=== PATIENT | female | born 1975 | race Caucasian/White ===

== ENCOUNTER 2016-08-30 15:21 | Emergency (ER) | payer OTHER ==
[2016-08-30] MEDS ORDERED: SODIUM CHLORIDE 0.9% 1,000 ML IV STA (16:37)
[2016-08-30 16:57] VITALS: RESP 14
[2016-08-30 17:04] LABS: Basophils % (A) 0 %; CH 26.5; CHCM 32.5; Eosinophils # (A) 0.1 k/uL (0-0.7); Eosinophils % (A) 1 %; HCT 30.1 % (34.0-46.0); HDW 3.22; HGB 9.8 gm/dL (11.4-16.0); Hypochromasia Slight; Luc # (Auto) 0.14; Luc % (Auto) 2; Lymphocytes % (A) 17 %; MCH 26.7 pg (25.0-35.0); MCHC 32.7 g/dL (31.0-37.0); MCV 81.7 fL (80.0-100.0); Mean Platelet Volume 8.8; Monocytes # (A) 0.4 k/uL (0-1.0); Monocytes % (A) 6 %; Neutrophils # (A) 4.3 k/uL (1.3-7.7); Neutrophils % (A) 73 %; RBC 3.68 m/uL (3.80-5.40); RDW 15.8 % (11.5-15.5); WBC 5.9 k/uL (3.8-10.6); WBC (Perox) 5.82
--- NOTE | 2016-08-30 17:13 | ED ---
General Adult HPI - General Chief complaint: Recheck/Abnormal Lab/Rx Stated complaint: Dizzy Time Seen by Provider: 08/30/16 16:36 Source: patient, RN notes reviewed, old records reviewed Mode of arrival: wheelchair Limitations: no limitations - History of Present Illness Initial comments: This is a 41-year-old female the ER for evaluation. Patient reevaluated evaluation of left-sided cramping and weakness. Patient has history of this similar symptoms. Medical history also of all thyroid cancer. Patient states she's had low calcium in the past. Denies appetite been poor at this time. No nausea vomiting diarrhea. No fevers. No new medications. - Related Data Home Medications Medication Instructions Recorded Confirmed Calcitriol 0.25 mcg PO BID 02/17/16 08/30/16 Cholecalciferol (Vitamin D3) 1,000 unit PO DAILY 04/06/16 08/30/16 [Vitamin D] Magnesium Oxide [Magnesium] 500 mg PO HS 04/26/16 08/30/16 LORazepam [Ativan] 1 mg PO Q8H PRN 05/23/16 08/30/16 cloNIDine HCL 0.3 mg PO HS 05/23/16 08/30/16 cloNIDine HCL [Catapres] 0.1 mg PO BID@0800,1200 05/23/16 08/30/16 Cyanocobalamin [Vitamin B-12] 500 mcg PO DAILY 06/05/16 08/30/16 Diphenoxylate HCl/Atropine 1 tab PO Q6H PRN 06/05/16 08/30/16 [Lomotil] Famotidine [Pepcid] 20 mg PO BID 06/05/16 08/30/16 Levothyroxine Sodium [Synthroid] 200 mcg PO DAILY 08/30/16 08/30/16 Previous Rx's Medication Instructions Recorded Hydrocodone/Acetaminophen [[place] 1 each PO Q6HR PRN #15 tab 06/28/16 5-325] Allergies Allergy/AdvReac Type Severity Reaction Status Date / Time methylprednisolone Allergy Rash/Hives Verified 08/30/16 16:43 [From Medrol] ondansetron HCl Allergy Rash/Hives Verified 08/30/16 16:43 [From Zofran (as hydrochloride)] Penicillins Allergy Rash/Hives Verified 08/30/16 16:43 sulfamethoxazole Allergy Rash/Hives Verified 08/30/16 16:43 [From Bactrim] trimethoprim [From Bactrim] Allergy Rash/Hives Verified 08/30/16 16:43 Review of Systems ROS Statement: Those systems with pertinent positive or pertinent negative responses have been documented in the HPI. ROS Other: All systems not noted in ROS Statement are negative. Past Medical History Past Medical History: Cancer, Thyroid Disorder Additional Past Medical History / Comment(s): thyroid CA in the past, low calcium, IBS. Gonorrhea History of Any Multi-Drug Resistant Organisms: None Reported Past Surgical History: Tubal Ligation Additional Past Surgical History / Comment(s): PARA THYROIDECTOMY, THYROIDECTOMY , breast reduction Past Anesthesia/Blood Transfusion Reactions: No Reported Reaction Past Psychological History: Anxiety, Depression, Panic Disorder Smoking Status: Never smoker Past Alcohol Use History: None Reported Additional Past Alcohol Use History / Comment(s): Patient states she is a nonsmoker. She denies any medical marijuana, marijuana, street drug or alcohol use. She is currently from her complaining for divorce. She lives with her 3 children 16, 9 and 4 years of age. Past Drug Use History: None Reported - Past Family History Mother Family Medical History: Myocardial Infarction ([place]) Additional Family Medical History / Comment(s): Mother at age 48 from a myocardial infarction. Father Family Medical History: Myocardial Infarction ([place]) Additional Family Medical History / Comment(s): Father from a myocardial infarction. Brother(s) Additional Family Medical History / Comment(s): Patient has 4 brothers and all have mental health issues with alcoholism and drug addiction. She has 1 brother that at age 38 from a myocardial infarction. Sister(s) Additional Family Medical History / Comment(s): Patient has 6 sisters and one has PFO. Son(s) Additional Family Medical History / Comment(s): Patient has 3 sons. 16-year- old son was born with ureteral duplication, sickle cell trait, bipolar, ADHD. 9 -year-old son has ADHD and sleep disorder. 4-year-old son has no medical problems General Exam Limitations: no limitations General appearance: alert, in no apparent distress Head exam: Present: atraumatic, normocephalic, normal inspection Eye exam: Present: normal appearance, PERRL, EOMI. Absent: scleral icterus, conjunctival injection, periorbital swelling ENT exam: Present: normal exam, mucous membranes moist Neck exam: Present: normal inspection. Absent: tenderness, meningismus, lymphadenopathy Respiratory exam: Present: normal lung sounds bilaterally. Absent: respiratory distress, wheezes, rales, rhonchi, stridor Cardiovascular Exam: Present: regular rate, normal rhythm, normal heart sounds. Absent: systolic murmur, diastolic murmur, rubs, gallop, clicks GI/Abdominal exam: Present: soft, normal bowel sounds. Absent: distended, tenderness, guarding, rebound, rigid Extremities exam: Present: normal inspection, full ROM, normal capillary refill. Absent: tenderness, pedal edema, joint swelling, calf tenderness Back exam: Present: normal inspection Neurological exam: Present: alert, oriented X3, CN II-XII intact Psychiatric exam: Present: normal affect, normal mood Skin exam: Present: warm, dry, intact, normal color. Absent: rash Course Vital Signs 08/30/16 08/30/16 08/30/16 15:26 16:56 17:31 Temperature 97.8 F 97.5 F L Pulse Rate 70 66 58 L Respiratory 20 14 14 Rate Blood Pressure 81/50 83/50 95/53 O2 Sat by Pulse 100 100 98 Oximetry - Reevaluation(s) Reevaluation #1: 08/30/16 17:34 Patient consult regarding follow-up, will increase her calcium intake. EKG Findings - EKG Comments: EKG Findings:: EKG shows normal sinus rhythm at 60, PA 134, QRS 78, QTC 500 Medical Decision Making - Medical Decision Making 41 female ER for evaluation of muscle cramping, patient is having cramping with low calcium, patient can be discharged and increased calcium supplementation - Lab Data Result diagrams: 08/30/16 16:50 08/30/16 16:50 Lab Results 08/30/16 08/30/16 Range/Units 16:50 16:50 WBC 5.9 (3.8-10.6) k/uL RBC 3.68 L (3.80-5.40) m/uL Hgb 9.8 L (11.4-16.0) gm/dL Hct 30.1 L (34.0-46.0) % MCV 81.7 (80.0-100.0) fL MCH 26.7 (25.0-35.0) pg MCHC 32.7 (31.0-37.0) g/dL RDW 15.8 H (11.5-15.5) % Plt Count 281 (150-450) k/uL Neutrophils % 73 % Lymphocytes % 17 % Monocytes % 6 % Eosinophils % 1 % Basophils % 0 % Neutrophils # 4.3 (1.3-7.7) k/uL Lymphocytes # 1.0 (1.0-4.8) k/uL Monocytes # 0.4 (0-1.0) k/uL Eosinophils # 0.1 (0-0.7) k/uL Basophils # 0.0 (0-0.2) k/uL Hypochromasia Slight Sodium 143 (137-145) mmol/L Potassium 4.2 (3.5-5.1) mmol/L Chloride 106 (98-107) mmol/L Carbon Dioxide 28 (22-30) mmol/L Anion Gap 9 mmol/L BUN 19 H (7-17) mg/dL Creatinine 0.90 (0.52-1.04) mg/dL Est GFR (MDRD) Af Amer >60 (>60 ml/min/1.73 sqM) Est GFR (MDRD) Non-Af >60 (>60 ml/min/1.73 sqM) Glucose 104 H (74-99) mg/dL Calcium 8.1 L (8.4-10.2) mg/dL Phosphorus 4.4 (2.5-4.5) mg/dL Magnesium 2.3 (1.6-2.3) mg/dL Total Bilirubin 0.3 (0.2-1.3) mg/dL AST 14 (14-36) U/L ALT 28 (9-52) U/L Alkaline Phosphatase 81 (38-126) U/L Total Protein 6.2 L (6.3-8.2) g/dL Albumin 3.7 (3.5-5.0) g/dL Disposition Clinical Impression: Hypocalcemia Disposition: HOME SELF-CARE Condition: Good Instructions: Hypocalcemia (ED) Referrals: Lisa Wray MD [Primary Care Provider] - 1-2 days
[2016-08-30 17:14] LABS: ALT 28 U/L (9-52); AST 14 U/L (14-36); Alkaline Phosphatase 81 U/L (38-126); Anion Gap 9 mmol/L; Blood Urea Nitrogen 19 mg/dL (7-17); Calcium 8.1 mg/dL (8.4-10.2); Carbon Dioxide 28 mmol/L (22-30); Chloride 106 mmol/L (98-107); Glucose 104 mg/dL (74-99); Magnesium 2.3 mg/dL (1.6-2.3); Non-African American GFR(MDRD) >60 (>60 ml/min/1.73 sqM); Phosphorous 4.4 mg/dL (2.5-4.5); Potassium 4.2 mmol/L (3.5-5.1); Sodium 143 mmol/L (137-145); Total Bilirubin 0.3 mg/dL (0.2-1.3); Total Protein 6.2 g/dL (6.3-8.2)
[2016-08-30] MEDS ORDERED: CALCIUM CHLORIDE 100 MG/ML 10 ML SYRINGE IVP STA (17:31)
[2016-08-30] MEDS ORDERED: KETOROLAC 30 MG/ML 1 ML VIAL IVP STA (17:31)
[2016-08-30] MEDS ORDERED: CALCIUM CARB-VIT D 500MG-200UN 1 EACH TAB PO STA (17:33)
[2016-08-30 17:50] VITALS: BP 106/58; PULSE 60; TEMP 97.4
== END 2016-08-30 18:08 | disposition home or self-care (01) ==
LOC: EC 15:21
DX: E83.51 Hypocalcemia (principal); Z79.899 Other long term (current) drug therapy; E07.9 Disorder of thyroid, unspecified; Z88.0 Allergy status to penicillin; Z88.2 Allergy status to sulfonamides; Z88.8 Allergy status to other drugs, medicaments and biological substances; Z85.850 Personal history of malignant neoplasm of thyroid
CPT/HCPCS: 36415; 80053; 83735; 84100; 85025; 96374; 96375; 96361; 99284; J1885; 93005

== ENCOUNTER 2016-10-17 12:43 | Emergency (ER) | payer OTHER ==
[2016-10-17 13:02] VITALS: BP 149/89; PULSE 86; RESP 18; TEMP 97.5
[2016-10-17 14:42] LABS: Appearance,Urine Cloudy (Clear); Bilirubin,Urine Negative (Negative); Glucose,Urine (UA) Negative (Negative); Ketones,Urine Negative (Negative); Leukocyte Esterase,Urine Small (Negative); Mucus,Urine Rare /hpf; Nitrite,Urine Negative (Negative); Particle Count 3163; Protein,Urine Trace (Negative); RBC,Urine 2 /hpf (0-5); Specific Gravity,Urine 1.025 (1.001-1.035); Squamous Epithelial Cell,Urine 10 /hpf (0-4); UA Billing (MACRO vs. MICRO) MICRO; Urobilinogen,Urine <2.0 mg/dL (<2.0); WBC,Urine 2 /hpf (0-5)
[2016-10-17] MEDS ORDERED: AZITHROMYCIN 500 MG TAB PO STA (14:44)
[2016-10-17] MEDS ORDERED: metroNIDAZOLE 500 MG TAB PO STA (14:45)
[2016-10-17] MEDS ORDERED: cefTRIAXone 250 MG VIAL IM STA (14:46)
--- NOTE | 2016-10-17 14:48 | ED ---
Female Urogenital HPI - General Chief complaint: Urogenital Stated complaint: Female Source: patient, RN notes reviewed, old records reviewed Mode of arrival: ambulatory Limitations: no limitations - History of Present Illness Initial comments: Patient is 41-year-old [employer] chief complaint of vaginal itching and burning sensation for the past 3 days. Patient reports that she is concerned of sexual transmitted infection and trichomonas is that she's had treatment before had similar symptoms. She denies any significant vaginal discharge. She reports she sat some lower pelvic pain denies any specific abdominal pain. Patient denies any fever or chills. She denies any nausea or vomiting. Patient reports that she had a normal Pap smear and was checked by her primary care physician last week and had no symptoms. That she had sexual intercourse and then 3 days later she started to have the symptoms. She also reports that she' s been using a different type of soap which could be causing some irritation as well. Patient denies any other areas of rash or erythema Last Menstrual Period: 09/27/16 - Related Data Home Medications Medication Instructions Recorded Confirmed Calcitriol 0.25 mcg PO BID 02/17/16 10/17/16 Cholecalciferol (Vitamin D3) 1,000 unit PO DAILY 04/06/16 10/17/16 [Vitamin D] Magnesium Oxide [Magnesium] 500 mg PO HS 04/26/16 10/17/16 LORazepam [Ativan] 1 mg PO Q8H PRN 05/23/16 10/17/16 cloNIDine HCL 0.3 mg PO HS 05/23/16 10/17/16 cloNIDine HCL [Catapres] 0.1 mg PO BID@0800,1200 05/23/16 10/17/16 Cyanocobalamin [Vitamin B-12] 500 mcg PO DAILY 06/05/16 10/17/16 Diphenoxylate HCl/Atropine 1 tab PO Q6H PRN 06/05/16 10/17/16 [Lomotil] Famotidine [Pepcid] 20 mg PO BID 06/05/16 10/17/16 Levothyroxine Sodium [Synthroid] 200 mcg PO DAILY 08/30/16 10/17/16 Previous Rx's Medication Instructions Recorded Hydrocodone/Acetaminophen [[place] 1 each PO Q6HR PRN #15 tab 06/28/16 5-325] Allergies Allergy/AdvReac Type Severity Reaction Status Date / Time methylprednisolone Allergy Rash/Hives Verified 10/17/16 13:00 [From Medrol] ondansetron HCl Allergy Rash/Hives Verified 10/17/16 13:00 [From Zofran (as hydrochloride)] Penicillins Allergy Rash/Hives Verified 10/17/16 13:00 sulfamethoxazole Allergy Rash/Hives Verified 10/17/16 13:00 [From Bactrim] trimethoprim [From Bactrim] Allergy Rash/Hives Verified 10/17/16 13:00 Review of Systems ROS Statement: Those systems with pertinent positive or pertinent negative responses have been documented in the HPI. ROS Other: All systems not noted in ROS Statement are negative. Past Medical History Past Medical History: Cancer, Thyroid Disorder Additional Past Medical History / Comment(s): thyroid CA in the past, low calcium, IBS. Gonorrhea History of Any Multi-Drug Resistant Organisms: None Reported Past Surgical History: Tubal Ligation Additional Past Surgical History / Comment(s): PARA THYROIDECTOMY, THYROIDECTOMY , breast reduction Past Anesthesia/Blood Transfusion Reactions: No Reported Reaction Past Psychological History: Anxiety, Depression, Panic Disorder Smoking Status: Never smoker Past Alcohol Use History: None Reported Additional Past Alcohol Use History / Comment(s): Patient states she is a nonsmoker. She denies any medical marijuana, marijuana, street drug or alcohol use. She is currently from her complaining for divorce. She lives with her 3 children 16, 9 and 4 years of age. Past Drug Use History: None Reported - Past Family History Mother Family Medical History: Myocardial Infarction ([place]) Additional Family Medical History / Comment(s): Mother at age 48 from a myocardial infarction. Father Family Medical History: Myocardial Infarction ([place]) Additional Family Medical History / Comment(s): Father from a myocardial infarction. Brother(s) Additional Family Medical History / Comment(s): Patient has 4 brothers and all have mental health issues with alcoholism and drug addiction. She has 1 brother that at age 38 from a myocardial infarction. Sister(s) Additional Family Medical History / Comment(s): Patient has 6 sisters and one has PFO. Son(s) Additional Family Medical History / Comment(s): Patient has 3 sons. 16-year- old son was born with ureteral duplication, sickle cell trait, bipolar, ADHD. 9 -year-old son has ADHD and sleep disorder. 4-year-old son has no medical problems General Exam - General Exam Comments Initial Comments: Pleasant 41-year-old female. No distress. Limitations: no limitations General appearance: alert, in no apparent distress Head exam: Present: atraumatic, normocephalic, normal inspection Eye exam: Present: normal appearance, PERRL, EOMI. Absent: scleral icterus, conjunctival injection, periorbital swelling ENT exam: Present: normal exam, mucous membranes moist Neck exam: Present: normal inspection. Absent: tenderness, meningismus, lymphadenopathy Respiratory exam: Present: normal lung sounds bilaterally. Absent: respiratory distress, wheezes, rales, rhonchi, stridor Cardiovascular Exam: Present: regular rate, normal rhythm, normal heart sounds. Absent: systolic murmur, diastolic murmur, rubs, gallop, clicks GI/Abdominal exam: Present: soft, normal bowel sounds. Absent: distended, tenderness, guarding, rebound, rigid Speculum exam: Present: erythema, cervical discharge. Absent: normal speculum exam Extremities exam: Present: normal inspection, full ROM, normal capillary refill. Absent: tenderness, pedal edema, joint swelling, calf tenderness Back exam: Present: normal inspection Neurological exam: Present: alert, oriented X3, CN II-XII intact Psychiatric exam: Present: normal affect, normal mood Skin exam: Present: warm, dry, intact, normal color. Absent: rash Course Vital Signs 10/17/16 13:00 Temperature 97.5 F L Pulse Rate 86 Respiratory 18 Rate Blood Pressure 149/89 O2 Sat by Pulse 100 Oximetry Medical Decision Making - Medical Decision Making 41-year-old female 3 days of vaginal redness burning and discharge. Patient doesn't have significant discharge at this time there is mild white discharge. Patient is concerned for sexually transmitted infection. She'll be treated with azithromycin, Rocephin and Flagyl. Patient will be discharged at this time instructed to follow-up with her primary care provider. I also discussed discontinuing wearing using the new soap that she could have a contact dermatitis as well. Patient agrees with treatment plan will comply. Return parameters were discussed. - Lab Data Lab Results 10/17/16 10/17/16 10/17/16 Range/Units 14:30 14:30 14:49 Urine Color Yellow Urine Appearance Cloudy H (Clear) Urine pH 6.0 (5.0-8.0) Ur Specific [place] 1.025 (1.001-1.035) Urine Protein Trace H (Negative) Urine Glucose (UA) Negative (Negative) Urine Ketones Negative (Negative) Urine Blood Negative (Negative) Urine Nitrite Negative (Negative) Urine Bilirubin Negative (Negative) Urine Urobilinogen <2.0 (<2.0) mg/dL Ur Leukocyte Esterase Small H (Negative) Urine RBC 2 (0-5) /hpf Urine WBC 2 (0-5) /hpf Ur Squamous Epith Cells 10 H (0-4) /hpf Urine Mucus Rare H (None) /hpf Urine HCG, Qual Not Detected (Not Detectd) Trichomonas Ag (Rapid) Negative (Negative) Disposition Clinical Impression: Risk for sexually transmitted disease, Vaginal irritation Disposition: HOME SELF-CARE Condition: Good Instructions: Sexually Transmitted Diseases (ED) Additional Instructions: Patient advised to avoid using cleansing soap in the area. Follow-up with primary care provider symptoms EC if persists after the next 2 or 3 days. Return to the emergency department if any alarming signs or symptoms occur. Referrals: Lisa Wray MD [Primary Care Provider] - 1-2 days Time of Disposition: 15:22
[2016-10-18 11:30] LABS: Chlamydia/GC Source Vaginal
== END 2016-10-17 15:39 | disposition home or self-care (01) ==
LOC: EC 12:43
DX: N89.8 Other specified noninflammatory disorders of vagina (principal); E07.9 Disorder of thyroid, unspecified; K58.9 Irritable bowel syndrome, unspecified; Z85.850 Personal history of malignant neoplasm of thyroid; F32.9 Major depressive disorder, single episode, unspecified; F41.9 Anxiety disorder, unspecified; F41.0 Panic disorder [episodic paroxysmal anxiety]; Z79.899 Other long term (current) drug therapy; Z88.0 Allergy status to penicillin; Z88.2 Allergy status to sulfonamides; Z88.8 Allergy status to other drugs, medicaments and biological substances
CPT/HCPCS: 87591; 87491; 81001; 81025; 87808; 87070; 99284; 96372; J0696; 87205

== ENCOUNTER 2016-11-01 17:35 | Emergency (ER) | payer OTHER ==
[2016-11-01 17:46] VITALS: BP 127/83; PULSE 83; RESP 16; TEMP 98.1
--- NOTE | 2016-11-01 18:02 | ED ---
ENT HPI - General Chief complaint: Dental/Oral Stated complaint: DENTAL PAIN Time Seen by Provider: 11/01/16 17:53 Source: patient, RN notes reviewed Mode of arrival: ambulatory Limitations: no limitations - History of Present Illness Initial comments: Patient is a 41-year-old female presents to the emergency room for evaluation of dental pain. Patient states that her left bottom wisdom tooth has been growing in. Patient states a piece of tooth is broken off and has been causing her significant amount of pain. Patient states she has not followed up with a dentist yet. Patient states that she is afraid the tooth is getting infected. Patient denies fevers or chills. Patient states she has a headache from the pain. Patient denies any trouble swallowing. Patient denies neck pain. Patient denies any other symptoms or complaints. - Related Data Home Medications Medication Instructions Recorded Confirmed Calcitriol 0.25 mcg PO BID 02/17/16 10/17/16 Cholecalciferol (Vitamin D3) 1,000 unit PO DAILY 04/06/16 10/17/16 [Vitamin D] Magnesium Oxide [Magnesium] 500 mg PO HS 04/26/16 10/17/16 LORazepam [Ativan] 1 mg PO Q8H PRN 05/23/16 10/17/16 cloNIDine HCL 0.3 mg PO HS 05/23/16 10/17/16 cloNIDine HCL [Catapres] 0.1 mg PO BID@0800,1200 05/23/16 10/17/16 Cyanocobalamin [Vitamin B-12] 500 mcg PO DAILY 06/05/16 10/17/16 Diphenoxylate HCl/Atropine 1 tab PO Q6H PRN 06/05/16 10/17/16 [Lomotil] Famotidine [Pepcid] 20 mg PO BID 06/05/16 10/17/16 Levothyroxine Sodium [Synthroid] 200 mcg PO DAILY 08/30/16 10/17/16 Previous Rx's Medication Instructions Recorded Hydrocodone/Acetaminophen [[place] 1 each PO Q6HR PRN #15 tab 06/28/16 5-325] Clindamycin [Cleocin] 300 mg PO Q6H #40 capsule 11/01/16 Allergies Allergy/AdvReac Type Severity Reaction Status Date / Time methylprednisolone Allergy Rash/Hives Verified 11/01/16 17:46 [From Medrol] ondansetron HCl Allergy Rash/Hives Verified 11/01/16 17:46 [From Zofran (as hydrochloride)] Penicillins Allergy Rash/Hives Verified 11/01/16 17:46 sulfamethoxazole Allergy Rash/Hives Verified 11/01/16 17:46 [From Bactrim] trimethoprim [From Bactrim] Allergy Rash/Hives Verified 11/01/16 17:46 Review of Systems ROS Statement: Those systems with pertinent positive or pertinent negative responses have been documented in the HPI. ROS Other: All systems not noted in ROS Statement are negative. Past Medical History Past Medical History: Cancer, Thyroid Disorder Additional Past Medical History / Comment(s): thyroid CA in the past, low calcium, IBS. Gonorrhea History of Any Multi-Drug Resistant Organisms: None Reported Past Surgical History: Tubal Ligation Additional Past Surgical History / Comment(s): PARA THYROIDECTOMY, THYROIDECTOMY , breast reduction Past Anesthesia/Blood Transfusion Reactions: No Reported Reaction Past Psychological History: Anxiety, Depression, Panic Disorder Smoking Status: Never smoker Past Alcohol Use History: None Reported Additional Past Alcohol Use History / Comment(s): Patient states she is a nonsmoker. She denies any medical marijuana, marijuana, street drug or alcohol use. She is currently from her complaining for divorce. She lives with her 3 children 16, 9 and 4 years of age. Past Drug Use History: None Reported - Past Family History Mother Family Medical History: Myocardial Infarction ([place]) Additional Family Medical History / Comment(s): Mother at age 48 from a myocardial infarction. Father Family Medical History: Myocardial Infarction ([place]) Additional Family Medical History / Comment(s): Father from a myocardial infarction. Brother(s) Additional Family Medical History / Comment(s): Patient has 4 brothers and all have mental health issues with alcoholism and drug addiction. She has 1 brother that at age 38 from a myocardial infarction. Sister(s) Additional Family Medical History / Comment(s): Patient has 6 sisters and one has PFO. Son(s) Additional Family Medical History / Comment(s): Patient has 3 sons. 16-year- old son was born with ureteral duplication, sickle cell trait, bipolar, ADHD. 9 -year-old son has ADHD and sleep disorder. 4-year-old son has no medical problems General Exam - General Exam Comments Initial Comments: Sitting in exam room, no acute distress. Limitations: no limitations General appearance: alert, in no apparent distress Head exam: Present: atraumatic, normocephalic, normal inspection Eye exam: Present: normal appearance Expanded Mouth exam: Present: normal external inspection Teeth exam: Present: fractured tooth # (17), dental tenderness # (17) Throat exam: normal inspection Neck exam: Present: normal inspection, full ROM. Absent: tenderness, lymphadenopathy Respiratory exam: Absent: respiratory distress Extremities exam: Present: normal inspection Back exam: Present: normal inspection Neurological exam: Present: alert, oriented X3, CN II-XII intact, normal gait Psychiatric exam: Present: normal affect, normal mood Skin exam: Present: warm, dry, intact, normal color. Absent: rash Course Vital Signs 11/01/16 17:44 Temperature 98.1 F Pulse Rate 83 Respiratory 16 Rate Blood Pressure 127/83 O2 Sat by Pulse 96 Oximetry Medical Decision Making - Medical Decision Making Patient 41-year-old female presents to the emergency room for evaluation of dental pain. Patient has a fractured tooth #17. No drainage or gum swelling noted. Will place patient on antibiotics prophylactically and have her follow- up with a dentist. Patient has tramadol at home for pain. Patient states she understands everything that was discussed with her. Return parameters discussed. Disposition Clinical Impression: Pain, dental Disposition: HOME SELF-CARE Condition: Good Instructions: Toothache (ED) Additional Instructions: Please follow up with a dentist. If you do not have a dentist, you may contact [facility]. Phone number is [phone] for existing clients. For new clients you may call [phone]. Another option is you have is the [employer] [facility]. Phone number is [phone]. Medications as directed. [place] gargles. Cold fluids can sometimes help with pain as well. Return to the Emergency Room for any worsening or changing symptoms. Use cold compresses to the outside of the face. Prescriptions: Clindamycin [Cleocin] 300 mg PO Q6H #40 capsule Referrals: Lisa Wray MD [Primary Care Provider] - 1-2 days Time of Disposition: 18:01
== END 2016-11-01 18:09 | disposition home or self-care (01) ==
LOC: EC 17:35
DX: S02.5XXA Fracture of tooth (traumatic), initial encounter for closed fracture (principal); E89.0 Postprocedural hypothyroidism; Z79.899 Other long term (current) drug therapy; Z88.0 Allergy status to penicillin; Z88.1 Allergy status to other antibiotic agents; Z88.8 Allergy status to other drugs, medicaments and biological substances; Z85.850 Personal history of malignant neoplasm of thyroid; Z87.19 Personal history of other diseases of the digestive system; X58.XXXA Exposure to other specified factors, initial encounter
CPT/HCPCS: 99282

== ENCOUNTER 2016-11-11 13:07 | Emergency (ER) | payer OTHER ==
[2016-11-11] MEDS ORDERED: METOCLOPRAMIDE 5 MG/ML 2 ML VIAL IVP STA (13:11)
[2016-11-11] MEDS ORDERED: diphenhydrAMINE 50 MG/ML 1 ML VIAL IVP STA (13:11)
[2016-11-11 13:13] VITALS: RESP 18
--- NOTE | 2016-11-11 13:27 | ED ---
General Adult HPI - General Chief complaint: Nausea/Vomiting/Diarrhea Stated complaint: NAUSEA Time Seen by Provider: 11/11/16 13:14 Source: patient, EMS, RN notes reviewed, old records reviewed Mode of arrival: EMS - History of Present Illness Initial comments: Chief complaint history of present illness a 41-year-old female currently being treated with Flagyl for Trichomonas. Patient reports for the past 2 days she's had nausea vomiting and diarrhea. Also history of irritable bowel syndrome. Patient denies any fevers. - Related Data Home Medications Medication Instructions Recorded Confirmed Calcitriol 0.25 mcg PO BID 02/17/16 11/11/16 Cholecalciferol (Vitamin D3) 1,000 unit PO DAILY 04/06/16 11/11/16 [Vitamin D] Magnesium Oxide [Magnesium] 500 mg PO HS 04/26/16 11/11/16 LORazepam [Ativan] 1 mg PO Q8H PRN 05/23/16 11/11/16 cloNIDine HCL 0.3 mg PO HS 05/23/16 11/11/16 cloNIDine HCL [Catapres] 0.1 mg PO BID@0800,1200 05/23/16 11/11/16 Cyanocobalamin [Vitamin B-12] 500 mcg PO DAILY 06/05/16 11/11/16 Diphenoxylate HCl/Atropine 1 tab PO Q6H PRN 06/05/16 11/11/16 [Lomotil] Famotidine [Pepcid] 20 mg PO BID 06/05/16 11/11/16 Levothyroxine Sodium [Synthroid] 200 mcg PO DAILY 08/30/16 11/11/16 Previous Rx's Medication Instructions Recorded Clindamycin [Cleocin] 300 mg PO Q6H #40 capsule 11/01/16 Promethazine Suppository 25 mg RECTAL BID #6 supp 11/11/16 [Phenergan] Allergies Allergy/AdvReac Type Severity Reaction Status Date / Time methylprednisolone Allergy Rash/Hives Verified 11/11/16 13:23 [From Medrol] ondansetron HCl Allergy Rash/Hives Verified 11/11/16 13:23 [From Zofran (as hydrochloride)] Penicillins Allergy Rash/Hives Verified 11/11/16 13:23 sulfamethoxazole Allergy Rash/Hives Verified 11/11/16 13:23 [From Bactrim] trimethoprim [From Bactrim] Allergy Rash/Hives Verified 11/11/16 13:23 Review of Systems ROS Statement: Those systems with pertinent positive or pertinent negative responses have been documented in the HPI. Review of systems. No headache or visual acuity changes no sore throat. No chest pain or shortness of breath. She has chronic abdominal discomfort due to her IBS. She vomited 10 times last night and has had multiple diarrheas which is not uncommon. But no neuro deficits. All systems are reviewed. Past medical problems significant for irritable bowel syndrome, thyroid cancer, she also had a history of hypocalcemia because parathyroid glands removed at the same time. Patient denies any other medical problems. Family history patient was adopted she does know that her mother I at age 49 with heart disease. Patient has ALLERGIES to methylprednisolone, Zofran, penicillin and sulfa. Patient denies smoking denies drinking. ROS Other: All systems not noted in ROS Statement are negative. Past Medical History Past Medical History: Cancer, Thyroid Disorder Additional Past Medical History / Comment(s): thyroid CA in the past, low calcium, IBS. Gonorrhea, Trichomoniasis History of Any Multi-Drug Resistant Organisms: None Reported Past Surgical History: Tubal Ligation Additional Past Surgical History / Comment(s): PARA THYROIDECTOMY, THYROIDECTOMY , breast reduction Past Anesthesia/Blood Transfusion Reactions: No Reported Reaction Past Psychological History: Anxiety, Depression, Panic Disorder Smoking Status: Never smoker Past Alcohol Use History: None Reported Additional Past Alcohol Use History / Comment(s): Patient states she is a nonsmoker. She denies any medical marijuana, marijuana, street drug or alcohol use. She is currently from her complaining for divorce. She lives with her 3 children 16, 9 and 4 years of age. Past Drug Use History: None Reported - Past Family History Mother Family Medical History: Myocardial Infarction ([place]) Additional Family Medical History / Comment(s): Mother at age 48 from a myocardial infarction. Father Family Medical History: Myocardial Infarction ([place]) Additional Family Medical History / Comment(s): Father from a myocardial infarction. Brother(s) Additional Family Medical History / Comment(s): Patient has 4 brothers and all have mental health issues with alcoholism and drug addiction. She has 1 brother that at age 38 from a myocardial infarction. Sister(s) Additional Family Medical History / Comment(s): Patient has 6 sisters and one has PFO. Son(s) Additional Family Medical History / Comment(s): Patient has 3 sons. 16-year- old son was born with ureteral duplication, sickle cell trait, bipolar, ADHD. 9 -year-old son has ADHD and sleep disorder. 4-year-old son has no medical problems General Exam - General Exam Comments Initial Comments: General: The patient is awake and alert, complaining of 2 days of nausea vomiting diarrhea. Vital signs show some is 97.1 pulse 86 respiratory rate 18 pulse ox on percent room air blood pressure 139/66 Eye: Pupils are equal, round and reactive to light, extra-ocular movements are intact ; there is normal conjunctiva bilaterally. No signs of icterus. Ears, nose, mouth and throat: There are moist mucous membranes and no oral lesions. Negative Ch[place]ek sign. Neck: The neck is supple, there is no tenderness , no JVD, no anterior cervical lymphadenopathy, well-healed thyroidectomy surgical scar. Cardiovascular: There is a regular rate and rhythm. No murmur, rub or gallop is appreciated. Respiratory: Lungs are clear to auscultation, respirations are non-labored, breath sounds are equal. No wheezes, stridor, rales, or rhonchi. Gastrointestinal: Soft, non-distended, non-tender abdomen without masses or organomegaly noted. There is no rebound or guarding present. No CVA tenderness. Active bowel sounds Back: No back pain. Musculoskeletal: Normal ROM, no tenderness, There is no pedal edema. There is no calf tenderness or swelling. Sensation intact. Neurological: No neuro deficits. Denies any weakness. Skin: Skin is warm and dry and no rashes or lesions are noted. Course Vital Signs 11/11/16 11/11/16 13:08 14:54 Temperature 97.1 F L 98.8 F Pulse Rate 86 73 Respiratory 18 18 Rate Blood Pressure 139/66 116/60 O2 Sat by Pulse 100 100 Oximetry EKG Findings - EKG Comments: EKG Findings:: EKG was done and reviewed at 1326 showing normal sinus with a prolonged QT. Otherwise no acute ST elevation no ectopy or ischemic changes. Rate 76, RI interval was 144 QRS 88 QT [address] Crystal Medical Decision Making - Medical Decision Making Medical decision making patient's white count 5.3 hemoglobin 9.9 hematocrit 31.7, potassium 3.8, BUN 12 creatinine 0.6 GFR greater than 60, glucose 105, calcium low at 8.3 but a normal magnesium 2.0. Lipase 70, and urine clean no signs of infection. Patient was hydrated slept. She received IV calcium gluconate. States she feels much better. I suggested that the patient be admitted for continued hydration with rechecking of the calcium which she declines to do it this time. She reports she often has low calcium. She takes calcium tablets and vitamin D at home. She states that she can swallow the pills she can manage this at home. At this time the patient will be advised to rehydrate herself she 'll be placed on Reglan suppositories advised to follow-up with her family physician return emergency room as needed. - Lab Data Result diagrams: 11/11/16 13:20 11/11/16 13:20 Lab Results 11/11/16 11/11/16 11/11/16 Range/Units 13:20 13:20 13:20 WBC 5.3 (3.8-10.6) k/uL RBC 3.72 L (3.80-5.40) m/uL Hgb 9.9 L (11.4-16.0) gm/dL Hct 31.7 L (34.0-46.0) % MCV 85.1 (80.0-100.0) fL MCH 26.6 (25.0-35.0) pg MCHC 31.3 (31.0-37.0) g/dL RDW 15.5 (11.5-15.5) % Plt Count 263 (150-450) k/uL Neutrophils % 78 % Lymphocytes % 11 % Monocytes % 8 % Eosinophils % 1 % Basophils % 1 % Neutrophils # 4.1 (1.3-7.7) k/uL Lymphocytes # 0.6 L (1.0-4.8) k/uL Monocytes # 0.4 (0-1.0) k/uL Eosinophils # 0.0 (0-0.7) k/uL Basophils # 0.0 (0-0.2) k/uL Hypochromasia Moderate Poikilocytosis Slight Sodium 143 (137-145) mmol/L Potassium 3.8 (3.5-5.1) mmol/L Chloride 109 H (98-107) mmol/L Carbon Dioxide 23 (22-30) mmol/L Anion Gap 11 mmol/L BUN 12 (7-17) mg/dL Creatinine 0.60 (0.52-1.04) mg/dL Est GFR (MDRD) Af Amer >60 (>60 ml/min/1.73 sqM) Est GFR (MDRD) Non-Af >60 (>60 ml/min/1.73 sqM) Glucose 105 H (74-99) mg/dL Calcium 8.3 L (8.4-10.2) mg/dL Magnesium 2.0 (1.6-2.3) mg/dL Total Bilirubin 0.5 (0.2-1.3) mg/dL AST 15 (14-36) U/L ALT 24 (9-52) U/L Alkaline Phosphatase 95 (38-126) U/L Total Protein 6.5 (6.3-8.2) g/dL Albumin 4.0 (3.5-5.0) g/dL Lipase 70 (23-300) U/L Urine Color Urine Appearance (Clear) Urine pH (5.0-8.0) Ur Specific [place] (1.001-1.035) Urine Protein (Negative) Urine Glucose (UA) (Negative) Urine Ketones (Negative) Urine Blood (Negative) Urine Nitrite (Negative) Urine Bilirubin (Negative) Urine Urobilinogen (<2.0) mg/dL Ur Leukocyte Esterase (Negative) Urine WBC (0-5) /hpf Ur Squamous Epith Cells (0-4) /hpf Amorphous Sediment (None) /hpf Urine Bacteria (None) /hpf Urine Mucus (None) /hpf 11/11/16 Range/Units 13:34 WBC (3.8-10.6) k/uL RBC (3.80-5.40) m/uL Hgb (11.4-16.0) gm/dL Hct (34.0-46.0) % MCV (80.0-100.0) fL MCH (25.0-35.0) pg MCHC (31.0-37.0) g/dL RDW (11.5-15.5) % Plt Count (150-450) k/uL Neutrophils % % Lymphocytes % % Monocytes % % Eosinophils % % Basophils % % Neutrophils # (1.3-7.7) k/uL Lymphocytes # (1.0-4.8) k/uL Monocytes # (0-1.0) k/uL Eosinophils # (0-0.7) k/uL Basophils # (0-0.2) k/uL Hypochromasia Poikilocytosis Sodium (137-145) mmol/L Potassium (3.5-5.1) mmol/L Chloride (98-107) mmol/L Carbon Dioxide (22-30) mmol/L Anion Gap mmol/L BUN (7-17) mg/dL Creatinine (0.52-1.04) mg/dL Est GFR (MDRD) Af Amer (>60 ml/min/1.73 sqM) Est GFR (MDRD) Non-Af (>60 ml/min/1.73 sqM) Glucose (74-99) mg/dL Calcium (8.4-10.2) mg/dL Magnesium (1.6-2.3) mg/dL Total Bilirubin (0.2-1.3) mg/dL AST (14-36) U/L ALT (9-52) U/L Alkaline Phosphatase (38-126) U/L Total Protein (6.3-8.2) g/dL Albumin (3.5-5.0) g/dL Lipase (23-300) U/L Urine Color Yellow Urine Appearance Cloudy H (Clear) Urine pH 7.5 (5.0-8.0) Ur Specific [place] 1.016 (1.001-1.035) Urine Protein Trace H (Negative) Urine Glucose (UA) Negative (Negative) Urine Ketones Negative (Negative) Urine Blood Negative (Negative) Urine Nitrite Negative (Negative) Urine Bilirubin Negative (Negative) Urine Urobilinogen <2.0 (<2.0) mg/dL Ur Leukocyte Esterase Moderate H (Negative) Urine WBC 5 (0-5) /hpf Ur Squamous Epith Cells 51 H (0-4) /hpf Amorphous Sediment Occasional H (None) /hpf Urine Bacteria Rare H (None) /hpf Urine Mucus Rare H (None) /hpf Disposition Clinical Impression: Nausea vomiting and diarrhea, Hypocalcemia Disposition: HOME SELF-CARE Condition: Good Instructions: Acute Nausea and Vomiting (ED), Hypocalcemia (ED) Additional Instructions: Increase fluids, use suppository to control nausea vomiting take medications. Return emergency room if he had difficulty certainly follow-up with family physician. Prescriptions: Promethazine Suppository [Phenergan] 25 mg RECTAL BID #6 supp Time of Disposition: 16:36
[2016-11-11 13:43] LABS: ALT 24 U/L (9-52); AST 15 U/L (14-36); Alkaline Phosphatase 95 U/L (38-126); Anion Gap 11 mmol/L; Blood Urea Nitrogen 12 mg/dL (7-17); Calcium 8.3 mg/dL (8.4-10.2); Carbon Dioxide 23 mmol/L (22-30); Chloride 109 mmol/L (98-107); Glucose 105 mg/dL (74-99); Non-African American GFR(MDRD) >60 (>60 ml/min/1.73 sqM); Potassium 3.8 mmol/L (3.5-5.1); Sodium 143 mmol/L (137-145); Total Bilirubin 0.5 mg/dL (0.2-1.3); Total Protein 6.5 g/dL (6.3-8.2)
[2016-11-11 13:57] LABS: Basophils % (A) 1 %; CHCM 31.9; Eosinophils % (A) 1 %; HCT 31.7 % (34.0-46.0); HDW 3.61; HGB 9.9 gm/dL (11.4-16.0); Hypochromasia Moderate; Luc # (Auto) 0.17; Luc % (Auto) 3; Lymphocytes # (A) 0.6 k/uL (1.0-4.8); Lymphocytes % (A) 11 %; MCH 26.6 pg (25.0-35.0); MCHC 31.3 g/dL (31.0-37.0); MCV 85.1 fL (80.0-100.0); Mean Platelet Volume 7.7; Monocytes # (A) 0.4 k/uL (0-1.0); Monocytes % (A) 8 %; Neutrophils # (A) 4.1 k/uL (1.3-7.7); Neutrophils % (A) 78 %; Poikilocytosis Slight; RBC 3.72 m/uL (3.80-5.40); RDW 15.5 % (11.5-15.5); WBC 5.3 k/uL (3.8-10.6); WBC (Perox) 5.68
[2016-11-11 14:24] LABS: Amorphous Sediment,Urine Occasional /hpf; Appearance,Urine Cloudy (Clear); Bacteria,Urine Rare /hpf; Bilirubin,Urine Negative (Negative); Glucose,Urine (UA) Negative (Negative); Ketones,Urine Negative (Negative); Leukocyte Esterase,Urine Moderate (Negative); Mucus,Urine Rare /hpf; Nitrite,Urine Negative (Negative); PH, Urine 7.5 (5.0-8.0); Particle Count 7104; Protein,Urine Trace (Negative); Specific Gravity,Urine 1.016 (1.001-1.035); Squamous Epithelial Cell,Urine 51 /hpf (0-4); UA Billing (MACRO vs. MICRO) MICRO; Urobilinogen,Urine <2.0 mg/dL (<2.0); WBC,Urine 5 /hpf (0-5)
[2016-11-11] MEDS ORDERED: CALCIUM GLUCONATE 1,000 MG in SODIUM CHLORIDE 0.9% 100 ML IVPB ONE (14:30)
[2016-11-11 16:52] VITALS: BP 128/59; PULSE 78; TEMP 98.6
== END 2016-11-11 16:52 | disposition home or self-care (01) ==
LOC: EC 13:07
DX: E83.51 Hypocalcemia (principal); R11.2 Nausea with vomiting, unspecified; R19.7 Diarrhea, unspecified; K58.9 Irritable bowel syndrome, unspecified; F41.0 Panic disorder [episodic paroxysmal anxiety]; F32.9 Major depressive disorder, single episode, unspecified; E07.9 Disorder of thyroid, unspecified; Z79.899 Other long term (current) drug therapy; Z88.0 Allergy status to penicillin; Z88.2 Allergy status to sulfonamides; Z88.8 Allergy status to other drugs, medicaments and biological substances; Z85.850 Personal history of malignant neoplasm of thyroid; E89.2 Postprocedural hypoparathyroidism; E89.0 Postprocedural hypothyroidism
CPT/HCPCS: 36415; 93005; 80053; 83690; 83735; 85025; 81001; 99285; 96365; 96375 ×2; J1200; J2765; J0610

== ENCOUNTER 2017-11-16 13:38 | Emergency (ER) | payer OTHER ==
[2017-11-16 13:49] VITALS: TEMP 98.1
[2017-11-16] MEDS ORDERED: KETOROLAC 30 MG/ML 1 ML VIAL IVP STA (14:08)
[2017-11-16] MEDS ORDERED: SODIUM CHLORIDE 0.9% 1,000 ML IV STA (14:08)
--- NOTE | 2017-11-16 14:13 | ED ---
Abdominal Pain HPI - General Chief Complaint: Abdominal Pain Stated Complaint: Female Time Seen by Provider: 11/16/17 13:59 Source: patient Mode of arrival: ambulatory Limitations: no limitations - History of Present Illness Initial Comments: Patient is a 42-year-old female presenting for vaginal abdominal pain. She states that she had regular periods with her last period occurring 2 weeks ago that she had intercourse 4 days ago and, broke. She is concerned that she is continuing to have vaginal bleeding and some dark red discharge. The abdominal pain is located in the lower abdomen feels crampy as well as itching in the vagina. She is concerned that she may have an STD and also admits to lower back pain and increased urination. She denies any fevers or chills - Related Data Home Medications Medication Instructions Recorded Confirmed Calcitriol 0.25 mcg PO BID 02/17/16 11/11/16 Cholecalciferol (Vitamin D3) 1,000 unit PO DAILY 04/06/16 11/11/16 [Vitamin D] Magnesium Oxide [Magnesium] 500 mg PO HS 04/26/16 11/11/16 LORazepam [Ativan] 1 mg PO Q8H PRN 05/23/16 11/11/16 cloNIDine HCL 0.3 mg PO HS 05/23/16 11/11/16 cloNIDine HCL [Catapres] 0.1 mg PO BID@0800,1200 05/23/16 11/11/16 Cyanocobalamin [Vitamin B-12] 500 mcg PO DAILY 06/05/16 11/11/16 Diphenoxylate HCl/Atropine 1 tab PO Q6H PRN 06/05/16 11/11/16 [Lomotil] Famotidine [Pepcid] 20 mg PO BID 06/05/16 11/11/16 Levothyroxine Sodium [Synthroid] 200 mcg PO DAILY 08/30/16 11/11/16 Previous Rx's Medication Instructions Recorded Clindamycin [Cleocin] 300 mg PO Q6H #40 capsule 11/01/16 Promethazine Suppository 25 mg RECTAL BID #6 supp 11/11/16 [Phenergan] Doxycycline Monohydrate [Monodox] 100 mg PO Q12HR 14 Days #28 cap 11/16/17 Allergies Allergy/AdvReac Type Severity Reaction Status Date / Time methylprednisolone Allergy Rash/Hives Verified 11/16/17 13:48 [From Medrol] ondansetron HCl Allergy Rash/Hives Verified 11/16/17 13:48 [From Zofran (as hydrochloride)] Penicillins Allergy Rash/Hives Verified 11/16/17 13:48 sulfamethoxazole Allergy Rash/Hives Verified 11/16/17 13:48 [From Bactrim] trimethoprim [From Bactrim] Allergy Rash/Hives Verified 11/16/17 13:48 Review of Systems ROS Statement: Those systems with pertinent positive or pertinent negative responses have been documented in the HPI. Constitutional: Negative for chills, fatigue and fever. HENT: Negative for congestion. Respiratory: Negative for chest tightness, shortness of breath and wheezing. Negative for cough Cardiovascular: Negative for chest pain and palpitations. Gastrointestinal: Positive for abdominal pain. Negative for abdominal distention , diarrhea, nausea and vomiting. Genitourinary: Negative for dysuria. Positive for increased urinary frequency Musculoskeletal: Positive for back pain, negative for neck pain and neck stiffness. : Positive for vaginal discharge and abnormal vaginal bleeding Skin: Negative for color change. Neurological: Negative for dizziness, speech difficulty, weakness and light- headedness. Psychiatric/Behavioral: Negative for agitation and confusion. The patient is not nervous/anxious. ROS Other: All systems not noted in ROS Statement are negative. Past Medical History Past Medical History: Cancer, Thyroid Disorder Additional Past Medical History / Comment(s): thyroid CA in the past, low calcium, IBS. Gonorrhea, Trichomoniasis History of Any Multi-Drug Resistant Organisms: None Reported Past Surgical History: Tubal Ligation Additional Past Surgical History / Comment(s): PARA THYROIDECTOMY, THYROIDECTOMY , breast reduction Past Anesthesia/Blood Transfusion Reactions: No Reported Reaction Past Psychological History: Anxiety, Depression, Panic Disorder Smoking Status: Never smoker Past Alcohol Use History: None Reported Past Drug Use History: None Reported - Past Family History Mother Family Medical History: Myocardial Infarction ([place]) Additional Family Medical History / Comment(s): Mother at age 48 from a myocardial infarction. Father Family Medical History: Myocardial Infarction ([place]) Additional Family Medical History / Comment(s): Father from a myocardial infarction. Brother(s) Additional Family Medical History / Comment(s): Patient has 4 brothers and all have mental health issues with alcoholism and drug addiction. She has 1 brother that at age 38 from a myocardial infarction. Sister(s) Additional Family Medical History / Comment(s): Patient has 6 sisters and one has PFO. Son(s) Additional Family Medical History / Comment(s): Patient has 3 sons. 16-year- old son was born with ureteral duplication, sickle cell trait, bipolar, ADHD. 9 -year-old son has ADHD and sleep disorder. 4-year-old son has no medical problems General Exam - General Exam Comments Initial Comments: Constitutional: Pt is oriented to person, place, and time. Pt appears well- developed and well-nourished. No distress. HENT: Head: Normocephalic and atraumatic. Eyes: EOM are normal. Neck: Normal range of motion. Neck supple. Cardiovascular: Tachycardia present, regular rhythm, S1 normal, S2 normal and normal heart sounds. Exam reveals no gallop and no friction rub. No murmur heard. Pulmonary/Chest: Effort normal and breath sounds normal. No tachypnea and no bradypnea. No respiratory distress. No wheezes or rales noted. Abdominal: Soft. Bowel sounds are normal. Pt exhibits no shifting dullness, no distension, no pulsatile liver, no fluid wave, no abdominal bruit and no ascites. There is no tenderness. There is no rigidity, no rebound, no guarding, no tenderness at McBurney's point and negative Sewell's sign. : Dark red blood in the vaginal canal. No evidence of purulent discharge. No adnexal tenderness or foreign bodies noted Musculoskeletal: Normal range of motion. Neurological: Pt is alert and oriented to person, place, and time. No cranial nerve deficit. Skin: Skin is warm and dry. No rash noted. Pt is not diaphoretic. No erythema. No pallor. Psychiatric: Pt has a normal mood and affect. Pt behavior is normal. Thought content normal. Limitations: no limitations Course Vital Signs 11/16/17 13:46 Temperature 98.1 F Pulse Rate 108 H Respiratory 20 Rate Blood Pressure 155/88 O2 Sat by Pulse 98 Oximetry Medical Decision Making - Medical Decision Making Laboratory studies showed that there is no evidence of urinary tract infection and there was anemia but the patient does know about this. Also based on physical exam, there is no evidence of STDs or foreign bodies. There is also no significant tenderness on bimanual exam and therefore it is suspected that this is possibly secondary to dysfunctional uterine bleeding. Nonetheless, the patient was treated empirically for STDs and swabs are obtained. Prior to discharge, the patient was resting in bed comfortably in no acute distress. Explained all labs and diagnostic test results and that we will discharge the patient home and patient is to follow up with PCP in 1-2 days and return to the ED if symptoms worsen. Pt is agreeable to plan. - Lab Data Result diagrams: 11/16/17 14:26 11/16/17 14:26 Lab Results 11/16/17 11/16/17 11/16/17 Range/Units 14:10 14:10 14:26 WBC (3.8-10.6) k/uL RBC (3.80-5.40) m/uL Hgb (11.4-16.0) gm/dL Hct (34.0-46.0) % MCV (80.0-100.0) fL MCH (25.0-35.0) pg MCHC (31.0-37.0) g/dL RDW (11.5-15.5) % Plt Count (150-450) k/uL Neutrophils % % Lymphocytes % % Monocytes % % Eosinophils % % Basophils % % Neutrophils # (1.3-7.7) k/uL Lymphocytes # (1.0-4.8) k/uL Monocytes # (0-1.0) k/uL Eosinophils # (0-0.7) k/uL Basophils # (0-0.2) k/uL Hypochromasia Anisocytosis Microcytosis Sodium 144 (137-145) mmol/L Potassium 4.1 (3.5-5.1) mmol/L Chloride 108 H (98-107) mmol/L Carbon Dioxide 23 (22-30) mmol/L Anion Gap 13 mmol/L BUN 21 H (7-17) mg/dL Creatinine 0.78 (0.52-1.04) mg/dL Est GFR (CKD-EPI)AfAm >90 (>60 ml/min/1.73 sqM) Est GFR (CKD-EPI)NonAf >90 (>60 ml/min/1.73 sqM) Glucose 94 (74-99) mg/dL Calcium 8.5 (8.4-10.2) mg/dL Magnesium 2.1 (1.6-2.3) mg/dL Total Bilirubin 0.2 (0.2-1.3) mg/dL AST 16 (14-36) U/L ALT 22 (9-52) U/L Alkaline Phosphatase 86 (38-126) U/L Total Protein 6.5 (6.3-8.2) g/dL Albumin 4.0 (3.5-5.0) g/dL Amylase 56 (30-110) U/L Urine Color Yellow Urine Appearance Clear (Clear) Urine pH 6.0 (5.0-8.0) Ur Specific [place] 1.021 (1.001-1.035) Urine Protein Trace H (Negative) Urine Glucose (UA) Negative (Negative) Urine Ketones Negative (Negative) Urine Blood Large H (Negative) Urine Nitrite Negative (Negative) Urine Bilirubin Negative (Negative) Urine Urobilinogen <2.0 (<2.0) mg/dL Ur Leukocyte Esterase Negative (Negative) Urine RBC 170 H (0-5) /hpf Ur Squamous Epith Cells 3 (0-4) /hpf Urine Bacteria Rare H (None) /hpf Urine Mucus Rare H (None) /hpf Urine HCG, Qual Not Detected (Not Detectd) Trichomonas Ag (Rapid) (Negative) 11/16/17 11/16/17 Range/Units 14:26 14:45 WBC 6.8 (3.8-10.6) k/uL RBC 3.69 L (3.80-5.40) m/uL Hgb 9.3 L (11.4-16.0) gm/dL Hct 29.8 L (34.0-46.0) % MCV 80.8 (80.0-100.0) fL MCH 25.1 (25.0-35.0) pg MCHC 31.1 (31.0-37.0) g/dL RDW 20.6 H (11.5-15.5) % Plt Count 300 (150-450) k/uL Neutrophils % 76 % Lymphocytes % 16 % Monocytes % 5 % Eosinophils % 1 % Basophils % 0 % Neutrophils # 5.1 (1.3-7.7) k/uL Lymphocytes # 1.1 (1.0-4.8) k/uL Monocytes # 0.4 (0-1.0) k/uL Eosinophils # 0.1 (0-0.7) k/uL Basophils # 0.0 (0-0.2) k/uL Hypochromasia Moderate Anisocytosis Moderate Microcytosis Slight Sodium (137-145) mmol/L Potassium (3.5-5.1) mmol/L Chloride (98-107) mmol/L Carbon Dioxide (22-30) mmol/L Anion Gap mmol/L BUN (7-17) mg/dL Creatinine (0.52-1.04) mg/dL Est GFR (CKD-EPI)AfAm (>60 ml/min/1.73 sqM) Est GFR (CKD-EPI)NonAf (>60 ml/min/1.73 sqM) Glucose (74-99) mg/dL Calcium (8.4-10.2) mg/dL Magnesium (1.6-2.3) mg/dL Total Bilirubin (0.2-1.3) mg/dL AST (14-36) U/L ALT (9-52) U/L Alkaline Phosphatase (38-126) U/L Total Protein (6.3-8.2) g/dL Albumin (3.5-5.0) g/dL Amylase (30-110) U/L Urine Color Urine Appearance (Clear) Urine pH (5.0-8.0) Ur Specific [place] (1.001-1.035) Urine Protein (Negative) Urine Glucose (UA) (Negative) Urine Ketones (Negative) Urine Blood (Negative) Urine Nitrite (Negative) Urine Bilirubin (Negative) Urine Urobilinogen (<2.0) mg/dL Ur Leukocyte Esterase (Negative) Urine RBC (0-5) /hpf Ur Squamous Epith Cells (0-4) /hpf Urine Bacteria (None) /hpf Urine Mucus (None) /hpf Urine HCG, Qual (Not Detectd) Trichomonas Ag (Rapid) Negative (Negative) Disposition Clinical Impression: Abdominal pain, Dysfunctional uterine bleeding Disposition: HOME SELF-CARE Condition: Good Instructions: Dysmenorrhea (ED), Abdominal Pain (ED) Prescriptions: Doxycycline Monohydrate [Monodox] 100 mg PO Q12HR 14 Days #28 cap Is patient prescribed a controlled substance at d/c from ED?: No Referrals: Lisa Wray MD [Primary Care Provider] - 1-2 days Barb Davalos DO [Doctor of Osteopathic Medicine] - 1-2 days Time of Disposition: 16:00
[2017-11-16 14:28] LABS: Appearance,Urine Clear (Clear); Bacteria,Urine Rare /hpf; Bilirubin,Urine Negative (Negative); Blood,Urine Large (Negative); Color,Urine Yellow; Glucose,Urine (UA) Negative (Negative); Ketones,Urine Negative (Negative); Leukocyte Esterase,Urine Negative (Negative); Mucus,Urine Rare /hpf; Nitrite,Urine Negative (Negative); Protein,Urine Trace (Negative); RBC,Urine 170 /hpf (0-5); Specific Gravity,Urine 1.021 (1.001-1.035); Squamous Epithelial Cell,Urine 3 /hpf (0-4); Urobilinogen,Urine <2.0 mg/dL (<2.0)
[2017-11-16 14:51] LABS: Anisocytosis Moderate; Basophils % (A) 0 %; Eosinophils # (A) 0.1 k/uL (0-0.7); Eosinophils % (A) 1 %; HCT 29.8 % (34.0-46.0); HGB 9.3 gm/dL (11.4-16.0); Hypochromasia Moderate; Lymphocytes # (A) 1.1 k/uL (1.0-4.8); Lymphocytes % (A) 16 %; MCH 25.1 pg (25.0-35.0); MCHC 31.1 g/dL (31.0-37.0); MCV 80.8 fL (80.0-100.0); Mean Platelet Volume 7.7; Microcytosis Slight; Monocytes # (A) 0.4 k/uL (0-1.0); Monocytes % (A) 5 %; Neutrophils # (A) 5.1 k/uL (1.3-7.7); Neutrophils % (A) 76 %; Platelet Count 300 k/uL (150-450); RBC 3.69 m/uL (3.80-5.40); RDW 20.6 % (11.5-15.5); WBC 6.8 k/uL (3.8-10.6)
[2017-11-16] MEDS ORDERED: AZITHROMYCIN 500 MG TAB PO STA (15:01)
[2017-11-16 15:07] LABS: ALT 22 U/L (9-52); AST 16 U/L (14-36); Alkaline Phosphatase 86 U/L (38-126); Amylase 56 U/L (30-110); Anion Gap 13 mmol/L; Blood Urea Nitrogen 21 mg/dL (7-17); Calcium 8.5 mg/dL (8.4-10.2); Carbon Dioxide 23 mmol/L (22-30); Chloride 108 mmol/L (98-107); Glucose 94 mg/dL (74-99); Magnesium 2.1 mg/dL (1.6-2.3); Potassium 4.1 mmol/L (3.5-5.1); Sodium 144 mmol/L (137-145); Total Bilirubin 0.2 mg/dL (0.2-1.3); Total Protein 6.5 g/dL (6.3-8.2)
[2017-11-16 16:12] VITALS: BP 143/97; PULSE 89; RESP 18
[2017-11-18 13:46] LABS: N. gonorrhoeae,PCR Negative (Neg,Equiv); Neisseria Source Vagina
[2017-11-18 13:47] LABS: C. trachomatis,PCR Negative (Neg,Equiv); Chlamydia trachomatis Source Vagina
== END 2017-11-16 16:13 | disposition home or self-care (01) ==
LOC: EC 13:38
DX: N93.8 Other specified abnormal uterine and vaginal bleeding (principal); R10.30 Lower abdominal pain, unspecified; M54.5 Low back pain; L29.8 Other pruritus; Z85.850 Personal history of malignant neoplasm of thyroid; Z98.51 Tubal ligation status; Z79.899 Other long term (current) drug therapy; Z88.8 Allergy status to other drugs, medicaments and biological substances; Z88.0 Allergy status to penicillin; Z88.2 Allergy status to sulfonamides
CPT/HCPCS: 36415; 80053; 82150; 83735; 85025; 81001; 81025; 87808; 87491; 87591; 99284; 96374; 96361; J1885

== ENCOUNTER 2018-08-07 09:21 | Emergency (ER) | payer OTHER ==
[2018-08-07 09:31] VITALS: BP 138/94; PULSE 88; RESP 16; TEMP 97.6
--- NOTE | 2018-08-07 09:59 | ED ---
Female Urogenital HPI - General Chief complaint: Urogenital Stated complaint: Female Time Seen by Provider: 08/07/18 09:32 Source: patient, RN notes reviewed, old records reviewed Mode of arrival: ambulatory Limitations: no limitations - History of Present Illness Initial comments: Patient is a 43-year-old female who presents emergency department today with 4 days of vaginal burning and discharge and itching. Patient states that she has has had some dysuria. She reports that her condom broke with recent intercourse. Patient's concern for STDs. Patient states that she has had no fevers or chills. She denies any lower abdominal pain or back pain. Patient reports that she's had a history of genital herpes and PID.Patient denies any recent fever, chills, shortness of breath, chest pain, back pain, abdominal pain , nausea vomiting, numbness or tingling, constipation or diarrhea, headaches or visual changes, or any other current symptoms Last Menstrual Period: 07/19/18 - Related Data Home Medications Medication Instructions Recorded Confirmed Calcitriol 0.25 mcg PO BID 02/17/16 08/07/18 Cyanocobalamin [Vitamin B-12] 500 mcg PO DAILY 06/05/16 08/07/18 Diphenoxylate HCl/Atropine 1 tab PO Q6H PRN 06/05/16 08/07/18 [Lomotil] Famotidine [Pepcid] 20 mg PO BID 06/05/16 08/07/18 Butalb/Acetaminophen/Caffeine 1 - 2 tab PO Q4H PRN 08/07/18 08/07/18 [Fioricet 50-325-40] Ferrous Sulfate [Feosol] 325 mg PO BID 08/07/18 08/07/18 Levothyroxine Sodium [Synthroid] 150 mcg PO DAILY 08/07/18 08/07/18 Meclizine [Antivert] 25 mg PO TID PRN 08/07/18 08/07/18 Methylphenidate HCl [Ritalin] 10 mg PO DAILY 08/07/18 08/07/18 Vitamin E 1,000 unit PO DAILY 08/07/18 08/07/18 guanFACINE HCL [Intuniv] 1 mg PO HS 08/07/18 08/07/18 traMADol HCL [Ultram] 50 mg PO TID PRN 08/07/18 08/07/18 Previous Rx's Medication Instructions Recorded Fluconazole [Diflucan] 150 mg PO ONCE #3 tab 08/07/18 Allergies Allergy/AdvReac Type Severity Reaction Status Date / Time methylprednisolone Allergy Rash/Hives Verified 08/07/18 09:50 [From Medrol] ondansetron HCl Allergy Rash/Hives Verified 08/07/18 09:50 [From Zofran (as hydrochloride)] Penicillins Allergy Rash/Hives Verified 08/07/18 09:50 sulfamethoxazole Allergy Rash/Hives Verified 08/07/18 09:50 [From Bactrim] trimethoprim [From Bactrim] Allergy Rash/Hives Verified 08/07/18 09:50 Review of Systems ROS Statement: Those systems with pertinent positive or pertinent negative responses have been documented in the HPI. ROS Other: All systems not noted in ROS Statement are negative. Past Medical History Past Medical History: Cancer, Thyroid Disorder Additional Past Medical History / Comment(s): thyroid CA in the past, low calcium, IBS. Gonorrhea, Trichomoniasis History of Any Multi-Drug Resistant Organisms: None Reported Past Surgical History: Tubal Ligation Additional Past Surgical History / Comment(s): PARA THYROIDECTOMY, THYROIDECTOMY , breast reduction Past Anesthesia/Blood Transfusion Reactions: No Reported Reaction Past Psychological History: Anxiety, Depression, Panic Disorder Smoking Status: Never smoker Past Alcohol Use History: None Reported Past Drug Use History: None Reported - Past Family History Mother Family Medical History: Myocardial Infarction ([place]) Additional Family Medical History / Comment(s): Mother at age 48 from a myocardial infarction. Father Family Medical History: Myocardial Infarction ([place]) Additional Family Medical History / Comment(s): Father from a myocardial infarction. Brother(s) Additional Family Medical History / Comment(s): Patient has 4 brothers and all have mental health issues with alcoholism and drug addiction. She has 1 brother that at age 38 from a myocardial infarction. Sister(s) Additional Family Medical History / Comment(s): Patient has 6 sisters and one has PFO. Son(s) Additional Family Medical History / Comment(s): Patient has 3 sons. 16-year- old son was born with ureteral duplication, sickle cell trait, bipolar, ADHD. 9 -year-old son has ADHD and sleep disorder. 4-year-old son has no medical problems General Exam - General Exam Comments Initial Comments: 43-year-old female. Alert and oriented 3. Patient appears in no distress. Limitations: no limitations General appearance: alert, in no apparent distress Head exam: Present: normocephalic Eye exam: Present: normal appearance ENT exam: Present: normal exam, mucous membranes moist Neck exam: Present: normal inspection. Absent: tenderness, meningismus, lymphadenopathy Respiratory exam: Present: normal lung sounds bilaterally. Absent: respiratory distress, wheezes, rales, rhonchi, stridor Cardiovascular Exam: Present: regular rate, normal rhythm, normal heart sounds. Absent: systolic murmur, diastolic murmur, rubs, gallop, clicks GI/Abdominal exam: Present: soft, normal bowel sounds. Absent: distended, tenderness, guarding, rebound, rigid Extremities exam: Present: normal inspection, full ROM, normal capillary refill. Absent: tenderness, pedal edema, joint swelling, calf tenderness Back exam: Present: normal inspection Neurological exam: Present: alert, oriented X3, CN II-XII intact Psychiatric exam: Present: normal affect, normal mood Skin exam: Present: warm, dry, intact, normal color. Absent: rash Course Vital Signs 08/07/18 09:27 Temperature 97.6 F Pulse Rate 88 Respiratory 16 Rate Blood Pressure 138/94 O2 Sat by Pulse 100 Oximetry Medical Decision Making - Medical Decision Making 43-year-old female presents return to the first 4 days of vaginal discharge and itching. She does have some discharge noted on exam. No external lesions noted. She is quite concerned for herpes or genital warts. Discussed do not see any lesions at this time. At this time will treat the Patient for us to advise that she is quite concerned. Given IM Rocephin and azithromycin and Flagyl. Also did Patient is concerned possibly be some reaction after taking his antibiotics. We'll discharge her with oral Diflucan. Advised the Patient to have close follow-up with her primary care physician. I discussed that if there are any positive cultures we will call her. Advised to refrain from intercourse for the next 2 weeks. Patient agrees treatment plan will comply. Return parameters were discussed. - Lab Data Lab Results 08/07/18 08/07/18 Range/Units 09:45 09:45 Urine Color Yellow Urine Appearance Clear (Clear) Urine pH 6.0 (5.0-8.0) Ur Specific [place] 1.017 (1.001-1.035) Urine Protein Negative (Negative) Urine Glucose (UA) Negative (Negative) Urine Ketones Negative (Negative) Urine Blood Negative (Negative) Urine Nitrite Negative (Negative) Urine Bilirubin Negative (Negative) Urine Urobilinogen <2.0 (<2.0) mg/dL Ur Leukocyte Esterase Trace H (Negative) Urine WBC 2 (0-5) /hpf Ur Squamous Epith Cells 3 (0-4) /hpf Urine Mucus Occasional H (None) /hpf Urine HCG, Qual Not Detected (Not Detectd) Disposition Clinical Impression: Vaginal pruritus, Concern about STD in female without diagnosis Disposition: HOME SELF-CARE Condition: Good Instructions (If sedation given, give patient instructions): Yeast Infection ( ED) Additional Instructions: Patient has have close follow-up with primary care physician. We will call you if there are any positive cultures. Patient should return to the emergency department if any alarming signs or symptoms occur. Prescriptions: Fluconazole [Diflucan] 150 mg PO ONCE #3 tab Is patient prescribed a controlled substance at d/c from ED?: No Referrals: Lisa Wray MD [Primary Care Provider] - 1-2 days Time of Disposition: 10:52
[2018-08-07 10:09] LABS: Appearance,Urine Clear (Clear); Bilirubin,Urine Negative (Negative); Blood,Urine Negative (Negative); Color,Urine Yellow; Glucose,Urine (UA) Negative (Negative); Ketones,Urine Negative (Negative); Leukocyte Esterase,Urine Trace (Negative); Mucus,Urine Occasional /hpf; Nitrite,Urine Negative (Negative); Protein,Urine Negative (Negative); Specific Gravity,Urine 1.017 (1.001-1.035); Squamous Epithelial Cell,Urine 3 /hpf (0-4); Urobilinogen,Urine <2.0 mg/dL (<2.0)
[2018-08-07] MEDS ORDERED: metroNIDAZOLE 500 MG TAB PO STA (10:42)
[2018-08-07] MEDS ORDERED: AZITHROMYCIN 500 MG TAB PO STA (10:42)
[2018-08-07] MEDS ORDERED: cefTRIAXone 250 MG VIAL IM STA (10:42)
[2018-08-08 15:25] LABS: C. trachomatis,PCR Negative (Neg,Equiv); Chlamydia trachomatis Source Cervix
[2018-08-08 15:32] LABS: N. gonorrhoeae,PCR Positive (Neg,Equiv); Neisseria Source Cervix
== END 2018-08-07 11:20 | disposition home or self-care (01) ==
LOC: EC 09:21
DX: L29.2 Pruritus vulvae (principal); F32.9 Major depressive disorder, single episode, unspecified; F41.0 Panic disorder [episodic paroxysmal anxiety]; K58.9 Irritable bowel syndrome, unspecified; E89.0 Postprocedural hypothyroidism; Z79.890 Hormone replacement therapy; Z79.899 Other long term (current) drug therapy; Z88.2 Allergy status to sulfonamides; Z88.0 Allergy status to penicillin; Z88.8 Allergy status to other drugs, medicaments and biological substances; Z85.850 Personal history of malignant neoplasm of thyroid; Z90.89 Acquired absence of other organs; Z98.51 Tubal ligation status
CPT/HCPCS: 81001; 81025; 87808; 87491; 87591; 87070; 87205; 99284; 96372; J0696

== ENCOUNTER 2018-08-24 13:26 | Emergency (ER) | payer OTHER ==
[2018-08-24] MEDS ORDERED: cefTRIAXone 250 MG VIAL IM STA (14:27)
[2018-08-24] MEDS ORDERED: AZITHROMYCIN 500 MG TAB PO STA (14:28)
--- NOTE | 2018-08-24 14:32 | ED ---
General Adult HPI - General Chief complaint: Urogenital Stated complaint: Eye infection Time Seen by Provider: 08/24/18 13:50 Source: patient, RN notes reviewed, old records reviewed Mode of arrival: ambulatory Limitations: no limitations - History of Present Illness Initial comments: 43-year-old female patient past medical history of anxiety presents to ED with irritated eye, conjunctivitis. Patient reports that she was seen at [facility] 4 days ago for this problem. Patient reports that at that time she had significant erythema and swelling of her left eye. At [facility] patient reports that she had a CT of her orbits, and laboratory investigations. Patient was diagnosed with preseptal cellulitis and placed on ciprofloxacin eyedrops and levofloxacin orally. Patient states that the erythema and swelling of her left eye has improved. However today she is bending because her right eye has not become mildly erythematous. Patient presents for investigation of right eye. Patient additionally has a secondary complaint of concern of exposure to STI. Patient reports that she received a text from her partner stating that it would be xavier for her to get checked for gonorrhea/ chlamydia. Patient states that she has had some mild dysuria for approximately 2 days. Patient denies any discharge. Patient states that she cannot be because she has had a tubal ligation. Patient states that she has had some mild blurring of her left eye during this infection, however states her vision has improved from the . Patient denies other complaints. Systemic: Pt denies fatigue, myalgia, fever/chills, rash. Pt denies weakness, night sweats, weight loss. Neuro: Pt denies headache, visual disturbances, syncope or pre-syncope. HEENT: Pt denies otalgia, rhinorrhea, pharyngitis or notable lymphadenopathy. Cardiopulmonary: Pt denies chest pain, SOB, heart palpitations, dyspnea on exertion. Abdominal/GI: Pt denies abdominal pain, n/v/d. : Denies new onset urinary or bowel incontinence. MSK: Pt denies myalgia, loss of strength or function in extremities. Neuro: Pt denies new onset weakness, paresthesias. - Related Data Home Medications Medication Instructions Recorded Confirmed Calcitriol 0.25 mcg PO BID 02/17/16 08/24/18 Cyanocobalamin [Vitamin B-12] 500 mcg PO DAILY 06/05/16 08/24/18 Butalb/Acetaminophen/Caffeine 1 - 2 tab PO Q4H PRN 08/07/18 08/24/18 [Fioricet 50-325-40] Levothyroxine Sodium [Synthroid] 150 mcg PO DAILY 08/07/18 08/24/18 Meclizine [Antivert] 25 mg PO TID PRN 08/07/18 08/24/18 guanFACINE HCL [Intuniv] 1 mg PO HS 08/07/18 08/24/18 traMADol HCL [Ultram] 50 mg PO TID PRN 08/07/18 08/24/18 Cholecalciferol [Vitamin D3] 1,000 unit PO DAILY 08/24/18 08/24/18 diphenhydrAMINE [Benadryl] 25 mg PO HS PRN 08/24/18 08/24/18 Previous Rx's Medication Instructions Recorded Cephalexin [Keflex] 500 mg PO Q12HR 10 Days cap 08/24/18 Allergies Allergy/AdvReac Type Severity Reaction Status Date / Time methylprednisolone Allergy Rash/Hives Verified 08/24/18 14:01 [From Medrol] ondansetron HCl Allergy Rash/Hives Verified 08/24/18 14:01 [From Zofran (as hydrochloride)] Penicillins Allergy Rash/Hives Verified 08/24/18 14:01 sulfamethoxazole Allergy Rash/Hives Verified 08/24/18 14:01 [From Bactrim] trimethoprim [From Bactrim] Allergy Rash/Hives Verified 08/24/18 14:01 Review of Systems ROS Statement: Those systems with pertinent positive or pertinent negative responses have been documented in the HPI. ROS Other: All systems not noted in ROS Statement are negative. Past Medical History Past Medical History: Cancer, Thyroid Disorder Additional Past Medical History / Comment(s): thyroid CA in the past, low calcium, IBS. Gonorrhea, Trichomoniasis History of Any Multi-Drug Resistant Organisms: None Reported Past Surgical History: Tubal Ligation Additional Past Surgical History / Comment(s): PARA THYROIDECTOMY, THYROIDECTOMY , breast reduction Past Anesthesia/Blood Transfusion Reactions: No Reported Reaction Past Psychological History: Anxiety, Depression, Panic Disorder Smoking Status: Never smoker Past Alcohol Use History: None Reported Past Drug Use History: None Reported - Past Family History Mother Family Medical History: Myocardial Infarction ([place]) Additional Family Medical History / Comment(s): Mother at age 48 from a myocardial infarction. Father Family Medical History: Myocardial Infarction ([place]) Additional Family Medical History / Comment(s): Father from a myocardial infarction. Brother(s) Additional Family Medical History / Comment(s): Patient has 4 brothers and all have mental health issues with alcoholism and drug addiction. She has 1 brother that at age 38 from a myocardial infarction. Sister(s) Additional Family Medical History / Comment(s): Patient has 6 sisters and one has PFO. Son(s) Additional Family Medical History / Comment(s): Patient has 3 sons. 16-year- old son was born with ureteral duplication, sickle cell trait, bipolar, ADHD. 9 -year-old son has ADHD and sleep disorder. 4-year-old son has no medical problems General Exam - General Exam Comments Initial Comments: Constitutional: NAD, AOX3, Pt has pleasant affect. HEENT: NC/AT, trachea midline, neck supple, no lymphadenopathy. Posterior pharynx non erythematous, without exudates. External ears appear normal, without discharge. Mucous membranes moist. Eyes PERRLA, EOM intact. There is no scleral icterus. No pallor noted. Mild injection noted in eyes bilaterally. No significant update on flourescence stain. IOP avg of 10mmhg bilaterally. No proptosis. Cardiopulmonary: RRR, no murmurs, rubs or gallops, no JVD noted. Lungs CTAB in anterior and posterior de jesus. No peripheral edema. Abdominal exam: Abdomen soft and non-distended. Abdomen non-tender to palpation in all 4 quadrants. Bowel sounds active in LLQ. No hepatosplenomegaly. No ecchymosis Neuro: CN II-XII grossly intact. No nuchal rigidity. MSK: No posterior calf tenderness bilaterally, homans sign negative bilaterally. Posterior tibialis and radial pulse +2 bilaterally. Sensation intact in upper and lower extremities. Full active ROM in upper and lower extremities, 5/5 stregnth. Limitations: no limitations Course Vital Signs 08/24/18 08/24/18 13:47 16:01 Temperature 98.8 F 98.2 F Pulse Rate 79 80 Respiratory 16 18 Rate Blood Pressure 135/97 130/86 O2 Sat by Pulse 97 98 Oximetry Medical Decision Making - Medical Decision Making 43-year-old female patient past medical history of anxiety presents to ED with irritated eye, conjunctivitis. Patient reports that she was seen at [facility] 4 days ago for this problem. Patient reports that at that time she had significant erythema and swelling of her left eye. At [facility] patient reports that she had a CT of her orbits, and laboratory investigations. Patient was diagnosed with preseptal cellulitis and placed on ciprofloxacin eyedrops and levofloxacin orally. Patient states that the erythema and swelling of her left eye has improved. However today she is bending because her right eye has not become mildly erythematous. Patient presents for investigation of right eye. Patient additionally has a secondary complaint of concern of exposure to STI. Patient reports that she received a text from her partner stating that it would be xavier for her to get checked for gonorrhea/ chlamydia. Patient states that she has had some mild dysuria for approximately 2 days. Patient denies any discharge. Patient states that she cannot be because she has had a tubal ligation. Patient states that she has had some mild blurring of her left eye during this infection, however states her vision has improved from the . Patient denies other complaints. Pt VSS, afebrile. Physical exam displayed: Mild injection noted in eyes bilaterally. No significant update on flourescence stain. IOP avg of 10mmhg bilaterally. Laboratory investigations revealed a urinary tract infection. Patient treated empirically for gonorrhea and chlamydia. Patient prescribed Keflex for urinary tract infection. Patient to continue antibiotic regimen for eyes of ciprofloxacin drops. Patient will begin these display ciprofloxacin on her right eye as well. Patient to follow-up with her primary care provider in 1-2 days. Patient to call ophthalmology referral tomorrow. Patient to return to ED if new symptoms that were condition worsens in any way. Case discussed in depth and pt seen by Dr. Balderas. - Lab Data Lab Results 08/24/18 Range/Units 14:36 Urine Color Yellow Urine Appearance Cloudy H (Clear) Urine pH 6.5 (5.0-8.0) Ur Specific [place] 1.017 (1.001-1.035) Urine Protein Trace H (Negative) Urine Glucose (UA) Negative (Negative) Urine Ketones Negative (Negative) Urine Blood Trace H (Negative) Urine Nitrite Negative (Negative) Urine Bilirubin Negative (Negative) Urine Urobilinogen <2.0 (<2.0) mg/dL Ur Leukocyte Esterase Large H (Negative) Urine RBC 1 (0-5) /hpf Urine WBC 6 H (0-5) /hpf Ur Squamous Epith Cells 13 H (0-4) /hpf Urine Bacteria Occasional H (None) /hpf Urine Mucus Occasional H (None) /hpf Disposition Clinical Impression: Conjunctivitis, Concern about sexually transmitted disease in female without diagnosis Disposition: HOME SELF-CARE Condition: Stable Instructions (If sedation given, give patient instructions): Conjunctivitis (ED ) Additional Instructions: Patient to adhere to previously discussed treatment plan and will take medication(s) as directed. Patient to follow up with PCP in 1-2 days. Patient to return to ED if symptoms do not improve. Please continue to use ciprofloxacin eyedrops, begin using in right eye as well. Please continue to use oral levofloxacin. Please call [facility] in morning. Please return to ER if symptoms worsen in any way. Prescriptions: Cephalexin [Keflex] 500 mg PO Q12HR 10 Days cap Is patient prescribed a controlled substance at d/c from ED?: No Referrals: Lisa Wray MD [Primary Care Provider] - 1-2 days Kushal Emmanuel MD [STAFF PHYSICIAN] - 1-2 days
[2018-08-24] MEDS ORDERED: cefTRIAXone 1,000 MG VIAL (IM USE) IM STA (14:34)
[2018-08-24 14:55] LABS: Appearance,Urine Cloudy (Clear); Bacteria,Urine Occasional /hpf; Bilirubin,Urine Negative (Negative); Blood,Urine Trace (Negative); Color,Urine Yellow; Glucose,Urine (UA) Negative (Negative); Ketones,Urine Negative (Negative); Leukocyte Esterase,Urine Large (Negative); Mucus,Urine Occasional /hpf; Nitrite,Urine Negative (Negative); PH, Urine 6.5 (5.0-8.0); Protein,Urine Trace (Negative); RBC,Urine 1 /hpf (0-5); Specific Gravity,Urine 1.017 (1.001-1.035); Squamous Epithelial Cell,Urine 13 /hpf (0-4); Urobilinogen,Urine <2.0 mg/dL (<2.0); WBC,Urine 6 /hpf (0-5)
[2018-08-24] MEDS ORDERED: PROPARACAINE 0.5% OPHTH DROPS 15 ML BTL BOTH EYES STA (14:56)
[2018-08-24 16:03] VITALS: BP 130/86; PULSE 80; RESP 18; TEMP 98.2
[2018-08-26 10:36] LABS: C. trachomatis,PCR Negative (Neg,Equiv); Chlamydia trachomatis Source Urine
[2018-08-26 15:58] LABS: N. gonorrhoeae,PCR Negative (Neg,Equiv); Neisseria Source Urine
== END 2018-08-24 16:02 | disposition home or self-care (01) ==
LOC: EC 13:26
DX: H10.9 Unspecified conjunctivitis (principal); R30.0 Dysuria; Z85.850 Personal history of malignant neoplasm of thyroid; Z79.890 Hormone replacement therapy; Z79.899 Other long term (current) drug therapy; Z88.8 Allergy status to other drugs, medicaments and biological substances; Z88.0 Allergy status to penicillin; Z88.2 Allergy status to sulfonamides
CPT/HCPCS: 81001; 87491; 87591; 87086; 99284; 96372; J0696

== ENCOUNTER → 2018-09-15 | Outpatient (CLI) | payer OTHER ==
--- NOTE | 2018-09-15 08:54 | MM ---
Reason for exam: screening (asymptomatic). Baseline mammogram. History: Patient has history of other cancer at age 26. Excisional biopsy of both breasts, 1993. Took hormonal contraceptives for 6 months beginning at age 27. Physical Findings: Nurse did not find any significant physical abnormalities on exam. MG Screening Mammo w CAD Bilateral CC and MLO view(s) were taken. There are scattered fibroglandular densities. There is no discrete abnormality. These results were verbally communicated with the patient and result sheet given to the patient on 09/15/18. ASSESSMENT: Negative, BI-RAD 1 RECOMMENDATION: Routine screening mammogram of both breasts in 1 year. Manage on a clinical basis with regard to right breast pain.
== END | disposition home or self-care (01) ==
LOC: RADMAMWWP 07:49
PROVIDERS: ATTEND Family Medicine
DX: Z12.31 Encounter for screening mammogram for malignant neoplasm of breast (principal)
CPT/HCPCS: 77067

== ENCOUNTER 2018-10-28 10:06 | Emergency (ER) | payer OTHER ==
[2018-10-28 10:13] VITALS: BP 126/88; PULSE 76; RESP 18; TEMP 97.7
[2018-10-28] MEDS ORDERED: AZITHROMYCIN 250 MG TAB PO STA (10:33)
[2018-10-28] MEDS ORDERED: cefTRIAXone 250 MG VIAL IM STA (10:33)
[2018-10-28] MEDS ORDERED: metroNIDAZOLE 500 MG TAB PO STA (10:34)
--- NOTE | 2018-10-28 10:36 | ED ---
General Adult HPI - General Chief complaint: Recheck/Abnormal Lab/Rx Stated complaint: STD check Time Seen by Provider: 10/28/18 10:16 Source: patient, RN notes reviewed Mode of arrival: ambulatory Limitations: no limitations - History of Present Illness Initial comments: 43-year-old female presents emergency room with chief complaint of STD screening. Patient states that she [facility] though it was canceled for some reason. Patient states she believes she may have an STD as she's had some vaginal discharge. Patient though states that she always uses protection. Patient denies any abdominal pain no fevers or chills. Patient states that she currently is on her menstrual cycle. Patient offers no complaints. - Related Data Home Medications Medication Instructions Recorded Confirmed Calcitriol 0.25 mcg PO BID 02/17/16 10/28/18 Cyanocobalamin [Vitamin B-12] 500 mcg PO DAILY 06/05/16 10/28/18 Butalb/Acetaminophen/Caffeine 1 - 2 tab PO Q4H PRN 08/07/18 10/28/18 [Fioricet 50-325-40] Levothyroxine Sodium [Synthroid] 150 mcg PO DAILY 08/07/18 10/28/18 Meclizine [Antivert] 25 mg PO TID PRN 08/07/18 10/28/18 Cholecalciferol [Vitamin D3] 1,000 unit PO DAILY 08/24/18 10/28/18 Methylphenidate HCl [Ritalin LA] 10 mg PO DAILY 10/28/18 10/28/18 Zolpidem [Ambien] 5 mg PO HS PRN 10/28/18 10/28/18 Allergies Allergy/AdvReac Type Severity Reaction Status Date / Time methylprednisolone Allergy Rash/Hives Verified 10/28/18 10:20 [From Medrol] ondansetron HCl Allergy Rash/Hives Verified 10/28/18 10:20 [From Zofran (as hydrochloride)] Penicillins Allergy Rash/Hives Verified 10/28/18 10:20 sulfamethoxazole Allergy Rash/Hives Verified 10/28/18 10:20 [From Bactrim] trimethoprim [From Bactrim] Allergy Rash/Hives Verified 10/28/18 10:20 Review of Systems ROS Statement: Those systems with pertinent positive or pertinent negative responses have been documented in the HPI. ROS Other: All systems not noted in ROS Statement are negative. Past Medical History Past Medical History: Cancer, Thyroid Disorder Additional Past Medical History / Comment(s): thyroid CA in the past, low calcium, IBS. Gonorrhea, Trichomoniasis, History of Any Multi-Drug Resistant Organisms: None Reported Past Surgical History: Tubal Ligation Additional Past Surgical History / Comment(s): PARA THYROIDECTOMY, THYROIDECTOMY, breast reduction Past Anesthesia/Blood Transfusion Reactions: No Reported Reaction Past Psychological History: Anxiety, Depression, Panic Disorder Smoking Status: Never smoker Past Alcohol Use History: None Reported Past Drug Use History: None Reported - Past Family History Mother Family Medical History: Myocardial Infarction ([place]) Additional Family Medical History / Comment(s): Mother at age 48 from a myocardial infarction. Father Family Medical History: Myocardial Infarction ([place]) Additional Family Medical History / Comment(s): Father from a myocardial infarction. Brother(s) Additional Family Medical History / Comment(s): Patient has 4 brothers and all have mental health issues with alcoholism and drug addiction. She has 1 brother that at age 38 from a myocardial infarction. Sister(s) Additional Family Medical History / Comment(s): Patient has 6 sisters and one has PFO. Son(s) Additional Family Medical History / Comment(s): Patient has 3 sons. 16-year-old son was born with ureteral duplication, sickle cell trait, bipolar, ADHD. 9-year-old son has ADHD and sleep disorder. 4-year-old son has no medical problems General Exam Limitations: no limitations General appearance: alert, in no apparent distress Head exam: Present: atraumatic, normocephalic, normal inspection Respiratory exam: Present: normal lung sounds bilaterally. Absent: respiratory distress, wheezes, rales, rhonchi, stridor Cardiovascular Exam: Present: regular rate, normal rhythm, normal heart sounds. Absent: systolic murmur, diastolic murmur, rubs, gallop, clicks GI/Abdominal exam: Present: soft, normal bowel sounds. Absent: distended, tenderness, guarding, rebound, rigid Course Vital Signs 10/28/18 10:10 Temperature 97.7 F Pulse Rate 76 Respiratory 18 Rate Blood Pressure 126/88 O2 Sat by Pulse 98 Oximetry Medical Decision Making - Medical Decision Making 43-year-old presented for STD screening. Patient will be treated prophylactically for gonorrhea chlamydia and Trichomonas. Patient agrees this plan and will follow-up on results return parameters were discussed. Disposition Clinical Impression: Screen for STD (sexually transmitted disease) Disposition: HOME SELF-CARE Condition: Stable Instructions (If sedation given, give patient instructions): Sexually Transmitted Diseases (ED) Additional Instructions: Please return to the Emergency Department if symptoms worsen or any other concerns. Is patient prescribed a controlled substance at d/c from ED?: No Referrals: Lisa Wray MD [Primary Care Provider] - 1-2 days Time of Disposition: 10:36
[2018-10-29 16:15] LABS: N. gonorrhoeae,PCR Negative (Neg,Equiv); Neisseria Source Urine
[2018-10-29 16:23] LABS: C. trachomatis,PCR Negative (Neg,Equiv); Chlamydia trachomatis Source Urine
== END 2018-10-28 11:11 | disposition home or self-care (01) ==
LOC: EC 10:06
DX: Z11.3 Encounter for screening for infections with a predominantly sexual mode of transmission (principal); E07.9 Disorder of thyroid, unspecified; F32.9 Major depressive disorder, single episode, unspecified; F41.0 Panic disorder [episodic paroxysmal anxiety]; Z85.850 Personal history of malignant neoplasm of thyroid; Z79.890 Hormone replacement therapy; Z79.899 Other long term (current) drug therapy; Z88.0 Allergy status to penicillin; Z88.1 Allergy status to other antibiotic agents; Z88.2 Allergy status to sulfonamides; Z88.8 Allergy status to other drugs, medicaments and biological substances
CPT/HCPCS: 87491; 87591; 96372; 99283

== ENCOUNTER 2018-12-16 17:34 | Emergency (ER) | payer OTHER ==
[2018-12-16 17:45] VITALS: BP 129/82; PULSE 100; RESP 17; TEMP 98.5
[2018-12-16 18:14] LABS: Appearance,Urine Cloudy (Clear); Bacteria,Urine Few /hpf; Bilirubin,Urine Negative (Negative); Blood,Urine Large (Negative); Color,Urine Light Red; Glucose,Urine (UA) Negative (Negative); Hyaline Casts,Urine 49 /lpf (0-2); Ketones,Urine Negative (Negative); Leukocyte Esterase,Urine Small (Negative); Mucus,Urine Many /hpf; Nitrite,Urine Negative (Negative); Protein,Urine 2+ (Negative); RBC,Urine >182 /hpf (0-5); Squamous Epithelial Cell,Urine 25 /hpf (0-4)
[2018-12-16] MEDS ORDERED: ACET/COD 300 MG/30 MG STARTER PACK 6 TAB BTL PO STA (18:20)
[2018-12-16] MEDS ORDERED: PENICILLIN V POTASSIUM 250 MG TAB PO STA (18:20)
[2018-12-16] MEDS ORDERED: DEXAMETHASONE 4 MG TAB PO STA (18:20)
[2018-12-16] MEDS ORDERED: PENICILLIN VK 500MG STARTER 4 TAB BTL PO STA (18:20)
[2018-12-16] MEDS ORDERED: Acetaminophen-Codeine 300-30mg TAB PO STA (18:20)
--- NOTE | 2018-12-16 18:23 | ED ---
Female Urogenital HPI - General Chief complaint: Urogenital Stated complaint: Dental pain Time Seen by Provider: 12/16/18 18:14 Source: patient, RN notes reviewed, old records reviewed Mode of arrival: ambulatory Limitations: no limitations - History of Present Illness Initial comments: This 43-year-old female the ER for evaluation she presents today for evaluation regards to dental pain dysuria. Patient has no significant recent medical history. Patient has history of dental caries with a partial. Patient states she does have a recent tooth fracture. Presented dentist appointment this week would like be placed on antibiotics. No fevers. No Difficulty with swallowing other complaints no significant facial swelling MD Complaint: dysuria -: days(s) Location: suprapubic Severity: mild Consistency: intermittent Improves with: none Worsens with: urination Patient : No Associated Symptoms: vaginal bleeding (on menstrual) - Related Data Home Medications Medication Instructions Recorded Confirmed Calcitriol 0.25 mcg PO BID 02/17/16 12/16/18 Cyanocobalamin [Vitamin B-12] 500 mcg PO DAILY 06/05/16 12/16/18 Butalb/Acetaminophen/Caffeine 1 - 2 tab PO Q4H PRN 08/07/18 12/16/18 [Fioricet 50-325-40] Levothyroxine Sodium [Synthroid] 150 mcg PO DAILY 08/07/18 12/16/18 Meclizine [Antivert] 25 mg PO TID PRN 08/07/18 12/16/18 Cholecalciferol [Vitamin D3] 1,000 unit PO DAILY 08/24/18 12/16/18 Methylphenidate HCl [Ritalin LA] 10 mg PO DAILY 10/28/18 12/16/18 Zolpidem [Ambien] 10 mg PO HS PRN 10/28/18 12/16/18 Diphenoxylate HCl/Atropine 1 tab PO QID PRN 12/16/18 12/16/18 [Lomotil 2.5-0.025 mg Tablet] Famotidine [Pepcid] 20 mg PO BID 12/16/18 12/16/18 Ferrous Sulfate [Feosol] 325 mg PO BID 12/16/18 12/16/18 Allergies Allergy/AdvReac Type Severity Reaction Status Date / Time diphenhydramine Allergy Rash/Hives Verified 06/18/19 18:18 [From Benadryl] methylprednisolone Allergy Rash/Hives Verified 12/16/18 18:16 [From Medrol] ondansetron HCl Allergy Rash/Hives Verified 12/16/18 18:16 [From Zofran (as hydrochloride)] Penicillins Allergy Rash/Hives Verified 12/16/18 18:16 sulfamethoxazole Allergy Rash/Hives Verified 12/16/18 18:16 [From Bactrim] trimethoprim [From Bactrim] Allergy Rash/Hives Verified 12/16/18 18:16 Review of Systems ROS Statement: Those systems with pertinent positive or pertinent negative responses have been documented in the HPI. ROS Other: All systems not noted in ROS Statement are negative. Past Medical History Past Medical History: Cancer, Thyroid Disorder Additional Past Medical History / Comment(s): thyroid CA in the past, low calcium, IBS. Gonorrhea, Trichomoniasis, History of Any Multi-Drug Resistant Organisms: None Reported Past Surgical History: Tubal Ligation Additional Past Surgical History / Comment(s): PARA THYROIDECTOMY, THYROIDECTOMY, breast reduction Past Anesthesia/Blood Transfusion Reactions: No Reported Reaction Past Psychological History: Anxiety, Depression, Panic Disorder Smoking Status: Never smoker Past Alcohol Use History: None Reported Past Drug Use History: None Reported - Past Family History Mother Family Medical History: Myocardial Infarction ([place]) Additional Family Medical History / Comment(s): Mother at age 48 from a myocardial infarction. Father Family Medical History: Myocardial Infarction ([place]) Additional Family Medical History / Comment(s): Father from a myocardial infarction. Brother(s) Additional Family Medical History / Comment(s): Patient has 4 brothers and all have mental health issues with alcoholism and drug addiction. She has 1 brother that at age 38 from a myocardial infarction. Sister(s) Additional Family Medical History / Comment(s): Patient has 6 sisters and one has PFO. Son(s) Additional Family Medical History / Comment(s): Patient has 3 sons. 16-year-old son was born with ureteral duplication, sickle cell trait, bipolar, ADHD. 9-year-old son has ADHD and sleep disorder. 4-year-old son has no medical problems General Exam - General Exam Comments Initial Comments: No drainable abscess noted Limitations: no limitations General appearance: alert, in no apparent distress Head exam: Present: atraumatic, normocephalic, normal inspection Eye exam: Present: normal appearance, PERRL, EOMI. Absent: scleral icterus, c onjunctival injection, periorbital swelling ENT exam: Present: normal exam, mucous membranes moist Neck exam: Present: normal inspection. Absent: tenderness, meningismus, lymphadenopathy Respiratory exam: Present: normal lung sounds bilaterally. Absent: respiratory distress, wheezes, rales, rhonchi, stridor Cardiovascular Exam: Present: regular rate, normal rhythm, normal heart sounds. Absent: systolic murmur, diastolic murmur, rubs, gallop, clicks GI/Abdominal exam: Present: soft, normal bowel sounds. Absent: distended, tenderness, guarding, rebound, rigid Extremities exam: Present: normal inspection, full ROM, normal capillary refill. Absent: tenderness, pedal edema, joint swelling, calf tenderness Back exam: Present: normal inspection Neurological exam: Present: alert, oriented X3, CN II-XII intact Psychiatric exam: Present: normal affect, normal mood Skin exam: Present: warm, dry, intact, normal color. Absent: rash Course Vital Signs 12/16/18 17:43 Temperature 98.5 F Pulse Rate 100 Respiratory 17 Rate Blood Pressure 129/82 O2 Sat by Pulse 95 Oximetry - Reevaluation(s) Reevaluation #1: 12/16/18 18:22 Medical records reviewed Medical Decision Making - Medical Decision Making 43 female the ER with multiple complaints dental pain dental fracture as well as dysuria. Patient will be placed on antibiotics to follow-up with cultures, can be discharged home - Lab Data Lab Results 12/16/18 Range/Units 17:47 Urine Color Light Red Urine Appearance Cloudy H (Clear) Urine pH 6.0 (5.0-8.0) Ur Specific [place] 1.040 H (1.001-1.035) Urine Protein 2+ H (Negative) Urine Glucose (UA) Negative (Negative) Urine Ketones Negative (Negative) Urine Blood Large H (Negative) Urine Nitrite Negative (Negative) Urine Bilirubin Negative (Negative) Urine Urobilinogen 2.0 (<2.0) mg/dL Ur Leukocyte Esterase Small H (Negative) Urine RBC >182 H (0-5) /hpf Urine WBC 55 H (0-5) /hpf Urine WBC Clumps Few H (None) /hpf Ur Squamous Epith Cells 25 H (0-4) /hpf Urine Bacteria Few H (None) /hpf Hyaline Casts 49 H (0-2) /lpf Urine Mucus Many H (None) /hpf Disposition Clinical Impression: UTI (urinary tract infection), Dental abscess Disposition: HOME SELF-CARE Condition: Good Instructions (If sedation given, give patient instructions): Urinary Tract Infection in Women (ED), Dental Abscess (ED) Is patient prescribed a controlled substance at d/c from ED?: No Referrals: Lisa Wray MD [Primary Care Provider] - 1-2 days
[2018-12-16] MEDS ORDERED: CLINDAMYCIN 150 MG CAP PO STA (18:24)
[2018-12-17 15:19] LABS: C. trachomatis,PCR Negative (Neg,Equiv); Chlamydia trachomatis Source Urine
[2018-12-17 15:26] LABS: N. gonorrhoeae,PCR Negative (Neg,Equiv); Neisseria Source Urine
== END 2018-12-16 18:54 | disposition home or self-care (01) ==
LOC: EC 17:34
DX: K04.7 Periapical abscess without sinus (principal); N39.0 Urinary tract infection, site not specified; Z88.0 Allergy status to penicillin; Z88.2 Allergy status to sulfonamides; Z88.8 Allergy status to other drugs, medicaments and biological substances; Z79.890 Hormone replacement therapy; Z79.899 Other long term (current) drug therapy; Z85.850 Personal history of malignant neoplasm of thyroid; E89.0 Postprocedural hypothyroidism; Z87.81 Personal history of (healed) traumatic fracture
CPT/HCPCS: 81001; 87491; 87591; 87086; 99284; J8540

== ENCOUNTER 2019-01-20 10:16 | Emergency (ER) | payer OTHER ==
[2019-01-20 10:30] VITALS: BP 128/75; PULSE 91; RESP 16; TEMP 98.2
--- NOTE | 2019-01-20 11:08 | ED ---
General Adult HPI - General Chief complaint: Recheck/Abnormal Lab/Rx Stated complaint: dental pain Time Seen by Provider: 01/20/19 10:53 Source: patient Mode of arrival: ambulatory Limitations: no limitations - History of Present Illness Initial comments: Patient is a 44-year-old female presenting to emergency Department with complaints of left-sided dental pain 3 days as well as vaginal burning 2 days. Patient states she had a dental appointment scheduled for today but the dentist called in sick today and she was not able to keep that appointment. They suggested she come to the ER for antibiotic treatment. Patient states she has a broken tooth in the upper left side and states she has been unable to eat and having increasing pain. Patient states she is also complaining of vaginal burning, slight increase in discharge that she describes as yellowish. Patient denies any rashes, lesions, odor. Patient states she has had BV in the past and this feels similar. - Related Data Home Medications Medication Instructions Recorded Confirmed Calcitriol 0.25 mcg PO BID 02/17/16 01/20/19 Cyanocobalamin [Vitamin B-12] 500 mcg PO DAILY 06/05/16 01/20/19 Butalb/Acetaminophen/Caffeine 1 - 2 tab PO Q4H PRN 08/07/18 01/20/19 [Fioricet 50-325-40] Levothyroxine Sodium [Synthroid] 150 mcg PO DAILY 08/07/18 01/20/19 Meclizine [Antivert] 25 mg PO TID PRN 08/07/18 01/20/19 Cholecalciferol [Vitamin D3] 1,000 unit PO DAILY 08/24/18 01/20/19 Methylphenidate HCl [Ritalin LA] 10 mg PO DAILY 10/28/18 01/20/19 Zolpidem [Ambien] 10 mg PO HS PRN 10/28/18 01/20/19 Diphenoxylate HCl/Atropine 1 tab PO QID PRN 12/16/18 01/20/19 [Lomotil 2.5-0.025 mg Tablet] Famotidine [Pepcid] 20 mg PO BID 12/16/18 01/20/19 Ferrous Sulfate [Feosol] 325 mg PO BID 12/16/18 01/20/19 Vitamin E 1,000 unit PO DAILY 01/20/19 01/20/19 Previous Rx's Medication Instructions Recorded Clindamycin HCl 300 mg PO BID 7 Days #14 cap 01/20/19 Allergies Allergy/AdvReac Type Severity Reaction Status Date / Time diphenhydramine Allergy Rash/Hives Verified 01/20/19 10:48 [From Benadryl] methylprednisolone Allergy Rash/Hives Verified 01/20/19 10:48 [From Medrol] ondansetron HCl Allergy Rash/Hives Verified 01/20/19 10:48 [From Zofran (as hydrochloride)] Penicillins Allergy Rash/Hives Verified 01/20/19 10:48 sulfamethoxazole Allergy Rash/Hives Verified 01/20/19 10:48 [From Bactrim] trimethoprim [From Bactrim] Allergy Rash/Hives Verified 01/20/19 10:48 Review of Systems ROS Statement: Those systems with pertinent positive or pertinent negative responses have been documented in the HPI. ROS Other: All systems not noted in ROS Statement are negative. Past Medical History Past Medical History: Cancer, Thyroid Disorder Additional Past Medical History / Comment(s): thyroid CA in the past, low calcium, IBS. Gonorrhea, Trichomoniasis, History of Any Multi-Drug Resistant Organisms: None Reported Past Surgical History: Tubal Ligation Additional Past Surgical History / Comment(s): PARA THYROIDECTOMY, THYROIDECTOMY, breast reduction Past Anesthesia/Blood Transfusion Reactions: No Reported Reaction Past Psychological History: Anxiety, Depression, Panic Disorder Smoking Status: Never smoker Past Alcohol Use History: None Reported Past Drug Use History: None Reported - Past Family History Mother Family Medical History: Myocardial Infarction ([place]) Additional Family Medical History / Comment(s): Mother at age 48 from a myocardial infarction. Father Family Medical History: [place]ocardial Infarction ([place]) Additional Family Medical History / Comment(s): Father from a myocardial infarction. Brother(s) Additional Family Medical History / Comment(s): Patient has 4 brothers and all have mental health issues with alcoholism and drug addiction. She has 1 brother that at age 38 from a myocardial infarction. Sister(s) Additional Family Medical History / Comment(s): Patient has 6 sisters and one has PFO. Son(s) Additional Family Medical History / Comment(s): Patient has 3 sons. 16-year-old son was born with ureteral duplication, sickle cell trait, bipolar, ADHD. 9-year-old son has ADHD and sleep disorder. 4-year-old son has no medical problems General Exam - General Exam Comments Initial Comments: GENERAL: Well-appearing, well-nourished and in no acute distress. HEAD: Atraumatic, normocephalic. EYES: Pupils equal round and reactive to light, extraocular movements intact, sclera anicteric, conjunctiva are normal. ENT: TMs normal, nares patent, oropharynx clear without exudates. Moist mucous membranes. Patient has a cracked tooth in the upper left side, tooth #15, pain with palpation of the gum line along the tooth. No abscess is seen at this time. NECK: Normal range of motion, supple without lymphadenopathy or JVD. LUNGS: Breath sounds clear to auscultation bilaterally and equal. No wheezes rales or rhonchi. HEART: Regular rate and rhythm without murmurs, rubs or gallops. ABDOMEN: Soft, nontender, normoactive bowel sounds. No guarding, no rebound. No masses appreciated. : Deferred, pt declined. EXTREMITIES: Normal range of motion, no pitting or edema. No clubbing or cyanosis. NEUROLOGICAL: Cranial nerves II through XII grossly intact. Normal speech, normal gait. PSYCH: Normal mood, normal affect. SKIN: Warm, Dry, normal turgor, no rashes or lesions noted. Limitations: no limitations Course Vital Signs 01/20/19 10:28 Temperature 98.2 F Pulse Rate 91 Respiratory 16 Rate Blood Pressure 128/75 O2 Sat by Pulse 97 Oximetry Medical Decision Making - Medical Decision Making Patient is a 44-year-old female with complaints of dental pain 2 days and vaginal discharge 3 days. Patient states she had a plan with her dentist today but they had to cancel due to transportation issues. They suggested she come to the ER for possible antibiotic treatment. Patient also states she's been having increasing vaginal discharge that is yellow in color as well as burning. Patient denies having intercourse in the last 2 months. On exam patient has a fractured tooth on the upper left side. No signs of abscess in the gumlines. Patient declined vaginal exam today. UA shows a moderate amount of blood and only 8 wbc's with 24 squama's epithelia cells. Gonorrhea/Chlamydia testing pending. Patient does admit to being on her menstrual cycle currently. He was discussed with patient that we will start her on clindamycin to cover for both possible BV and dental abscess. Patient will be discharged home and patient is in agreement with this plan. Patient will follow up with dentist OSVALDO. Return parameters were discussed with patient she verbalizes understanding. Case discussed with Dr. Dinero. - Lab Data Lab Results 01/20/19 Range/Units 12:20 Urine Color Yellow Urine Appearance Cloudy H (Clear) Urine pH 6.0 (5.0-8.0) Ur Specific [place] 1.031 (1.001-1.035) Urine Protein Trace H (Negative) Urine Glucose (UA) Negative (Negative) Urine Ketones Negative (Negative) Urine Blood Moderate H (Negative) Urine Nitrite Negative (Negative) Urine Bilirubin Negative (Negative) Urine Urobilinogen <2.0 (<2.0) mg/dL Ur Leukocyte Esterase Small H (Negative) Urine RBC 5 (0-5) /hpf Urine WBC 8 H (0-5) /hpf Ur Squamous Epith Cells 24 H (0-4) /hpf Urine Mucus Occasional H (None) /hpf Disposition Clinical Impression: Pain due to dental caries, Bacterial vaginosis Disposition: HOME SELF-CARE Condition: Stable Instructions (If sedation given, give patient instructions): Dental Abscess (ED) Additional Instructions: Please return to the Emergency Department if symptoms worsen or any other concerns. Follow-up with PCP as it is possible. Prescriptions: Clindamycin HCl 300 mg PO BID 7 Days #14 cap Is patient prescribed a controlled substance at d/c from ED?: No Referrals: Lisa Wray MD [Primary Care Provider] - 1-2 days
[2019-01-20 13:01] LABS: Appearance,Urine Cloudy (Clear); Bilirubin,Urine Negative (Negative); Blood,Urine Moderate (Negative); Color,Urine Yellow; Glucose,Urine (UA) Negative (Negative); Ketones,Urine Negative (Negative); Leukocyte Esterase,Urine Small (Negative); Mucus,Urine Occasional /hpf; Nitrite,Urine Negative (Negative); Protein,Urine Trace (Negative); RBC,Urine 5 /hpf (0-5); Specific Gravity,Urine 1.031 (1.001-1.035); Squamous Epithelial Cell,Urine 24 /hpf (0-4); Urobilinogen,Urine <2.0 mg/dL (<2.0)
[2019-01-22 08:30] LABS: N. gonorrhoeae,PCR Negative (Neg,Equiv); Neisseria Source Urine
[2019-01-22 10:11] LABS: C. trachomatis,PCR Negative (Neg,Equiv); Chlamydia trachomatis Source Urine
== END 2019-01-20 13:53 | disposition home or self-care (01) ==
LOC: EC 10:16
DX: K02.9 Dental caries, unspecified (principal); N76.0 Acute vaginitis; S02.5XXA Fracture of tooth (traumatic), initial encounter for closed fracture; E07.9 Disorder of thyroid, unspecified; E89.0 Postprocedural hypothyroidism; Z79.899 Other long term (current) drug therapy; Z88.0 Allergy status to penicillin; Z88.1 Allergy status to other antibiotic agents; Z88.2 Allergy status to sulfonamides; Z88.8 Allergy status to other drugs, medicaments and biological substances; Z85.850 Personal history of malignant neoplasm of thyroid; Z90.89 Acquired absence of other organs
CPT/HCPCS: 81001; 87491; 87591; 99283

== ENCOUNTER 2019-02-17 13:31 | Emergency (ER) | payer OTHER ==
[2019-02-17 14:07] VITALS: BP 134/82; PULSE 89; RESP 18; TEMP 98.2
--- NOTE | 2019-02-17 14:32 | ED ---
Female Urogenital HPI - General Chief complaint: Urogenital Stated complaint: Female Time Seen by Provider: 02/17/19 14:17 Source: patient Limitations: no limitations - History of Present Illness Initial comments: Patient is a 44-year-old female presenting to the emergency Department with complaints of vaginal burning and irritation 3 days. Patient states she was treated a month ago for a yeast and BV and completed the treatment. Patient states that her symptoms did improve for a while but then have returned over the past week or so. Patient also admits to brownish colored vaginal discharge. Patient denies fever, chills. Patient does admit to being sexually active, not always using protection. Patient has no further complaints at this time. Upon arrival to ER, vital signs are stable, afebrile. Last Menstrual Period: 02/15/19 - Related Data Home Medications Medication Instructions Recorded Confirmed Calcitriol 0.25 mcg PO BID 02/17/16 02/17/19 Cyanocobalamin [Vitamin B-12] 500 mcg PO DAILY 06/05/16 02/17/19 Butalb/Acetaminophen/Caffeine 1 - 2 tab PO Q4H PRN 08/07/18 02/17/19 [Fioricet 50-325-40] Meclizine [Antivert] 25 mg PO DAILY 08/07/18 02/17/19 Cholecalciferol [Vitamin D3] 1,000 unit PO DAILY 08/24/18 02/17/19 Zolpidem [Ambien] 10 mg PO HS PRN 10/28/18 02/17/19 Diphenoxylate HCl/Atropine 1 tab PO BID 12/16/18 02/17/19 [Lomotil 2.5-0.025 mg Tablet] Famotidine [Pepcid] 20 mg PO BID 12/16/18 02/17/19 Ferrous Sulfate [Feosol] 325 mg PO BID 12/16/18 02/17/19 rOPINIRole HCL [Requip] 0.5 mg PO HS 02/17/19 02/17/19 Previous Rx's Medication Instructions Recorded Azithromycin [Zithromax] 500 mg PO ONCE 1 Days #2 tab 02/17/19 metroNIDAZOLE [Flagyl] 4 tab PO ONCE 1 Days #4 tab 02/17/19 Allergies Allergy/AdvReac Type Severity Reaction Status Date / Time methylprednisolone Allergy Rash/Hives Verified 02/17/19 14:21 [From Medrol] ondansetron HCl Allergy Rash/Hives Verified 02/17/19 14:21 [From Zofran (as hydrochloride)] Penicillins Allergy Rash/Hives Verified 02/17/19 14:21 sulfamethoxazole Allergy Rash/Hives Verified 02/17/19 14:21 [From Bactrim] trimethoprim [From Bactrim] Allergy Rash/Hives Verified 02/17/19 14:21 Review of Systems ROS Statement: Those systems with pertinent positive or pertinent negative responses have been documented in the HPI. ROS Other: All systems not noted in ROS Statement are negative. Past Medical History Past Medical History: Cancer, Thyroid Disorder Additional Past Medical History / Comment(s): thyroid CA in the past, low calcium, IBS. Gonorrhea, Trichomoniasis, History of Any Multi-Drug Resistant Organisms: None Reported Past Surgical History: Tubal Ligation Additional Past Surgical History / Comment(s): PARA THYROIDECTOMY, THYROIDECTOMY, breast reduction Past Anesthesia/Blood Transfusion Reactions: No Reported Reaction Past Psychological History: Anxiety, Depression, Panic Disorder Smoking Status: Never smoker Past Alcohol Use History: None Reported Past Drug Use History: None Reported - Past Family History Mother Family Medical History: Myocardial Infarction ([place]) Additional Family Medical History / Comment(s): Mother at age 48 from a myocardial infarction. Father Family Medical History: Myocardial Infarction ([place]) Additional Family Medical History / Comment(s): Father from a myocardial infarction. Brother(s) Additional Family Medical History / Comment(s): Patient has 4 brothers and all have mental health issues with alcoholism and drug addiction. She has 1 brother that at age 38 from a myocardial infarction. Sister(s) Additional Family Medical History / Comment(s): Patient has 6 sisters and one has PFO. Son(s) Additional Family Medical History / Comment(s): Patient has 3 sons. 16-year-old son was born with ureteral duplication, sickle cell trait, bipolar, ADHD. 9-year-old son has ADHD and sleep disorder. 4-year-old son has no medical problems General Exam - General Exam Comments Initial Comments: GENERAL: Well-appearing, well-nourished and in no acute distress. HEAD: Atraumatic, normocephalic. EYES: Pupils equal round and reactive to light, extraocular movements intact, sclera anicteric, conjunctiva are normal. ENT: TMs normal, nares patent, oropharynx clear without exudates. Moist mucous membranes. NECK: Normal range of motion, supple without lymphadenopathy or JVD. LUNGS: Breath sounds clear to auscultation bilaterally and equal. No wheezes rales or rhonchi. HEART: Regular rate and rhythm without murmurs, rubs or gallops. ABDOMEN: Soft, nontender, normoactive bowel sounds. No guarding, no rebound. No masses appreciated. EXTREMITIES: Normal range of motion, no pitting or edema. No clubbing or cyanosis. NEUROLOGICAL: Cranial nerves II through XII grossly intact. Normal speech, normal gait. PSYCH: Normal mood, normal affect. SKIN: Warm, Dry, normal turgor, no rashes or lesions noted. Limitations: no limitations External exam: Present: normal external exam. Absent: erythema Speculum exam: Present: vaginal discharge (Bloody, brown discharge). Absent: vaginal bleeding, foreign body By manual exam: Present: normal by manual exam Course Vital Signs 02/17/19 14:05 Temperature 98.2 F Pulse Rate 89 Respiratory 18 Rate Blood Pressure 134/82 O2 Sat by Pulse 100 Oximetry Medical Decision Making - Medical Decision Making Patient is a 44-year-old female presenting with vaginal irritation 3 days. Patient was treated for BV and yeast infection approximately a month ago. Patient's symptoms cleared and then have returned. Patient also reports a brownish colored discharge. Patient does admit to being sexually active and not always using protection. Vital signs are stable, afebrile. Vaginal exam revealed brownish, red discharge. Swabs were obtained. UA is within normal limits. Trichomonas was positive. The risk and benefits of being treated for gonorrhea and chlamydia right away were discussed with the patient. Patient wanted to be treated right away. Patient was given Rocephin, prescription for azithromycin as well as Flagyl. Gonorrhea and chlamydia testing is pending at this time. Patient is stable for discharge. Return parameters were discussed with the patient she verbalized understanding. - Lab Data Lab Results 02/17/19 02/17/19 02/17/19 Range/Units 13:15 15:15 15:15 Urine Color Yellow Urine Appearance Clear (Clear) Urine pH 6.0 (5.0-8.0) Ur Specific [place] 1.027 (1.001-1.035) Urine Protein Trace H (Negative) Urine Glucose (UA) Negative (Negative) Urine Ketones Negative (Negative) Urine Blood Trace H (Negative) Urine Nitrite Negative (Negative) Urine Bilirubin Negative (Negative) Urine Urobilinogen <2.0 (<2.0) mg/dL Ur Leukocyte Esterase Negative (Negative) Urine RBC 1 (0-5) /hpf Urine WBC <1 (0-5) /hpf Ur Squamous Epith Cells 2 (0-4) /hpf Urine Mucus Moderate H (None) /hpf Urine HCG, Qual Not Detected (Not Detectd) Trichomonas Ag (Rapid) Positive H (Negative) Disposition Clinical Impression: Vaginal Discharge Disposition: HOME SELF-CARE Condition: Stable Instructions (If sedation given, give patient instructions): Vaginitis (ED) Additional Instructions: Please return to the Emergency Department if symptoms worsen or any other concerns. Prescriptions: metroNIDAZOLE [Flagyl] 4 tab PO ONCE 1 Days #4 tab Azithromycin [Zithromax] 500 mg PO ONCE 1 Days #2 tab Is patient prescribed a controlled substance at d/c from ED?: No Referrals: Lisa Wray MD [Primary Care Provider] - 1-2 days
[2019-02-17 15:33] LABS: Appearance,Urine Clear (Clear); Bilirubin,Urine Negative (Negative); Blood,Urine Trace (Negative); Color,Urine Yellow; Glucose,Urine (UA) Negative (Negative); Ketones,Urine Negative (Negative); Leukocyte Esterase,Urine Negative (Negative); Mucus,Urine Moderate /hpf; Nitrite,Urine Negative (Negative); Protein,Urine Trace (Negative); RBC,Urine 1 /hpf (0-5); Specific Gravity,Urine 1.027 (1.001-1.035); Squamous Epithelial Cell,Urine 2 /hpf (0-4); Urobilinogen,Urine <2.0 mg/dL (<2.0)
[2019-02-17] MEDS ORDERED: cefTRIAXone 250 MG VIAL IM STA (15:34)
[2019-02-19 15:36] LABS: C. trachomatis,PCR Negative (Neg,Equiv); Chlamydia trachomatis Source Cervix
[2019-02-19 15:42] LABS: N. gonorrhoeae,PCR Negative (Neg,Equiv); Neisseria Source Cervix
== END 2019-02-17 15:58 | disposition home or self-care (01) ==
LOC: EC 13:31
DX: N89.8 Other specified noninflammatory disorders of vagina (principal); A59.9 Trichomoniasis, unspecified; Z88.8 Allergy status to other drugs, medicaments and biological substances; Z88.0 Allergy status to penicillin; Z88.2 Allergy status to sulfonamides; Z85.850 Personal history of malignant neoplasm of thyroid; Z87.19 Personal history of other diseases of the digestive system; Z90.89 Acquired absence of other organs; Z86.19 Personal history of other infectious and parasitic diseases
CPT/HCPCS: 81001; 81025; 87808; 87491; 87591; 99283; 96372; J0696

== ENCOUNTER → 2019-02-17 | Outpatient (CLI) | payer OTHER ==
--- NOTE | 2019-02-17 13:48 | US ---
EXAMINATION TYPE: US thyroid st tissue head/neck DATE OF EXAM: 02/17/2019 COMPARISON: Thyroid ultrasound #[id number] CLINICAL HISTORY: C73 Malignant neoplasm of thyroid gland/E89.0. Thyroidectomy, history of thyroid ca ncer GLAND SIZE: Right Lobe: Surgically absent Left Lobe: Surgically absent Isthmus Thickness: Surgically absent NODULES RIGHT: # of nodules measured on right: 0 LEFT: # of nodules measured on left: 0 ISTHMUS: # of nodules measured in the isthmus: 0 Bilateral neck scanned, no evidence of lymphadenopathy. No suspicious residual or recurrent tissue at level of thyroid bed. No suspicious adenopathy. IMPRESSION: Postthyroidectomy changes redemonstrated. No ultrasound evidence for local recurrence.
== END | disposition home or self-care (01) ==
LOC: RADUSWWP 13:11
PROVIDERS: ATTEND Family Medicine
DX: M54.2 Cervicalgia (principal); E89.0 Postprocedural hypothyroidism; Z90.89 Acquired absence of other organs
CPT/HCPCS: 76536

== ENCOUNTER → 2019-03-30 | Outpatient (CLI) | payer OTHER | END | disposition home or self-care (01) | LOC: LABWHC1 15:32 | PROVIDERS: ATTEND Internal Medicine Endocrinology, Diabetes & Metabolism | DX: C73 Malignant neoplasm of thyroid gland (principal) | CPT/HCPCS: 36415; 84432; 84702 ==

== ENCOUNTER → 2019-03-31 | Outpatient (CLI) | payer OTHER ==
--- NOTE | 2019-04-06 18:09 | NM ---
EXAMINATION TYPE: NM I-131 THYROID CANCER METASTATIC SCAN WHOLE BODY DATE OF EXAM: 04/05/2019 HISTORY: 44 year-old female with history of papillary thyroid cancer with total thyroidectomy in 2000 . Reported history of multiple prior radioactive iodine ablation treatments. Outside thyroglobulin le ayo acquired on 03/30/2019 reportedly 21.8 ng/mL. COMPARISON: Thyroid ultrasound 02/17/2019 TECHNIQUE: Following the oral administration of 3.05 mCi I-131 capsule, whole body scan was performed at 2 days after radiotracer administration. FINDINGS: There is physiologic uptake within the salivary glands, though slightly left greater than right in th e submandibular regions. Additional physiologic uptake within the nasopharynx and also within the stomach, colon, and bladder. Otherwise, no abnormal tracer activity is seen. IMPRESSION: 1. No residual or recurrent uptake seen in the thyroidectomy bed. 2. Slightly asymmetric, left greater than right uptake in the region of the submandibular glands like ly represents asymmetric physiologic uptake. Consider targeted ultrasound. 3. Otherwise, no additional abnormal uptake identified throughout the body. Given the patient's eleva genaro thyroglobulin level, further clinical correlation is recommended as to the next step in managemen t. Consideration can be given to neck ultrasound and/or PET/CT prior to possible empiric therapy.
== END | disposition home or self-care (01) ==
LOC: RADNMMAIN 12:47
PROVIDERS: ATTEND Internal Medicine Endocrinology, Diabetes & Metabolism
DX: C73 Malignant neoplasm of thyroid gland (principal)
CPT/HCPCS: 78018; A9517

== ENCOUNTER 2019-08-25 18:38 | Inpatient (IN) | payer MEDICAID, OTHER ==
--- NOTE | 2019-08-25 19:11 | ED ---
Psych HPI - General Chief Complaint: Psychiatric Symptoms Stated Complaint: mental health Time Seen by Provider: 08/25/19 18:52 Source: patient, EMS Mode of arrival: EMS - History of Present Illness Initial Comments: Patient is a 44-year-old female with history of depression presenting to emergency Department with a chief complaint of suicidal attempt. Patient states she took 4:30 milligram tablets of Restoril about 3 hours prior to arrival. States this medication was prescribed to her by her physician. States that she spoke with her ex- who suggested she go kill herself so she took the pills. States she does have history of previous suicidal attempts with other medications. Patient reports at this time she only feels depressed and has no other complaints. Denies nausea headaches chest pain shortness of breath diaphoresis lightheadedness dizziness or blurry vision. - Related Data Home Medications Medication Instructions Recorded Confirmed Calcitriol 0.25 mcg PO BID 02/17/16 08/25/19 Zolpidem [Ambien] 5 - 10 mg PO HS PRN 10/28/18 08/25/19 Diphenoxylate HCl/Atropine 1 tab PO QID PRN 12/16/18 08/25/19 [Lomotil 2.5-0.025 mg Tablet] Famotidine [Pepcid] 20 mg PO BID 12/16/18 08/25/19 Ferrous Sulfate [Feosol] 325 mg PO BID 12/16/18 08/25/19 Baclofen [Lioresal] 10 mg PO BID 08/25/19 08/25/19 Clindamycin HCl 300 mg PO Q8H 08/25/19 08/25/19 Ergocalciferol [Vitamin D2] 50,000 unit PO Q7D 08/25/19 08/25/19 Ibuprofen [Motrin] 800 mg PO Q8H PRN 08/25/19 08/25/19 Levothyroxine Sodium [Synthroid] 175 mcg PO DAILY 08/25/19 08/25/19 Loratadine 10 mg PO DAILY 08/25/19 08/25/19 Metoprolol Succinate [Toprol XL] 25 mg PO DAILY 08/25/19 08/25/19 Nystatin 100,000 Unit/ml Susp 500,000 unit PO QID 08/25/19 08/25/19 [Mycostatin Oral Susp] hydrOXYzine HCL 25 mg PO TID PRN 08/25/19 08/25/19 Allergies Allergy/AdvReac Type Severity Reaction Status Date / Time methylprednisolone Allergy Rash/Hives Verified 02/17/19 14:21 [From Medrol] ondansetron HCl Allergy Rash/Hives Verified 02/17/19 14:21 [From Zofran (as hydrochloride)] Penicillins Allergy Rash/Hives Verified 02/17/19 14:21 sulfamethoxazole Allergy Rash/Hives Verified 02/17/19 14:21 [From Bactrim] trimethoprim [From Bactrim] Allergy Rash/Hives Verified 02/17/19 14:21 Review of Systems ROS Statement: Those systems with pertinent positive or pertinent negative responses have been documented in the HPI. ROS Other: All systems not noted in ROS Statement are negative. Past Medical History Past Medical History: Cancer, Thyroid Disorder Additional Past Medical History / Comment(s): thyroid CA in the past, low calcium, IBS. Gonorrhea, Trichomoniasis, History of Any Multi-Drug Resistant Organisms: None Reported Past Surgical History: Tubal Ligation Additional Past Surgical History / Comment(s): PARA THYROIDECTOMY, THYROIDECTOMY, breast reduction Past Anesthesia/Blood Transfusion Reactions: No Reported Reaction Past Psychological History: Anxiety, Depression, Panic Disorder Smoking Status: Never smoker Past Alcohol Use History: None Reported Past Drug Use History: None Reported - Past Family History Mother Family Medical History: Myocardial Infarction ([place]) Additional Family Medical History / Comment(s): Mother at age 48 from a myocardial infarction. Father Family Medical History: Myocardial Infarction (ND) Additional Family Medical History / Comment(s): Father from a myocardial infarction. Brother(s) Additional Family Medical History / Comment(s): Patient has 4 brothers and all have mental health issues with alcoholism and drug addiction. She has 1 brother that at age 38 from a myocardial infarction. Sister(s) Additional Family Medical History / Comment(s): Patient has 6 sisters and one has PFO. Son(s) Additional Family Medical History / Comment(s): Patient has 3 sons. 16-year-old son was born with ureteral duplication, sickle cell trait, bipolar, ADHD. 9-ye ar-old son has ADHD and sleep disorder. 4-year-old son has no medical problems General Exam Limitations: no limitations General appearance: alert, in no apparent distress Head exam: Present: atraumatic, normocephalic, normal inspection Eye exam: Present: normal appearance, PERRL, EOMI Pupils: Present: normal accommodation ENT exam: Present: normal exam, normal oropharynx, mucous membranes moist, TM's normal bilaterally, normal external ear exam Neck exam: Present: normal inspection, full ROM Respiratory exam: Present: normal lung sounds bilaterally. Absent: respiratory distress, wheezes Cardiovascular Exam: Present: regular rate, normal rhythm, normal heart sounds Extremities exam: Present: normal inspection, full ROM Back exam: Present: normal inspection, full ROM Neurological exam: Present: alert, oriented X3, normal gait Psychiatric exam: Present: normal affect, depressed Skin exam: Present: warm, dry, intact, normal color. Absent: rash Course Vital Signs 08/25/19 08/25/19 18:39 21:30 Temperature 98.6 F 99.3 F Pulse Rate 100 86 Respiratory 16 16 Rate Blood Pressure 140/104 120/85 O2 Sat by Pulse 100 Oximetry Medical Decision Making - Medical Decision Making Patient 44-year-old female with history of depression presents emergency Department chief complaint suicidal attempt. Patient took 4 tablets of 30 mg of Restoril. I contacted poison control who advised the basic overdose workup along with EKG, labs, Tylenol salicylates. Laboratory work is unremarkable. Alcohol levels are 0. Patient does appear to be anxious and physical examination. Stay she was anxious prior to the suicide attempt. Patient was given anxiolytics. Reevaluation patient reports improvement in symptoms. EPS evaluated the patient and she will be admitted for further psychiatric management. Case discussed with - Lab Data Result diagrams: 08/25/19 19:30 08/25/19 19:30 Lab Results 08/25/19 08/25/19 08/25/19 Range/Units 19:30 19:30 21:02 WBC 8.3 (3.8-10.6) k/uL RBC 3.84 (3.80-5.40) m/uL Hgb 12.2 (11.4-16.0) gm/dL Hct 35.9 (34.0-46.0) % MCV 93.7 (80.0-100.0) fL MCH 31.7 (25.0-35.0) pg MCHC 33.9 (31.0-37.0) g/dL RDW 14.1 (11.5-15.5) % Plt Count 346 (150-450) k/uL Neutrophils % 76 % Lymphocytes % 15 % Monocytes % 5 % Eosinophils % 1 % Basophils % 0 % Neutrophils # 6.3 (1.3-7.7) k/uL Lymphocytes # 1.2 (1.0-4.8) k/uL Monocytes # 0.4 (0-1.0) k/uL Eosinophils # 0.1 (0-0.7) k/uL Basophils # 0.0 (0-0.2) k/uL Sodium 140 (137-145) mmol/L Potassium 3.5 (3.5-5.1) mmol/L Chloride 103 (98-107) mmol/L Carbon Dioxide 29 (22-30) mmol/L Anion Gap 8 mmol/L BUN 19 H (7-17) mg/dL Creatinine 0.82 (0.52-1.04) mg/dL Est GFR (CKD-EPI)AfAm >90 (>60 ml/min/1.73 sqM) Est GFR (CKD-EPI)NonAf 89 (>60 ml/min/1.73 sqM) Glucose 106 H (74-99) mg/dL Calcium 8.7 (8.4-10.2) mg/dL Total Bilirubin 0.3 (0.2-1.3) mg/dL AST 20 (14-36) U/L ALT 12 (4-34) U/L Alkaline Phosphatase 73 (38-126) U/L Total Protein 7.2 (6.3-8.2) g/dL Albumin 4.7 (3.5-5.0) g/dL Urine HCG, Qual (Not Detectd) Salicylates <1.0 mg/dL Urine Opiates Screen Not Detected (NotDetected) Ur Oxycodone Screen Not Detected (NotDetected) Urine Methadone Screen Not Detected (NotDetected) Ur Propoxyphene Screen Not Detected (NotDetected) Acetaminophen <10.0 ug/mL Ur Barbiturates Screen Not Detected (NotDetected) U Tricyclic Antidepress Not Detected (NotDetected) Ur Phencyclidine Scrn Not Detected (NotDetected) Ur Amphetamines Screen Not Detected (NotDetected) U Methamphetamines Scrn Not Detected (NotDetected) U Benzodiazepines Scrn Detected H (NotDetected) Urine Cocaine Screen Not Detected (NotDetected) U Marijuana (THC) Screen Not Detected (NotDetected) Serum Alcohol <10 mg/dL 08/25/19 Range/Units 21:02 WBC (3.8-10.6) k/uL RBC (3.80-5.40) m/uL Hgb (11.4-16.0) gm/dL Hct (34.0-46.0) % MCV (80.0-100.0) fL MCH (25.0-35.0) pg MCHC (31.0-37.0) g/dL RDW (11.5-15.5) % Plt Count (150-450) k/uL Neutrophils % % Lymphocytes % % Monocytes % % Eosinophils % % Basophils % % Neutrophils # (1.3-7.7) k/uL Lymphocytes # (1.0-4.8) k/uL Monocytes # (0-1.0) k/uL Eosinophils # (0-0.7) k/uL Basophils # (0-0.2) k/uL Sodium (137-145) mmol/L Potassium (3.5-5.1) mmol/L Chloride (98-107) mmol/L Carbon Dioxide (22-30) mmol/L Anion Gap mmol/L BUN (7-17) mg/dL Creatinine (0.52-1.04) mg/dL Est GFR (CKD-EPI)AfAm (>60 ml/min/1.73 sqM) Est GFR (CKD-EPI)NonAf (>60 ml/min/1.73 sqM) Glucose (74-99) mg/dL Calcium (8.4-10.2) mg/dL Total Bilirubin (0.2-1.3) mg/dL AST (14-36) U/L ALT (4-34) U/L Alkaline Phosphatase (38-126) U/L Total Protein (6.3-8.2) g/dL Albumin (3.5-5.0) g/dL Urine HCG, Qual Not Detected (Not Detectd) Salicylates mg/dL Urine Opiates Screen (NotDetected) Ur Oxycodone Screen (NotDetected) Urine Methadone Screen (NotDetected) Ur Propoxyphene Screen (NotDetected) Acetaminophen ug/mL Ur Barbiturates Screen (NotDetected) U Tricyclic Antidepress (NotDetected) Ur Phencyclidine Scrn (NotDetected) Ur Amphetamines Screen (NotDetected) U Methamphetamines Scrn (NotDetected) U Benzodiazepines Scrn (NotDetected) Urine Cocaine Screen (NotDetected) U Marijuana (THC) Screen (NotDetected) Serum Alcohol mg/dL - EKG Data EKG Comments: Normal sinus rhythm, QT prolongation. Ventricular rate 91, IL 172, QRS 84, QTC 500 04. Similar EKG to the previous one from 3 years ago. Disposition Clinical Impression: Attempted suicide, Overdose of sleeping tabs, Prolonged Q-T interval on ECG Disposition: ADMITTED IP TO THIS HOSP Condition: Stable Is patient prescribed a controlled substance at d/c from ED?: No Time of Disposition: 21:19
[2019-08-25 19:40] LABS: Basophils % (A) 0 %; Eosinophils # (A) 0.1 k/uL (0-0.7); Eosinophils % (A) 1 %; HCT 35.9 % (34.0-46.0); HGB 12.2 gm/dL (11.4-16.0); Lymphocytes # (A) 1.2 k/uL (1.0-4.8); Lymphocytes % (A) 15 %; MCH 31.7 pg (25.0-35.0); MCHC 33.9 g/dL (31.0-37.0); MCV 93.7 fL (80.0-100.0); Mean Platelet Volume 7.5; Monocytes # (A) 0.4 k/uL (0-1.0); Monocytes % (A) 5 %; Neutrophils # (A) 6.3 k/uL (1.3-7.7); Neutrophils % (A) 76 %; Platelet Count 346 k/uL (150-450); RBC 3.84 m/uL (3.80-5.40); RDW 14.1 % (11.5-15.5); WBC 8.3 k/uL (3.8-10.6)
[2019-08-25 19:50] LABS: ALT 12 U/L (4-34); AST 20 U/L (14-36); Acetaminophen <10.0 ug/mL; African American GFR (CKD) >90 (>60 ml/min/1.73 sqM); Albumin 4.7 g/dL (3.5-5.0); Alcohol <10 mg/dL; Alkaline Phosphatase 73 U/L (38-126); Anion Gap 8 mmol/L; Blood Urea Nitrogen 19 mg/dL (7-17); Calcium 8.7 mg/dL (8.4-10.2); Carbon Dioxide 29 mmol/L (22-30); Chloride 103 mmol/L (98-107); Glucose 106 mg/dL (74-99); Non-African American GFR(CKD) 89 (>60 ml/min/1.73 sqM); Potassium 3.5 mmol/L (3.5-5.1); Salicylate <1.0 mg/dL; Sodium 140 mmol/L (137-145); Total Bilirubin 0.3 mg/dL (0.2-1.3); Total Protein 7.2 g/dL (6.3-8.2)
[2019-08-25] MEDS ORDERED: LORazepam 2 MG/ML INJ IV STA (20:36)
[2019-08-25 21:18] LABS: Amphetamine Screen,Urine Not Detected (NotDetected); Barbiturate Screen,Urine Not Detected (NotDetected); Benzodiazepines Screen,Urine Detected (NotDetected); Cocaine Screen,Urine Not Detected (NotDetected); Methadone Screen, Urine Not Detected (NotDetected); Opiate Screen,Urine Not Detected (NotDetected); Oxycodone Screen, Urine Not Detected (NotDetected); Phencyclidine Screen,Urine Not Detected (NotDetected); Tricyclic Antidepressant,Urine Not Detected (NotDetected); Urn Cannabinoid Scrn Not Detected (NotDetected)
[2019-08-26] MEDS ORDERED: DIPHENOX-ATROP 2.5-0.025 MG 1 EACH TAB PO PRN (00:48)
[2019-08-26] MEDS ORDERED: MAGNESIUM HYDROXIDE 2,400 MG/10 ML CUP PO PRN (00:50)
[2019-08-26] MEDS ORDERED: MAG HYDROX/AL HYDROX/SIMETH 30 ML CUP PO PRN (00:50)
[2019-08-26] MEDS ORDERED: LORazepam 2 MG/ML INJ IM PRN (00:54)
[2019-08-26] MEDS: CLINDAMYCIN 150 MG CAP PO SCH ×3 (01:26→17:15)
[2019-08-26] MEDS: LORazepam 1 MG TAB PO PRN ×2 (01:26→13:51)
[2019-08-26] MEDS: LEVOTHYROXINE 50 MCG TAB PO SCH (06:09)
[2019-08-26] MEDS: BACLOFEN 10 MG TAB PO SCH ×2 (07:56→21:10)
[2019-08-26] MEDS: CALCITRIOL 0.25 MCG CAP PO SCH ×2 (07:56→21:09)
[2019-08-26] MEDS: NYSTATIN 100,000 UNIT/ML SUSP 500,000 UNIT/5 ML CUP PO SCH ×4 (07:56→21:09)
[2019-08-26] MEDS: FAMOTIDINE 20 MG TAB PO SCH ×2 (07:57→21:12)
[2019-08-26] MEDS: FERROUS SULFATE 325 MG TAB PO SCH ×2 (07:57→21:10)
[2019-08-26] MEDS: METOPROLOL SUCCINATE (ER) 25 MG TAB.ER.24H PO SCH (07:57)
[2019-08-26] MEDS: LORATADINE 10 MG TAB PO SCH (07:57)
--- NOTE | 2019-08-26 11:50 | P.CONS ---
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 She also complaining of from tooth ache with infection in her right side and she is on clindamycin Presents because of suicidal attempt with 4 pills of her medicine after disputes with her ex- whom she share children with, after that she was drowsy and sleepy for about an hour, she poses something on facebook and her called the police for her Currently patient denies chest or dyspnea, no abdominal pain, change in urine or bowel habits. She has menstrual cycle currently, she said that her menstrual cycle was a little irregular because she stopped taking her levothyroxine medicine. Currently she was restarted on levothyroxine 175 g daily which is her home dose as per patient. She denies smoking, alcohol or illicit drugs Review of Systems CONSTITUTIONAL: No fever, no malaise, no fatigue. HEENT: No recent visual problems or hearing problems. Denied any sore throat. CARDIOVASCULAR: No orthopnea, PND, no palpitations, no syncope. PULMONARY: No shortness of breath, no cough, no hemoptysis. GASTROINTESTINAL: No diarrhea, no nausea, no vomiting, no abdominal pain. Normoactive bowel sounds. NEUROLOGICAL: No headaches, no weakness, no numbness. HEMATOLOGICAL: Denies any bleeding or petechiae. GENITOURINARY: Denies any burning micturition, frequency, or urgency. MUSCULOSKELETAL/RHEUMATOLOGICAL: Denies any joint pain, swelling, or any muscle pain. ENDOCRINE: Denies any polyuria or polydipsia. Past Medical History Past Medical History: Cancer, Thyroid Disorder Additional Past Medical History / Comment(s): thyroid CA in the past, low calcium, IBS. Gonorrhea, Trichomoniasis, History of Any Multi-Drug Resistant Organisms: None Reported Past Surgical History: Tubal Ligation Additional Past Surgical History / Comment(s): PARA THYROIDECTOMY, THYROIDECTOMY, breast reduction Past Anesthesia/Blood Transfusion Reactions: No Reported Reaction Past Psychological History: Anxiety, Depression, Panic Disorder Smoking Status: Never smoker Past Alcohol Use History: None Reported Past Drug Use History: None Reported - Past Family History Mother Family Medical History: Myocardial Infarction (ID) Additional Family Medical History / Comment(s): Mother at age 48 from a myocardial infarction. Father Family Medical History: Myocardial Infarction (ID) Additional Family Medical History / Comment(s): Father from a myocardial infarction. Brother(s) Additional Family Medical History / Comment(s): Patient has 4 brothers and all have mental health issues with alcoholism and drug addiction. She has 1 brother that at age 38 from a myocardial infarction. Sister(s) Additional Family Medical History / Comment(s): Patient has 6 sisters and one has PFO. Son(s) Additional Family Medical History / Comment(s): Patient has 3 sons. 16-year-old son was born with ureteral duplication, sickle cell trait, bipolar, ADHD. 9-year-old son has ADHD and sleep disorder. 4-year-old son has no medical problems Medications and Allergies Home Medications Medication Instructions Recorded Confirmed Type Calcitriol 0.25 mcg PO BID 02/17/16 08/25/19 History Zolpidem [Ambien] 5 - 10 mg PO HS PRN 10/28/18 08/26/19 History Diphenoxylate HCl/Atropine 1 tab PO QID PRN 12/16/18 08/25/19 History [Lomotil 2.5-0.025 mg Tablet] Famotidine [Pepcid] 20 mg PO BID 12/16/18 08/25/19 History Ferrous Sulfate [Feosol] 325 mg PO BID 12/16/18 08/26/19 History Baclofen [Lioresal] 10 mg PO BID 08/25/19 08/25/19 History Clindamycin HCl 300 mg PO Q8H 08/25/19 08/25/19 History Ergocalciferol [Vitamin D2] 50,000 unit PO Q7D 08/25/19 08/25/19 History Ibuprofen [Motrin] 800 mg PO Q8H PRN 08/25/19 08/26/19 History Levothyroxine Sodium [Synthroid] 175 mcg PO DAILY 08/25/19 08/26/19 History Loratadine 10 mg PO DAILY 08/25/19 08/26/19 History Metoprolol Succinate [Toprol XL] 25 mg PO DAILY 08/25/19 08/26/19 History Nystatin 100,000 Unit/ml Susp 500,000 unit PO QID 08/25/19 08/26/19 History [Mycostatin Oral Susp] hydrOXYzine HCL 25 mg PO TID PRN 08/25/19 08/26/19 History Allergies Allergy/AdvReac Type Severity Reaction Status Date / Time methylprednisolone Allergy Rash/Hives Verified 08/26/19 04:05 [From Medrol] ondansetron HCl Allergy Rash/Hives Verified 08/26/19 04:05 [From Zofran (as hydrochloride)] Penicillins Allergy Rash/Hives Verified 08/26/19 04:05 sulfamethoxazole Allergy Rash/Hives Verified 08/26/19 04:05 [From Bactrim] trimethoprim [From Bactrim] Allergy Rash/Hives Verified 08/26/19 04:05 Physical Exam Vitals: Vital Signs Temp Pulse Pulse Resp BP BP Pulse Ox 08/26/19 08:00 106 H 115/84 08/26/19 01:02 98.1 F 99 16 145/105 99 08/25/19 21:30 99.3 F 86 16 120/85 08/25/19 18:39 98.6 F 100 16 140/104 100 Intake and Output 08/25/19 08/26/19 08/26/19 22:59 06:59 14:59 Other: Weight 83.915 kg 81.703 kg GENERAL: The patient is alert and oriented x3, not in any acute distress. Well developed, well nourished. -HEENT: Pupils are round and equally reacting to light. EOMI. No scleral icterus. No conjunctival pallor. Normocephalic, atraumatic. No pharyngeal erythema. No thyromegaly. Right side tooth infection, CARDIOVASCULAR: S1 and S2 present. No murmurs, rubs, or gallops. PULMONARY: Chest is clear to auscultation, no wheezing or crackles. ABDOMEN: Soft, nontender, nondistended, normoactive bowel sounds. No palpable organomegaly. MUSCULOSKELETAL: No joint swelling or deformity. EXTREMITIES: No cyanosis, clubbing, or pedal edema. NEUROLOGICAL: Gross neurological examination did not reveal any focal deficits. SKIN: No rashes. No petechiae Results CBC & Chem 7: 08/25/19 19:30 08/25/19 19:30 Labs: Abnormal Lab Results - Last 24 Hours (Table) 08/25/19 08/25/19 Range/Units 19:30 21:02 BUN 19 H (7-17) mg/dL Glucose 106 H (74-99) mg/dL U Benzodiazepines Scrn Detected H (NotDetected) Assessment and Plan Assessment: -Right tooth infection, continue with clindamycin, follow-up with a dentist once discharged within 1-3 days -Depression and other psychiatric illnesses, management by the psychiatric primary team -Irritable bowel syndrome, continue with slow material as needed -Hypothyroidism, continue with levothyroxine -History of laryngoscopy and parathyroidectomy, for thyroid cancer, with hypocalcemia -History of 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 Chavis and s he agrees Thank you for consulting us, we will follow the patient on as needed basis, please feel free to contact us for any further question or concern
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
[2019-08-26] MEDS: ACETAMINOPHEN TAB 325 MG TAB PO PRN (19:08)
[2019-08-26] MEDS: hydrOXYzine HCL 25 MG TAB PO PRN (21:12)
[2019-08-26 21:32] LABS: Hemoglobin A1C 4.5 % (4.0-6.0)
[2019-08-27] MEDS: LORazepam 1 MG TAB PO PRN ×3 (02:43→21:00)
[2019-08-27] MEDS: CLINDAMYCIN 150 MG CAP PO SCH ×3 (02:44→16:59)
[2019-08-27] MEDS: LEVOTHYROXINE 50 MCG TAB PO SCH (06:22)
[2019-08-27] MEDS: NYSTATIN 100,000 UNIT/ML SUSP 500,000 UNIT/5 ML CUP PO SCH ×4 (07:59→21:01)
[2019-08-27] MEDS: METOPROLOL SUCCINATE (ER) 25 MG TAB.ER.24H PO SCH (08:00)
[2019-08-27] MEDS: FAMOTIDINE 20 MG TAB PO SCH ×2 (08:00→21:04)
[2019-08-27] MEDS: LORATADINE 10 MG TAB PO SCH (08:00)
[2019-08-27] MEDS: BACLOFEN 10 MG TAB PO SCH ×2 (08:00→21:06)
[2019-08-27] MEDS: FERROUS SULFATE 325 MG TAB PO SCH ×2 (08:00→21:04)
[2019-08-27] MEDS: CALCITRIOL 0.25 MCG CAP PO SCH ×2 (08:00→21:00)
[2019-08-27] MEDS: ACETAMINOPHEN TAB 325 MG TAB PO PRN ×2 (08:01→15:23)
[2019-08-27] MEDS ORDERED: BENZOCAINE/MENTHOL LOZENG 1 EACH LOZENGE MUCOUS MEM PRN (08:03)
[2019-08-27 08:48] LABS: Basophils % (A) 0 %; Eosinophils # (A) 0.1 k/uL (0-0.7); Eosinophils % (A) 2 %; HCT 34.3 % (34.0-46.0); HGB 11.4 gm/dL (11.4-16.0); Lymphocytes # (A) 1.3 k/uL (1.0-4.8); Lymphocytes % (A) 16 %; MCH 32.1 pg (25.0-35.0); MCHC 33.4 g/dL (31.0-37.0); MCV 96.3 fL (80.0-100.0); Mean Platelet Volume 7.4; Monocytes # (A) 0.4 k/uL (0-1.0); Monocytes % (A) 5 %; Neutrophils % (A) 74 %; Platelet Count 304 k/uL (150-450); RBC 3.56 m/uL (3.80-5.40); RDW 14.2 % (11.5-15.5); WBC 8.1 k/uL (3.8-10.6)
[2019-08-27 09:02] LABS: ALT 12 U/L (4-34); AST 19 U/L (14-36); African American GFR (CKD) >90 (>60 ml/min/1.73 sqM); Albumin 4.1 g/dL (3.5-5.0); Alkaline Phosphatase 66 U/L (38-126); Anion Gap 10 mmol/L; Blood Urea Nitrogen 25 mg/dL (7-17); Calcium 8.5 mg/dL (8.4-10.2); Carbon Dioxide 25 mmol/L (22-30); Chloride 105 mmol/L (98-107); Cholesterol 238 mg/dL (<200); Glucose 97 mg/dL (74-99); HDL Cholesterol 49 mg/dL (40-60); LDL Cholesterol,Calculated 162 mg/dL (0-99); Non-African American GFR(CKD) 88 (>60 ml/min/1.73 sqM); Potassium 4.1 mmol/L (3.5-5.1); Sodium 140 mmol/L (137-145); Total Bilirubin 0.3 mg/dL (0.2-1.3); Total Protein 6.5 g/dL (6.3-8.2); Triglycerides 133 mg/dL (<150)
[2019-08-27] MEDS: hydrOXYzine HCL 25 MG TAB PO PRN ×2 (12:00→21:03)
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
[2019-08-27] MEDS: MIRTAZAPINE 15 MG TAB PO SCH (20:59)
[2019-08-27] MEDS ORDERED: ATORVASTATIN 10 MG TAB PO SCH (21:00)
[2019-08-28] MEDS: CLINDAMYCIN 150 MG CAP PO SCH ×2 (03:24→10:11)
[2019-08-28] MEDS: LEVOTHYROXINE 50 MCG TAB PO SCH (06:13)
[2019-08-28 06:51] VITALS: TEMP 97.8
[2019-08-28] MEDS: CALCITRIOL 0.25 MCG CAP PO SCH (10:11)
[2019-08-28] MEDS: FAMOTIDINE 20 MG TAB PO SCH (10:11)
[2019-08-28] MEDS: BACLOFEN 10 MG TAB PO SCH (10:11)
[2019-08-28] MEDS: METOPROLOL SUCCINATE (ER) 25 MG TAB.ER.24H PO SCH (10:12)
[2019-08-28] MEDS: NYSTATIN 100,000 UNIT/ML SUSP 500,000 UNIT/5 ML CUP PO SCH ×2 (10:12→13:10)
[2019-08-28] MEDS: LORATADINE 10 MG TAB PO SCH (10:12)
[2019-08-28] MEDS: FERROUS SULFATE 325 MG TAB PO SCH (10:12)
[2019-08-28 10:18] VITALS: RESP 20
[2019-08-28 13:11] LABS: T4, Free (Free Thyroxine) 0.93 ng/dL (0.78-2.19)
[2019-08-28 13:13] VITALS: BP 124/74; PULSE 85
[2019-08-28] MEDS: LORazepam 1 MG TAB PO PRN (13:15)
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
[2019-08-31] MEDS ORDERED: ERGOCALCIFEROL 50,000 UNIT CAP PO SCH (09:00)
== END 2019-08-28 16:03 | disposition home or self-care (01) | DRG 885 ==
LOC: EC 18:38 → 3MHU 08-26 00:14
PROVIDERS: ADMIT Psychiatry & Neurology Psychiatry; ATTEND Psychiatry & Neurology Psychiatry
DX: F33.2 Major depressive disorder, recurrent severe without psychotic features (principal); R45.851 Suicidal ideations; E83.51 Hypocalcemia; F79 Unspecified intellectual disabilities; G47.09 Other insomnia; F43.10 Post-traumatic stress disorder, unspecified; F41.1 Generalized anxiety disorder; E89.0 Postprocedural hypothyroidism; R94.31 Abnormal electrocardiogram [ECG] [EKG]; K58.9 Irritable bowel syndrome, unspecified; E78.00 Pure hypercholesterolemia, unspecified; F41.0 Panic disorder [episodic paroxysmal anxiety]; F90.9 Attention-deficit hyperactivity disorder, unspecified type; K04.7 Periapical abscess without sinus; E66.9 Obesity, unspecified; Z68.32 Body mass index [BMI] 32.0-32.9, adult; Z79.890 Hormone replacement therapy; Z79.899 Other long term (current) drug therapy; Z88.0 Allergy status to penicillin; Z63.0 Problems in relationship with spouse or partner; Z88.2 Allergy status to sulfonamides; Z88.8 Allergy status to other drugs, medicaments and biological substances; Z98.51 Tubal ligation status; Z85.850 Personal history of malignant neoplasm of thyroid; Z86.19 Personal history of other infectious and parasitic diseases; Z91.410 Personal history of adult physical and sexual abuse; Z82.49 Family history of ischemic heart disease and other diseases of the circulatory system; Z81.8 Family history of other mental and behavioral disorders; Z81.3 Family history of other psychoactive substance abuse and dependence; Z81.1 Family history of alcohol abuse and dependence; Z83.2 Family history of diseases of the blood and blood-forming organs and certain disorders involving the immune mechanism; Z82.79 Family history of other congenital malformations, deformations and chromosomal abnormalities
CPT/HCPCS: 36415; 80053; 80061; 80306; 80320; 80329; 81025; 82075; 83036; 83520; 84439; 84443; 85025; 93005; 96374; 99285

== ENCOUNTER → 2019-10-30 | Outpatient (CLI) | payer OTHER ==
--- NOTE | 2019-10-30 11:02 | US ---
EXAMINATION TYPE: US kidneys/renal and bladder DATE OF EXAM: 10/30/2019 COMPARISON: NONE CLINICAL HISTORY: R10.9 Abdominal/pelvic pain. EXAM MEASUREMENTS: Right Kidney: 10.4 x 4.4 x 4.0 cm Left Kidney: 9.3 x 5.5 x 4.2 cm Right Kidney: No hydronephrosis or masses seen Left Kidney: No hydronephrosis or masses seen Bladder: Not distended, wnl as visualized Bilateral Jets seen: right jet visualized only There is no evidence for hydronephrosis at this point in time. No nephrolithiasis is seen. No kendrick s are identified. The urinary bladder is anechoic. Right ureteral jet seen. IMPRESSION: Unremarkable renal ultrasound. No hydronephrosis or nephrolithiasis of either kidney.
[2019-10-30 12:42] LABS: T4, Free (Free Thyroxine) 0.92 ng/dL (0.78-2.19)
== END | disposition home or self-care (01) ==
LOC: RADUSWWP 09:57
PROVIDERS: ATTEND Internal Medicine
DX: R10.9 Unspecified abdominal pain (principal); Z88.0 Allergy status to penicillin; Z88.1 Allergy status to other antibiotic agents; E55.9 Vitamin D deficiency, unspecified; E03.9 Hypothyroidism, unspecified
CPT/HCPCS: 36415; 76770; 82306; 84439; 84443; 84481

== ENCOUNTER → 2019-11-25 | Outpatient (CLI) | payer OTHER ==
--- NOTE | 2019-11-26 10:01 | MM ---
Reason for exam: screening (asymptomatic). Last mammogram was performed 1 year and 2 months ago. History: Patient has history of other cancer at age 26. Benign excisional biopsy of both breasts, 1993. Took hormonal contraceptives for 6 months beginning at age 20. Physical Findings: A clinical breast exam by your physician is recommended on an annual basis and results should be correlated with mammographic findings. MG Screening Mammo w CAD Bilateral CC and MLO view(s) were taken. Prior study comparison: September 15, 2018, bilateral MG screening mammo w CAD. There are scattered fibroglandular densities. There are benign appearing round calcifications bilaterally. Asymmetric breast tissue in the left breast, stable. Focal asymmetry 9mm anterior outer quadrant, 2cm from nipple. ASSESSMENT: Incomplete: need additional imaging evaluation, BI-RAD 0 RECOMMENDATION: Special view mammogram of the right breast. If lesion persists on supplemental views, image directed ultrasound is recommended. [facility] will attempt to contact patient to return for supplemental views and ultrasound if indicated.
== END | disposition home or self-care (01) ==
LOC: RADMAMWWP 09:27
PROVIDERS: ATTEND Internal Medicine
DX: Z12.31 Encounter for screening mammogram for malignant neoplasm of breast (principal)
CPT/HCPCS: 77067

== ENCOUNTER 2019-11-26 21:17 | Inpatient (IN) | payer MEDICAID, OTHER ==
--- NOTE | 2019-11-26 21:51 | ED ---
General Adult HPI - General Source: EMS, RN notes reviewed, old records reviewed Mode of arrival: EMS Limitations: no limitations <Robin Casas - Last Filed: 11/26/19 22:36> <Mustapha Maldonado - Last Filed: 11/27/19 01:31> - General Chief complaint: Psychiatric Symptoms Stated complaint: Mental health - History of Present Illness Initial comments: This is a 44-year-old female presents emergency department stating she took 4 of her Zanaflex. Patient states she took 3 hours prior to arrival. Patient states she was an attempt to go to sleep but also she would like to kill herself. Patient states she's had multiple issues with her and she has attempted suicide 3 times in the past. Patient denies any drinking or any illegal drug use. Patient denies any physical complaints today. Patient denies headache patient denies numbness weakness. Patient denies chest pain difficulty breathing shortest breath per patient denies abdominal pain patient denies nausea vomiting diarrhea. Patient denies any recent fever chills or cough. (Robin Casas) - Related Data Home Medications Medication Instructions Recorded Confirmed Calcitriol 0.25 mcg PO BID 02/17/16 08/25/19 Zolpidem [Ambien] 5 - 10 mg PO HS PRN 10/28/18 08/26/19 Diphenoxylate HCl/Atropine 1 tab PO QID PRN 12/16/18 08/25/19 [Lomotil 2.5-0.025 mg Tablet] Famotidine [Pepcid] 20 mg PO BID 12/16/18 08/25/19 Ferrous Sulfate [Iron (65 MG 325 mg PO BID 12/16/18 08/26/19 Elemental)] Clindamycin HCl 300 mg PO Q8H 08/25/19 08/25/19 Ergocalciferol [Vitamin D2 50,000 unit PO Q7D 08/25/19 08/25/19 (DRISDOL)] Ibuprofen [Motrin] 800 mg PO Q8H PRN 08/25/19 08/26/19 Levothyroxine Sodium [Synthroid] 175 mcg PO DAILY 08/25/19 08/26/19 Nystatin 100,000 Unit/ml Susp 500,000 unit PO QID 08/25/19 08/26/19 [Mycostatin Oral Susp] Previous Rx's Medication Instructions Recorded Baclofen [Lioresal] 10 mg PO BID #60 tab 08/28/19 Levothyroxine Sodium [Synthroid] 175 mcg PO DAILY@0630 #120 tab 08/28/19 Loratadine 10 mg PO DAILY #30 tab 08/28/19 Metoprolol Succinate [Toprol XL] 25 mg PO DAILY #30 tab 08/28/19 Mirtazapine [Remeron] 15 mg PO HS #30 tab 08/28/19 hydrOXYzine HCL 25 mg PO TID PRN #45 tab 08/28/19 Allergies Allergy/AdvReac Type Severity Reaction Status Date / Time methylprednisolone Allergy Rash/Hives Verified 11/26/19 21:44 [From Medrol] ondansetron HCl Allergy Rash/Hives Verified 11/26/19 21:44 [From Zofran (as hydrochloride)] Penicillins Allergy Rash/Hives Verified 11/26/19 21:44 sulfamethoxazole Allergy Rash/Hives Verified 11/26/19 21:44 [From Bactrim] trimethoprim [From Bactrim] Allergy Rash/Hives Verified 11/26/19 21:44 Review of Systems ROS Other: All systems not noted in ROS Statement are negative. <Robin Casas - Last Filed: 11/26/19 22:36> ROS Other: All systems not noted in ROS Statement are negative. <Mustapha Maldonado - Last Filed: 11/27/19 01:31> ROS Statement: Those systems with pertinent positive or pertinent negative responses have been documented in the HPI. Past Medical History Past Medical History: Cancer, Thyroid Disorder Additional Past Medical History / Comment(s): thyroid CA in the past, low calcium, IBS. Gonorrhea, Trichomoniasis, History of Any Multi-Drug Resistant Organisms: None Reported Past Surgical History: Tubal Ligation Additional Past Surgical History / Comment(s): PARA THYROIDECTOMY, THYROIDECTOMY, breast reduction Past Anesthesia/Blood Transfusion Reactions: No Reported Reaction Past Psychological History: Anxiety, Depression, Panic Disorder Smoking Status: Never smoker Past Alcohol Use History: None Reported Past Drug Use History: None Reported - Past Family History Mother Family Medical History: Myocardial Infarction ([place]) Additional Family Medical History / Comment(s): Mother at age 48 from a myocardial infarction. Father Family Medical History: Myocardial Infarction ([place]) Additional Family Medical History / Comment(s): Father from a myocardial infarction. Brother(s) Additional Family Medical History / Comment(s): Patient has 4 brothers and all have mental health issues with alcoholism and drug addiction. She has 1 brother that at age 38 from a myocardial infarction. Sister(s) Additional Family Medical History / Comment(s): Patient has 6 sisters and one has PFO. Son(s) Additional Family Medical History / Comment(s): Patient has 3 sons. 16-year-old son was born with ureteral duplication, sickle cell trait, bipolar, ADHD. 9-year-old son has ADHD and sleep disorder. 4-year-old son has no medical problems <Robin Casas - Last Filed: 11/26/19 22:36> General Exam Limitations: no limitations <Robin Casas - Last Filed: 11/26/19 22:36> - General Exam Comments Initial Comments: GENERAL: Patient is well-developed and well-nourished. Patient is nontoxic and well- hydrated and is in no acute distress. ENT: Neck is soft and supple. No significant lymphadenopathy is noted. Oropharynx is clear. Moist mucous membranes. Neck has full range of motion without eliciting any pain. EYES: The sclera were anicteric and conjunctiva were pink and moist. Extraocular movements were intact and pupils were equal round and reactive to light. Eyelids were unremarkable. PULMONARY: Unlabored respirations. Good breath sounds bilaterally. No audible rales rhonchi or wheezing was noted. CARDIOVASCULAR: There is a regular rate and rhythm without any murmurs gallops or rubs. ABDOMEN: Soft and nontender with normal bowel sounds. SKIN: Skin is clear with no lesions or rashes and otherwise unremarkable. NEUROLOGIC: Patient is alert and oriented x3. Cranial nerves II through XII are grossly intact. Motor and sensory are also intact. Normal speech, volume and content. Symmetrical smile. MUSCULOSKELETAL: Normal extremities with adequate strength and full range of motion. No lower extremity swelling or edema. No calf tenderness. LYMPHATICS: No significant lymphadenopathy is noted PSYCHIATRIC: Patient states she is suicidal and did take for her medications and attempt. (Robin Casas) Course Vital Signs 11/26/19 11/27/19 21:37 01:25 Temperature 98.6 F 97.7 F Pulse Rate 86 81 Respiratory 20 15 Rate Blood Pressure 119/80 128/85 O2 Sat by Pulse 97 96 Oximetry Medical Decision Making <Robin Casas - Last Filed: 11/26/19 22:36> <Mustapha Maldonado - Last Filed: 11/27/19 01:31> - Medical Decision Making Dr. Holland will be taking care of this patient at 11 PM (Robin Casas) Patient is seen and evaluated and will be admitted for mood disorder. (Mustapha Maldonado) - Lab Data Lab Results 11/26/19 11/26/19 Range/Units 22:00 22:20 Salicylates <1.0 mg/dL Urine Opiates Screen Not Detected (NotDetected) Ur Oxycodone Screen Not Detected (NotDetected) Urine Methadone Screen Not Detected (NotDetected) Ur Propoxyphene Screen Not Detected (NotDetected) Acetaminophen <10.0 ug/mL Ur Barbiturates Screen Not Detected (NotDetected) U Tricyclic Antidepress Not Detected (NotDetected) Ur Phencyclidine Scrn Not Detected (NotDetected) Ur Amphetamines Screen Not Detected (NotDetected) U Methamphetamines Scrn Not Detected (NotDetected) U Benzodiazepines Scrn Detected H (NotDetected) Urine Cocaine Screen Not Detected (NotDetected) U Marijuana (THC) Screen Not Detected (NotDetected) Disposition <Robin Casas - Last Filed: 11/26/19 22:36> Is patient prescribed a controlled substance at d/c from ED?: No <Mustapha aMldonado - Last Filed: 11/27/19 01:31> Clinical Impression: Mood disorder Disposition: ADMITTED IP TO THIS [facility] Condition: Fair Referrals: Yasir White MD [Primary Care Provider] - 1-2 days
[2019-11-26 22:18] LABS: Acetaminophen <10.0 ug/mL; Salicylate <1.0 mg/dL
[2019-11-26 23:26] LABS: Amphetamine Screen,Urine Not Detected (NotDetected); Barbiturate Screen,Urine Not Detected (NotDetected); Benzodiazepines Screen,Urine Detected (NotDetected); Cocaine Screen,Urine Not Detected (NotDetected); Methadone Screen, Urine Not Detected (NotDetected); Opiate Screen,Urine Not Detected (NotDetected); Oxycodone Screen, Urine Not Detected (NotDetected); Phencyclidine Screen,Urine Not Detected (NotDetected); Tricyclic Antidepressant,Urine Not Detected (NotDetected); Urn Cannabinoid Scrn Not Detected (NotDetected)
[2019-11-27] MEDS ORDERED: LORazepam 1 MG TAB PO STA (00:56)
[2019-11-27] MEDS ORDERED: ZOLPIDEM 10 MG TAB PO ONE (02:30)
[2019-11-27] MEDS: ACETAMINOPHEN TAB 325 MG TAB PO PRN ×4 (02:46→20:09)
[2019-11-27] MEDS: LORazepam 1 MG TAB PO PRN ×3 (06:53→23:33)
[2019-11-27 08:55] LABS: Basophils % (A) 0 %; Eosinophils # (A) 0.1 k/uL (0-0.7); Eosinophils % (A) 1 %; HCT 38.6 % (34.0-46.0); HGB 12.8 gm/dL (11.4-16.0); Lymphocytes # (A) 1.1 k/uL (1.0-4.8); Lymphocytes % (A) 14 %; MCH 30.9 pg (25.0-35.0); MCHC 33.1 g/dL (31.0-37.0); MCV 93.3 fL (80.0-100.0); Mean Platelet Volume 7.8; Monocytes # (A) 0.5 k/uL (0-1.0); Monocytes % (A) 6 %; Neutrophils # (A) 6.1 k/uL (1.3-7.7); Neutrophils % (A) 77 %; Platelet Count 318 k/uL (150-450); RBC 4.14 m/uL (3.80-5.40); RDW 13.4 % (11.5-15.5); WBC 7.9 k/uL (3.8-10.6)
[2019-11-27 08:56] LABS: ALT 12 U/L (4-34); AST 17 U/L (14-36); African American GFR (CKD) >90 (>60 ml/min/1.73 sqM); Albumin 4.7 g/dL (3.5-5.0); Alkaline Phosphatase 71 U/L (38-126); Anion Gap 8 mmol/L; Bilirubin,Unconjugated 0.6 mg/dL (0.0-1.1); Blood Urea Nitrogen 20 mg/dL (7-17); Calcium 8.8 mg/dL (8.4-10.2); Carbon Dioxide 26 mmol/L (22-30); Chloride 104 mmol/L (98-107); Cholesterol 214 mg/dL (<200); Glucose 111 mg/dL (74-99); HDL Cholesterol 52 mg/dL (40-60); LDL Cholesterol,Calculated 131 mg/dL (0-99); Non-African American GFR(CKD) 88 (>60 ml/min/1.73 sqM); Potassium 4.2 mmol/L (3.5-5.1); Sodium 138 mmol/L (137-145); Total Bilirubin 0.5 mg/dL (0.2-1.3); Total Protein 7.2 g/dL (6.3-8.2); Triglycerides 156 mg/dL (<150)
[2019-11-27] MEDS ORDERED: MAGNESIUM HYDROXIDE 2,400 MG/10 ML CUP PO PRN (09:00)
[2019-11-27] MEDS ORDERED: ZIPRASIDONE 20 MG VIAL IM PRN (09:00)
[2019-11-27 10:44] LABS: Appearance,Urine Clear (Clear); Bilirubin,Urine Negative (Negative); Blood,Urine Negative (Negative); Color,Urine Yellow; Glucose,Urine (UA) Negative (Negative); Ketones,Urine Negative (Negative); Leukocyte Esterase,Urine Small (Negative); Mucus,Urine Rare /hpf; Nitrite,Urine Negative (Negative); PH, Urine 6.5 (5.0-8.0); Protein,Urine Negative (Negative); RBC,Urine 1 /hpf (0-5); Specific Gravity,Urine 1.019 (1.001-1.035); Squamous Epithelial Cell,Urine 2 /hpf (0-4); Urobilinogen,Urine <2.0 mg/dL (<2.0); WBC,Urine 1 /hpf (0-5)
[2019-11-27] MEDS: MAG HYDROX/AL HYDROX/SIMETH 30 ML CUP PO PRN (10:50)
--- NOTE | 2019-11-27 11:12 | P.CN ---
Psychiatric Consult - . Consult date: 11/27/19 Consult:: 11/27/19 10:24 IDENTIFYING DATA: Patient is a 44-year-old female, who currently lives with her boyfriend and has 3 kids and collects SSI. HPI: Patient presented to the hospital yesterday and as per ER report patient claimed that she took to Zanaflex 3 hours prior to coming in the hospital "to sleep" but also endorsed thoughts of suicide. She was claiming to have issues with her . UDS was positive for benzodiazepines. Patient was seen this morning for examination/interview by contract writer and patient was directable and appropriately during interview. She stated that she is feeling anxious and also depressed in her mood. She claims that she called her therapist Karyn Antonio at [facility] who advised her to come into the hospital. She claims that she told her that she overdosed on medications however claims that "I lied about it" and claims that she did not actually overdose. She states that she was switched on to a medication recently by her nurse practitioner who takes care of her at [facility] however states that "it was downhill from there" and states that she's been crying a lot since being on the new medication. She claims that she does not know the name of the medication. She states that her sleep has been fair and concentration is poor. Patient denies any suicidal or homicidal ideations intent or plan. At this time patient denies any auditory or visual hallucinations. Patient denies any flight of ideas racing thoughts and increased in goal directed behavior. He denies any history of manic episodes. Patient denies using any recreational drugs and denies any cigarette use. PAST PSYCHIATRIC HISTORY: Patient states that she has a history of depression and anxiety.. Patient was previously on Vistaril and Ambien and several other psychiatric medications however she cannot list them a Ivan was previously hospitalized on the mental health unit in 08/2019. She currently follows up at [facility] with the therapist and the nurse practitioner. She states that she has 3 overdose suicide attempts in the past. PMH: Hyperlipidemia, IBS, hypothyroidism ALLERGIES: as per EMR CHEMICAL DEPENDENCY HISTORY: as per HPI FAMILY PSYCHIATRIC/SUBSTANCE USE HISTORY: States that her sisters "all have depression". SOCIAL HISTORY: Patient was born and raised in [facility] and claims that she completed up to the 10th grade in school. She states that she has never been employed before and collects SSI. She currently lives with her boyfriend and 3 kids in the house. MENTAL STATUS EXAM: General Appearance: Patient appears to be stated age is alert, directable and attempts to cooperate. Patient appears to have poor hygiene and grooming. Behavior: Patient is seated without any agitated behavior. Appears anxious Speech: Patient's speech is fluent and nonpressured. Mood/Affect: Patient reports their mood is depressed and anxious, affect is congruent and constricted. Suicidality/Homicidality: Patient denies having any homicidal ideation intent or plan. Denies any suicidal ideations intent or plan Perceptions: Patient denies any visual hallucinations and denies any auditory hallucinations Though content/process: There is no evidence of any delusional thought content and thought process is linear and goal-directed. [place]. Catastrophizing. Memory and concentration: AOX3, grossly intact for the purposes of this session. Can spell "WORLD" backwards Judgment and insight: poor STRENGTHS/WEAKNESSES: strength is that patient is resilient. Weakness is that patient has poor judgment and has chronic mental illness INTELLECT: Below average IMPRESSIONS: Major depressive disorder, without psychotic features Anxiety disorder unspecified PLAN: -Patient is admitted under voluntary status to MHU for stabilization of psychiatric symptoms and safety. Patient signed adult voluntary form and medication consent and is placed in patient's chart. -Medications : Will start patient on Zoloft 50 mg daily for mood/anxiety. Continue with home dose of Ambien 10 mg daily at bedtime for insomnia. Started on BuSpar 10 mg twice a day for anxiety. -Ativan and Geodon PRN for agitation/aggression -Patient was informed of the risks, benefits and side effects of the medication and patient verbally consented to taking the medications. Patient signed med consent form and was placed in chart. -Internal Medicine consult to perform medical evaluation and physical. -NRT -not needed this patient does not smoke. -SW on board for discharge planning. Encourage patient to participate in groups to work on coping skills. Likely discharge Saturday-Saturday. 11/27/19 11:05
[2019-11-27] MEDS: SERTRALINE 50 MG TAB PO SCH (11:34)
[2019-11-27] MEDS: busPIRone HCl 10 MG TAB PO SCH ×2 (11:34→20:07)
[2019-11-27] MEDS: CALCITRIOL 0.25 MCG CAP PO SCH ×3 (11:34→21:36)
[2019-11-27] MEDS ORDERED: DIPHENOX-ATROP 2.5-0.025 MG 1 EACH TAB PO PRN (14:17)
[2019-11-27] MEDS: PHENAZOPYRIDINE 100 MG TAB PO SCH ×2 (15:46→21:36)
[2019-11-27] MEDS: tiZANidine 4 MG TAB PO PRN (15:48)
--- NOTE | 2019-11-27 17:33 | CONS ---
CONSULTATION DATE OF SERVICE: 11/27/2019 REASON FOR CONSULTATION: Advice regarding thyroid cancer and multiple medical issues, requested by Psychiatry. HISTORY OF PRESENT ILLNESS: This 44-year-old woman with a past medical history of thyroid cancer, history of irritable bowel syndrome in the past, thyroidectomy, history of anxiety, depression, panic disorder, being followed by Dr. White in the outpatient setting, was admitted for psychiatric evaluation. The patient is complaining of dysuria. Otherwise, no history of any other abnormalities noted. UA did not show any acute abnormality. Cholesterol was elevated at 214. LDL was 131 and TSH was 8.330. Urine drug screen positive for benzodiazepines. PAST MEDICAL HISTORY: History of thyroid cancer, history of low calcium with pneumonia, history of anxiety, depression, panic disorder. HOME MEDICATIONS: 1. Loratadine 10 mg p.o. daily. 2. Iron 320 mg p.o. b.i.d. 3. Pepcid 20 mg p.o. b.i.d. 4. Lomotil 1 tablet q.i.d. p.r.n. 5. Hydroxyzine 25 mg t.i.d. p.r.n. 6. Ambien 5 to 10 mg p.o. at bedtime p.r.n. 7. Nystatin 500,000 p.o. q.i.d. 8. Remeron 15 mg p.o. at bedtime. 9. Toprol-XL 25 mg p.o. daily. 10.Synthroid 175 mcg p.o. daily. 11.Motrin 800 mg q.8 p.r.n. 12.Vitamin D2 50,000 p.o. q.7 days. 13.Clindamycin 300 mg p.o. q.8. 14.Rocaltrol 0.25 mg p.o. b.i.d. 15.Lioresal 10 mg p.o. b.i.d. ALLERGIES: SOLU-MEDROL, ZOFRAN, PENICILLIN, BACTRIM. FAMILY HISTORY: History of myocardial infarction in the family. SOCIAL HISTORY: No history of smoking. No history of alcohol intake. REVIEW OF SYSTEMS: ENT: No diminished hearing. No diminished vision. CARDIOVASCULAR SYSTEM: No angina, palpitations. RESPIRATORY SYSTEM: No cough, hemoptysis. GI: No nausea, vomiting. : No dysuria or retention. NERVOUS SYSTEM: No numbness, weakness. ALLERGY/IMMUNOLOGY: No asthma, hayfever. MUSCULOSKELETAL: As mentioned earlier. HEMATOLOGY/ONCOLOGY: No history of anemia. ENDOCRINE: Hypothyroidism. CONSTITUTIONAL: As mentioned earlier. DERMATOLOGY: Negative. RHEUMATOLOGY: Negative. PSYCHIATRY: As mentioned earlier. PHYSICAL EXAMINATION: Patient alert and oriented x3. Pulse 78, blood pressure 139/89, respiration 18, temperature 97.5, pulse ox 96% on room air. HEENT: Conjunctivae normal. NECK: No jugular venous distention. CARDIOVASCULAR SYSTEM: S1, S2 muffled. RESPIRATORY SYSTEM: Breath sounds diminished at the bases. Scattered rhonchi and crackles. ABDOMEN: Soft, non-tender. No mass palpable. LEGS: No edema. No swelling. NERVOUS SYSTEM: Higher functions as mentioned earlier. Cranial nerves eye movements are full in all directions. No nystagmus. No diplopia. No facial asymmetry. Seventh nerve is normal. Otherwise, jaw opens in the midline. MOTOR SYSTEM: Power is normal. Sensation is normal. Gait is normal. No weakness. SKIN: No ulcer, rash, bleeding. JOINTS: No active deforming arthropathy. LABS: CBC within normal limits. Glucose 111. Otherwise, triglycerides 156, cholesterol 214, TSH 8.330. ASSESSMENT: 1. Depression without psychotic features and anxiety. 2. Dysuria without any evidence of urinary tract infection. 3. Hyperlipidemia. 4. Thyroid cancer. 5. Irritable bowel syndrome. 6. history. 7. Anxiety, depression, panic disorder history. 8. Obesity with a body mass index of 35.3. 9. FULL CODE. RECOMMENDATIONS AND DISCUSSION: In this 44-year-old woman who presented with multiple complex medical issues, at this time I recommend to continue current medications, continue with symptomatic treatment. Otherwise at this time I recommend resuming the home medications, including Synthroid and . I would increase the dose Synthroid to 200 mcg p.o. daily and continue to monitor TSH as an outpatient. For dysuria, I would recommend a short course of Pyridium. Otherwise, if the urinary symptoms persist, a urine culture may be obtained down the line. Otherwise at this time I recommend increased p.o. fluids. We will follow the patient closely. The patient may be asked to follow with a primary physician closely after discharge. Thank you, Dr. Gordon, for letting us participate in the care of this patient. MMODL / IJN: [id number] / MTDD
[2019-11-27 17:46] LABS: Hemoglobin A1C 4.7 % (4.0-6.0)
[2019-11-27] MEDS: WITCH HAZEL 1 EACH MED..PAD TOPICAL PRN (18:25)
[2019-11-27] MEDS: FERROUS SULFATE 325 MG TAB PO SCH (20:07)
[2019-11-27] MEDS: FAMOTIDINE 20 MG TAB PO SCH (20:07)
[2019-11-27] MEDS: ZOLPIDEM 10 MG TAB PO SCH (20:08)
[2019-11-28] MEDS: ACETAMINOPHEN TAB 325 MG TAB PO PRN ×4 (04:21→21:05)
[2019-11-28] MEDS ORDERED: LEVOTHYROXINE 100 MCG TAB PO SCH (06:30)
[2019-11-28] MEDS ORDERED: LEVOTHYROXINE 75 MCG TAB PO SCH (06:30)
[2019-11-28] MEDS: LEVOTHYROXINE 100 MCG TAB PO SCH (07:12)
[2019-11-28] MEDS: LORazepam 1 MG TAB PO PRN ×2 (08:29→15:56)
[2019-11-28] MEDS: PHENAZOPYRIDINE 100 MG TAB PO SCH ×3 (08:29→21:02)
[2019-11-28] MEDS: FERROUS SULFATE 325 MG TAB PO SCH ×2 (08:30→21:03)
[2019-11-28] MEDS: SERTRALINE 50 MG TAB PO SCH (08:30)
[2019-11-28] MEDS: FAMOTIDINE 20 MG TAB PO SCH ×2 (08:30→21:02)
[2019-11-28] MEDS: CALCITRIOL 0.25 MCG CAP PO SCH ×2 (08:30→21:02)
[2019-11-28] MEDS: busPIRone HCl 10 MG TAB PO SCH ×2 (08:30→21:03)
[2019-11-28] MEDS: LORATADINE 10 MG TAB PO SCH (08:30)
[2019-11-28] MEDS: MAG HYDROX/AL HYDROX/SIMETH 30 ML CUP PO PRN (10:08)
[2019-11-28] MEDS: tiZANidine 4 MG TAB PO PRN ×2 (10:46→21:35)
[2019-11-28] MEDS: WITCH HAZEL 1 EACH MED..PAD TOPICAL PRN (13:12)
--- NOTE | 2019-11-28 18:58 | P.PN ---
Progress Note - Text Progress Note Date: 11/28/19 Interval history: [place] [facility] [place] She does describe her leg aching with her arthritis. We did discuss ibuprofen as an alternative to help but she relays that doesn't really work it seems. She does describe that her mood is doing better. She does not verbalize any adverse psychotropic medication side effects and seems. Mental status exam: She is alert and cooperative with the interview. Her speech is fluent, not rapid or pressured. Thought processes are organized. Her mood she describes is improved. She denies any thoughts of harm to self or others. She does not show any active evidence of psychosis. Plan: Patient will be maintained on current psychotropic medication regimen. Continue to monitor for any medication side effects and monitor her ongoing response to treatment
[2019-11-28] MEDS: ZOLPIDEM 10 MG TAB PO SCH (21:02)
[2019-11-29] MEDS: ACETAMINOPHEN TAB 325 MG TAB PO PRN ×3 (05:06→17:21)
[2019-11-29] MEDS: LORazepam 1 MG TAB PO PRN ×2 (05:06→13:38)
[2019-11-29] MEDS: LEVOTHYROXINE 100 MCG TAB PO SCH (05:48)
[2019-11-29] MEDS: busPIRone HCl 10 MG TAB PO SCH ×2 (08:27→20:54)
[2019-11-29] MEDS: LORATADINE 10 MG TAB PO SCH (08:27)
[2019-11-29] MEDS: FERROUS SULFATE 325 MG TAB PO SCH ×2 (08:27→20:54)
[2019-11-29] MEDS: SERTRALINE 50 MG TAB PO SCH (08:27)
[2019-11-29] MEDS: CALCITRIOL 0.25 MCG CAP PO SCH ×2 (08:28→20:54)
[2019-11-29] MEDS: PHENAZOPYRIDINE 100 MG TAB PO SCH ×3 (08:28→20:54)
[2019-11-29] MEDS: FAMOTIDINE 20 MG TAB PO SCH ×2 (08:29→20:54)
[2019-11-29] MEDS: tiZANidine 4 MG TAB PO PRN ×2 (08:51→20:54)
[2019-11-29] MEDS: WITCH HAZEL 1 EACH MED..PAD TOPICAL PRN (13:38)
--- NOTE | 2019-11-29 19:59 | P.PN ---
Progress Note - Text Progress Note Date: 11/29/19 Interval history: Patient is seen in [facility] [place] today. She reports she slept about 5 hours last night. She does discuss plans for discharge tomorrow. She does not verbalize any adverse psychotropic medication side effects she describes pain with her left leg today. She inquires regarding something stronger for pain. She does have Tylenol ordered when necessary. She does describe some anxiety for which she is using her coping skills. Mental status exam: She is alert and cooperative with the interview. Her speech is fluent, not rapid or pressured. Thought processes are organized. Her mood she describes is good. She denies any thoughts of harm to self or others. No evidence of psychosis or agitation. Plan: Patient will be maintained on current psychotropic medication regimen. Continue to monitor for any medication side effects and monitor her ongoing response to treatment.
[2019-11-29] MEDS: ZOLPIDEM 10 MG TAB PO SCH (20:56)
[2019-11-30] MEDS: ACETAMINOPHEN TAB 325 MG TAB PO PRN ×2 (03:02→09:13)
[2019-11-30] MEDS: LORazepam 1 MG TAB PO PRN (03:02)
[2019-11-30] MEDS: tiZANidine 4 MG TAB PO PRN (03:35)
[2019-11-30 06:39] VITALS: BP 133/83; PULSE 72; RESP 16; TEMP 98.6
[2019-11-30] MEDS: FAMOTIDINE 20 MG TAB PO SCH (08:29)
[2019-11-30] MEDS: CALCITRIOL 0.25 MCG CAP PO SCH (08:29)
[2019-11-30] MEDS: FERROUS SULFATE 325 MG TAB PO SCH (08:29)
[2019-11-30] MEDS: busPIRone HCl 10 MG TAB PO SCH (08:29)
[2019-11-30] MEDS: LORATADINE 10 MG TAB PO SCH (08:29)
[2019-11-30] MEDS: LEVOTHYROXINE 100 MCG TAB PO SCH (08:29)
[2019-11-30] MEDS: PHENAZOPYRIDINE 100 MG TAB PO SCH (08:30)
[2019-11-30] MEDS: SERTRALINE 50 MG TAB PO SCH (08:30)
[2019-11-30] MEDS: MAG HYDROX/AL HYDROX/SIMETH 30 ML CUP PO PRN (09:38)
[2019-11-30] MEDS ORDERED: SERTRALINE 50 MG TAB PO STA (09:53)
--- NOTE | 2019-11-30 10:01 | P.HP ---
Psychiatric H&P - . H&P Date: 11/27/19 History & Physical: Allergies Allergy/AdvReac Type Severity Reaction Status Date / Time methylprednisolone Allergy Rash/Hives Verified 11/29/19 12:24 [From Medrol] ondansetron HCl Allergy Rash/Hives Verified 11/29/19 12:24 [From Zofran (as hydrochloride)] Penicillins Allergy Rash/Hives Verified 11/29/19 12:24 sulfamethoxazole Allergy Rash/Hives Verified 11/29/19 12:24 [From Bactrim] trimethoprim [From Bactrim] Allergy Rash/Hives Verified 11/29/19 12:24 Vital Signs Temp 98.6 F 11/30/19 06:38 Pulse 72 11/30/19 06:38 Resp 16 11/30/19 06:38 BP 133/83 11/30/19 06:38 Pulse Ox 98 11/30/19 06:38 Intake & Output 11/29/19 11/30/19 11/30/19 18:59 06:59 18:59 Weight 86.7 kg Laboratory Last Values WBC 7.9 k/uL (3.8-10.6) 11/27/19 08:19 RBC 4.14 m/uL (3.80-5.40) 11/27/19 08:19 Hgb 12.8 gm/dL (11.4-16.0) 11/27/19 08:19 Hct 38.6 % (34.0-46.0) 11/27/19 08:19 MCV 93.3 fL (80.0-100.0) 11/27/19 08:19 MCH 30.9 pg (25.0-35.0) 11/27/19 08:19 MCHC 33.1 g/dL (31.0-37.0) 11/27/19 08:19 RDW 13.4 % (11.5-15.5) 11/27/19 08:19 Plt Count 318 k/uL (150-450) 11/27/19 08:19 Neutrophils % 77 % 11/27/19 08:19 Lymphocytes % 14 % 11/27/19 08:19 Monocytes % 6 % 11/27/19 08:19 Eosinophils % 1 % 11/27/19 08:19 Basophils % 0 % 11/27/19 08:19 Neutrophils # 6.1 k/uL (1.3-7.7) 11/27/19 08:19 Lymphocytes # 1.1 k/uL (1.0-4.8) 11/27/19 08:19 Monocytes # 0.5 k/uL (0-1.0) 11/27/19 08:19 Eosinophils # 0.1 k/uL (0-0.7) 11/27/19 08:19 Basophils # 0.0 k/uL (0-0.2) 11/27/19 08:19 Sodium 138 mmol/L (137-145) 11/27/19 08:19 Potassium 4.2 mmol/L (3.5-5.1) 11/27/19 08:19 Chloride 104 mmol/L (98-107) 11/27/19 08:19 Carbon Dioxide 26 mmol/L (22-30) 11/27/19 08:19 Anion Gap 8 mmol/L 11/27/19 08:19 BUN 20 mg/dL (7-17) H 11/27/19 08:19 Creatinine 0.83 mg/dL (0.52-1.04) 11/27/19 08:19 Est GFR (CKD-EPI)AfAm >90 (>60 ml/min/1.73 sqM) 11/27/19 08:19 Est GFR (CKD-EPI)NonAf 88 (>60 ml/min/1.73 sqM) 11/27/19 08:19 Glucose 111 mg/dL (74-99) H 11/27/19 08:[address] Glu mg/dL 88 11/27/19 08:19 Hemoglobin A1c 4.7 % (4.0-6.0) 11/27/19 08:19 Calcium 8.8 mg/dL (8.4-10.2) 11/27/19 08:19 Total Bilirubin 0.5 mg/dL (0.2-1.3) 11/27/19 08:19 Conjugated Bilirubin 0.0 mg/dL (0.0-0.3) 11/27/19 08:19 Unconjugated Bilirubin 0.6 mg/dL (0.0-1.1) 11/27/19 08:19 Delta Bilirubin 0.0 mg/dL (0.0-0.2) 11/27/19 08:19 AST 17 U/L (14-36) 11/27/19 08:19 ALT 12 U/L (4-34) 11/27/19 08:19 Alkaline Phosphatase 71 U/L (38-126) 11/27/19 08:19 Total Protein 7.2 g/dL (6.3-8.2) 11/27/19 08:19 Albumin 4.7 g/dL (3.5-5.0) 11/27/19 08:19 Triglycerides 156 mg/dL (<150) H 11/27/19 08:19 Cholesterol 214 mg/dL (<200) H 11/27/19 08:19 LDL Cholesterol, Calc 131 mg/dL (0-99) H 11/27/19 08:19 HDL Cholesterol 52 mg/dL (40-60) 11/27/19 08:19 TSH 8.300 mIU/L (0.465-4.680) H 11/27/19 08:19 Urine Color Yellow 11/27/19 10:30 Urine Appearance Clear (Clear) 11/27/19 10:30 Urine pH 6.5 (5.0-8.0) 11/27/19 10:30 Ur Specific [place] 1.019 (1.001-1.035) 11/27/19 10:30 Urine Protein Negative (Negative) 11/27/19 10:30 Urine Glucose (UA) Negative (Negative) 11/27/19 10:30 Urine Ketones Negative (Negative) 11/27/19 10:30 Urine Blood Negative (Negative) 11/27/19 10:30 Urine Nitrite Negative (Negative) 11/27/19 10:30 Urine Bilirubin Negative (Negative) 11/27/19 10:30 Urine Urobilinogen <2.0 mg/dL (<2.0) 11/27/19 10:30 Ur Leukocyte Esterase Small (Negative) H 11/27/19 10:30 Urine RBC 1 /hpf (0-5) 11/27/19 10:30 Urine WBC 1 /hpf (0-5) 11/27/19 10:30 Ur Squamous Epith Cells 2 /hpf (0-4) 11/27/19 10:30 Urine Mucus Rare /hpf (None) H 11/27/19 10:30 Urine HCG, Qual Not Detected (Not Detectd) 11/27/19 10:30 Salicylates <1.0 mg/dL 11/26/19 22:00 Urine Opiates Screen Not Detected (NotDetected) 11/26/19 22:20 Ur Oxycodone Screen Not Detected (NotDetected) 11/26/19 22:20 Urine Methadone Screen Not Detected (NotDetected) 11/26/19 22:20 Ur Propoxyphene Screen Not Detected (NotDetected) 11/26/19 22:20 Acetaminophen <10.0 ug/mL 11/26/19 22:00 Ur Barbiturates Screen Not Detected (NotDetected) 11/26/19 22:20 U Tricyclic Antidepress Not Detected (NotDetected) 11/26/19 22:20 Ur Phencyclidine Scrn Not Detected (NotDetected) 11/26/19 22:20 Ur Amphetamines Screen Not Detected (NotDetected) 11/26/19 22:20 U Methamphetamines Scrn Not Detected (NotDetected) 11/26/19 22:20 U Benzodiazepines Scrn Detected (NotDetected) H 11/26/19 22:20 Urine Cocaine Screen Not Detected (NotDetected) 11/26/19 22:20 U Marijuana (THC) Screen Not Detected (NotDetected) 11/26/19 22:20 11/30/19 09:57 This is a late entry, the wrong note type was used for H&P IDENTIFYING DATA: Patient is a 44-year-old female, who currently lives with her boyfriend and has 3 kids and collects SSI. HPI: Patient presented to the hospital yesterday and as per ER report patient claimed that she took to Zanaflex 3 hours prior to coming in the hospital "to sleep" but also endorsed thoughts of suicide. She was claiming to have issues with her . UDS was positive for benzodiazepines. Patient was seen this morning for examination/interview by specification writer and patient was directable and appropriately during interview. She stated that she is feeling anxious and also depressed in her mood. She claims that she called her therapist Karyn Antonio at [facility] who advised her to come into the hospital. She claims that she told her that she overdosed on medications however claims that "I lied about it" and claims that she did not actually overdose. She states that she was switched on to a medication recently by her nurse practitioner who takes care of her at [facility] however states that "it was downhill from there" and states that she's been crying a lot since being on the new medication. She claims that she does not know the name of the medication. She states that her sleep has been fair and concentration is poor. Patient denies any suicidal or homicidal ideations intent or plan. At this time patient denies any auditory or visual hallucinations. Patient denies any flight of ideas racing thoughts and increased in goal directed behavior. He denies any history of manic episodes. Patient denies using any recreational drugs and denies any cigarette use. PAST PSYCHIATRIC HISTORY: Patient states that she has a history of depression and anxiety.. Patient was previously on Vistaril and Ambien and several other psychiatric medications however she cannot list them a Ivan was previously hospitalized on the mental health unit in 08/2019. She currently follows up at [facility] with the therapist and the nurse practitioner. She states that she has 3 overdose suicide attempts in the past. PMH: Hyperlipidemia, IBS, hypothyroidism ALLERGIES: as per EMR CHEMICAL DEPENDENCY HISTORY: as per HPI FAMILY PSYCHIATRIC/SUBSTANCE USE HISTORY: States that her sisters "all have depression". SOCIAL HISTORY: Patient was born and raised in [facility] and claims that she completed up to the 10th grade in school. She states that she has never been employed before and collects SSI. She currently lives with her boyfriend and 3 kids in the house. MENTAL STATUS EXAM: General Appearance: Patient appears to be stated age is alert, directable and attempts to cooperate. Patient appears to have poor hygiene and grooming. Behavior: Patient is seated without any agitated behavior. Appears anxious Speech: Patient's speech is fluent and nonpressured. Mood/Affect: Patient reports their mood is depressed and anxious, affect is congruent and constricted. Suicidality/Homicidality: Patient denies having any homicidal ideation intent or plan. Denies any suicidal ideations intent or plan Perceptions: Patient denies any visual hallucinations and denies any auditory hallucinations Though content/process: There is no evidence of any delusional thought content and thought process is linear and goal-directed. [place]. Catastrophizing. Memory and concentration: AOX3, grossly intact for the purposes of this session. Can spell "WORLD" backwards Judgment and insight: poor STRENGTHS/WEAKNESSES: strength is that patient is resilient. Weakness is that patient has poor judgment and has chronic mental illness INTELLECT: Below average IMPRESSIONS: Major depressive disorder, without psychotic features Anxiety disorder unspecified PLAN: -Patient is admitted under voluntary status to MHU for stabilization of psychiatric symptoms and safety. Patient signed adult voluntary form and medication consent and is placed in patient's chart. -Medications : Will start patient on Zoloft 50 mg daily for mood/anxiety. Continue with home dose of Ambien 10 mg daily at bedtime for insomnia. Started on BuSpar 10 mg twice a day for anxiety. -Ativan and Geodon PRN for agitation/aggression -Patient was informed of the risks, benefits and side effects of the medication and patient verbally consented to taking the medications. Patient signed med consent form and was placed in chart. -Internal Medicine consult to perform medical evaluation and physical. -NRT -not needed this patient does not smoke. -SW on board for discharge planning. Encourage patient to participate in groups to work on coping skills. Likely discharge Saturday-Saturday. 11/27/19 11:05
--- NOTE | 2019-11-30 10:13 | P.DS ---
Providers Date of admission: 11/27/19 01:34 Expected date of discharge: 11/30/19 Attending physician: Luiz Gordon MD Consults: 11/27/19 02:09 Consult Physician Routine Consulting Provider: Sim Timmons Consult Reason/Comments: H & P Do you want consulting provider notified?: Yes, Notify in am Primary care physician: Cindy Cooley - Discharge Diagnosis(es) (1) Major depressive disorder without psychotic features Current Visit: Yes Status: Acute Priority: High (2) Anxiety disorder Current Visit: Yes Status: Acute Priority: Medium Hospital Course: Admission HPI: Patient is a 44-year-old female, who currently lives with her boyfriend and has 3 kids and collects SSI. Patient presented to the hospital yesterday and as per ER report patient claimed that she took to Zanaflex 3 hours prior to coming in the hospital "to sleep" but also endorsed thoughts of suicide. She was claiming to have issues with her . UDS was positive for benzodiazepines. Patient was seen this morning for examination/interview by machine sign writer and patient was directable and appropriately during interview. She stated that she is feeling anxious and also depressed in her mood. She claims that she called her therapist Karyn Antonio at [facility] who advised her to come into the hospital. She claims that she told her that she overdosed on medications however claims that "I lied about it" and claims that she did not actually overdose. She states that she was switched on to a medication recently by her nurse practitioner who takes care of her at [facility] however states that "it was downhill from there" and states that she's been crying a lot since being on the new medication. She claims that she does not know the name of the medication. She states that her sleep has been fair and concentration is poor. Patient denies any suicidal or homicidal ideations intent or plan. At this time patient denies any auditory or visual hallucinations. Patient denies any flight of ideas racing thoughts and increased in goal directed behavior. He denies any history of manic episodes. Patient denies using any recreational drugs and denies any cigarette use. Hospital course: Upon admission to the unit patient was initially depressed and anxious. Patient was however directable and agreeable to commence treatment. Patient got along well with other patients on the unit and followed unit protocol. Patient was compliant with the medications and denied any side effects throughout hospital course. Patient was started on Zoloft and titrated up to a dose of 100 mg daily for mood/anxiety. Patient was restarted on her home dose of Ambien 10 mg nightly for insomnia. Patient was started on BuSpar and titrated up to a dose of 15 mg twice a day for anxiety.. Patient spoke of her stressors and engaged in therapy both group and individual. Patient was also seen by medical team for history and physical exam. Throughout the course of the hospitalization patient gradually improved with regards to mood, anxiety, sleep and became future oriented with improved insight and judgment. On the day of discharge patient denied any suicidal or homicidal ideations intent or plan denied any auditory or visual hallucinations. Patient endorsed wanting to live for her grandchildren and her future. The patient denied any access to guns or weapons. Patient denied any paranoia and did not endorse any delusions. Patient does not have a significant history of substance abuse however was counseled on abstaining from all substances including alcohol and marijuana. Patient was also counseled on the medications and need for regular compliance and was encouraged to follow-up with their outpatient appointment for mental health and also for primary care. Prior to discharge a family meeting will be arranged by social media editor to answer any questions and ensure safety upon discharge. Mental status exam: General Appearance: Patient appears to be stated age is alert, pleasant, and attempts to be cooperative. Patient is in no acute distress and has fair hygiene and grooming Behavior: Patient is calmly seated without any agitated behavior. Attempts to be cooperative. Speech: Patient's speech is fluent and nonpressured. Mood/Affect: Patient reports their mood is "good", affect is congruent and euthymic. Suicidality/Homicidality: Patient denies having any suicidal or homicidal id eation intent or plan. Perceptions: Patient denies any auditory or visual hallucinations. Though content/process: There is no evidence of any delusional thought content and thought process is linear and goal-directed. more future oriented Memory and concentration: AOX3, grossly intact for the purposes of this session. Can spell "WORLD" backwards correctly. Judgment and insight: Improved with guarded prognosis Impression: Major depressive disorder, without psychotic features Anxiety disorder unspecified Plan: -Continue with discharge today as patient has improved and stabilized psychiatri christian and is not currently an imminent threat to herself and/or others. -Continue medications: Zoloft 100 mg daily for mood/anxiety, BuSpar 15 mg twice a day for anxiety. Resume Ambien 10 mg daily at bedtime for insomnia. -Patient was counseled on the need for medication compliance and appropriate follow-up at mental health and also primary care for medical issues. Patient verbalized understanding and agreed. -Social work to arrange for and conduct family meeting to ensure safety upon discharge and answer any questions/concerns. Social work also to arrange for patients follow up appointments for psychiatric care along with follow up with primary care provider. -Patient counseled on abstaining from recreational drugs and marijuana and alcohol. Was informed/educated on the adverse effects on their physical and mental health. Patient verbally agreed and understood. -Patient was instructed to return to the hospital or seek immediate medical care if their psychiatric or medical symptoms do worsen or reoccur. Laboratory Results WBC 7.9 k/uL (3.8-10.6) 11/27/19 08:19 RBC 4.14 m/uL (3.80-5.40) 11/27/19 08:19 Hgb 12.8 gm/dL (11.4-16.0) 11/27/19 08:19 Hct 38.6 % (34.0-46.0) 11/27/19 08:19 MCV 93.3 fL (80.0-100.0) 11/27/19 08:19 MCH 30.9 pg (25.0-35.0) 11/27/19 08:19 MCHC 33.1 g/dL (31.0-37.0) 11/27/19 08:19 RDW 13.4 % (11.5-15.5) 11/27/19 08:19 Plt Count 318 k/uL (150-450) 11/27/19 08:19 Neutrophils % 77 % 11/27/19 08:19 Lymphocytes % 14 % 11/27/19 08:19 Monocytes % 6 % 11/27/19 08:19 Eosinophils % 1 % 11/27/19 08:19 Basophils % 0 % 11/27/19 08:19 Neutrophils # 6.1 k/uL (1.3-7.7) 11/27/19 08:19 Lymphocytes # 1.1 k/uL (1.0-4.8) 11/27/19 08:19 Monocytes # 0.5 k/uL (0-1.0) 11/27/19 08:19 Eosinophils # 0.1 k/uL (0-0.7) 11/27/19 08:19 Basophils # 0.0 k/uL (0-0.2) 11/27/19 08:19 Sodium 138 mmol/L (137-145) 11/27/19 08:19 Potassium 4.2 mmol/L (3.5-5.1) 11/27/19 08:19 Chloride 104 mmol/L (98-107) 11/27/19 08:19 Carbon Dioxide 26 mmol/L (22-30) 11/27/19 08:19 Anion Gap 8 mmol/L 11/27/19 08:19 BUN 20 mg/dL (7-17) H 11/27/19 08:19 Creatinine 0.83 mg/dL (0.52-1.04) 11/27/19 08:19 Est GFR (CKD-EPI)AfAm >90 (>60 ml/min/1.73 sqM) 11/27/19 08:19 Est GFR (CKD-EPI)NonAf 88 (>60 ml/min/1.73 sqM) 11/27/19 08:19 Glucose 111 mg/dL (74-99) H 11/27/19 08:[address] Glu mg/dL 88 11/27/19 08:19 Hemoglobin A1c 4.7 % (4.0-6.0) 11/27/19 08:19 Calcium 8.8 mg/dL (8.4-10.2) 11/27/19 08:19 Total Bilirubin 0.5 mg/dL (0.2-1.3) 11/27/19 08:19 Conjugated Bilirubin 0.0 mg/dL (0.0-0.3) 11/27/19 08:19 Unconjugated Bilirubin 0.6 mg/dL (0.0-1.1) 11/27/19 08:19 Delta Bilirubin 0.0 mg/dL (0.0-0.2) 11/27/19 08:19 AST 17 U/L (14-36) 11/27/19 08:19 ALT 12 U/L (4-34) 11/27/19 08:19 Alkaline Phosphatase 71 U/L (38-126) 11/27/19 08:19 Total Protein 7.2 g/dL (6.3-8.2) 11/27/19 08:19 Albumin 4.7 g/dL (3.5-5.0) 11/27/19 08:19 Triglycerides 156 mg/dL (<150) H 11/27/19 08:19 Cholesterol 214 mg/dL (<200) H 11/27/19 08:19 LDL Cholesterol, Calc 131 mg/dL (0-99) H 11/27/19 08:19 HDL Cholesterol 52 mg/dL (40-60) 11/27/19 08:19 TSH 8.300 mIU/L (0.465-4.680) H 11/27/19 08:19 Urine Color Yellow 11/27/19 10:30 Urine Appearance Clear (Clear) 11/27/19 10:30 Urine pH 6.5 (5.0-8.0) 11/27/19 10:30 Ur Specific [place] 1.019 (1.001-1.035) 11/27/19 10:30 Urine Protein Negative (Negative) 11/27/19 10:30 Urine Glucose (UA) Negative (Negative) 11/27/19 10:30 Urine Ketones Negative (Negative) 11/27/19 10:30 Urine Blood Negative (Negative) 11/27/19 10:30 Urine Nitrite Negative (Negative) 11/27/19 10:30 Urine Bilirubin Negative (Negative) 11/27/19 10:30 Urine Urobilinogen <2.0 mg/dL (<2.0) 11/27/19 10:30 Ur Leukocyte Esterase Small (Negative) H 11/27/19 10:30 Urine RBC 1 /hpf (0-5) 11/27/19 10:30 Urine WBC 1 /hpf (0-5) 11/27/19 10:30 Ur Squamous Epith Cells 2 /hpf (0-4) 11/27/19 10:30 Urine Mucus Rare /hpf (None) H 11/27/19 10:30 Urine HCG, Qual Not Detected (Not Detectd) 11/27/19 10:30 Salicylates <1.0 mg/dL 11/26/19 22:00 Urine Opiates Screen Not Detected (NotDetected) 11/26/19 22:20 Ur Oxycodone Screen Not Detected (NotDetected) 11/26/19 22:20 Urine Methadone Screen Not Detected (NotDetected) 11/26/19 22:20 Ur Propoxyphene Screen Not Detected (NotDetected) 11/26/19 22:20 Acetaminophen <10.0 ug/mL 11/26/19 22:00 Ur Barbiturates Screen Not Detected (NotDetected) 11/26/19 22:20 U Tricyclic Antidepress Not Detected (NotDetected) 11/26/19 22:20 Ur Phencyclidine Scrn Not Detected (NotDetected) 11/26/19 22:20 Ur Amphetamines Screen Not Detected (NotDetected) 11/26/19 22:20 U Methamphetamines Scrn Not Detected (NotDetected) 11/26/19 22:20 U Benzodiazepines Scrn Detected (NotDetected) H 11/26/19 22:20 Urine Cocaine Screen Not Detected (NotDetected) 11/26/19 22:20 U Marijuana (THC) Screen Not Detected (NotDetected) 11/26/19 22:20 Allergies Allergy/AdvReac Type Severity Reaction Status Date / Time methylprednisolone Allergy Rash/Hives Verified 11/29/19 12:24 [From Medrol] ondansetron HCl Allergy Rash/Hives Verified 11/29/19 12:24 [From Zofran (as hydrochloride)] Penicillins Allergy Rash/Hives Verified 11/29/19 12:24 sulfamethoxazole Allergy Rash/Hives Verified 11/29/19 12:24 [From Bactrim] trimethoprim [From Bactrim] Allergy Rash/Hives Verified 11/29/19 12:24 Vital Signs Temp 98.6 F 11/30/19 06:38 Pulse 72 11/30/19 06:38 Resp 16 11/30/19 06:38 BP 133/83 11/30/19 06:38 Pulse Ox 98 11/30/19 06:38 Intake & Output 11/29/19 11/30/19 11/30/19 18:59 06:59 18:59 Weight 86.7 kg Patient Condition at Discharge: Stable Plan - Discharge Summary New Discharge Prescriptions: New Zolpidem [Ambien] 10 mg PO HS tab busPIRone HCL [Buspar] 15 mg PO BID 30 Days tab Phenazopyridine [Pyridium] 100 mg PO TID tab rOPINIRole HCL [Requip] 0.5 mg PO HS 30 Days tab Calcitriol [Rocaltrol] 0.25 mcg PO BID cap Levothyroxine Sodium [Synthroid] 200 mcg PO DAILY@0630 30 Days tab Witch Rose [Tucks Medicated Pads] 1 each TOPICAL DIRECTED PRN med..pad PRN Reason: pain Acetaminophen Tab [Tylenol] 650 mg PO Q4HR PRN tab PRN Reason: Pain/Discomfort tiZANidine [Zanaflex] 4 mg PO BID PRN tab PRN Reason: Muscle Spasticity Sertraline [Zoloft] 100 mg PO DAILY 30 Days tab Continue Ferrous Sulfate [Iron (65 MG Elemental)] 325 mg PO BID Famotidine [Pepcid] 20 mg PO BID Loratadine 10 mg PO DAILY #30 tab Discontinued Calcitriol 0.25 mcg PO BID Zolpidem [Ambien] 5 - 10 mg PO HS PRN PRN Reason: Insomnia Diphenoxylate HCl/Atropine [Lomotil 2.5-0.025 mg Tablet] 1 tab PO QID PRN PRN Reason: Diarrhea Ibuprofen [Motrin] 800 mg PO Q8H PRN PRN Reason: Pain Clindamycin HCl 300 mg PO Q8H Levothyroxine Sodium [Synthroid] 175 mcg PO DAILY Ergocalciferol [Vitamin D2 (DRISDOL)] 50,000 unit PO Q7D Nystatin 100,000 Unit/ml Susp [Mycostatin Oral Susp] 500,000 unit PO QID Mirtazapine [Remeron] 15 mg PO HS #30 tab hydrOXYzine HCL 25 mg PO TID PRN #45 tab PRN Reason: Itching Baclofen [Lioresal] 10 mg PO BID #60 tab Metoprolol Succinate [Toprol XL] 25 mg PO DAILY #30 tab Levothyroxine Sodium [Synthroid] 175 mcg PO DAILY@0630 #120 tab Discharge Medication List Famotidine [Pepcid] 20 mg PO BID 12/16/18 [History] Ferrous Sulfate [Iron (65 MG Elemental)] 325 mg PO BID 12/16/18 [History] Loratadine 10 mg PO DAILY #30 tab 08/28/19 [Rx] Acetaminophen Tab [Tylenol] 650 mg PO Q4HR PRN tab 11/30/19 [Rx] Calcitriol [Rocaltrol] 0.25 mcg PO BID cap 11/30/19 [Rx] Levothyroxine Sodium [Synthroid] 200 mcg PO DAILY@0630 30 Days tab 11/30/19 [Rx] Phenazopyridine [Pyridium] 100 mg PO TID tab 11/30/19 [Rx] Sertraline [Zoloft] 100 mg PO DAILY 30 Days tab 11/30/19 [Rx] Rosmery Rose [Tucks Medicated Pads] 1 each TOPICAL DIRECTED PRN med..pad 11/30/19 [Rx] Zolpidem [Ambien] 10 mg PO HS tab 11/30/19 [Rx] busPIRone HCL [Buspar] 15 mg PO BID 30 Days tab 11/30/19 [Rx] rOPINIRole HCL [Requip] 0.5 mg PO HS 30 Days tab 11/30/19 [Rx] tiZANidine [Zanaflex] 4 mg PO BID PRN tab 11/30/19 [Rx] Follow up Appointment(s)/Referral(s): [facility] [Outside] - 12/02/19 9:00 am (12-02-19 @ 9:00 with Karyn Antonio by phone. 12-03-19 @ 8:30 with SAMPSON Rangel at [facility] office (face to face) ) Yasir White MD [Primary Care Provider] - 1-2 days Activity/Diet/Wound Care/Special Instructions: Activity and diet as tolerated. Avoid the use of street drugs and alcohol. Take all medications as prescribed. When you are in need of refills on your medications please contact your medical provider and/or outpatient psychiatrist to have this done. Please go to scheduled outpatient appointment for aftercare treatment. If symptoms return or become worse, call the crisis line at and/or go to the nearest emergency room for evaluation Discharge Disposition: HOME SELF-CARE
[2019-11-30] MEDS ORDERED: busPIRone HCl 5 MG TAB PO SCH (21:00)
[2019-12-01] MEDS ORDERED: SERTRALINE 100 MG TAB PO SCH (09:00)
== END 2019-11-30 11:44 | disposition home or self-care (01) | DRG 881 ==
LOC: EC 21:17 → 3MHU 11-27 01:34
PROVIDERS: ADMIT Psychiatry & Neurology Psychiatry; ATTEND Psychiatry & Neurology Psychiatry
DX: F32.9 Major depressive disorder, single episode, unspecified (principal); R45.851 Suicidal ideations; F41.9 Anxiety disorder, unspecified; E66.9 Obesity, unspecified; E78.5 Hyperlipidemia, unspecified; E89.0 Postprocedural hypothyroidism; G47.00 Insomnia, unspecified; K58.9 Irritable bowel syndrome, unspecified; M19.90 Unspecified osteoarthritis, unspecified site; R30.0 Dysuria; Z68.35 Body mass index [BMI] 35.0-35.9, adult; Z79.890 Hormone replacement therapy; Z79.899 Other long term (current) drug therapy; Z91.5 Personal history of self-harm; Z85.850 Personal history of malignant neoplasm of thyroid; Z98.51 Tubal ligation status; Z88.1 Allergy status to other antibiotic agents; Z88.0 Allergy status to penicillin; Z88.2 Allergy status to sulfonamides; Z88.8 Allergy status to other drugs, medicaments and biological substances; Z81.3 Family history of other psychoactive substance abuse and dependence; Z81.8 Family history of other mental and behavioral disorders; Z82.49 Family history of ischemic heart disease and other diseases of the circulatory system; Z81.1 Family history of alcohol abuse and dependence
CPT/HCPCS: 36415; 80053; 80061; 80306; 80329; 81001; 81025; 82075; 82248; 83036; 83520; 84443; 85025; 99285

== ENCOUNTER → 2019-12-09 | Outpatient (CLI) | payer OTHER ==
--- NOTE | 2019-12-10 10:01 | MM ---
Reason for exam: additional evaluation requested from abnormal screening. Last mammogram was performed less than 1 month ago. History: Patient has history of other cancer at age 26. Benign excisional biopsy of both breasts, 1993. Took hormonal contraceptives for 6 months beginning at age 20. Physical Findings: Nurse did not find any significant physical abnormalities on exam. MG 3D Work Up W/Cad RT Spot compression CC, spot compression MLO, and ML view(s) were taken of the right breast. Prior study comparison: November 25, 2019, bilateral MG screening mammo w CAD. September 15, 2018, bilateral MG screening mammo w CAD. There are scattered fibroglandular densities. Benign appearing calcifications in the right breast. These results were verbally communicated with the patient and result sheet given to the patient on 12/09/19. ASSESSMENT: Probably benign, BI-RAD 3 RECOMMENDATION: Follow-up diagnostic mammogram of the right breast in 6 months. Manage patient on a clinical basis.
== END | disposition home or self-care (01) ==
LOC: RADMAMWWP 09:17
PROVIDERS: ATTEND Internal Medicine
DX: R92.8 Other abnormal and inconclusive findings on diagnostic imaging of breast (principal)
CPT/HCPCS: 77065; G0279; 77061

== ENCOUNTER → 2019-12-11 | Outpatient (CLI) | payer OTHER ==
[2019-12-11 08:58] VITALS: BP 110/72; PULSE 54; RESP 18; TEMP 97.7
--- NOTE | 2019-12-11 09:46 | P.GSHP ---
History of Present Illness H&P Date: 12/11/19 Chief Complaint: axillary breast tissue Felicity is a 45 year old white female seen in consultation for Dr. White with a complaint of bilateral axillary breast tissue. She states that approximately 20 years ago she had a portion of the tissue removed as she had nipples ad ditionally under her arms and these were removed, however axillary tissue was left in place. The area of axillary tissue has increased with time and is painful. The area has swelling at the time of her menstrual cycle and is uncomfortable. She has not had any recent trauma or infection to the breast. She does have a bug bite to the left breast approximately a week ago and the area has remained irritated. It is healing at this time. She thinks it was a spider. Her last bilateral mammogram was 11/25/2019. Following this it was recommended that a repeat right breast mammogram diagnostic be performed. Nothing of concern was noted in the left breast. In the [place] [id number] benign-appearing calcifications were noted. This was felt to be probably benign and repeat right breast mammogram in 6 months time was recommended. Caffeine intake: 2 L of pop per day Smoking:, Secondhand smoke negative Chocolate: Negative Does not take any estrogenic hormones Family History: Patient: Thyroid cancer at 26, her thyroid and parathyroids were removed she takes hormone supplements at this time of Synthroid and Calcitrol Patient does not know the remainder of her family history she was adopted Hormonal history: Menarche: 14 , 1 , 3 miscarriages; first live at 26; breast fed: yes periods regular, LMP November 18, 2019 BCP: none, tubal; used them for 2 years hormones: none Past surgical history: 1. Total thyroidectomy/radiation to follow 2. Bilateral axillary tissue removed Medical history: 1. Hypothyroid secondary to surgical thyroid removal 2. Parathyroids removed patient takes Calcitrol Social History: smoke: none alcohol: none drugs: none - Constitutional Comment: Meningitis in the past Constitutional: Reports sweats - EENT Eyes: denies blurred vision, denies pain Ears: bilateral: tinnitus, deny: decreased hearing Ears, nose, mouth and throat: Reports headache, Reports sore throat - Breasts Breasts: bilateral: as per HPI - Cardiovascular Cardiovascular: Denies chest pain, Denies shortness of breath - Respiratory Comment: inhaler at times Respiratory: Denies cough, Denies 7 - Gastrointestinal Comment: IBS Gastrointestinal: Denies abdominal pain, Denies diarrhea, Denies nausea, Denies vomiting - Genitourinary (Female) Comment: HPV told high risk for stomach cancer Genitourinary: Denies dysuria, Denies hematuria - Menstruation Menstruation: Reports period normal - Musculoskeletal Musculoskeletal: Denies myalgias - Integumentary Integumentary: Reports as per HPI - Neurological Neurological: Denies numbness, Denies weakness - Psychiatric Comment: sees a therapist Psychiatric: Reports anxiety, Reports depression - Endocrine Comment: thyroid cancer parathyoid resected at time of thyroid surgery - Hematologic/Lymphatic Comment: anemic, takes motrin TID - Allergic/Immunologic Allergic/Immunologic: Reports as per HPI Past Medical History Past Medical History: Cancer, Thyroid Disorder Additional Past Medical History / Comment(s): thyroid CA in the past, low calcium, IBS. Gonorrhea, Trichomoniasis, History of Any Multi-Drug Resistant Organisms: None Reported Past Surgical History: Tubal Ligation Additional Past Surgical History / Comment(s): PARA THYROIDECTOMY, THYROIDECTOMY, breast reduction Past Anesthesia/Blood Transfusion Reactions: No Reported Reaction Past Psychological History: Anxiety, Depression, Panic Disorder Smoking Status: Never smoker Past Alcohol Use History: None Reported Additional Past Alcohol Use History / Comment(s): Patient states she is a nonsmoker. She denies any medical marijuana, marijuana, street drug or alcohol use. She is currently from her complaining for divorce. She lives with her 3 children 16, 9 and 4 years of age. Past Drug Use History: None Reported - Past Family History Mother Family Medical History: Myocardial Infarction ([place]) Additional Family Medical History / Comment(s): Mother at age 48 from a myocardial infarction. Father Family Medical History: Myocardial Infarction ([place]) Additional Family Medical History / Comment(s): Father from a myocardial infarction. Brother(s) Additional Family Medical History / Comment(s): Patient has 4 brothers and all have mental health issues with alcoholism and drug addiction. She has 1 brother that at age 38 from a myocardial infarction. Sister(s) Additional Family Medical History / Comment(s): Patient has 6 sisters and one has PFO. Son(s) Additional Family Medical History / Comment(s): Patient has 3 sons. 16-year-old son was born with ureteral duplication, sickle cell trait, bipolar, ADHD. 9-year-old son has ADHD and sleep disorder. 4-year-old son has no medical problems Medications and Allergies Home Medications Medication Instructions Recorded Confirmed Type Famotidine [Pepcid] 20 mg PO BID 12/16/18 12/11/19 History Ferrous Sulfate [Iron (65 MG 325 mg PO BID 12/16/18 12/11/19 History Elemental)] Calcitriol [Rocaltrol] 0.25 mcg PO BID cap 11/30/19 12/11/19 Rx Levothyroxine Sodium [Synthroid] 200 mcg PO DAILY@0630 30 Days tab 11/30/19 12/11/19 Rx busPIRone HCL [Buspar] 15 mg PO BID 30 Days tab 11/30/19 12/11/19 Rx rOPINIRole HCL [Requip] 0.5 mg PO HS 30 Days tab 11/30/19 12/11/19 Rx tiZANidine [Zanaflex] 4 mg PO BID PRN tab 11/30/19 12/11/19 Rx Ibuprofen [Motrin] 800 mg PO Q8H 12/11/19 12/11/19 History Allergies Allergy/AdvReac Type Severity Reaction Status Date / Time methylprednisolone Allergy Rash/Hives Verified 12/11/19 08:51 [From Medrol] ondansetron HCl Allergy Rash/Hives Verified 12/11/19 08:51 [From Zofran (as hydrochloride)] Penicillins Allergy Rash/Hives Verified 12/11/19 08:51 sulfamethoxazole Allergy Rash/Hives Verified 12/11/19 08:51 [From Bactrim] trimethoprim [From Bactrim] Allergy Rash/Hives Verified 12/11/19 08:51 Surgical - Exam Vital Signs Temp Pulse Resp BP Pulse Ox 97.7 F 54 L 18 110/72 100 12/11/19 08:54 12/11/19 08:54 12/11/19 08:54 12/11/19 08:54 12/11/19 08:54 BMI 32.8 - General well developed, well nourished, no distress - Eyes normal ocular movement - ENT poor dentition, bridge for upper teeth no hearing loss, no congestion - Neck trachea midline - Respiratory normal respiratory effort, clear to auscultation - Cardiovascular Rhythm: regular Heart Sounds: normal: S1, S2 - Abdomen Abdomen: soft, non tender, no guarding, no rigid, no rebound - Integumentary normal turgor - Neurologic no disoriented, no combative - Musculoskeletal normal gait, normal posture - Psychiatric oriented to time, oriented to person, oriented to place, speech is normal, memory intact breast exam: BRA : 38DDD inspection: ptosis grade 2 Palpation: Right breast: Multiple positional exam fibrocystic changes, tender to palpation no dominant masses or nodules of concern Right axilla: No adenopathy of concern, minimal axillary breast tissue Left breast: Multi-positional exam no dominant masses or nodules of concern, tender to palpation, in the 6 o'clock position in the inferior aspect of the breast is approximately a 1 cm area of erythema the patient is had a recent insect bite Left axilla: No adenopathy of concern, slight increased axillary breast tissue on the left over the right Results Mammogram results reviewed Assessment and Plan Assessment: Impression: 1. Mastodynia 2. Bug bite of left breast 3. Bilateral axillary breast tissue greater on the left than on the right 4. No evidence of cancer at this time 5. Abnormal mammogram right breast 6. Prior history of thyroid cancer 7. Hypoparathyroid 8. Positive history of HPV Plan: 1. Patient is going to stop caffeine intake 2. Patient given [place] related to cyclic breast pain 3. Medical management of medical conditions Cc: Dr. Jiménez encounter 50 minutes, > 50% of time in planning and counselling
== END | disposition home or self-care (01) ==
LOC: WWCWWP 08:39
PROVIDERS: ATTEND Surgery
DX: Z53.9 Procedure and treatment not carried out, unspecified reason (principal)

== ENCOUNTER 2020-11-03 17:21 | Emergency (ER) | payer OTHER ==
--- NOTE | 2020-11-03 18:59 | ED ---
General Adult HPI - General Chief complaint: Fever Stated complaint: Fever, Diarrhea Time Seen by Provider: 11/03/20 18:31 Source: patient, RN notes reviewed Mode of arrival: ambulatory Limitations: no limitations - History of Present Illness Initial comments: Patient is a pleasant 45-year-old female presenting to the emergency department with concerns for COVID-19 infection. Patient was exposed secondary to her son having it who tested positive. Patient has been having symptoms for the past 2 days. Patient does have fevers and chills and fatigue. Patient does have mild cough. Patient has had headache. Patient has decreased appetite. Patient did have one or 2 episodes of diarrhea today. - Related Data Home Medications Medication Instructions Recorded Confirmed Famotidine [Pepcid] 20 mg PO BID 12/16/18 12/11/19 Ferrous Sulfate [Iron (65 MG 325 mg PO BID 12/16/18 12/11/19 Elemental)] Ibuprofen [Motrin] 800 mg PO Q8H 12/11/19 12/11/19 Previous Rx's Medication Instructions Recorded Levothyroxine Sodium [Synthroid] 200 mcg PO DAILY@0630 30 Days tab 11/30/19 busPIRone HCL [Buspar] 15 mg PO BID 30 Days tab 11/30/19 calcitrioL [Rocaltrol] 0.25 mcg PO BID cap 11/30/19 rOPINIRole HCL [Requip] 0.5 mg PO HS 30 Days tab 11/30/19 tiZANidine [Zanaflex] 4 mg PO BID PRN tab 11/30/19 Allergies Allergy/AdvReac Type Severity Reaction Status Date / Time methylprednisolone Allergy Rash/Hives Verified 11/03/20 18:07 [From Medrol] ondansetron HCl Allergy Rash/Hives Verified 11/03/20 18:07 [From Zofran (as hydrochloride)] Penicillins Allergy Rash/Hives Verified 11/03/20 18:07 sulfamethoxazole Allergy Rash/Hives Verified 11/03/20 18:07 [From Bactrim] trimethoprim [From Bactrim] Allergy Rash/Hives Verified 11/03/20 18:07 Review of Systems ROS Statement: Those systems with pertinent positive or pertinent negative responses have been documented in the HPI. ROS Other: All systems not noted in ROS Statement are negative. Constitutional: Reports: fever, chills Eyes: Denies: eye pain ENT: Denies: ear pain Respiratory: Reports: cough. Denies: dyspnea Cardiovascular: Denies: chest pain Endocrine: Reports: fatigue Gastrointestinal: Reports: nausea Genitourinary: Denies: dysuria Musculoskeletal: Denies: back pain Skin: Denies: rash Neurological: Denies: confusion Past Medical History Past Medical History: Cancer, Thyroid Disorder Additional Past Medical History / Comment(s): thyroid CA in the past, low calcium, IBS. Gonorrhea, Trichomoniasis, meningitis. History of Any Multi-Drug Resistant Organisms: None Reported Past Surgical History: Tubal Ligation Additional Past Surgical History / Comment(s): PARA THYROIDECTOMY, THYROIDECTOMY, breast reduction Past Anesthesia/Blood Transfusion Reactions: No Reported Reaction Past Psychological History: Anxiety, Depression, Panic Disorder Smoking Status: Never smoker Past Alcohol Use History: None Reported Past Drug Use History: None Reported - Past Family History Mother Family Medical History: [place]ocardial Infarction ([place]) Additional Family Medical History / Comment(s): Mother at age 48 from a myocardial infarction. Father Family Medical History: [place]ocardial [place] Additional Family Medical History / Comment(s): Father from a myocardial infarction. Brother(s) Additional Family Medical History / Comment(s): Patient has 4 brothers and all have mental health issues with alcoholism and drug addiction. She has 1 brother that at age 38 from a myocardial infarction. Sister(s) Additional Family Medical History / Comment(s): Patient has 6 sisters and one has PFO. Son(s) Additional Family Medical History / Comment(s): Patient has 3 sons. 16-year-old son was born with ureteral duplication, sickle cell trait, bipolar, ADHD. 9-year-old son has ADHD and sleep disorder. 4-year-old son has no medical problems General Exam Limitations: no limitations General appearance: alert, in no apparent distress Head exam: Present: atraumatic Eye exam: Present: normal appearance Neck exam: Present: normal inspection Respiratory exam: Present: normal lung sounds bilaterally Cardiovascular Exam: Present: regular rate, normal rhythm GI/Abdominal exam: Present: soft. Absent: distended, tenderness Extremities exam: Present: normal inspection. Absent: calf tenderness Back exam: Present: normal inspection Neurological exam: Present: alert Psychiatric exam: Present: normal affect, normal mood Skin exam: Present: normal color Course Vital Signs 11/03/20 18:04 Temperature 98.3 F Pulse Rate 84 Respiratory 18 Rate Blood Pressure 128/83 O2 Sat by Pulse 96 Oximetry Medical Decision Making - Medical Decision Making Discussion had with patient regarding infection and she will with monoclonal antibodies which patient is receptive to - Lab Data Lab Results 11/03/20 Range/Units 18:47 Coronavirus (PCR) Detected A (Not Detectd) Disposition Clinical Impression: COVID-19 Disposition: HOME SELF-CARE Condition: Stable Instructions (If sedation given, give patient instructions): Fever in Adults (ED) Additional Instructions: Discharge following monoclonal antibodies. Please return for uncontrolled fever, difficulty breathing, not tolerating fluids or oral intake, worsening symptoms or any other concerns. Is patient prescribed a controlled substance at d/c from ED?: No Referrals: Yasir White MD [Primary Care Provider] - 1-2 days Time of Disposition: 19:30
[2020-11-03] MEDS ORDERED: BAMLANIVIMAB (EUA) 700 MG, ETESEVIMAB (EUA) 1,400 MG in SODIUM CHLORIDE 0.9% 50 ML IVPB ONE (21:15)
[2020-11-03 21:59] VITALS: BP 120/85; PULSE 72; RESP 20; TEMP 98.8
== END 2020-11-03 22:00 | disposition home or self-care (01) ==
LOC: EC 17:21
DX: U07.1 COVID-19 (principal); F32.9 Major depressive disorder, single episode, unspecified; Z98.51 Tubal ligation status; F41.9 Anxiety disorder, unspecified; E07.9 Disorder of thyroid, unspecified; Z85.850 Personal history of malignant neoplasm of thyroid
CPT/HCPCS: 87635; 99284; Q0245

== ENCOUNTER 2020-11-04 01:29 | Observation (INO) | payer OTHER ==
[2020-11-04] MEDS ORDERED: ALBUTEROL HFA INHALER INHALATION STA (01:43)
[2020-11-04] MEDS ORDERED: ACETAMINOPHEN TAB 500 MG TAB PO STA (01:43)
[2020-11-04] MEDS ORDERED: SODIUM CHLORIDE 0.9% 1,000 ML IV STA ×2 (01:43)
[2020-11-04] MEDS ORDERED: ALBUTEROL HFA INHALER INHALATION PRN (01:43)
[2020-11-04] MEDS ORDERED: KETOROLAC 15 MG/ML 1 ML VIAL IVP STA (01:43)
[2020-11-04] MEDS ORDERED: SODIUM CHLORIDE 0.9% 500 ML 500 ML IV STA (01:43)
[2020-11-04] MEDS ORDERED: DEXAMETHASONE SOD PHOSPHATE 10 MG/ML 1 ML VIAL IV STA (01:43)
[2020-11-04 01:57] LABS: Basophils % (A) 0 %; Eosinophils # (A) 0.1 k/uL (0-0.7); Eosinophils % (A) 1 %; HGB 10.4 gm/dL (11.4-16.0); Lymphocytes # (A) 0.6 k/uL (1.0-4.8); Lymphocytes % (A) 9 %; MCH 29.9 pg (25.0-35.0); MCHC 32.4 g/dL (31.0-37.0); MCV 92.2 fL (80.0-100.0); Mean Platelet Volume 7.8; Monocytes # (A) 0.1 k/uL (0-1.0); Monocytes % (A) 2 %; Neutrophils # (A) 6.3 k/uL (1.3-7.7); Neutrophils % (A) 87 %; Platelet Count 174 k/uL (150-450); RBC 3.47 m/uL (3.80-5.40); RDW 14.7 % (11.5-15.5); WBC 7.3 k/uL (3.8-10.6)
--- NOTE | 2020-11-04 02:05 | ED ---
Chest Pain HPI - General Chief Complaint: Chest Pain Stated Complaint: Chest Pain Time Seen by Provider: 11/04/20 01:36 Source: patient, RN notes reviewed, old records reviewed Mode of arrival: EMS Limitations: no limitations - History of Present Illness Initial Comments: This is a 45-year-old female DF for evaluation patient has chest pain chest pain rating to her back shouldn't receive antibodies today this prior to this recent ER visit. Patient is a she does not feel well it is persistent she feels nauseous. She felt fine when she left the emergency department today. Patient does have positive coronavirus MD Complaint: chest pain -: hour(s) Onset: during rest Pain Location: substernal Pain Radiation: none Severity: mild Quality: tightness Consistency: constant Improves With: nothing Worsens With: nothing Context: recent illness Anginal Symptoms: dyspnea Other Symptoms: palpitations Treatments Prior to Arrival: none - Related Data Home Medications Medication Instructions Recorded Confirmed Famotidine [Pepcid] 20 mg PO BID 12/16/18 11/04/20 Ferrous Sulfate [Iron (65 MG 325 mg PO BID@0900,1700 12/16/18 11/04/20 Elemental)] Acetaminophen Tab [Tylenol] 1,000 mg PO Q6HR PRN 11/04/20 11/04/20 Albuterol Sulfate [Proair Hfa] 1 - 2 puff INHALATION RT-Q6H PRN 11/04/20 11/04/20 Beclomethasone Dipropionate [Qvar 1 puff INHALATION RT-BID 11/04/20 11/04/20 40 mcg Redihaler] Cyanocobalamin (Vitamin B-12) 1,000 mcg PO DAILY 11/04/20 11/04/20 [Vitamin B-12] Ergocalciferol [Vitamin D2 (1250 1,250 mcg PO Q7D 11/04/20 11/04/20 Mcg = 24665 Iu)] Ibuprofen [Motrin Ib] 800 mg PO Q8H PRN 11/04/20 11/04/20 Levothyroxine Sodium [Synthroid] 175 mcg PO DAILY 11/04/20 11/04/20 Melatonin 10 mg PO HS PRN 11/04/20 11/04/20 Methylphenidate HCl 20 mg PO DAILY 11/04/20 11/04/20 [Methylphenidate LA] Neuriva 1 tab PO BID 11/04/20 11/04/20 Sertraline [Zoloft] 100 mg PO DAILY 11/04/20 11/04/20 busPIRone HCl [Buspar] 20 mg PO BID 11/04/20 11/04/20 diphenhydrAMINE [Benadryl] 25 - 50 mg PO HS PRN 11/04/20 11/04/20 hydrOXYzine HCL 25 mg PO BID PRN 11/04/20 11/04/20 Previous Rx's Medication Instructions Recorded calcitrioL [Rocaltrol] 0.25 mcg PO BID cap 11/30/19 tiZANidine [Zanaflex] 4 mg PO BID PRN tab 11/30/19 Ascorbic Acid [Vitamin C] 500 mg PO BID #30 tablet 11/04/20 Cholecalciferol [Vitamin D3 (25 25 mcg PO DAILY #30 tab 11/04/20 Mcg = 1000 Iu)] Zinc Sulfate 220 mg PO DAILY #20 capsule 11/04/20 Allergies Allergy/AdvReac Type Severity Reaction Status Date / Time methylprednisolone Allergy Rash/Hives Verified 11/04/20 06:13 [From Medrol] ondansetron HCl Allergy Rash/Hives Verified 11/04/20 06:13 [From Zofran (as hydrochloride)] Penicillins Allergy Rash/Hives Verified 11/04/20 06:13 sulfamethoxazole Allergy Rash/Hives Verified 11/04/20 06:13 [From Bactrim] trimethoprim [From Bactrim] Allergy Rash/Hives Verified 11/04/20 06:13 Review of Systems ROS Statement: Those systems with pertinent positive or pertinent negative responses have been documented in the HPI. ROS Other: All systems not noted in ROS Statement are negative. EKG Findings - EKG Comments: EKG Findings:: EKG is sinus rhythm 65 CA 180 QRS 84 QTc 482 Past Medical History Past Medical History: Cancer, Thyroid Disorder Additional Past Medical History / Comment(s): thyroid CA in the past, low calcium, IBS. Gonorrhea, Trichomoniasis, meningitis. History of Any Multi-Drug Resistant Organisms: None Reported Past Surgical History: Tubal Ligation Additional Past Surgical History / Comment(s): PARA THYROIDECTOMY, THYROIDECTOMY, breast reduction Past Anesthesia/Blood Transfusion Reactions: No Reported Reaction Past Psychological History: Anxiety, Depression, Panic Disorder Smoking Status: Never smoker Past Alcohol Use History: None Reported Past Drug Use History: None Reported - Past Family History Mother Family Medical History: Myocardial Infarction ([place]) Additional Family Medical History / Comment(s): Mother at age 48 from a m yocardial infarction. Father Family Medical History: Myocardial Infarction ([place]) Additional Family Medical History / Comment(s): Father from a myocardial infarction. Brother(s) Additional Family Medical History / Comment(s): Patient has 4 brothers and all have mental health issues with alcoholism and drug addiction. She has 1 brother that at age 38 from a myocardial infarction. Sister(s) Additional Family Medical History / Comment(s): Patient has 6 sisters and one has PFO. Son(s) Additional Family Medical History / Comment(s): Patient has 3 sons. 16-year-old son was born with ureteral duplication, sickle cell trait, bipolar, ADHD. 9-year-old son has ADHD and sleep disorder. 4-year-old son has no medical problems General Exam Limitations: no limitations General appearance: alert, in no apparent distress Head exam: Present: atraumatic, normocephalic, normal inspection Eye exam: Present: normal appearance, PERRL, EOMI. Absent: scleral icterus, conjunctival injection, periorbital swelling ENT exam: Present: normal exam, mucous membranes moist Neck exam: Present: normal inspection. Absent: tenderness, meningismus, lymphadenopathy Respiratory exam: Present: normal lung sounds bilaterally. Absent: respiratory distress, wheezes, rales, rhonchi, stridor Cardiovascular Exam: Present: regular rate, normal rhythm, normal heart sounds. Absent: systolic murmur, diastolic murmur, rubs, gallop, clicks GI/Abdominal exam: Present: soft, normal bowel sounds. Absent: distended, tenderness, guarding, rebound, rigid Extremities exam: Present: normal inspection, full ROM, normal capillary refill. Absent: tenderness, pedal edema, joint swelling, calf tenderness Back exam: Present: normal inspection Neurological exam: Present: alert, oriented X3, CN II-XII intact Psychiatric exam: Present: normal affect, normal mood Skin exam: Present: warm, dry, intact, normal color. Absent: rash Course Vital Signs 11/04/20 11/04/20 11/04/20 01:34 01:44 02:44 Temperature 98.2 F Pulse Rate 50 L 68 67 Respiratory 22 22 20 Rate Blood Pressure 88/58 87/59 86/57 O2 Sat by Pulse 98 95 97 Oximetry 11/04/20 11/04/20 11/04/20 03:00 04:00 05:00 Temperature Pulse Rate 68 70 71 Respiratory 18 16 20 Rate Blood Pressure 83/73 92/60 91/60 O2 Sat by Pulse 98 97 97 Oximetry 11/04/20 11/04/20 11/04/20 06:00 07:00 09:02 Temperature Pulse Rate 63 72 67 Respiratory 16 18 18 Rate Blood Pressure 92/60 102/60 110/80 O2 Sat by Pulse 97 97 96 Oximetry - Reevaluation(s) Reevaluation #1: Medical record is reviewed Patient reevaluated in the emergency department, symptoms resolved Patient informed results questions answered Patient does not fill comfortable with discharge as she still having chest pain Chest Pain MDM - MDM History female Scarlett with chest pain. Typical chest pain although the pain is related to her back. Shortness of breath patient be admitted for chest pain observation Disposition Clinical Impression: Atypical chest pain, COVID-19, Acute anxiety Disposition: ADMITTED IP TO THIS HOSP Condition: Good Is patient prescribed a controlled substance at d/c from ED?: No
[2020-11-04 02:11] LABS: D-Dimer 0.32 mg/L FEU (<0.60); Partial Thromboplastin Time 25.2 sec (22.0-30.0); Prothrombin Time 10.3 sec (9.0-12.0)
[2020-11-04 02:13] LABS: C Reactive Protein 1.4 mg/dL (<1.0); Calcium 8.3 mg/dL (8.4-10.2); Magnesium 1.9 mg/dL (1.6-2.3); Potassium 3.6 mmol/L (3.5-5.1); Total Bilirubin 0.4 mg/dL (0.2-1.3); Total Protein 6.3 g/dL (6.3-8.2)
[2020-11-04] MEDS ORDERED: NALOXONE 0.4 MG/ML 1 ML VIAL IV PRN (03:05)
[2020-11-04] MEDS ORDERED: SODIUM CHLORIDE 0.9% 1,000 ML IV SCH (03:15)
--- NOTE | 2020-11-04 03:42 | XR ---
EXAM: XR Chest, 1 View CLINICAL HISTORY: ITS.REASON XR Reason: Suspected COVID-19 pneumonia TECHNIQUE: Frontal view of the chest. COMPARISON: No relevant prior studies available. FINDINGS: Lungs: Unremarkable. No consolidation. Pleural space: Unremarkable. No pneumothorax. Heart: Unremarkable. No cardiomegaly. Mediastinum: Unremarkable. Bones/joints: Unremarkable. IMPRESSION: No acute cardiopulmonary process is identified.
[2020-11-04] MEDS: MORPHINE SULFATE 4 MG/ML SYRINGE IV PRN ×2 (09:04→13:22)
[2020-11-04] MEDS ORDERED: SODIUM CHLORIDE 0.9% 1,000 ML IV ONE (11:03)
[2020-11-04 12:07] LABS: African American GFR (CKD) >90 (>60 ml/min/1.73 sqM); Anion Gap 7 mmol/L; Blood Urea Nitrogen 15 mg/dL (7-17); Calcium 7.7 mg/dL (8.4-10.2); Carbon Dioxide 22 mmol/L (22-30); Chloride 111 mmol/L (98-107); Glucose 140 mg/dL (74-99); Non-African American GFR(CKD) 87 (>60 ml/min/1.73 sqM); Potassium 4.3 mmol/L (3.5-5.1); Sodium 140 mmol/L (137-145)
[2020-11-04 14:15] VITALS: BP 105/70; PULSE 63; RESP 17; TEMP 98
--- NOTE | 2020-11-04 16:26 | P.HPIM ---
History of Present Illness Patient is a pleasant 45-year-old female came in was department and was diagnosed with COVID-19 infection subsequently discharged home after she received the mono clonal antibody infusion. Patient's symptoms started 3 days ago. Patient was comparing of for generalized body aches and fevers at home. Patient was having mild cough. Her main symptom is diarrhea about 3-4 episodes a day. Patient is taking Motrin at home patient creatinine is 1.2 on admission patient was a fluid restricted with IV fluids until I also gave her a bolus of IV fluid with after which her creatinine has come down to 0.8. Patient is not requiring oxygen will not require any steroids patient has 2 kids that she needs to take care of her at home patient will be discharged today with instructions of those monitoring of the oxygen saturation at home. Patient's was vaccinated patient has 2 kids that the were diagnosed with Coumadin as well. Patient was instructed to hydrate herself. Review of Systems REVIEW OF SYSTEMS: CONSTITUTIONAL: Mentioned in HPI HEENT: No recent visual problems or hearing problems. Denied any sore throat. CARDIOVASCULAR: No chest pain, orthopnea, PND, no palpitations, no syncope. PULMONARY: No shortness of breath, no hemoptysis. GASTROINTESTINAL: no abdominal pain. NEUROLOGICAL: No headaches, no weakness, no numbness. HEMATOLOGICAL: Denies any bleeding or petechiae. GENITOURINARY: Denies any burning micturition, frequency, or urgency. MUSCULOSKELETAL/RHEUMATOLOGICAL: Denies any joint pain, swelling, or any muscle pain. ENDOCRINE: Denies any polyuria or polydipsia. The rest of the 14-point review of systems is negative. Past Medical History Past Medical History: Asthma, Cancer, GERD/Reflux, Hypertension, Thyroid Disor shadia Additional Past Medical History / Comment(s): Pt tested covid + on 11/03/20 at [facility] ER. Other hx: Thyroid cancer with surgery, R breast abnormal tissue, viral meningitis, anemia, HPV, bilateral knee pain, occasional lower back pain, hypocalcemia, IBS, cyst posterior L knee, R side abdominal hernia, UTIs. History of Any Multi-Drug Resistant Organisms: None Reported Past Surgical History: Tubal Ligation Additional Past Surgical History / Comment(s): Thyroidectomy/parathyroidectomy, reduction of tissue bilateral axillae, r breast biopsy, colonoscopy, epidural back injections. Past Anesthesia/Blood Transfusion Reactions: No Reported Reaction Additional Past Anesthesia/Blood Transfusion Reaction / Comment(s): Pt has clausterphobia. Smoking Status: Never smoker - Past Family History Mother Family Medical History: Myocardial Infarction ([place]) Additional Family Medical History / Comment(s): Biological mother at age 48 from a myocardial infarction. Pt is adopted. Father Family Medical History: Myocardial Infarction ([place]) Additional Family Medical History / Comment(s): Pt does not speak to biological father. Brother(s) Additional Family Medical History / Comment(s): Patient has 4 brothers and all have mental health issues with alcoholism and drug addiction. She has 1 brother that at age 32 from a myocardial infarction. Sister(s) Additional Family Medical History / Comment(s): Patient has 6 sisters and one has PFO. Son(s) Additional Family Medical History / Comment(s): Patient has 3 sons. Oldest son was born with ureteral duplication, sickle cell trait, bipolar, ADHD. 2nd son has ADHD and sleep disorder. 3rd son has no medical problems Medications and Allergies Home Medications Medication Instructions Recorded Confirmed Type Famotidine [Pepcid] 20 mg PO BID 12/16/18 11/04/20 History Ferrous Sulfate [Iron (65 MG 325 mg PO BID@0900,1700 12/16/18 11/04/20 History Elemental)] calcitrioL [Rocaltrol] 0.25 mcg PO BID cap 11/30/19 11/04/20 Rx tiZANidine [Zanaflex] 4 mg PO BID PRN tab 11/30/19 11/04/20 Rx Acetaminophen Tab [Tylenol Tab] 1,000 mg PO Q6HR PRN 11/04/20 11/04/20 History Albuterol Sulfate [Proair Hfa] 1 - 2 puff INHALATION RT-Q6H PRN 11/04/20 11/04/20 History Ascorbic Acid [Vitamin C] 500 mg PO BID #30 tablet 11/04/20 Rx Beclomethasone Dipropionate [Qvar 1 puff INHALATION RT-BID 11/04/20 11/04/20 History 40 mcg Redihaler] Cholecalciferol [Vitamin D3 (25 25 mcg PO DAILY #30 tab 11/04/20 Rx Mcg = 1000 Iu)] Cyanocobalamin (Vitamin B-12) 1,000 mcg PO DAILY 11/04/20 11/04/20 History [Vitamin B-12] Ergocalciferol [Vitamin D2 (1250 1,250 mcg PO Q7D 11/04/20 11/04/20 History Mcg = 61682 Iu)] Ibuprofen [Motrin Ib] 800 mg PO Q8H PRN 11/04/20 11/04/20 History Levothyroxine Sodium [Synthroid] 175 mcg PO DAILY 11/04/20 11/04/20 History Melatonin 10 mg PO HS PRN 11/04/20 11/04/20 History Methylphenidate HCl 20 mg PO DAILY 11/04/20 11/04/20 History [Methylphenidate LA] Neuriva 1 tab PO BID 11/04/20 11/04/20 History Sertraline [Zoloft] 100 mg PO DAILY 11/04/20 11/04/20 History Zinc Sulfate 220 mg PO DAILY #20 capsule 11/04/20 Rx busPIRone HCl [Buspar] 20 mg PO BID 11/04/20 11/04/20 History diphenhydrAMINE [Benadryl] 25 - 50 mg PO HS PRN 11/04/20 11/04/20 History hydrOXYzine HCL 25 mg PO BID PRN 11/04/20 11/04/20 History Allergies Allergy/AdvReac Type Severity Reaction Status Date / Time methylprednisolone Allergy Rash/Hives Verified 11/04/20 06:13 [From Medrol] ondansetron HCl Allergy Rash/Hives Verified 11/04/20 06:13 [From Zofran (as hydrochloride)] Penicillins Allergy Rash/Hives Verified 11/04/20 06:13 sulfamethoxazole Allergy Rash/Hives Verified 11/04/20 06:13 [From Bactrim] trimethoprim [From Bactrim] Allergy Rash/Hives Verified 11/04/20 06:13 Physical Exam Vitals: Vital Signs Temp Pulse Pulse Resp BP BP Pulse Ox 11/04/20 14:14 98 F 63 17 105/70 98 11/04/20 14:08 18 11/04/20 11:41 18 11/04/20 10:33 97.9 F 75 18 120/68 97 11/04/20 09:02 67 18 110/80 96 11/04/20 07:00 72 18 102/60 97 11/04/20 06:00 63 16 92/60 97 11/04/20 05:00 71 20 91/60 97 11/04/20 04:00 70 16 92/60 97 11/04/20 03:00 68 18 83/73 98 11/04/20 02:44 67 20 86/57 97 11/04/20 01:44 68 22 87/59 95 11/04/20 01:34 98.2 F 50 L 22 88/58 98 Intake and Output 11/04/20 11/04/20 11/04/20 06:59 14:59 22:59 Intake Total 1019 Balance 1019 Intake: IV 1019 Sodium Chloride 0.9% 1, 1019 000 ml @ 999 mls/hr IV . Q1H1M ONE Rx#:[id number] Other: # Voids 1 Weight 92.533 kg 92.533 kg PHYSICAL EXAMINATION: GENERAL: The patient is alert and oriented x3, not in any acute distress. Well developed, well nourished. HEENT: Pupils are round and equally reacting to light. EOMI. No scleral icterus. No conjunctival pallor. Normocephalic, atraumatic. No pharyngeal erythema. No thyromegaly. CARDIOVASCULAR: S1 and S2 present. No murmurs, rubs, or gallops. PULMONARY: Chest is clear to auscultation, no wheezing or crackles. ABDOMEN: Soft, nontender, nondistended, normoactive bowel sounds. No palpable or ganomegaly. MUSCULOSKELETAL: No joint swelling or deformity. EXTREMITIES: No cyanosis, clubbing, or pedal edema. NEUROLOGICAL: Gross neurological examination did not reveal any focal deficits. SKIN: No rashes. Results CBC & Chem 7: 11/04/20 01:47 11/04/20 11:23 Labs: Abnormal Lab Results - Last 24 Hours (Table) 11/04/20 11/04/20 11/04/20 Range/Units 01:47 01:47 11:23 RBC 3.47 L (3.80-5.40) m/uL Hgb 10.4 L (11.4-16.0) gm/dL Hct 32.0 L (34.0-46.0) % Lymphocytes # 0.6 L (1.0-4.8) k/uL Chloride 111 H (98-107) mmol/L BUN 22 H (7-17) mg/dL Creatinine 1.20 H (0.52-1.04) mg/dL Glucose 147 H 140 H (74-99) mg/dL Calcium 8.3 L 7.7 L (8.4-10.2) mg/dL C-Reactive Protein 1.4 H (<1.0) mg/dL Thrombosis Risk Factor Assmnt - Choose All That Apply Any of the Below Risk Factors Present?: Yes Each Factor Represents 1 point: Age 41-60 years, Hx of IBD, Obesity (BMI >25) Other Risk Factors: Yes Each Risk Factor Represents 2 Points: Malignancy Other congenital or acquired thrombophilia - If yes, enter type in comment: No Thrombosis Risk Factor Assessment Total Risk Factor Score: 5 Thrombosis Risk Factor Assessment Level: High Risk Assessment and Plan Plan: : Covid 19 infection: Chest x-ray is clear patient will be discharged on zinc, aspartic acid and vitamin D supplementation patient received IV fluids. Patient is not requiring oxygen will not need further hospitalization symptomatic treatment at home for fever and body aches. Patient is afebrile here -Acute renal failure: Secondary to diarrhea and prerenal azotemia patient received an of fluids. Renal failure improved -Hypertension: Patient is hypotensive here will hold off on the metoprolol patient is not tachycardic will also hold off on prazosin -Gastroesophageal reflux disease -hypothyroidism -Depression
--- NOTE | 2020-11-14 10:33 | P.DS ---
Providers Date of admission: 11/04/20 03:05 Expected date of discharge: 11/04/20 Attending physician: Sim Timmons Primary care physician: Cindy Rice [facility] Course: Refer to [facility] from same day. Patient Condition at Discharge: Good Plan - Discharge Summary Discharge Rx Participant: No New Discharge Prescriptions: New Zinc Sulfate 220 mg PO DAILY #20 capsule Ascorbic Acid [Vitamin C] 500 mg PO BID #30 tablet Cholecalciferol [Vitamin D3 (25 Mcg = 1000 Iu)] 25 mcg PO DAILY #30 tab Continue Ferrous Sulfate [Iron (65 MG Elemental)] 325 mg PO BID@0900,1700 Famotidine [Pepcid] 20 mg PO BID calcitrioL [Rocaltrol] 0.25 mcg PO BID cap tiZANidine [Zanaflex] 4 mg PO BID PRN tab PRN Reason: Muscle Spasticity Ibuprofen [Motrin Ib] 800 mg PO Q8H PRN PRN Reason: Fever Sertraline [Zoloft] 100 mg PO DAILY diphenhydrAMINE [Benadryl] 25 - 50 mg PO HS PRN PRN Reason: Insomnia Melatonin 10 mg PO HS PRN PRN Reason: Insomnia Beclomethasone Dipropionate [Qvar 40 mcg Redihaler] 1 puff INHALATION RT-BID Levothyroxine Sodium [Synthroid] 175 mcg PO DAILY busPIRone HCl [Buspar] 20 mg PO BID Acetaminophen Tab [Tylenol] 1,000 mg PO Q6HR PRN PRN Reason: Fever Ergocalciferol [Vitamin D2 (1250 Mcg = 62777 Iu)] 1,250 mcg PO Q7D Cyanocobalamin (Vitamin B-12) [Vitamin B-12] 1,000 mcg PO DAILY Albuterol Sulfate [Proair Hfa] 1 - 2 puff INHALATION RT-Q6H PRN PRN Reason: Shortness Of Breath Methylphenidate HCl [Methylphenidate LA] 20 mg PO DAILY hydrOXYzine HCL 25 mg PO BID PRN PRN Reason: Anxiety Neuriva 1 tab PO BID Discontinued Prazosin [Minipress] 1 mg PO HS Prazosin HCl 2 mg PO HS Metoprolol Succinate [Toprol XL] 25 mg PO DAILY Discharge Medication List Famotidine [Pepcid] 20 mg PO BID 12/16/18 [History] Ferrous Sulfate [Iron (65 MG Elemental)] 325 mg PO BID@0900,1700 12/16/18 [History] calcitrioL [Rocaltrol] 0.25 mcg PO BID cap 11/30/19 [Rx] tiZANidine [Zanaflex] 4 mg PO BID PRN tab 11/30/19 [Rx] Acetaminophen Tab [Tylenol] 1,000 mg PO Q6HR PRN 11/04/20 [History] Albuterol Sulfate [Proair Hfa] 1 - 2 puff INHALATION RT-Q6H PRN 11/04/20 [History] Ascorbic Acid [Vitamin C] 500 mg PO BID #30 tablet 11/04/20 [Rx] Beclomethasone Dipropionate [Qvar 40 mcg Redihaler] 1 puff INHALATION RT-BID 11/04/20 [History] Cholecalciferol [Vitamin D3 (25 Mcg = 1000 Iu)] 25 mcg PO DAILY #30 tab 11/04/20 [Rx] Cyanocobalamin (Vitamin B-12) [Vitamin B-12] 1,000 mcg PO DAILY 11/04/20 [History] Ergocalciferol [Vitamin D2 (1250 Mcg = 40585 Iu)] 1,250 mcg PO Q7D 11/04/20 [History] Ibuprofen [Motrin Ib] 800 mg PO Q8H PRN 11/04/20 [History] Levothyroxine Sodium [Synthroid] 175 mcg PO DAILY 11/04/20 [History] Melatonin 10 mg PO HS PRN 11/04/20 [History] Methylphenidate HCl [Methylphenidate LA] 20 mg PO DAILY 11/04/20 [History] Neuriva 1 tab PO BID 11/04/20 [History] Sertraline [Zoloft] 100 mg PO DAILY 11/04/20 [History] Zinc Sulfate 220 mg PO DAILY #20 capsule 11/04/20 [Rx] busPIRone HCl [Buspar] 20 mg PO BID 11/04/20 [History] diphenhydrAMINE [Benadryl] 25 - 50 mg PO HS PRN 11/04/20 [History] hydrOXYzine HCL 25 mg PO BID PRN 11/04/20 [History] Follow up Appointment(s)/Referral(s): Yasir White MD [Primary Care Provider] - 3 Days Patient Instructions/Handouts: Coronavirus Disease 2019 (COVID-19) Discharge Disposition: HOME SELF-CARE
== END 2020-11-04 16:40 | disposition home or self-care (01) ==
LOC: EC 01:29 → 6NMEDSUR 03:05
PROVIDERS: ADMIT Hospitalist; ATTEND Hospitalist
DX: U07.1 COVID-19 (principal); N17.9 Acute kidney failure, unspecified; I10 Essential (primary) hypertension; E89.0 Postprocedural hypothyroidism; F32.9 Major depressive disorder, single episode, unspecified; R07.89 Other chest pain; K58.0 Irritable bowel syndrome with diarrhea; K21.9 Gastro-esophageal reflux disease without esophagitis; F41.0 Panic disorder [episodic paroxysmal anxiety]; R79.89 Other specified abnormal findings of blood chemistry; J45.909 Unspecified asthma, uncomplicated; M25.562 Pain in left knee; M25.561 Pain in right knee; M54.5 Low back pain; E66.9 Obesity, unspecified; Z68.37 Body mass index [BMI] 37.0-37.9, adult; Z79.890 Hormone replacement therapy; Z79.899 Other long term (current) drug therapy; Z79.1 Long term (current) use of non-steroidal anti-inflammatories (NSAID); Z88.8 Allergy status to other drugs, medicaments and biological substances; Z88.2 Allergy status to sulfonamides; Z88.0 Allergy status to penicillin; Z87.440 Personal history of urinary (tract) infections; Z85.850 Personal history of malignant neoplasm of thyroid; Z86.61 Personal history of infections of the central nervous system; Z82.49 Family history of ischemic heart disease and other diseases of the circulatory system; Z81.3 Family history of other psychoactive substance abuse and dependence; Z81.1 Family history of alcohol abuse and dependence; Z83.2 Family history of diseases of the blood and blood-forming organs and certain disorders involving the immune mechanism; Z84.1 Family history of disorders of kidney and ureter
CPT/HCPCS: 96376; 96361 ×2; 96374; 96375; 99285; 36415; 94640; 93005; 85379; 80053; 80048; 83605; 83615; 83735; 85025; 85610; 85730; 86140; 87040; 71045; G0378; J2270; J1100; J1885

== ENCOUNTER 2020-12-07 16:58 | Emergency (ER) | payer OTHER ==
[2020-12-07 17:21] VITALS: RESP 18
[2020-12-07] MEDS ORDERED: ASPIRIN 81 MG PO STA (17:48)
[2020-12-07 17:59] LABS: Basophils % (A) 1 %; Eosinophils # (A) 0.2 k/uL (0-0.7); Eosinophils % (A) 3 %; HCT 30.7 % (34.0-46.0); HGB 10.9 gm/dL (11.4-16.0); Lymphocytes % (A) 15 %; MCH 32.6 pg (25.0-35.0); MCHC 35.6 g/dL (31.0-37.0); MCV 91.6 fL (80.0-100.0); Mean Platelet Volume 7.7; Monocytes # (A) 0.4 k/uL (0-1.0); Monocytes % (A) 6 %; Neutrophils # (A) 5.2 k/uL (1.3-7.7); Neutrophils % (A) 75 %; Platelet Count 261 k/uL (150-450); RBC 3.35 m/uL (3.80-5.40); RDW 14.7 % (11.5-15.5); WBC 6.8 k/uL (3.8-10.6)
--- NOTE | 2020-12-07 18:07 | ED ---
Chest Pain HPI - General Chief Complaint: Chest Pain Stated Complaint: Chest Discomfort Time Seen by Provider: 12/07/20 17:31 Source: patient Mode of arrival: ambulatory Limitations: no limitations - History of Present Illness Initial Comments: 45-year-old female presents to emergency Department with a chief complaint of shortness of breath and chest pain. States the pain started approximately 3 days ago and seems to have been exacerbated. States the pain is located in the lower sternal region and is exacerbated with palpation. States it also worsened with twisting motions are when picking up objects but denies radiation of the pain. States she's also been experiencing exertional dyspnea particularly when going up and down the stairs over the last 3 days as well. She denies any nausea, vomiting, diaphoretic episodes, lightheadedness or dizziness. Does have history of hypertension but denies smoking, dyslipidemia or family history of ea rly cardiac related disease. - Related Data Home Medications Medication Instructions Recorded Confirmed Famotidine [Pepcid] 20 mg PO BID 12/16/18 11/04/20 Ferrous Sulfate [Iron (65 MG 325 mg PO BID@0900,1700 12/16/18 11/04/20 Elemental)] Acetaminophen Tab [Tylenol] 1,000 mg PO Q6HR PRN 11/04/20 11/04/20 Albuterol Sulfate [Proair Hfa] 1 - 2 puff INHALATION RT-Q6H PRN 11/04/20 11/04/20 Beclomethasone Dipropionate [Qvar 1 puff INHALATION RT-BID 11/04/20 11/04/20 40 mcg Redihaler] Cyanocobalamin (Vitamin B-12) 1,000 mcg PO DAILY 11/04/20 11/04/20 [Vitamin B-12] Ergocalciferol [Vitamin D2 (1250 1,250 mcg PO Q7D 11/04/20 11/04/20 Mcg = 81930 Iu)] Ibuprofen [Motrin Ib] 800 mg PO Q8H PRN 11/04/20 11/04/20 Levothyroxine Sodium [Synthroid] 175 mcg PO DAILY 11/04/20 11/04/20 Melatonin 10 mg PO HS PRN 11/04/20 11/04/20 Methylphenidate HCl 20 mg PO DAILY 11/04/20 11/04/20 [Methylphenidate LA] Neuriva 1 tab PO BID 11/04/20 11/04/20 Sertraline [Zoloft] 100 mg PO DAILY 11/04/20 11/04/20 busPIRone HCl [Buspar] 20 mg PO BID 11/04/20 11/04/20 diphenhydrAMINE [Benadryl] 25 - 50 mg PO HS PRN 11/04/20 11/04/20 hydrOXYzine HCL 25 mg PO BID PRN 11/04/20 11/04/20 Previous Rx's Medication Instructions Recorded calcitrioL [Rocaltrol] 0.25 mcg PO BID cap 11/30/19 tiZANidine [Zanaflex] 4 mg PO BID PRN tab 11/30/19 Ascorbic Acid [Vitamin C] 500 mg PO BID #30 tablet 11/04/20 Cholecalciferol [Vitamin D3 (25 25 mcg PO DAILY #30 tab 11/04/20 Mcg = 1000 Iu)] Zinc Sulfate 220 mg PO DAILY #20 capsule 11/04/20 Allergies Allergy/AdvReac Type Severity Reaction Status Date / Time methylprednisolone Allergy Rash/Hives Verified 12/07/20 17:18 [From Medrol] ondansetron HCl Allergy Rash/Hives Verified 12/07/20 17:18 [From Zofran (as hydrochloride)] Penicillins Allergy Rash/Hives Verified 12/07/20 17:18 sulfamethoxazole Allergy Rash/Hives Verified 12/07/20 17:18 [From Bactrim] trimethoprim [From Bactrim] Allergy Rash/Hives Verified 12/07/20 17:18 Review of Systems ROS Statement: Those systems with pertinent positive or pertinent negative responses have been documented in the HPI. ROS Other: All systems not noted in ROS Statement are negative. EKG Findings - EKG Comments: EKG Findings:: Sinus rhythm with prolonged QRS. Ventricular rate 79, MD 164, QRS 86, QTC 502 Past Medical History Past Medical History: Cancer, Thyroid Disorder Additional Past Medical History / Comment(s): thyroid CA in the past, low calcium, IBS. Gonorrhea, Trichomoniasis, meningitis. History of Any Multi-Drug Resistant Organisms: None Reported Past Surgical History: Tubal Ligation Additional Past Surgical History / Comment(s): PARA THYROIDECTOMY, THYROIDECTOMY, breast reduction Past Anesthesia/Blood Transfusion Reactions: No Reported Reaction Additional Past Anesthesia/Blood Transfusion Reaction / Comment(s): Pt has clausterphobia. Past Psychological History: Anxiety, Depression, Panic Disorder Smoking Status: Never smoker Past Alcohol Use History: None Reported Past Drug Use History: None Reported - Past Family History Mother Family Medical History: Myocardial Infarction ([place]) Additional Family Medical History / Comment(s): Mother at age 48 from a myocardial infarction. Father Family Medical History: Myocardial Infarction ([place]) Additional Family Medical History / Comment(s): Father from a myocardial infarction. Brother(s) Additional Family Medical History / Comment(s): Patient has 4 brothers and all have mental health issues with alcoholism and drug addiction. She has 1 brother that at age 38 from a myocardial infarction. Sister(s) Additional Family Medical History / Comment(s): Patient has 6 sisters and one has PFO. Son(s) Additional Family Medical History / Comment(s): Patient has 3 sons. 16-year-old son was born with ureteral duplication, sickle cell trait, bipolar, ADHD. 9-year-old son has ADHD and sleep disorder. 4-year-old son has no medical problems General Exam Limitations: no limitations General appearance: alert, in no apparent distress, obese Head exam: Present: atraumatic, normocephalic, normal inspection Eye exam: Present: normal appearance, PERRL, EOMI Pupils: Present: normal accommodation ENT exam: Present: normal exam, normal oropharynx, mucous membranes moist Neck exam: Present: normal inspection, full ROM. Absent: tenderness, lymphadenopathy Respiratory exam: Present: normal lung sounds bilaterally, chest wall tenderness (Lower sternal tenderness to palpation). Absent: respiratory distress, wheezes, rales, rhonchi, stridor Cardiovascular Exam: Present: regular rate, normal rhythm, normal heart sounds. Absent: systolic murmur Extremities exam: Present: normal inspection, full ROM, normal capillary refill. Absent: tenderness, pedal edema, joint swelling Back exam: Present: normal inspection, full ROM Neurological exam: Present: alert, oriented X3, normal gait Psychiatric exam: Present: normal affect, normal mood Skin exam: Present: warm, dry, intact, normal color Course Vital Signs 12/07/20 12/07/20 12/07/20 17:18 17:42 19:24 Temperature 98.8 F 98.2 F Pulse Rate 80 75 70 Respiratory 18 18 18 Rate Blood Pressure 124/84 120/95 O2 Sat by Pulse 97 96 99 Oximetry Chest Pain MDM - MDM 45-year-old female presents to the emergency department with a chief complaint of chest pain and shortness of breath. Pain is definitely reproducible in the lower sternal region with palpation. Patient is quite tender. She was given aspirin here. CBC CMP is unremarkable. Carotids within normal limits. Elevated d-dimer. CT of the chest angiogram performed showing no acute findings. I suspect the patient has atypical chest pain, likely costochondritis. Advised to take [id number] NSAIDs. Return primers were thoroughly discussed the patient was understanding and agreeable. Case discussed with Dr. Casas. Disposition Clinical Impression: Atypical chest pain Disposition: HOME SELF-CARE Condition: Stable Instructions (If sedation given, give patient instructions): Costochondritis (ED) Additional Instructions: Please return to the Emergency Department if symptoms worsen or any other concerns. Is patient prescribed a controlled substance at d/c from ED?: No Referrals: Yasir White MD [Primary Care Provider] - 1-2 days Time of Disposition: 19:16
[2020-12-07 18:16] LABS: INR 0.9 (<1.2); Partial Thromboplastin Time 25.1 sec (22.0-30.0); Prothrombin Time 10.1 sec (9.0-12.0)
[2020-12-07 18:17] LABS: D-Dimer 0.9 mg/L FEU (<0.60)
[2020-12-07 18:21] LABS: ALT 10 U/L (4-34); AST 20 U/L (14-36); African American GFR (CKD) >90 (>60 ml/min/1.73 sqM); Albumin 4.4 g/dL (3.5-5.0); Alkaline Phosphatase 102 U/L (38-126); Anion Gap 9 mmol/L; Blood Urea Nitrogen 17 mg/dL (7-17); Carbon Dioxide 23 mmol/L (22-30); Chloride 108 mmol/L (98-107); Glucose 94 mg/dL (74-99); Magnesium 2.2 mg/dL (1.6-2.3); Non-African American GFR(CKD) >90 (>60 ml/min/1.73 sqM); Potassium 3.7 mmol/L (3.5-5.1); Sodium 140 mmol/L (137-145); Total Bilirubin 0.2 mg/dL (0.2-1.3); Total Protein 6.6 g/dL (6.3-8.2)
--- NOTE | 2020-12-07 18:36 | XR ---
EXAMINATION TYPE: XR chest 2V DATE OF EXAM: 12/07/2020 COMPARISON: 11/04/2020 HISTORY: Pneumonia TECHNIQUE: FINDINGS: There is no heart failure nor confluent pneumonic infiltrate. Costophrenic angles are clear . There are no hilar masses. There are chest leads. Bony thorax is intact. IMPRESSION: No active cardiopulmonary disease. No change. Normal heart.
--- NOTE | 2020-12-07 19:13 | CT ---
EXAMINATION TYPE: CT chest angio for PE DATE OF EXAM: 12/07/2020 COMPARISON: None HISTORY: Exertional dyspnea, elevated d-dimer CT DLP: 400.5 mGycm Automated exposure control for dose reduction was used. CONTRAST: Performed with IV Contrast, patient injected with 100 mL of Isovue 370. There are 3-D post processed images. The lungs are clear of consolidation. There is no evidence of pleural effusion. Heart size is normal. There is no pericardial effusion. There is no mediastinal adenopathy. There are no hilar masses. Thoracic aorta is intact. There is no aneurysm or dissection. The ascending aorta measures 3.4 cm There is no evidence of filling defect in the pulmonary arteries. The thoracic spine is intact. There is no compression fracture. Sternum is intact. The ribs appear in tact. IMPRESSION: Negative exam. No evidence of pulmonary embolism.
[2020-12-07 19:26] VITALS: BP 120/95; PULSE 70; TEMP 98.2
== END 2020-12-07 19:45 | disposition home or self-care (01) ==
LOC: EC 16:58
DX: R07.89 Other chest pain (principal); F32.9 Major depressive disorder, single episode, unspecified; I10 Essential (primary) hypertension; Z85.850 Personal history of malignant neoplasm of thyroid
CPT/HCPCS: 36415; 93005; 85379; 80053; 83735; 84484; 85025; 85610; 85730; 71046; 71275; 99285; Q9967

== ENCOUNTER 2020-12-21 15:21 | Emergency (ER) | payer OTHER ==
[2020-12-21 15:32] VITALS: RESP 18; TEMP 98.1
--- NOTE | 2020-12-21 15:52 | ED ---
General Adult HPI - General Source: patient, EMS, RN notes reviewed, old records reviewed Mode of arrival: EMS Limitations: no limitations <Robin Casas - Last Filed: 12/21/20 20:59> <Robin Balderas - Last Filed: 12/21/20 22:53> - General Chief complaint: Psychiatric Symptoms Stated complaint: EPS eval Time Seen by Provider: 12/21/20 15:30 - History of Present Illness Initial comments: This is a 45-year-old female presents emergency department stating that she took 7 Zanaflex. Patient states she had a bad day and for a moment she was hoping this would resolve it and she did have thoughts of suicide. Patient states that she took she realized she made a mistake and decided come emergency department. Patient denies any suicidal ideations currently. Patient denies any physical complaints other than being a little bit tired at this point time. Patient states she took the medication at about 3:00. Patient denies any nausea vomiting. (Robin Casas) - Related Data Home Medications Medication Instructions Recorded Confirmed Famotidine [Pepcid] 20 mg PO BID 12/16/18 12/21/20 Ferrous Sulfate [Iron (65 MG 325 mg PO BID@0900,1700 12/16/18 12/21/20 Elemental)] Acetaminophen Tab [Tylenol] 1,000 mg PO Q6HR PRN 11/04/20 12/21/20 Albuterol Sulfate [Proair Hfa] 1 - 2 puff INHALATION RT-QID PRN 11/04/20 12/21/20 Beclomethasone Dipropionate [Qvar 1 puff INHALATION RT-BID 11/04/20 12/21/20 40 mcg Redihaler] Cyanocobalamin (Vitamin B-12) 1,000 mcg PO DAILY 11/04/20 12/21/20 [Vitamin B-12] Ergocalciferol [Vitamin D2 (1250 1,250 mcg PO Q7D 11/04/20 12/21/20 Mcg = 11591 Iu)] Ibuprofen [Motrin Ib] 800 mg PO Q8H PRN 11/04/20 12/21/20 Levothyroxine Sodium [Synthroid] 175 mcg PO DAILY 11/04/20 12/21/20 Melatonin 10 mg PO HS PRN 11/04/20 12/21/20 Methylphenidate HCl 20 mg PO DAILY 11/04/20 12/21/20 [Methylphenidate LA] Neuriva 1 tab PO BID 11/04/20 12/21/20 Sertraline [Zoloft] 100 mg PO DAILY 11/04/20 12/21/20 busPIRone HCl [Buspar] 20 mg PO BID 11/04/20 12/21/20 diphenhydrAMINE [Benadryl] 25 - 50 mg PO HS PRN 11/04/20 12/21/20 hydrOXYzine HCL 25 mg PO BID PRN 11/04/20 12/21/20 Ascorbic Acid [Vitamin C] 1,000 mg PO TID 12/21/20 12/21/20 Aspirin 325 mg PO DAILY 12/21/20 12/21/20 Butalb/APAP/Caff 50-325-40Mg 1 tab PO BID PRN 12/21/20 12/21/20 [Fioricet 50-325-40] Diphenoxylate HCl/Atropine 1 tab PO QID PRN 12/21/20 12/21/20 [Lomotil 2.5-0.025 mg Tablet] Previous Rx's Medication Instructions Recorded calcitrioL [Rocaltrol] 0.25 mcg PO BID cap 11/30/19 tiZANidine [Zanaflex] 4 mg PO BID PRN tab 11/30/19 Allergies Allergy/AdvReac Type Severity Reaction Status Date / Time methylprednisolone Allergy Rash/Hives Verified 12/21/20 17:10 [From Medrol] ondansetron HCl Allergy Rash/Hives Verified 12/21/20 17:10 [From Zofran (as hydrochloride)] Penicillins Allergy Rash/Hives Verified 12/21/20 17:10 sulfamethoxazole Allergy Rash/Hives Verified 12/21/20 17:10 [From Bactrim] trimethoprim [From Bactrim] Allergy Rash/Hives Verified 12/21/20 17:10 Review of Systems ROS Other: All systems not noted in ROS Statement are negative. <Robin Casas - Last Filed: 12/21/20 20:59> ROS Other: All systems not noted in ROS Statement are negative. <Robin Balderas - Last Filed: 12/21/20 22:53> ROS Statement: Those systems with pertinent positive or pertinent negative responses have been documented in the HPI. Past Medical History Past Medical History: Cancer, Thyroid Disorder Additional Past Medical History / Comment(s): thyroid CA in the past, low calcium, IBS. Gonorrhea, Trichomoniasis, meningitis. History of Any Multi-Drug Resistant Organisms: None Reported Past Surgical History: Tubal Ligation Additional Past Surgical History / Comment(s): PARA THYROIDECTOMY, THYROIDECTOMY, breast reduction Past Anesthesia/Blood Transfusion Reactions: No Reported Reaction Additional Past Anesthesia/Blood Transfusion Reaction / Comment(s): Pt has clausterphobia. Past Psychological History: Anxiety, Depression, Panic Disorder Smoking Status: Never smoker Past Alcohol Use History: None Reported Past Drug Use History: None Reported - Past Family History Mother Family Medical History: Myocardial Infarction ([place]) Additional Family Medical History / Comment(s): Mother at age 48 from a myocardial infarction. Father Family Medical History: Myocardial Infarction ([place]) Additional Family Medical History / Comment(s): Father from a myocardial infarction. Brother(s) Additional Family Medical History / Comment(s): Patient has 4 brothers and all have mental health issues with alcoholism and drug addiction. She has 1 brother that at age 38 from a myocardial infarction. Sister(s) Additional Family Medical History / Comment(s): Patient has 6 sisters and one has PFO. Son(s) Additional Family Medical History / Comment(s): Patient has 3 sons. 16-year-old son was born with ureteral duplication, sickle cell trait, bipolar, ADHD. 9-year-old son has ADHD and sleep disorder. 4-year-old son has no medical problems <Robin Casas - Last Filed: 12/21/20 20:59> General Exam Limitations: no limitations <Robin Casas - Last Filed: 12/21/20 20:59> General appearance: alert, in no apparent distress Head exam: Present: atraumatic, normocephalic, normal inspection Eye exam: Present: normal appearance, PERRL, EOMI. Absent: scleral icterus, conjunctival injection, periorbital swelling ENT exam: Present: normal exam, mucous membranes moist Neck exam: Present: normal inspection. Absent: tenderness, meningismus, lymphadenopathy Respiratory exam: Present: normal lung sounds bilaterally. Absent: respiratory distress, wheezes, rales, rhonchi, stridor Cardiovascular Exam: Present: regular rate, normal rhythm, normal heart sounds. Absent: systolic murmur, diastolic murmur, rubs, gallop, clicks GI/Abdominal exam: Present: soft, normal bowel sounds. Absent: distended, tenderness, guarding, rebound, rigid Extremities exam: Present: normal inspection, full ROM, normal capillary refill. Absent: tenderness, pedal edema, joint swelling, calf tenderness Back exam: Present: normal inspection Neurological exam: Present: alert, oriented X3, CN II-XII intact Psychiatric exam: Present: normal affect, normal mood Skin exam: Present: warm, dry, intact, normal color. Absent: rash <Robin Balderas - Last Filed: 12/21/20 22:53> - General Exam Comments Initial Comments: GENERAL: Patient is well-developed and well-nourished. Patient is nontoxic and well- hydrated and is in no acute distress. ENT: Neck is soft and supple. No significant lymphadenopathy is noted. Oropharynx is clear. Moist mucous membranes. Neck has full range of motion without eliciting any pain. EYES: The sclera were anicteric and conjunctiva were pink and moist. Extraocular movements were intact and pupils were equal round and reactive to light. Eyelids were unremarkable. PULMONARY: Unlabored respirations. Good breath sounds bilaterally. No audible rales rhonchi or wheezing was noted. CARDIOVASCULAR: There is a regular rate and rhythm without any murmurs gallops or rubs. ABDOMEN: Soft and nontender with normal bowel sounds. SKIN: Skin is clear with no lesions or rashes and otherwise unremarkable. NEUROLOGIC: Patient is alert and oriented x3. Cranial nerves II through XII are grossly intact. Motor and sensory are also intact. Normal speech, volume and content. Symmetrical smile. MUSCULOSKELETAL: Normal extremities with adequate strength and full range of motion. LYMPHATICS: No significant lymphadenopathy is noted PSYCHIATRIC: Patient suicidal ideations earlier denies any suicidal ideations currently (Robin Casas) Course <Robin Balderas - Last Filed: 12/21/20 22:53> Vital Signs 12/21/20 12/21/20 15:27 18:32 Temperature 98.1 F Pulse Rate 84 62 Respiratory 18 18 Rate Blood Pressure 128/87 111/72 O2 Sat by Pulse 98 97 Oximetry - Reevaluation(s) Reevaluation #1: 12/21/20 22:53 Medical records reviewed (Robin Balderas) Reevaluation #2: 12/21/20 22:53 patient was seen and evaluated (Robin Balderas) Medical Decision Making - Lab Data Result diagrams: 12/21/20 16:09 <Robin Casas - Last Filed: 12/21/20 20:59> - Lab Data Result diagrams: 12/21/20 16:09 <Robin Balderas - Last Filed: 12/21/20 22:53> - Medical Decision Making EKG shows normal sinus rhythm at 63 bpm NM interval 176 dresses 84 Q-T intervals 462 QTC is 472. Patient's EKG shows no ST segment elevation or depression. Patient does have some inverted T waves in the precordial leads. Dr. Balderas will be taking over the care of this patient at 9 PM (Robin Casas) 45 female not currently homicidal or suicidal. Patient is okay for discharge home (Robin Balderas) - Lab Data Lab Results 12/21/20 12/21/20 12/21/20 Range/Units 16:09 16:09 16:09 Sodium 141 (137-145) mmol/L Potassium 3.5 (3.5-5.1) mmol/L Chloride 107 (98-107) mmol/L Carbon Dioxide 28 (22-30) mmol/L Anion Gap 6 mmol/L BUN 19 H (7-17) mg/dL Creatinine 0.88 (0.52-1.04) mg/dL Est GFR (CKD-EPI)AfAm >90 (>60 ml/min/1.73 sqM) Est GFR (CKD-EPI)NonAf 81 (>60 ml/min/1.73 sqM) Glucose 109 H (74-99) mg/dL Calcium 8.3 L (8.4-10.2) mg/dL Total Bilirubin 0.1 L (0.2-1.3) mg/dL AST 19 (14-36) U/L ALT 11 (4-34) U/L Alkaline Phosphatase 83 (38-126) U/L Total Protein 6.0 L (6.3-8.2) g/dL Albumin 3.7 (3.5-5.0) g/dL Salicylates <1.0 mg/dL Urine Opiates Screen Not Detected (NotDetected) Ur Oxycodone Screen Not Detected (NotDetected) Urine Methadone Screen Not Detected (NotDetected) Ur Propoxyphene Screen Not Detected (NotDetected) Acetaminophen <10.0 ug/mL Ur Barbiturates Screen Detected H (NotDetected) U Tricyclic Antidepress Not Detected (NotDetected) Ur Phencyclidine Scrn Not Detected (NotDetected) Ur Amphetamines Screen Not Detected (NotDetected) U Methamphetamines Scrn Not Detected (NotDetected) U Benzodiazepines Scrn Not Detected (NotDetected) Urine Cocaine Screen Not Detected (NotDetected) U Marijuana (THC) Screen Not Detected (NotDetected) Disposition <Robin Casas - Last Filed: 12/21/20 20:59> Is patient prescribed a controlled substance at d/c from ED?: No <Robin Balderas - Last Filed: 12/21/20 22:53> Clinical Impression: Acute anxiety, Mood disorder, Depression Disposition: HOME SELF-CARE Condition: Fair Instructions (If sedation given, give patient instructions): Depression (ED) Referrals: Yasir White MD [Primary Care Provider] - 1-2 days
[2020-12-21 16:29] LABS: Acetaminophen <10.0 ug/mL; Salicylate <1.0 mg/dL
[2020-12-21 19:00] LABS: ALT 11 U/L (4-34); AST 19 U/L (14-36); African American GFR (CKD) >90 (>60 ml/min/1.73 sqM); Albumin 3.7 g/dL (3.5-5.0); Alkaline Phosphatase 83 U/L (38-126); Anion Gap 6 mmol/L; Blood Urea Nitrogen 19 mg/dL (7-17); Calcium 8.3 mg/dL (8.4-10.2); Carbon Dioxide 28 mmol/L (22-30); Chloride 107 mmol/L (98-107); Glucose 109 mg/dL (74-99); Non-African American GFR(CKD) 81 (>60 ml/min/1.73 sqM); Potassium 3.5 mmol/L (3.5-5.1); Sodium 141 mmol/L (137-145); Total Bilirubin 0.1 mg/dL (0.2-1.3)
[2020-12-21 20:32] LABS: Amphetamine Screen,Urine Not Detected (NotDetected); Barbiturate Screen,Urine Detected (NotDetected); Benzodiazepines Screen,Urine Not Detected (NotDetected); Cocaine Screen,Urine Not Detected (NotDetected); Methadone Screen, Urine Not Detected (NotDetected); Opiate Screen,Urine Not Detected (NotDetected); Oxycodone Screen, Urine Not Detected (NotDetected); Phencyclidine Screen,Urine Not Detected (NotDetected); Tricyclic Antidepressant,Urine Not Detected (NotDetected); Urn Cannabinoid Scrn Not Detected (NotDetected)
[2020-12-21 23:05] VITALS: BP 98/67; PULSE 61
== END 2020-12-21 23:07 | disposition home or self-care (01) ==
LOC: EC 15:21
DX: F41.9 Anxiety disorder, unspecified (principal); F32.9 Major depressive disorder, single episode, unspecified; E07.9 Disorder of thyroid, unspecified; Z88.0 Allergy status to penicillin; Z88.2 Allergy status to sulfonamides; Z88.8 Allergy status to other drugs, medicaments and biological substances; Z79.890 Hormone replacement therapy
CPT/HCPCS: 36415; 80053; 80143; 80179; 80306; 82075; 93005; 99285

== ENCOUNTER → 2022-01-15 | Outpatient (CLI) | payer OTHER ==
--- NOTE | 2022-01-16 07:04 | US ---
EXAMINATION TYPE: US abdomen complete DATE OF EXAM: 01/15/2022 COMPARISON: NONE CLINICAL HISTORY: R10.11 RUQ. RUQ pain EXAM MEASUREMENTS: Liver Length: 20.0 cm Gallbladder Wall: 0.3 cm Spleen: 12.6 cm Right Kidney: 10.5 x 4.4 x 3.7 cm Left Kidney: 11.3 x 5.5 x 4.6 cm technical limitations due to patient's body habitus and large amount of overlying bowel content Pancreas: Obscured by bowel gas Liver: attenuating, unable to penetrate Gallbladder: no evidence of stones as visualized Evidence for sonographic Sewell's sign: no CBD: Obscured by overlying bowel gas Spleen: wnl Right Kidney: no evidence of hydronephrosis Left Kidney: no evidence of hydronephrosis Upper IVC: Obscured by overlying bowel gas Abd Aorta: Obscured by overlying bowel gas IMPRESSION: 1. Correlate for hepatic steatosis versus hepatitis or hepatocellular disease. 2. No diagnostic evidence of gallstones. Small amount of gallbladder sludge suspected
--- NOTE | 2022-01-16 11:43 | MM ---
Reason for Exam: Hx of benign breast biopsy. Last mammogram was performed 2 year(s) and 2 month(s) ago. Patient History: Menarche at age 15. First Full-Term at age 26. Patient has history of breast feeding. Previous chest radiation therapy at age 26. Hormonal Contraceptives for 6 months from age 20 until age 27. 1993, Bilateral Benign Excisional Biopsy. Risk Values: Mandy 5 year model risk: 1.1%. NCI Lifetime model risk: 10.5%. Tissue Density: There are scattered fibroglandular densities. Findings: Analyzed By CAD. No distinct mass or distortion. No suspicious calcifications. Overall Assessment: Negative, BI-RAD 1 Management: Screening Mammogram of both breasts in 1 year. A clinical breast exam by your physician is recommended on an annual basis and results should be correlated with mammographic findings. This exam should not preclude additional follow-up of suspicious palpable abnormalities. Results were given to the patient verbally at the time of exam. Electronically signed and approved by: Zack Vee M.D. Radiologis
== END | disposition home or self-care (01) ==
LOC: RADMAMWWP 14:51
PROVIDERS: ATTEND Family Medicine
DX: R92.8 Other abnormal and inconclusive findings on diagnostic imaging of breast (principal); R10.11 Right upper quadrant pain
CPT/HCPCS: 77066; 76700; G0279; 77062

== ENCOUNTER 2023-06-08 22:56 | Emergency (ER) | payer OTHER ==
--- NOTE | 2023-06-09 00:54 | ED ---
General Adult HPI - General Chief complaint: Psychiatric Symptoms Stated complaint: Petition Time Seen by Provider: 06/08/23 23:51 Source: patient, EMS, RN notes reviewed Mode of arrival: ambulatory Limitations: no limitations - History of Present Illness Initial comments: 48-year-old female with no significant past medical history presents the emergency department with a chief complaint of suicidal ideation. Patient is reporting worsening depression. She is here with [facility]. She reports that she called the helpline and multiple family members and reach for help. She reports that she had a plan for suicide which included ingesting a lot of pills. She denies tearing through with her plan. She has attempted in the past. She denies any homicidal ideations. She denies visual or auditory hallucinations. Denies recent alcohol or illicit drug use. Patient offers no other complaints - Related Data Home Medications Medication Instructions Recorded Confirmed Famotidine [Pepcid] 20 mg PO BID 12/16/18 06/09/23 Ferrous Sulfate [Iron (65 MG 325 mg PO DAILY 12/16/18 06/09/23 Elemental)] Acetaminophen Tab [Tylenol] 1,000 mg PO Q6HR PRN 11/04/20 06/09/23 Albuterol Sulfate [Proair Hfa] 1 - 2 puff INHALATION RT-QID PRN 11/04/20 06/09/23 Cyanocobalamin (Vitamin B-12) 1,000 mcg PO DAILY 11/04/20 06/09/23 [Vitamin B-12] Ergocalciferol [Vitamin D2 (1250 1,250 mcg PO Q30D 11/04/20 06/09/23 Mcg = 43661 Iu)] Ibuprofen [Motrin Ib] 800 mg PO Q8H PRN 11/04/20 06/09/23 Sertraline [Zoloft] 150 mg PO DAILY 11/04/20 06/09/23 ARIPiprazole [Abilify] 5 mg PO DAILY 06/09/23 06/09/23 Atorvastatin [Lipitor] 80 mg PO DAILY 06/09/23 06/09/23 Budesonide/Formoterol Fumarate 2 puff INHALATION RT-BID PRN 06/09/23 06/09/23 [Symbicort 160-4.5 Mcg Inhaler] HYDROcodone/APAP 5-325MG [[place] 1 tab PO BID PRN 06/09/23 06/09/23 5-325] Ipratropium-Albuterol Nebulize 3 ml INHALATION RT-QID 06/09/23 06/09/23 [Duoneb 0.5 mg-3 mg/3 ml Soln] Levothyroxine Sodium [Synthroid] 200 mcg PO DAILY 06/09/23 06/09/23 Metoprolol Succinate [Metoprolol 25 mg PO DAILY 06/09/23 06/09/23 Succinate ER] Mirtazapine [Remeron] 45 mg PO HS 06/09/23 06/09/23 Zolpidem [Ambien] 5 mg PO HS PRN 06/09/23 06/09/23 busPIRone HCL [Buspar] 30 mg PO BID@0800,1400 06/09/23 06/09/23 calcitrioL [Rocaltrol] 0.25 mcg PO DAILY 06/09/23 06/09/23 hydrOXYzine HCL [Atarax] 50 mg PO TID 06/09/23 06/09/23 tiZANidine [Zanaflex] 4 mg PO BID 06/09/23 06/09/23 Allergies Allergy/AdvReac Type Severity Reaction Status Date / Time methylprednisolone Allergy Rash/Hives Verified 06/09/23 16:55 [From Medrol] ondansetron HCl Allergy Rash/Hives Verified 06/09/23 16:55 [From Zofran (as hydrochloride)] Penicillins Allergy Rash/Hives Verified 06/09/23 16:55 sulfamethoxazole Allergy Rash/Hives Verified 06/09/23 16:55 [From Bactrim] trimethoprim [From Bactrim] Allergy Rash/Hives Verified 06/09/23 16:55 Review of Systems ROS Statement: Those systems with pertinent positive or pertinent negative responses have been documented in the HPI. ROS Other: All systems not noted in ROS Statement are negative. Past Medical History Past Medical History: Cancer, Thyroid Disorder Additional Past Medical History / Comment(s): thyroid CA in the past, low calcium, IBS. Gonorrhea, Trichomoniasis, meningitis. History of Any Multi-Drug Resistant Organisms: None Reported Past Surgical History: Tubal Ligation Additional Past Surgical History / Comment(s): PARA THYROIDECTOMY, THYROIDECTOMY, breast reduction Past Anesthesia/Blood Transfusion Reactions: No Reported Reaction Additional Past Anesthesia/Blood Transfusion Reaction / Comment(s): Pt has clausterphobia. Past Psychological History: Anxiety, Depression, Panic Disorder Smoking Status: Never smoker Past Alcohol Use History: None Reported Past Drug Use History: None Reported - Past Family History Mother Family Medical History: Myocardial Infarction ([place]) Additional Family Medical History / Comment(s): Mother at age 48 from a myocardial infarction. Father Family Medical History: Myocardial Infarction ([place]) Additional Family Medical History / Comment(s): Father from a myocardial infarction. Brother(s) Additional Family Medical History / Comment(s): Patient has 4 brothers and all have mental health issues with alcoholism and drug addiction. She has 1 brother that at age 38 from a myocardial infarction. Sister(s) Additional Family Medical History / Comment(s): Patient has 6 sisters and one has PFO. Son(s) Additional Family Medical History / Comment(s): Patient has 3 sons. 16-year-old son was born with ureteral duplication, sickle cell trait, bipolar, ADHD. 9-year-old son has ADHD and sleep disorder. 4-year-old son has no medical problems General Exam - General Exam Comments Initial Comments: General: Alert, in no acute distress Head: atraumatic normocephalic. Eyes PERRL, EOMI intact, mucous membranes moist Respiratory: Lungs clear to auscultation bilaterally Cardiovascular: Heart rate regular rate and rhythm Abdominal: Soft without guarding or rebound Extremities: Normal inspection with full range of motion and normal capillary refill Neuroogic: alert and oriented 3, CN II-XII intact, able to ambulate with steady gait Skin: warm dry and intact with normal color Limitations: no limitations Course Vital Signs 06/08/23 06/09/23 06/09/23 23:31 07:49 12:00 Temperature 97.8 F Pulse Rate 66 68 80 Respiratory 18 16 16 Rate Blood Pressure 145/90 130/80 O2 Sat by Pulse 95 98 98 Oximetry 06/09/23 06/09/23 06/10/23 15:00 18:00 06:35 Temperature 97.9 F Pulse Rate 79 78 100 Respiratory 20 16 18 Rate Blood Pressure 145/91 140/90 128/91 O2 Sat by Pulse 98 98 92 L Oximetry 06/10/23 06/10/23 07:10 12:52 Temperature Pulse Rate 71 78 Respiratory 18 18 Rate Blood Pressure 118/79 119/68 O2 Sat by Pulse 95 98 Oximetry - Reevaluation(s) Reevaluation #1: 06/09/23 00:30 patient is medically clear Medical Decision Making - Medical Decision Making Was pt. sent in by a medical professional or institution (CARIDAD Cormier, [employer], urgent care, hospital, or usp...) When possible be specific @ -[No] Did you speak to anyone other than the patient for history (EMS, parent, family, police, friend...)? What history was obtained from this source @ -EMS, PD Did you review nursing and triage notes (agree or disagree)? Why? @ -[I reviewed and agree with nursing and triage notes] Were old charts reviewed (outside hosp., previous admission, EMS record, old EKG, old radiological studies, urgent care reports/EKG's, usp records)? Report findings @ -[No old charts were reviewed] Differential Diagnosis (chest pain, altered mental status, abdominal pain women, abdominal pain men, vaginal bleeding, weakness, fever, dyspnea, syncope, headache, dizziness, GI bleed, back pain, seizure, CVA, palpatations, mental health, musculoskeletal)? @ -[not applicable] EKG interpreted by me (3pts min.). @ -[As above] X-rays interpreted by me (1pt min.). @ -[None done] CT interpreted by me (1pt min.). @ -[None done] U/S interpreted by me (1pt. min.). @ -[None done] What testing was considered but not performed or refused? (CT, X-rays, U/S, labs)? Why? @ -[None] What meds were considered but not given or refused? Why? @ -[None] Did you discuss the management of the patient with other professionals (professionals i.e. CARIDAD Cormier, [employer], lab, RT, psych nurse, social work nurse, shovel engineer, teacher, disabilities services officer, rehabilitation case coordinator)? Give summary @ -[No] Was smoking cessation discussed for >3mins.? @ -[No] Was critical care preformed (if so, how long)? @ -[No] Were there social determinants of health that impacted care today? How? (Homelessness, low income, unemployed, alcoholism, drug addiction, transportation, low edu. Level, literacy, decrease access to med. care, residential, rehab)? @ -[No] Was there de-escalation of care discussed even if they declined (Discuss DNR or withdrawal of care, Hospice)? DNR status @ -[No] What co-morbidities impacted this encounter? (DM, HTN, Smoking, COPD, CAD, Cancer, CVA, ARF, Chemo, Hep., AIDS, mental health diagnosis, sleep apnea, morbid obesity)? @ -[None] Was patient admitted / discharged? Hospital course, mention meds given and route, prescriptions, significant lab abnormalities, going to OR and other pertinent info. @ -Disposition pending. This is a 48-year-old presents the emergency department via EMS and PD escort. Patient is petitioned. Patient is complaining of suicidal ideation.. Heart rate regular rate and rhythm, lungs are to auscultation bilaterally, abdomen is soft and nontender Nontender. Patient will be held in the ER further observation while awaiting EPS evaluation. Case is discussed with Dr. Maldonado, ED attending who agrees with plan of care - Lab Data Lab Results 06/09/23 06/09/23 Range/Units 00:57 02:18 Urine Opiates Screen Not Detected (NotDetected) Ur Oxycodone Screen Not Detected (NotDetected) Urine Methadone Screen Not Detected (NotDetected) Ur Propoxyphene Screen Not Detected (NotDetected) Ur Barbiturates Screen Not Detected (NotDetected) U Tricyclic Antidepress Not Detected (NotDetected) Ur Phencyclidine Scrn Not Detected (NotDetected) Ur Amphetamines Screen Not Detected (NotDetected) U Methamphetamines Scrn Not Detected (NotDetected) U Benzodiazepines Scrn Not Detected (NotDetected) Urine Cocaine Screen Not Detected (NotDetected) U Marijuana (THC) Screen Not Detected (NotDetected) Influenza Type A (PCR) Not Detected (Not Detectd) Influenza Type B (PCR) Not Detected (Not Detectd) RSV (PCR) Not Detected (Not Detectd) SARS-CoV-2 (PCR) Not Detected (Not Detectd) Disposition Clinical Impression: Anxiety disorder, Depressive disorder Disposition: HOME SELF-CARE Condition: Good Is patient prescribed a controlled substance at d/c from ED?: No Referrals: Sergio Wheeler MD [Primary Care Provider] - 1-2 days Time of Disposition: 18:27
[2023-06-09 02:57] LABS: Amphetamine Screen,Urine Not Detected (NotDetected); Barbiturate Screen,Urine Not Detected (NotDetected); Benzodiazepines Screen,Urine Not Detected (NotDetected); Cocaine Screen,Urine Not Detected (NotDetected); Methadone Screen, Urine Not Detected (NotDetected); Opiate Screen,Urine Not Detected (NotDetected); Oxycodone Screen, Urine Not Detected (NotDetected); Phencyclidine Screen,Urine Not Detected (NotDetected); Tricyclic Antidepressant,Urine Not Detected (NotDetected); Urn Cannabinoid Scrn Not Detected (NotDetected)
[2023-06-09] MEDS ORDERED: ZOLPIDEM 5 MG TAB PO STA (21:05)
[2023-06-10 06:53] VITALS: RESP 18; TEMP 97.9
[2023-06-10 13:08] VITALS: BP 119/68; PULSE 78
== END 2023-06-10 13:07 | disposition home or self-care (01) ==
LOC: EC 22:56
DX: F41.9 Anxiety disorder, unspecified (principal); F32.A Depression, unspecified; E07.9 Disorder of thyroid, unspecified; Z79.890 Hormone replacement therapy; Z79.899 Other long term (current) drug therapy; Z88.0 Allergy status to penicillin; Z88.2 Allergy status to sulfonamides; Z88.8 Allergy status to other drugs, medicaments and biological substances; Z20.822 Contact with and (suspected) exposure to COVID-19
CPT/HCPCS: 80306; 82075; 87636; 99285

== ENCOUNTER 2023-06-27 21:43 | Emergency (ER) | payer OTHER ==
[2023-06-27] MEDS ORDERED: NITROGLYCERIN SL TABS 0.4 MG TAB SUBLINGUAL STA (22:14)
[2023-06-27] MEDS ORDERED: ASPIRIN 81 MG PO STA (22:14)
[2023-06-27] MEDS ORDERED: SODIUM CHLORIDE 0.9% 1,000 ML IV ONE (22:17)
[2023-06-27 22:27] LABS: Basophils % (A) 1 %; Eosinophils # (A) 0.1 k/uL (0-0.7); Eosinophils % (A) 1 %; HCT 30.7 % (34.0-46.0); HGB 10.7 gm/dL (11.4-16.0); Lymphocytes % (A) 13 %; MCH 32.1 pg (25.0-35.0); MCHC 34.7 g/dL (31.0-37.0); MCV 92.5 fL (80.0-100.0); Monocytes # (A) 0.3 k/uL (0-1.0); Monocytes % (A) 3 %; Neutrophils # (A) 6.6 k/uL (1.3-7.7); Neutrophils % (A) 81 %; Platelet Count 307 k/uL (150-450); RBC 3.32 m/uL (3.80-5.40); RDW 15.8 % (11.5-15.5); WBC 8.2 k/uL (3.8-10.6)
[2023-06-27 22:38] LABS: ALT 19 U/L (4-34); AST 27 U/L (14-36); African American GFR (CKD) 65 (>60 ml/min/1.73 sqM); Albumin 4.6 g/dL (3.5-5.0); Alkaline Phosphatase 93 U/L (38-126); Amylase 66 U/L (30-110); Anion Gap 14 mmol/L; Blood Urea Nitrogen 16 mg/dL (7-17); Calcium 7.1 mg/dL (8.4-10.2); Carbon Dioxide 23 mmol/L (22-30); Chloride 100 mmol/L (98-107); Glucose 152 mg/dL (74-99); Lipase 86 U/L (23-300); Non-African American GFR(CKD) 56 (>60 ml/min/1.73 sqM); Potassium 3.4 mmol/L (3.5-5.1); Sodium 137 mmol/L (137-145); Total Bilirubin 0.6 mg/dL (0.2-1.3); Total Protein 7.1 g/dL (6.3-8.2)
[2023-06-27 22:50] LABS: Prothrombin Time 11.1 sec (10.0-12.5)
--- NOTE | 2023-06-28 00:30 | XR ---
EXAM: XR Chest, 2 Views CLINICAL HISTORY: ITS.REASON XR Reason: Chest Pain TECHNIQUE: Frontal and lateral views of the chest. COMPARISON: 12/07/20 FINDINGS: Lungs: Reduced lung volumes with bronchovascular crowding. No consolidation. Pleural space: Unremarkable. No pleural effusion or pneumothorax. Heart: Unremarkable. No cardiomegaly or pulmonary vascular congestion. Bones/joints: No acute fracture. No dislocation. IMPRESSION: Reduced lung volumes with bronchovascular crowding. No consolidation.
--- NOTE | 2023-06-28 05:53 | ED ---
General Adult HPI <Aguilar Hartman - Last Filed: 06/28/23 14:16> - General Source: patient Mode of arrival: wheelchair Limitations: no limitations - History of Present Illness -: days(s) Location: chest Radiation: non-radiation Quality: aching Consistency: constant Improves with: none Worsens with: none Associated Symptoms: cough, shortness of breath Treatments Prior to Arrival: none <Mustapha Maldonado - Last Filed: 07/08/23 19:13> - General Chief complaint: Chest Pain Stated complaint: Chest Pain, Difficulty Breathing, Dizziness Time Seen by Provider: 06/27/23 22:03 - History of Present Illness Initial comments: Patient's 48-year-old woman who presents with a number of complaints that include epigastric chest pain, shortness of breath, anxiety and depression. Patient states that the chest complaints have been present going on 1-2 days now. She describes pain as aching. She has not noticed worsening or relieving factors. In relation to the anxiety and depression. She notes that she had stopped taking her psychiatric medications approximately 2 months ago and noticed that her mood is worsened steadily since that time. (Mustapha Maldonado) - Related Data Previous Rx's Medication Instructions Recorded ALPRAZolam [Xanax] 0.25 mg PO BID PRN 3 Days #6 tab 06/28/23 Allergies Allergy/AdvReac Type Severity Reaction Status Date / Time methylprednisolone Allergy Rash/Hives Verified 06/28/23 09:49 [From Medrol] ondansetron HCl Allergy Rash/Hives Verified 06/28/23 09:49 [From Zofran (as - see hydrochloride)] comment Penicillins Allergy Rash/Hives Verified 06/28/23 09:49 sulfamethoxazole Allergy Rash/Hives Verified 06/28/23 09:49 [From Bactrim] trimethoprim [From Bactrim] Allergy Rash/Hives Verified 06/28/23 09:49 Review of Systems ROS Other: All systems not noted in ROS Statement are negative. <Aguilar Hartman - Last Filed: 06/28/23 14:16> ROS Other: All systems not noted in ROS Statement are negative. Constitutional: Denies: fever, chills, weakness Respiratory: Reports: cough, dyspnea, wheezes. Denies: hemoptysis Cardiovascular: Reports: chest pain. Denies: palpitations, orthopnea, edema, syncope Gastrointestinal: Denies: abdominal pain, nausea, vomiting, diarrhea Genitourinary: Denies: dysuria, hematuria Musculoskeletal: Denies: back pain Skin: Denies: rash Neurological: Denies: headache, weakness Psychiatric: Reports: anxiety, depression <Mustapha Maldonado - Last Filed: 07/08/23 19:13> ROS Statement: Those systems with pertinent positive or pertinent negative responses have been documented in the HPI. Past Medical History Past Medical History: Cancer, Thyroid Disorder Additional Past Medical History / Comment(s): thyroid CA in the past, low calcium, IBS. Gonorrhea, Trichomoniasis, meningitis. History of Any Multi-Drug Resistant Organisms: None Reported Past Surgical History: Tubal Ligation Additional Past Surgical History / Comment(s): PARA THYROIDECTOMY, THYROIDECTOMY, breast reduction Past Anesthesia/Blood Transfusion Reactions: No Reported Reaction Additional Past Anesthesia/Blood Transfusion Reaction / Comment(s): Pt has clausterphobia. Past Psychological History: Anxiety, Depression, Panic Disorder Smoking Status: Never smoker Past Alcohol Use History: None Reported Past Drug Use History: None Reported - Past Family History Mother Family Medical History: Myocardial Infarction ([place]) Additional Family Medical History / Comment(s): Mother at age 48 from a myocardial infarction. Father Family Medical History: Myocardial Infarction ([place]) Additional Family Medical History / Comment(s): Father from a myocardial infarction. Brother(s) Additional Family Medical History / Comment(s): Patient has 4 brothers and all have mental health issues with alcoholism and drug addiction. She has 1 brother that at age 38 from a myocardial infarction. Sister(s) Additional Family Medical History / Comment(s): Patient has 6 sisters and one has PFO. Son(s) Additional Family Medical History / Comment(s): Patient has 3 sons. 16-year-old son was born with ureteral duplication, sickle cell trait, bipolar, ADHD. 9-year-old son has ADHD and sleep disorder. 4-year-old son has no medical problems <Mustapha Maldonado - Last Filed: 07/08/23 19:13> General Exam Limitations: no limitations General appearance: alert, in no apparent distress Head exam: Present: atraumatic, normocephalic Eye exam: Present: normal appearance. Absent: scleral icterus, conjunctival injection ENT exam: Present: mucous membranes dry Neck exam: Present: normal inspection, full ROM Respiratory exam: Present: normal lung sounds bilaterally. Absent: respiratory distress, wheezes, rales, rhonchi, stridor Cardiovascular Exam: Present: regular rate, normal rhythm, normal heart sounds. Absent: systolic murmur, diastolic murmur, rubs, gallop GI/Abdominal exam: Present: soft. Absent: distended, tenderness, guarding, rebound, rigid, mass Extremities exam: Present: normal inspection, normal capillary refill. Absent: pedal edema, calf tenderness Back exam: Present: normal inspection. Absent: CVA tenderness (R), CVA tenderness (L) Neurological exam: Present: alert Psychiatric exam: Present: depressed. Absent: agitated, anxious, flat affect, manic, homicidal ideation, suicidal ideation Skin exam: Present: warm, dry, intact, pallor. Absent: rash <TrachyMustapha - Last Filed: 07/08/23 19:13> Course Vital Signs 06/27/23 06/27/23 06/27/23 21:51 22:11 22:15 Temperature 97.7 F Pulse Rate 79 80 Pulse Rate [ 80 Hand Cooper Helper ] Respiratory 16 18 Rate Blood Pressure 73/50 84/61 O2 Sat by Pulse 96 96 Oximetry 06/27/23 06/27/23 06/27/23 22:28 23:00 23:30 Temperature Pulse Rate 78 61 60 Pulse Rate [ Hand Cooper Helper ] Respiratory 18 18 18 Rate Blood Pressure 83/65 88/64 102/67 O2 Sat by Pulse 96 98 96 Oximetry 06/28/23 06/28/23 06/28/23 00:00 00:30 01:00 Temperature Pulse Rate 60 62 63 Pulse Rate [ Hand Cooper Helper ] Respiratory 18 16 18 Rate Blood Pressure 104/70 100/80 100/59 O2 Sat by Pulse 97 95 99 Oximetry 06/28/23 06/28/23 06/28/23 01:30 05:30 10:28 Temperature 98.1 F Pulse Rate 66 73 85 Pulse Rate [ Hand Cooper Helper ] Respiratory 18 20 18 Rate Blood Pressure 100/77 134/96 O2 Sat by Pulse 98 99 98 Oximetry 06/28/23 06/28/23 12:08 14:49 Temperature Pulse Rate 81 84 Pulse Rate [ Hand Cooper Helper ] Respiratory 18 18 Rate Blood Pressure 133/99 138/101 O2 Sat by Pulse 96 96 Oximetry EKG Findings - EKG Comments: EKG Findings:: There is possible old anterior infarct based on presence of Q- wave - EKG Results: EKG: interpreted by ERMD, sinus rhythm (Rate 69 bpm), normal axis - Blocks, [place], Hypertrophy, ST Abn: QRS axis and voltage: low voltage (<0.5 MV total QRS and <1.0 MV in each precordial lead) <Mustapha Maldonado - Last Filed: 07/08/23 19:13> Medical Decision Making - Lab Data Result diagrams: 06/27/23 22:15 06/27/23 22:15 <Aguilar Hartman - Last Filed: 06/28/23 14:16> - Lab Data Result diagrams: 06/27/23 22:15 06/27/23 22:15 <Mustapha Maldonado - Last Filed: 07/08/23 19:13> - Medical Decision Making Patient is signed out to me by previous shift physician, Dr. Holland. Briefly, patient is a 48-year-old female presents emergency department for multiple medical complaints along with depression. She is medically cleared for EPS evaluation by Dr. Holland. Plan + out was to follow-up with pending EPS recommendations for depression. I was notified by EPS at 2:16 PM that patient is clear for discharge with outpatient management. Patient given prescription for small those anxiolytics for the weekend until she can follow up with [facility]. (Aguilar Hartman) Patient's 48-year-old woman presenting with a constellation of symptoms. Her chest symptoms have improved following hydration. The initial workup is negative. The patient is requesting evaluation to see if she may be admitted to the mental health unit for depression. The patient did have chest x-ray which was negative for acute infiltrate, pneumothorax, congestive heart failure Was pt. sent in by a medical professional or institution (, PA, SENIOR OFFICER, urgent care, hospital, or halfway...) When possible be specific @ -[No] Did you speak to anyone other than the patient for history (EMS, parent, family, police, friend...)? What history was obtained from this source @ -[No] Did you review nursing and triage notes (agree or disagree)? Why? @ -[I reviewed and agree with nursing and triage notes] Were old charts reviewed (outside hosp., previous admission, EMS record, old EKG, old radiological studies, urgent care reports/EKG's, halfway records)? Report findings @ -[No old charts were reviewed] Differential Diagnosis (chest pain, altered mental status, abdominal pain women, abdominal pain men, vaginal bleeding, weakness, fever, dyspnea, syncope, headache, dizziness, GI bleed, back pain, seizure, CVA, palpatations, mental health, musculoskeletal)? @ -[Differential Chest Pain: Stable Angina, Unstable Angina, STEMI, NSTEMI Aortic Dissection, Pneumothorax, Musculoskeletal, Esophageal Spasm GERD, Cholecystitis, Pancreatitis, Zoster, this is not meant to be an all-inclusive list. Differential Mental Health Depression, anxiety, bipolar, psychosis, schizophrenia, borderline personality, situational depression, adjustment disorder, behavioral disorder, brain tumor, malingering, substance abuse, encephalopathy, medication reaction, dementia, hypothyroidism, degenerative neurologic disorder, lupus.... This is not meant to be all-inclusive list EKG interpreted by me (3pts min.). @ -[I interpreted As above] X-rays interpreted by me (1pt min.). @ -[I interpreted as above CT interpreted by me (1pt min.). @ -[None done] U/S interpreted by me (1pt. min.). @ -[None done] What testing was considered but not performed or refused? (CT, X-rays, U/S, labs)? Why? @ -[None] What meds were considered but not given or refused? Why? @ -[None] Did you discuss the management of the patient with other professionals (professionals i.e. , PA, SENIOR OFFICER, lab, RT, psych nurse, health and social care teacher, supervising film or videotape editor, teacher, promotion officer, protective services case worker)? Give summary @ -[No] Was smoking cessation discussed for >3mins.? @ -[No] Was critical care preformed (if so, how long)? @ -[No] Were there social determinants of health that impacted care today? How? (Homelessness, low income, unemployed, alcoholism, drug addiction, transportation, low edu. Level, literacy, decrease access to med. care, half-way, rehab)? @ -[No] Was there de-escalation of care discussed even if they declined (Discuss DNR or withdrawal of care, Hospice)? DNR status @ -[No] What co-morbidities impacted this encounter? (DM, HTN, Smoking, COPD, CAD, Cancer, CVA, ARF, Chemo, Hep., AIDS, mental health diagnosis, sleep apnea, morbid obesity)? @ -[None] Was patient admitted / discharged? Hospital course, mention meds given and route, prescriptions, significant lab abnormalities, going to OR and other pertinent info. @ -[Patient is 48-year-old woman with initial complaint of chest pain and then following that it's being cleared she requested admission for psychiatry at that was possible. The patient was signed out pending EPS evaluation, and I was subsequently informed that the patient was cleared to continue care as outpatient. Undiagnosed new problem with uncertain prognosis? @ -[No] Drug Therapy requiring intensive monitoring for toxicity (Heparin, Nitro, Insulin, Cardizem)? @ -[No] Were any procedures done? @ -[No] Diagnosis/symptom? @ -[Acute chest pain Acute on chronic mood disorder Acute, or Chronic, or Acute on Chronic? @ -[ Uncomplicated (without systemic symptoms) or Complicated (systemic symptoms)? @ -[Uncomplicated Side effects of treatment? @ -[No] Exacerbation, Progression, or Severe Exacerbation? @ -[No] Poses a threat to life or bodily function? How? (Chest pain, [place], PA, pneumonia, PE, COPD, DKA, ARF, appy, cholecystitis, CVA, Diverticulitis, Homicidal, Suicidal, threat to staff... and all critical care pts) @ -[No] (Mustapha Maldonado) - Lab Data Lab Results 06/27/23 06/27/23 06/27/23 Range/Units 22:15 22:15 22:15 WBC 8.2 (3.8-10.6) k/uL RBC 3.32 L (3.80-5.40) m/uL Hgb 10.7 L (11.4-16.0) gm/dL Hct 30.7 L (34.0-46.0) % MCV 92.5 (80.0-100.0) fL MCH 32.1 (25.0-35.0) pg MCHC 34.7 (31.0-37.0) g/dL RDW 15.8 H (11.5-15.5) % Plt Count 307 (150-450) k/uL MPV 8.0 Neutrophils % 81 % Lymphocytes % 13 % Monocytes % 3 % Eosinophils % 1 % Basophils % 1 % Neutrophils # 6.6 (1.3-7.7) k/uL Lymphocytes # 1.0 (1.0-4.8) k/uL Monocytes # 0.3 (0-1.0) k/uL Eosinophils # 0.1 (0-0.7) k/uL Basophils # 0.0 (0-0.2) k/uL PT 11.1 (10.0-12.5) sec INR 1.0 (<1.2) APTT 30.0 (22.0-30.0) sec D-Dimer 0.22 (<0.60) mg/L FEU Sodium 137 (137-145) mmol/L Potassium 3.4 L (3.5-5.1) mmol/L Chloride 100 (98-107) mmol/L Carbon Dioxide 23 (22-30) mmol/L Anion Gap 14 mmol/L BUN 16 (7-17) mg/dL Creatinine 1.17 H (0.52-1.04) mg/dL Est GFR (CKD-EPI)AfAm 65 (>60 ml/min/1.73 sqM) Est GFR (CKD-EPI)NonAf 56 (>60 ml/min/1.73 sqM) Glucose 152 H (74-99) mg/dL Calcium 7.1 L (8.4-10.2) mg/dL Magnesium 2.0 (1.6-2.3) mg/dL Total Bilirubin 0.6 (0.2-1.3) mg/dL AST 27 (14-36) U/L ALT 19 (4-34) U/L Alkaline Phosphatase 93 (38-126) U/L Troponin I (0.000-0.034) ng/mL Total Protein 7.1 (6.3-8.2) g/dL Albumin 4.6 (3.5-5.0) g/dL Amylase 66 (30-110) U/L Lipase 86 (23-300) U/L Serum Alcohol mg/dL 06/27/23 06/28/23 Range/Units 22:15 04:54 WBC (3.8-10.6) k/uL RBC (3.80-5.40) m/uL Hgb (11.4-16.0) gm/dL Hct (34.0-46.0) % MCV (80.0-100.0) fL MCH (25.0-35.0) pg MCHC (31.0-37.0) g/dL RDW (11.5-15.5) % Plt Count (150-450) k/uL MPV Neutrophils % % Lymphocytes % % Monocytes % % Eosinophils % % Basophils % % Neutrophils # (1.3-7.7) k/uL Lymphocytes # (1.0-4.8) k/uL Monocytes # (0-1.0) k/uL Eosinophils # (0-0.7) k/uL Basophils # (0-0.2) k/uL PT (10.0-12.5) sec INR (<1.2) APTT (22.0-30.0) sec D-Dimer (<0.60) mg/L FEU Sodium (137-145) mmol/L Potassium (3.5-5.1) mmol/L Chloride (98-107) mmol/L Carbon Dioxide (22-30) mmol/L Anion Gap mmol/L BUN (7-17) mg/dL Creatinine (0.52-1.04) mg/dL Est GFR (CKD-EPI)AfAm (>60 ml/min/1.73 sqM) Est GFR (CKD-EPI)NonAf (>60 ml/min/1.73 sqM) Glucose (74-99) mg/dL Calcium (8.4-10.2) mg/dL Magnesium (1.6-2.3) mg/dL Total Bilirubin (0.2-1.3) mg/dL AST (14-36) U/L ALT (4-34) U/L Alkaline Phosphatase (38-126) U/L Troponin I <0.012 (0.000-0.034) ng/mL Total Protein (6.3-8.2) g/dL Albumin (3.5-5.0) g/dL Amylase (30-110) U/L Lipase (23-300) U/L Serum Alcohol <10 mg/dL Disposition Is patient prescribed a controlled substance at d/c from ED?: Yes If prescribed controlled substance>3 days was MAPS reviewed?: Prescribed <3 Days Time of Disposition: 14:18 <Aguilar Hartman - Last Filed: 06/28/23 14:16> <Mustapha Maldonado - Last Filed: 07/08/23 19:13> Clinical Impression: Chest pain, Mood disorder Disposition: HOME SELF-CARE Condition: Good Instructions (If sedation given, give patient instructions): Depression (ED) Additional Instructions: follow up with [facility] outpatient clinic Prescriptions: ALPRAZolam [Xanax] 0.25 mg PO BID PRN 3 Days #6 tab PRN Reason: Anxiety Referrals: Sergio Wheeler MD [Primary Care Provider] - 1-2 days
[2023-06-28 10:44] VITALS: RESP 18; TEMP 98.1
[2023-06-28 15:11] VITALS: BP 138/101; PULSE 84
== END 2023-06-28 14:30 | disposition home or self-care (01) ==
LOC: EC 21:43
DX: F39 Unspecified mood [affective] disorder (principal); R07.9 Chest pain, unspecified; Z88.0 Allergy status to penicillin; Z88.2 Allergy status to sulfonamides; Z88.8 Allergy status to other drugs, medicaments and biological substances; Z86.59 Personal history of other mental and behavioral disorders
CPT/HCPCS: 99285 ×2; 96360 ×2; 96361 ×3; 36415 ×2; 93005; 85379; 80053; 82150; 83690; 83735; 84484; 85025; 85610; 85730; 71046; G0480; 80320

== ENCOUNTER → 2023-12-18 | Outpatient (CLI) | payer OTHER ==
--- NOTE | 2023-12-19 10:02 | CA ---
Transthoracic Echo Report Name: Felicity Smart Age: 48 Gender: F : 1975 Exam Date: 12/18/2023 13:55 Exam Location: [facility] [facility] Ht (in): 62 Wt (lb): 219 Ordering Physician: Sergio Wheeler MD Attending/Referring Phys: Summer ACEVEDO Dandy Operator Loulou Lynne, RENÉ Procedure CPT: Indications: I517 Cardiomegaly R42 Dizziness R53.83 fatigue Cardiac Hx: Technical Quality: Fair Contrast 1: Total Dose (mL): Contrast 2: Total Dose (mL): MEASUREMENTS (Male / Female) Normal Values 2D ECHO LV Diastolic Diameter PLAX 5.3 cm 4.2 - 5.9 / 3.9 - 5.3 cm LV Systolic Diameter PLAX 3.7 cm IVS Diastolic Thickness 1.4 cm 0.6 - 1.0 / 0.6 - 0.9 cm LVPW Diastolic Thickness 1.4 cm 0.6 - 1.0 / 0.6 - 0.9 cm LV Relative Wall Thickness 0.5 LA Volume 55.3 cm??? 18 - 58 / 22 - 52 cm??? LA Volume Index 25.9 cm???/m??? 16 - 28 cm???/m??? M-MODE Aortic Root Diameter MM 3.5 cm LA Systolic Diameter MM 4.4 cm LA Ao Ratio MM 1.2 AV Cusp Separation MM 2.0 cm DOPPLER AV Peak Velocity 133.2 cm/s AV Peak Gradient 7.1 mmHg AV Mean Velocity 87.9 cm/s AV Mean Gradient 3.5 mmHg AV Velocity Time Integral 26.1 cm LVOT Peak Velocity 100.6 cm/s LVOT Peak Gradient 4.0 mmHg LVOT Velocity Time Integral 22.3 cm MV Area PHT 3.6 cm??? Mitral E Point Velocity 85.6 cm/s Mitral A Point Velocity 51.6 cm/s Mitral E to A Ratio 1.7 MV Deceleration Time 211.8 ms MV E' Velocity 8.0 cm/s Mitral E to MV E' Ratio 10.7 TR Peak Velocity 208.1 cm/s TR Peak Gradient 17.3 mmHg Right Ventricular Systolic Press 21.2 mmHg FINDINGS Left Ventricle Moderately increased left ventricular wall thickness. Left ventricular cavity size normal. Normal left ventricular systolic function with no obvious regional wall motion abnormalities. Left ventricular ejection fraction is estimated at 55-60 %. Grade 1 diastolic dysfunction. Right Ventricle Right ventricular dilatation. Right ventricular systolic pressure within normal limits. Right Atrium Normal right atrial size. Left Atrium Mildly increased left atrial volume. Mitral Valve Structurally normal mitral valve. Mitral valve thickened. Trace to mild mitral regurgitation. Aortic Valve Trileaflet aortic valve. No aortic valve stenosis or regurgitation. Tricuspid Valve Structurally normal tricuspid valve. Pulmonic Valve Structurally normal pulmonic valve. Pericardium No pericardial effusion. Aorta Normal size aortic root and proximal ascending aorta. CONCLUSIONS Normal biventricular dimension and systolic function Previewed by: Dr. Yifan Og MD (Electronically Signed) Final Date: 19 December 2023 10:01
== END | disposition home or self-care (01) ==
LOC: RADECHMAIN 13:22
PROVIDERS: ATTEND Family Medicine
DX: I51.7 Cardiomegaly (principal); R42 Dizziness and giddiness; R53.83 Other fatigue
CPT/HCPCS: 93306

== ENCOUNTER 2024-03-31 08:42 | Observation (INO) | payer OTHER ==
[2024-03-31] MEDS: SODIUM CHLORIDE 0.9% 500 ML 500 ML IV ONE (08:58)
[2024-03-31] MEDS: SODIUM CHLORIDE 0.9% 1,000 ML IV STA (09:00)
--- NOTE | 2024-03-31 09:01 | ED ---
General Adult HPI - General Chief complaint: Neuro Symptoms/Deficit Stated complaint: SOB Time Seen by Provider: 03/31/24 08:45 Source: patient, EMS, RN notes reviewed, old records reviewed Mode of arrival: EMS - History of Present Illness Initial comments: This is a 49-year-old female who presents to the emergency department with a past medical history significant for TIAs and anemia. Patient complains of being short of breath and that is why she called the ambulance. Patient also notes that she has somewhat slurred speech for the last 2 days. In the route she was telling EMS she did not feel good and per the heating and cooling systems engineer the patient went into V. tach for about 5 seconds and then it spontaneously stopped and the patient was back to her baseline according to EMS. Patient denies any fevers or chills but she does complain of chest pain and shortness of breath. Patient states she does feel like her speech is still slurred. - Related Data Home Medications Medication Instructions Recorded Confirmed Acetaminophen Tab [Tylenol] 650 mg PO Q6H 03/31/24 03/31/24 Atorvastatin Calcium [Lipitor] 80 mg PO DAILY 03/31/24 03/31/24 Calcium Carbonate [Calcium] 600 mg PO BID 03/31/24 03/31/24 Cyanocobalamin (Vitamin B-12) 1,000 mcg PO DAILY 03/31/24 03/31/24 [Vitamin B-12] Dextromethorphan HBr/Bupropion 1 tab PO BID 03/31/24 03/31/24 [Auvelity ER 45-105 mg Tablet] Diphenoxylate HCl/Atropine 1 - 2 tab PO QID PRN 03/31/24 03/31/24 [Lomotil 2.5-0.025 mg Tablet] Ergocalciferol [Vitamin D2 (1250 2,500 mcg PO QMONTHLY 03/31/24 03/31/24 Mcg = 73133 Iu)] Famotidine [Pepcid] 20 mg PO BID 03/31/24 03/31/24 HYDROcodone/APAP 5-325MG [[place] 1 tab PO Q6H PRN 03/31/24 03/31/24 5-325] Levothyroxine Sodium [Synthroid] 300 mcg PO DAILY 03/31/24 03/31/24 Loratadine [Claritin] 10 mg PO DAILY 03/31/24 03/31/24 Meclizine [Antivert] 25 mg PO QID PRN 03/31/24 03/31/24 OLANZapine [ZyPREXA] 5 mg PO HS 03/31/24 03/31/24 Omeprazole [PriLOSEC] 20 mg PO BID 03/31/24 03/31/24 Potassium Chloride [Klor-Con M20] 20 meq PO DAILY 03/31/24 03/31/24 Propranolol [Inderal] 40 mg PO BID PRN 03/31/24 03/31/24 Zolpidem [Ambien] 5 mg PO HS 03/31/24 03/31/24 busPIRone HCL [Buspar] 30 mg PO BID@0800,1400 03/31/24 03/31/24 calcitrioL 0.25 mcg PO DAILY 03/31/24 03/31/24 hydrOXYzine HCL [Atarax] 25 mg PO BID PRN 03/31/24 03/31/24 tiZANidine [Zanaflex] 4 mg PO BID PRN 03/31/24 03/31/24 Allergies Allergy/AdvReac Type Severity Reaction Status Date / Time methylprednisolone Allergy Rash/Hives Verified 03/31/24 12:07 [From Medrol] ondansetron HCl Allergy Rash/Hives Verified 03/31/24 12:07 [From Zofran (as - see hydrochloride)] comment Penicillins Allergy Rash/Hives Verified 03/31/24 12:07 sulfamethoxazole Allergy Rash/Hives Verified 03/31/24 12:07 [From Bactrim] trimethoprim [From Bactrim] Allergy Rash/Hives Verified 03/31/24 12:07 ziprasidone [From Geodon] AdvReac suicidal Verified 03/31/24 12:20 thoughts Review of Systems ROS Statement: Those systems with pertinent positive or pertinent negative responses have been documented in the HPI. ROS Other: All systems not noted in ROS Statement are negative. Past Medical History Past Medical History: Cancer, Thyroid Disorder Additional Past Medical History / Comment(s): thyroid CA in the past, low calcium, IBS. Gonorrhea, Trichomoniasis, meningitis. History of Any Multi-Drug Resistant Organisms: None Reported Past Surgical History: Cholecystectomy, Tubal Ligation Additional Past Surgical History / Comment(s): PARA THYROIDECTOMY, THYROIDECTOMY, breast reduction Past Anesthesia/Blood Transfusion Reactions: No Reported Reaction Additional Past Anesthesia/Blood Transfusion Reaction / Comment(s): Pt has clausterphobia. Past Psychological History: Anxiety, Depression, Panic Disorder Smoking Status: Never smoker Past Alcohol Use History: None Reported Past Drug Use History: None Reported - Past Family History Mother Family Medical History: Myocardial Infarction ([place]) Additional Family Medical History / Comment(s): Mother at age 48 from a myocardial infarction. Father Family Medical History: Myocardial Infarction ([place]) Additional Family Medical History / Comment(s): Father from a myocardial infarction. Brother(s) Additional Family Medical History / Comment(s): Patient has 4 brothers and all have mental health issues with alcoholism and drug addiction. She has 1 brother that at age 38 from a myocardial infarction. Sister(s) Additional Family Medical History / Comment(s): Patient has 6 sisters and one has PFO. Son(s) Additional Family Medical History / Comment(s): Patient has 3 sons. 16-year-old son was born with ureteral duplication, sickle cell trait, bipolar, ADHD. 9-year-old son has ADHD and sleep disorder. 4-year-old son has no medical problems General Exam - General Exam Comments Initial Comments: GENERAL: Patient is well-developed and well-nourished. Patient is nontoxic and well- hydrated and is in mild distress. ENT: Neck is soft and supple. No significant lymphadenopathy is noted. Oropharynx is clear. Moist mucous membranes. Neck has full range of motion without eliciting any pain. EYES: The sclera were anicteric and conjunctiva were pink and moist. Extraocular movements were intact and pupils were equal round and reactive to light. Eyelids were unremarkable. PULMONARY: Unlabored respirations. Good breath sounds bilaterally. No audible rales rhon chi or wheezing was noted. CARDIOVASCULAR: There is a regular rate and rhythm without any murmurs gallops or rubs. ABDOMEN: Soft and nontender with normal bowel sounds. SKIN: Patient appears pale NEUROLOGIC: Patient is alert and oriented x3. Cranial nerves II through XII are grossly intact. Motor and sensory are also intact. Normal speech, volume and content. Symmetrical smile. MUSCULOSKELETAL: Normal extremities with adequate strength and full range of motion. LYMPHATICS: No significant lymphadenopathy is noted PSYCHIATRIC: Normal psychiatric evaluation. Course Vital Signs 03/31/24 03/31/24 03/31/24 08:45 08:56 09:06 Temperature 97.9 F Pulse Rate 55 L 54 L 52 L Respiratory 20 20 22 Rate Blood Pressure 87/53 87/63 95/62 O2 Sat by Pulse 100 99 100 Oximetry 03/31/24 03/31/24 03/31/24 09:16 09:35 10:40 Temperature Pulse Rate 55 L 51 L 52 L Respiratory 30 H 22 22 Rate Blood Pressure 78/44 97/69 111/74 O2 Sat by Pulse 100 100 99 Oximetry 03/31/24 03/31/24 11:17 12:08 Temperature Pulse Rate 53 L 58 L Respiratory 26 H 18 Rate Blood Pressure 104/67 100/75 O2 Sat by Pulse 100 95 Oximetry Medical Decision Making - Medical Decision Making EKG is interpreted by myself. EKG shows sinus bradycardia 53 bpm WA was 195 QRS 101 QT interval is 446 QTc is 430. Patient's EKG shows no ST segment elevation or depression. Was pt. sent in by a medical professional or institution (CARIDAD Cormier, TELEPHONE TECHNICIAN, urgent care, hospital, or fdc...) When possible be specific @ -No Did you speak to anyone other than the patient for history (EMS, parent, family, police, friend...)? What history was obtained from this source @ -EMS gives a history and route and pelvis about the 5 seconds of V. tach. Did you review nursing and triage notes (agree or disagree)? Why? @ -I reviewed and agree with nursing and triage notes Were old charts reviewed (outside hosp., previous admission, EMS record, old EKG, old radiological studies, urgent care reports/EKG's, fdc records)? Report findings @ -No old charts were reviewed Differential Diagnosis? @ -Differential Dyspnea: Coronary syndrome, arrhythmia, tamponade, asthma, COPD, pulmonary embolism, pneumonia, pneumothorax, pulmonary effusion, anaphylaxis, diabetic ketoacidosis, flailed chest, pulmonary contusion, diaphragmatic rupture, anemia, neuromusc ular, this is not meant to be an all-inclusive list. Differential CVA Ischemic stroke, hemorrhagic stroke, brain tumor, atypical migraine, Wernicke's encephalopathy, seizure, multiple sclerosis, meningitis, encephalitis, hypoglycemia, Guillain-Ruano, electrolytes disturbance, myasthenia gravis.... This is not meant to be an all-inclusive list EKG interpreted by me (3pts min.). @ -As above X-rays interpreted by me (1pt min.). @ -Chest x-ray shows no acute abnormality CT interpreted by me (1pt min.). @ -CT of the brain shows no acute normality CT angiogram of the head and neck showed no acute abnormality U/S interpreted by me (1pt. min.). @ -None done What testing was considered but not performed or refused? (CT, X-rays, U/S, labs)? Why? @ -None What meds were considered but not given or refused? Why? @ -None Did you discuss the management of the patient with other professionals (katty kinney i.e. , PA, TELEPHONE TECHNICIAN, lab, RT, psych nurse, hospice social worker, synthetic chemist, teacher, strike warfare/missile systems officer, shelter case manager)? Give summary @ -I spoke with Dr. Wheeler he agreed to admit the patient admit the patient w rote admitting orders Was smoking cessation discussed for >3mins.? @ -No Was critical care preformed (if so, how long)? @ -No Were there social determinants of health that impacted care today? How? (H omelessness, low income, unemployed, alcoholism, drug addiction, transportation, low edu. Level, literacy, decrease access to med. care, senior care, rehab)? @ -No Was there de-escalation of care discussed even if they declined (Discuss DNR or withdrawal of care, Hospice)? DNR status @ -No What co-morbidities impacted this encounter? (DM, HTN, Smoking, COPD, CAD, Cancer, CVA, ARF, Chemo, Hep., AIDS, mental health diagnosis, sleep apnea, morbid obesity)? @ -None Was patient admitted / discharged? Hospital course, mention meds given and route, prescriptions, significant lab abnormalities, going to OR and other pertinent info. @ -Patient's workup in the emergency department was normal. I went back and reevaluated the patient she was feeling better. Her speech was no longer slurred. Patient CT of the head and CT angiogram of the head and neck were normal. Undiagnosed new problem with uncertain prognosis? @ -No Drug Therapy requiring intensive monitoring for toxicity (Heparin, Nitro, Insulin, Cardizem)? @ -No Were any procedures done? @ -No Diagnosis/symptom? @ -Dyspnea Acute, or Chronic, or Acute on Chronic? @ -Acute Uncomplicated (without systemic symptoms) or Complicated (systemic symptoms)? @ -Complicated Side effects of treatment? @ -No Exacerbation, Progression, or Severe Exacerbation? @ -No Poses a threat to life or bodily function? How? (Chest pain, [place], [place], pneumonia, PE, COPD, DKA, ARF, appy, cholecystitis, CVA, Diverticulitis, Homicidal, Suicidal, threat to staff... and all critical care pts) @ -No Diagnosis/symptom? @ -TIA Acute, or Chronic, or Acute on Chronic? @ -Acute Uncomplicated (without systemic symptoms) or Complicated (systemic symptoms)? @ -Complicated Side effects of treatment? @ -None Exacerbation, Progression, or Severe Exacerbation] @ -No Poses a threat to life or bodily function? @ -Yes this could lead to a stroke and significant morbidity or mortality Diagnosis/symptom? @ -V. tach Acute, or Chronic, or Acute on Chronic? @ -Acute Uncomplicated (without systemic symptoms) or Complicated (systemic symptoms)? @ -Complicated Side effects of treatment? @ -None Exacerbation, Progression, or Severe Exacerbation] @ -No Poses a threat to life or bodily function? @ -Yes this could lead to sustained V. tach and - Lab Data Result diagrams: 03/31/24 09:00 03/31/24 09:00 Lab Results 03/31/24 03/31/24 03/31/24 Range/Units 09:00 09:00 09:00 WBC 5.4 (3.8-10.6) k/uL RBC 2.97 L (3.80-5.40) m/uL Hgb 9.3 L (11.4-16.0) gm/dL Hct 27.7 L (34.0-46.0) % MCV 93.3 (80.0-100.0) fL MCH 31.2 (25.0-35.0) pg MCHC 33.5 (31.0-37.0) g/dL RDW 15.5 (11.5-15.5) % Plt Count 275 (150-450) k/uL MPV 8.4 Neutrophils % 65 % Lymphocytes % 22 % Monocytes % 6 % Eosinophils % 4 % Basophils % 1 % Neutrophils # 3.5 (1.3-7.7) k/uL Lymphocytes # 1.2 (1.0-4.8) k/uL Monocytes # 0.3 (0-1.0) k/uL Eosinophils # 0.2 (0-0.7) k/uL Basophils # 0.1 (0-0.2) k/uL PT 10.6 (10.0-12.5) sec INR 1.0 (<1.2) APTT 31.4 H (22.0-30.0) sec D-Dimer 0.27 (<0.60) mg/L FEU Sodium 139 (137-145) mmol/L Potassium 3.8 (3.5-5.1) mmol/L Chloride 105 (98-107) mmol/L Carbon Dioxide 25 (22-30) mmol/L Anion Gap 9 mmol/L BUN 23 H (7-17) mg/dL Creatinine 1.21 H (0.52-1.04) mg/dL Est GFR (CKD-EPI)AfAm 62 (>60 ml/min/1.73 sqM) Est GFR (CKD-EPI)NonAf 54 (>60 ml/min/1.73 sqM) Glucose 142 H (74-99) mg/dL Plasma Lactic Acid Rogelio (0.7-2.0) mmol/L Calcium 8.4 (8.4-10.2) mg/dL Magnesium 2.0 (1.6-2.3) mg/dL Total Bilirubin 0.4 (0.2-1.3) mg/dL AST 24 (14-36) U/L ALT 20 (4-34) U/L Alkaline Phosphatase 95 (38-126) U/L Troponin I (0.000-0.034) ng/mL NT-Pro-B Natriuret Pep 99 pg/mL Total Protein 6.0 L (6.3-8.2) g/dL Albumin 3.9 (3.5-5.0) g/dL Urine Opiates Screen (NotDetected) Ur Oxycodone Screen (NotDetected) Urine Methadone Screen (NotDetected) Ur Barbiturates Screen (NotDetected) U Tricyclic Antidepress (NotDetected) Ur Phencyclidine Scrn (NotDetected) Ur Amphetamines Screen (NotDetected) U Methamphetamines Scrn (NotDetected) U Benzodiazepines Scrn (NotDetected) Urine Cocaine Screen (NotDetected) U Marijuana (THC) Screen (NotDetected) 03/31/24 03/31/24 03/31/24 Range/Units 09:00 09:00 09:42 WBC (3.8-10.6) k/uL RBC (3.80-5.40) m/uL Hgb (11.4-16.0) gm/dL Hct (34.0-46.0) % MCV (80.0-100.0) fL MCH (25.0-35.0) pg MCHC (31.0-37.0) g/dL RDW (11.5-15.5) % Plt Count (150-450) k/uL MPV Neutrophils % % Lymphocytes % % Monocytes % % Eosinophils % % Basophils % % Neutrophils # (1.3-7.7) k/uL Lymphocytes # (1.0-4.8) k/uL Monocytes # (0-1.0) k/uL Eosinophils # (0-0.7) k/uL Basophils # (0-0.2) k/uL PT (10.0-12.5) sec INR (<1.2) APTT (22.0-30.0) sec D-Dimer (<0.60) mg/L FEU Sodium (137-145) mmol/L Potassium (3.5-5.1) mmol/L Chloride (98-107) mmol/L Carbon Dioxide (22-30) mmol/L Anion Gap mmol/L BUN (7-17) mg/dL Creatinine (0.52-1.04) mg/dL Est GFR (CKD-EPI)AfAm (>60 ml/min/1.73 sqM) Est GFR (CKD-EPI)NonAf (>60 ml/min/1.73 sqM) Glucose (74-99) mg/dL Plasma Lactic Acid Rogelio 1.7 (0.7-2.0) mmol/L Calcium (8.4-10.2) mg/dL Magnesium (1.6-2.3) mg/dL Total Bilirubin (0.2-1.3) mg/dL AST (14-36) U/L ALT (4-34) U/L Alkaline Phosphatase (38-126) U/L Troponin I <0.012 (0.000-0.034) ng/mL NT-Pro-B Natriuret Pep pg/mL Total Protein (6.3-8.2) g/dL Albumin (3.5-5.0) g/dL Urine Opiates Screen Not Detected (NotDetected) Ur Oxycodone Screen Not Detected (NotDetected) Urine Methadone Screen Not Detected (NotDetected) Ur Barbiturates Screen Not Detected (NotDetected) U Tricyclic Antidepress Detected H (NotDetected) Ur Phencyclidine Scrn Not Detected (NotDetected) Ur Amphetamines Screen Not Detected (NotDetected) U Methamphetamines Scrn Not Detected (NotDetected) U Benzodiazepines Scrn Not Detected (NotDetected) Urine Cocaine Screen Not Detected (NotDetected) U Marijuana (THC) Screen Not Detected (NotDetected) Disposition Clinical Impression: Transient cerebral ischemia, Ventricular tachycardia, Dyspnea Disposition: ADMITTED IP TO THIS [facility] Referrals: Sergio Wheeler MD [Primary Care Provider] - 1-2 days Time of Disposition: 13:08
[2024-03-31 09:17] LABS: Basophils # (A) 0.1 k/uL (0-0.2); Basophils % (A) 1 %; Eosinophils # (A) 0.2 k/uL (0-0.7); Eosinophils % (A) 4 %; HCT 27.7 % (34.0-46.0); HGB 9.3 gm/dL (11.4-16.0); Lymphocytes # (A) 1.2 k/uL (1.0-4.8); Lymphocytes % (A) 22 %; MCH 31.2 pg (25.0-35.0); MCHC 33.5 g/dL (31.0-37.0); MCV 93.3 fL (80.0-100.0); Mean Platelet Volume 8.4; Monocytes # (A) 0.3 k/uL (0-1.0); Monocytes % (A) 6 %; Neutrophils # (A) 3.5 k/uL (1.3-7.7); Neutrophils % (A) 65 %; Platelet Count 275 k/uL (150-450); RBC 2.97 m/uL (3.80-5.40); RDW 15.5 % (11.5-15.5); WBC 5.4 k/uL (3.8-10.6)
[2024-03-31 09:27] LABS: Partial Thromboplastin Time 31.4 sec (22.0-30.0); Prothrombin Time 10.6 sec (10.0-12.5)
[2024-03-31 09:30] LABS: NT-Pro-B-Type Natriuretic Pept 99 pg/mL
--- NOTE | 2024-03-31 09:47 | CT ---
EXAMINATION TYPE: CT brain wo con DATE OF EXAM: 03/31/2024 COMPARISON: 12/22/2014 HISTORY: Slurred speech CT DLP: 1092.[address] of the brain was performed. The ventricles, basal cisterns and sulci overlying the cerebral convexities demonstrate a normal appe arance. There is no evidence for intracranial hemorrhage or sulcal effacement. No mass effects are seen. Osseous calvarium is intact. If symptoms persist consider MRI as clinically warranted. IMPRESSION: 1. No acute intracranial process is seen at this time. [facility], , 03/31/2024 9:45 AM
[2024-03-31 09:48] LABS: ALT 20 U/L (4-34); AST 24 U/L (14-36); African American GFR (CKD) 62 (>60 ml/min/1.73 sqM); Albumin 3.9 g/dL (3.5-5.0); Alkaline Phosphatase 95 U/L (38-126); Anion Gap 9 mmol/L; Blood Urea Nitrogen 23 mg/dL (7-17); Calcium 8.4 mg/dL (8.4-10.2); Carbon Dioxide 25 mmol/L (22-30); Chloride 105 mmol/L (98-107); Glucose 142 mg/dL (74-99); Non-African American GFR(CKD) 54 (>60 ml/min/1.73 sqM); Potassium 3.8 mmol/L (3.5-5.1); Sodium 139 mmol/L (137-145); Total Bilirubin 0.4 mg/dL (0.2-1.3)
[2024-03-31 10:17] LABS: Amphetamine Screen,Urine Not Detected (NotDetected); Barbiturate Screen,Urine Not Detected (NotDetected); Benzodiazepines Screen,Urine Not Detected (NotDetected); Cocaine Screen,Urine Not Detected (NotDetected); Methadone Screen, Urine Not Detected (NotDetected); Opiate Screen,Urine Not Detected (NotDetected); Oxycodone Screen, Urine Not Detected (NotDetected); Phencyclidine Screen,Urine Not Detected (NotDetected); Tricyclic Antidepressant,Urine Detected (NotDetected); Urn Cannabinoid Scrn Not Detected (NotDetected)
--- NOTE | 2024-03-31 10:20 | CT ---
EXAMINATION TYPE: CODE STROKE: CTA head neck CT DLP: 723.9 mGycm, Automated exposure control for dose reduction was used. DATE OF EXAM: 03/31/2024 10:09 AM COMPARISON: CT brain 03/31/2024, CT neck 01/22/2023 and CTA chest 12/07/2020. CLINICAL INDICATION:Female, 49 years old with history of Slurred speech; PHH, Slurred Speech TECHNIQUE: Axially acquired helical CT angiogram of the head and neck was obtained with contrast util izing 75 cc of Isovue-370 administered intravenously. Axial images are supplemented with 3D reconstru ctions which were post-processed at an independent workstation. NASCET criteria used. FINDINGS: CTA HEAD: No evidence of acute intracranial hemorrhage, mass effect, or midline shift. The ventricles, sulci, a nd cisterns are unremarkable. The visualized portions of the internal carotid arteries, middle cerebral arteries, anterior cerebral arteries, and posterior cerebral arteries are patent. Hypoplastic A1 segment of the right anterior c erebral artery which is an anatomical variant. The basilar and vertebral arteries are patent. CTA NECK: Right Carotid System: The common carotid artery and external carotid artery are patent. The carotid bifurcation demonstrate s no evidence of hemodynamically significant stenosis. The remaining portions of the internal carotid artery demonstrate normal size without significant narrowing. Left Carotid System: The common carotid artery and external carotid artery are patent. The carotid bifurcation demonstrate s no evidence of hemodynamically significant stenosis. The remaining portions of the internal carotid artery demonstrate normal size without significant narrowing. Vertebral arteries are patent without evidence hemodynamically significant stenosis. Vertebral arteri es are codominant. There is a bovine aortic arch. The origins of the great vessels are patent. No evidence of hemodynami christian significant stenosis. IMPRESSION: 1. No evidence of dissection of the cervical internal carotid arteries or vertebral arteries or any e vidence of significant stenosis at the carotid bifurcations. 2. No evidence of high-grade stenosis or intracranial aneurysm. [facility], , 03/31/2024 10:17 AM
--- NOTE | 2024-03-31 10:23 | XR ---
EXAMINATION TYPE: XR chest 2V DATE OF EXAM: 03/31/2024 9:56 AM CLINICAL INDICATION: Female, 49 years old with history of difficulty breathing; COMPARISON: 06/19/2023 TECHNIQUE: XR chest 2V Frontal view of the chest. FINDINGS: Lungs/Pleura: There is no evidence of pleural effusion, focal consolidation, or pneumothorax. Pulmonary vascularity: Unremarkable. Heart/mediastinum: Cardiomediastinal silhouette is enlarged. Musculoskeletal: No acute osseous pathology. IMPRESSION: No acute cardiopulmonary disease/process. [facility], , 03/31/2024 10:21 AM
[2024-03-31] MEDS: ASPIRIN 325 MG TAB PO STA (14:04)
[2024-03-31] MEDS ORDERED: DIPHENOX-ATROP 2.5-0.025 MG 1 EACH TAB PO PRN (23:05)
[2024-03-31] MEDS ORDERED: hydrOXYzine HCL 25 MG TAB PO PRN (23:05)
[2024-03-31] MEDS ORDERED: MECLIZINE 25 MG TAB PO PRN (23:05)
[2024-03-31] MEDS: ZOLPIDEM 5 MG TAB PO SCH (23:45)
[2024-03-31] MEDS: OLANZapine 5 MG TAB PO SCH (23:45)
[2024-03-31] MEDS: ACETAMINOPHEN TAB 325 MG TAB PO SCH (23:45)
[2024-04-01] MEDS: LEVOTHYROXINE 100 MCG TAB PO SCH (06:18)
[2024-04-01] MEDS: PANTOPRAZOLE 40 MG TABLET PO SCH (06:18)
[2024-04-01] MEDS: busPIRone HCl 10 MG TAB PO SCH (09:14)
[2024-04-01] MEDS: POTASSIUM CHLORIDE ER 20 MEQ TAB.ER PO SCH (09:15)
[2024-04-01] MEDS: CYANOCOBALAMIN 500 MCG TAB PO SCH (09:15)
[2024-04-01] MEDS: ATORVASTATIN 80 MG TAB PO SCH (09:15)
[2024-04-01] MEDS: PROPRANOLOL 40 MG TAB PO SCH (09:15)
[2024-04-01] MEDS: ERGOCALCIFEROL 1,250 MCG (50,000 IU) CAPSULE PO SCH (09:15)
[2024-04-01] MEDS: LORATADINE 10 MG TAB PO SCH (09:15)
[2024-04-01] MEDS: ASPIRIN 325 MG TAB PO SCH (09:15)
[2024-04-01] MEDS: CALCIUM CARBONATE 500 MG CHEWABLE PO SCH (09:19)
[2024-04-01] MEDS: FAMOTIDINE 20 MG TAB PO SCH (09:19)
[2024-04-01 09:20] VITALS: RESP 17
[2024-04-01 11:17] LABS: Chol/HDL Ratio 5.21 Ratio; LDL Cholesterol,Calculated 163.3 mg/dL (0.0-131.0)
[2024-04-01 11:25] VITALS: TEMP 98.1
--- NOTE | 2024-04-01 12:32 | P.CRDCN ---
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 Patient follows in the office with Dr. Rice. We have been asked to see the patient in consultation for ventricular tachycardia. Patient examined at the bedside. Patient states that she presented to the hospital with a chief complaint of slurred speech. She states that she had been having slurred speech for the past day or 2. She also reports feeling tingling in her fingers and her feet. She denied having any chest pain or pressure. She denies shortness of breath at rest. However she states that she gets short of breath with mild exertion. Apparently the patient had a 5 beat run of VT and route to the hospital. However there are no telemetry tracings available for review. Patient has not had any runs of ventricular tachycardia since being in the hospital. DIAGNOSTICS: - EKG reveals sinus bradycardia with heart rate of 53. Low voltage QRS. - Chest xray negative for acute process - Laboratory data: WBC 5.4. Hemoglobin 9.3. Platelet count 275. D-dimer 0.27. Sodium 139. Potassium 3.8. BUN 23. Creatinine 1.21. Troponin negative x 1. proBNP 99. - Current home cardiac medications include propranolol 40 mg twice a day as needed, atorvastatin 80 mg daily - Most recent echocardiogram obtained in November 2023 revealed ejection fraction 55 to 60% with trace to mild aortic regurgitation REVIEW OF SYSTEMS: At the time of my exam: CONSTITUTIONAL: Denies fever or chills. HEENT: Denies blurred vision, vision changes, or eye pain. Denies hemoptysis CARDIOVASCULAR: Denies chest pain. Denies orthopnea. Denies PND. Denies palpitations RESPIRATORY: Denies shortness of breath. GASTROINTESTINAL: Denies abdominal pain. Denies nausea or vomiting. HEMATOLOGIC: Denies bleeding disorders. GENITOURINARY: Denies any blood in urine. SKIN: Denies pruitis. Denies rash. PHYSICAL EXAM: VITAL SIGNS: Reviewed. GENERAL: Well-developed in no acute distress. HEENT: Head is normocephalic. Pupils are equal, round. Sclerae anicteric. Mucous membranes of the mouth are moist. Neck supple. No JVD or thyromegaly LUNGS: Respirations even and unlabored. Lungs essentially clear to auscultation bilaterally. HEART: Regular rate and rhythm. S1 and S2 heard. ABDOMEN: Soft. Nondistended. Nontender. EXTREMITIES: Normal range of motion. No clubbing or cyanosis. Peripheral pulse s intact. No lower extremity edema NEUROLOGIC: Awake and alert. Oriented x 3. ASSESSMENT: Slurred speech rule out CVA/TIA Palpitations Reported ventricular tachycardia in EMS, however no telemetry tracings available for review Chronic shortness of breath with exertion Hyperlipidemia Hypertension Depression Anxiety Obesity: BMI 35.2 History of thyroid cancer, per patient History of meningitis, per patient PLAN: No need to repeat echocardiogram as this was performed in November 2023 No telemetry tracings available from EMS No noted ventricular tachycardia since being in the hospital Continue telemetry monitoring Recommend 30-day event monitor at the time of discharge. Event monitors are cur rently unavailable at the hospital. Will arrange for patient to clam picker event monitor from cardiology office postdischarge. Further recommendations pending patient course Nurse practitioner note has been reviewed by physician. Signing provider agrees with the documented findings, assessment, and plan of care documented by [employer] as a scribe. Past Medical History Past Medical History: Cancer, Thyroid Disorder Additional Past Medical History / Comment(s): thyroid CA in the past, low calcium, IBS. Gonorrhea, Trichomoniasis, meningitis. History of Any Multi-Drug Resistant Organisms: None Reported Past Surgical History: Cholecystectomy, Tubal Ligation Additional Past Surgical History / Comment(s): PARA THYROIDECTOMY, THYROIDECTOMY, breast reduction Past Anesthesia/Blood Transfusion Reactions: No Reported Reaction Additional Past Anesthesia/Blood Transfusion Reaction / Comment(s): Pt has clausterphobia. Past Psychological History: Anxiety, Depression, Panic Disorder Additional Psychological History / Comment(s): Pt resides with her 2 children. She does not drive, her sister or son's girlfriend drive her or she uses the bus system. She goes to [facility]. Smoking Status: Never smoker Past Alcohol Use History: None Reported Additional Past Alcohol Use History / Comment(s): Patient states she is a nonsmoker. She denies any medical marijuana, marijuana, street drug or alcohol use. She is currently from her complaining for divorce. She lives with her 3 children 16, 9 and 4 years of age. Past Drug Use History: None Reported - Past Family History Mother Family Medical History: Myocardial Infarction ([place]) Additional Family Medical History / Comment(s): Mother at age 48 from a myocardial infarction. Father Family Medical History: Myocardial Infarction ([place]) Additional Family Medical History / Comment(s): Father from a myocardial infarction. Brother(s) Additional Family Medical History / Comment(s): Patient has 4 brothers and all have mental health issues with alcoholism and drug addiction. She has 1 brother that at age 38 from a myocardial infarction. Sister(s) Additional Family Medical History / Comment(s): Patient has 6 sisters and one has PFO. Son(s) Additional Family Medical History / Comment(s): Patient has 3 sons. 16-year-old son was born with ureteral duplication, sickle cell trait, bipolar, ADHD. 9-year-old son has ADHD and sleep disorder. 4-year-old son has no medical problems Medications and Allergies Home Medications Medication Instructions Recorded Confirmed Type Acetaminophen Tab [Tylenol] 650 mg PO Q6H 03/31/24 03/31/24 History Atorvastatin Calcium [Lipitor] 80 mg PO DAILY 03/31/24 03/31/24 History Calcium Carbonate [Calcium] 600 mg PO BID 03/31/24 03/31/24 History Cyanocobalamin (Vitamin B-12) 1,000 mcg PO DAILY 03/31/24 03/31/24 History [Vitamin B-12] Dextromethorphan HBr/Bupropion 1 tab PO BID 03/31/24 03/31/24 History [Auvelity ER 45-105 mg Tablet] Diphenoxylate HCl/Atropine 1 - 2 tab PO QID PRN 03/31/24 03/31/24 History [Lomotil 2.5-0.025 mg Tablet] Ergocalciferol [Vitamin D2 (1250 2,500 mcg PO QMONTHLY 03/31/24 03/31/24 History Mcg = 81758 Iu)] Famotidine [Pepcid] 20 mg PO BID 03/31/24 03/31/24 History HYDROcodone/APAP 5-325MG [[place] 1 tab PO Q6H PRN 03/31/24 03/31/24 History 5-325] Levothyroxine Sodium [Synthroid] 300 mcg PO DAILY 03/31/24 03/31/24 History Loratadine [Claritin] 10 mg PO DAILY 03/31/24 03/31/24 History Meclizine [Antivert] 25 mg PO QID PRN 03/31/24 03/31/24 History OLANZapine [ZyPREXA] 5 mg PO HS 03/31/24 03/31/24 History Omeprazole [PriLOSEC] 20 mg PO BID 03/31/24 03/31/24 History Potassium Chloride [Klor-Con M20] 20 meq PO DAILY 03/31/24 03/31/24 History Propranolol [Inderal] 40 mg PO BID PRN 03/31/24 03/31/24 History Zolpidem [Ambien] 5 mg PO HS 03/31/24 03/31/24 History busPIRone HCL [Buspar] 30 mg PO BID@0800,1400 03/31/24 03/31/24 History calcitrioL 0.25 mcg PO DAILY 03/31/24 03/31/24 History hydrOXYzine HCL [Atarax] 25 mg PO BID PRN 03/31/24 03/31/24 History tiZANidine [Zanaflex] 4 mg PO BID PRN 03/31/24 03/31/24 History Allergies Allergy/AdvReac Type Severity Reaction Status Date / Time methylprednisolone Allergy Rash/Hives Verified 03/31/24 12:07 [From Medrol] ondansetron HCl Allergy Rash/Hives Verified 03/31/24 12:07 [From Zofran (as - see hydrochloride)] comment Penicillins Allergy Rash/Hives Verified 03/31/24 12:07 sulfamethoxazole Allergy Rash/Hives Verified 03/31/24 12:07 [From Bactrim] trimethoprim [From Bactrim] Allergy Rash/Hives Verified 03/31/24 12:07 ziprasidone [From Geodon] AdvReac suicidal Verified 03/31/24 12:20 thoughts Physical Exam Vitals: Vital Signs Temp Pulse Pulse Resp BP BP Pulse Ox 04/01/24 09:19 97.8 F 73 17 148/105 96 04/01/24 04:00 59 L 16 153/94 97 03/31/24 23:31 98.0 F 60 16 152/100 97 03/31/24 23:20 61 16 132/83 96 03/31/24 21:41 58 L 16 131/91 99 03/31/24 18:29 97.9 F 57 L 20 111/73 100 03/31/24 16:32 61 20 133/97 100 03/31/24 14:08 57 L 16 104/66 95 03/31/24 12:08 58 L 18 100/75 95 03/31/24 11:17 53 L 26 H 104/67 100 03/31/24 10:40 52 L 22 111/74 99 Intake and Output 03/31/24 04/01/24 04/01/24 22:59 06:59 14:59 Other: Voiding Method Toilet Toilet # Voids 1 Weight 98.883 kg Results 03/31/24 09:00 03/31/24 09:00 Current Medications Generic Name Dose Route Start Last Admin Trade Name Freq PRN Reason Stop Dose Admin Acetaminophen 650 mg 04/01/24 00:00 04/01/24 06:18 Acetaminophen Tab 325 Mg Tab PO 650 mg Q6H ANNA Administration Aspirin 325 mg 04/01/24 09:00 04/01/24 09:15 Aspirin 325 Mg Tab PO 325 mg DAILY ANNA Administration Atorvastatin Calcium 80 mg 04/01/24 09:00 04/01/24 09:15 Atorvastatin 80 Mg Tab PO 80 mg DAILY ANNA Administration Buspirone HCl 30 mg 04/01/24 08:00 04/01/24 09:14 Buspirone Hcl 10 Mg Tab PO 30 mg BID@0800,1400 ANNA Administration Calcitriol 0.25 mcg 04/01/24 09:00 04/01/24 09:15 Calcitriol 0.25 Mcg Cap PO 0.25 mcg DAILY ANNA Administration Calcium Carbonate/Glycine 500 mg 04/01/24 09:00 04/01/24 09:19 Calcium Carbonate 500 Mg Chewable PO Not Given BID ANNA Cyanocobalamin 1,000 mcg 04/01/24 09:00 04/01/24 09:15 Cyanocobalamin 500 Mcg Tab PO 1,000 mcg DAILY ANNA Administration Diphenoxylate HCl/Atropine 1 - 2 each 03/31/24 23:05 Diphenox-Atrop 2.5-0.025 Mg 1 Each Tab PO QID PRN Diarrhea Ergocalciferol 2,500 mcg 04/01/24 09:00 04/01/24 09:15 Ergocalciferol 1,250 Mcg (50,000 Iu) Capsule PO 2,500 mcg QMONTHLY ANNA Administration Famotidine 20 mg 04/01/24 09:00 04/01/24 09:19 Famotidine 20 Mg Tab PO Not Given DAILY ANNA Hydroxyzine HCl 25 mg 03/31/24 23:05 Hydroxyzine Hcl 25 Mg Tab PO BID PRN anxiety/itching Levothyroxine Sodium 300 mcg 04/01/24 06:00 04/01/24 06:18 Levothyroxine 100 Mcg Tab PO 300 mcg DAILY@0600 ANNA Administration Loratadine 10 mg 04/01/24 09:00 04/01/24 09:15 Loratadine 10 Mg Tab PO 10 mg DAILY ANNA Administration Meclizine HCl 25 mg 03/31/24 23:05 Meclizine 25 Mg Tab PO QID PRN Vertigo Olanzapine 5 mg 03/31/24 23:15 03/31/24 23:45 Olanzapine 5 Mg Tab PO 5 mg HS ANNA Administration Pantoprazole Sodium 40 mg 04/01/24 07:30 04/01/24 06:18 Pantoprazole 40 Mg Tablet PO 40 mg DAILY@0730 ANNA Administration Potassium Chloride 20 meq 04/01/24 09:00 04/01/24 09:15 Potassium Chloride Er 20 Meq Tab.Er PO 20 meq DAILY ANNA Administration Propranolol HCl 40 mg 04/01/24 09:00 04/01/24 09:15 Propranolol 40 Mg Tab PO 40 mg BID ANNA Administration Zolpidem Tartrate 5 mg 03/31/24 23:15 03/31/24 23:45 Zolpidem 5 Mg Tab PO 5 mg HS ANNA Administration Intake and Output 03/31/24 04/01/24 04/01/24 22:59 06:59 14:59 Other: Voiding Method Toilet Toilet # Voids 1 Weight 98.883 kg 03/31/24 09:00 03/31/24 09:00
[2024-04-01 15:57] VITALS: BP 146/98; PULSE 70
--- NOTE | 2024-04-01 17:42 | P.CNNES ---
History of Present Illness Consult date: 04/01/24 Requesting physician: Robin Casas Reason for Consult: TIA History of Present Illness: Patient is a 49-year-old female came to the hospital by ambulance yesterday at 8:42 AM. Vital signs on arrival blood pressure 87/53, which state like 87/63 and then 95/62. Pulse rate 55, temperature 97.9. EKG showed sinus bradycardia. CT head showed no acute intracranial process seen at this time. I personally reviewed CT head, agree with the findings. Chest x-ray showed no acute cardiopulmonary process. Blood test shows normal WBC hemoglobin 9.3, platelets are normal. PT PTT normal. Electrolytes are normal. BUN 23 creatinine 1.21. Hepatic panel is normal, urine drug screen negative. CTA head and neck showed: No evidence of dissection of the cervical internal carotid arteries or vertebral arteries or any evidence of significant stenosis at the carotid bifurcation. No evidence of high-grade stenosis or intracranial aneurysm. Fasting a.m. lipid panel cholesterol 256, LDL 163, HDL 49, triglycerides 218. Home medications include BuSpar, Zyprexa 5 mg, Zanaflex 4 mg twice daily as needed, Ambien 5 mg at bedtime, Lipitor 80 mg, B12, levothyroxine and propranolol. Past Medical History Past Medical History: Cancer, Thyroid Disorder Additional Past Medical History / Comment(s): thyroid CA in the past, low calcium, IBS. Gonorrhea, Trichomoniasis, meningitis. History of Any Multi-Drug Resistant Organisms: None Reported Past Surgical History: Cholecystectomy, Tubal Ligation Additional Past Surgical History / Comment(s): PARA THYROIDECTOMY, THYROIDECTOMY, breast reduction Past Anesthesia/Blood Transfusion Reactions: No Reported Reaction Additional Past Anesthesia/Blood Transfusion Reaction / Comment(s): Pt has clausterphobia. Past Psychological History: Anxiety, Depression, Panic Disorder Additional Psychological History / Comment(s): Pt resides with her 2 children. She does not drive, her sister or son's girlfriend drive her or she uses the bus system. She goes to [facility]. Smoking Status: Never smoker Past Alcohol Use History: None Reported Additional Past Alcohol Use History / Comment(s): Patient states she is a nonsmoker. She denies any medical marijuana, marijuana, street drug or alcohol use. She is currently from her complaining for divorce. She lives with her 3 children 16, 9 and 4 years of age. Past Drug Use History: None Reported - Past Family History Mother Family Medical History: Myocardial Infarction ([place]) Additional Family Medical History / Comment(s): Mother at age 48 from a myocardial infarction. Father Family Medical History: Myocardial Infarction ([place]) Additional Family Medical History / Comment(s): Father from a myocardial infarction. Brother(s) Additional Family Medical History / Comment(s): Patient has 4 brothers and all have mental health issues with alcoholism and drug addiction. She has 1 brother that at age 38 from a myocardial infarction. Sister(s) Additional Family Medical History / Comment(s): Patient has 6 sisters and one has PFO. Son(s) Additional Family Medical History / Comment(s): Patient has 3 sons. 16-year-old son was born with ureteral duplication, sickle cell trait, bipolar, ADHD. 9-year-old son has ADHD and sleep disorder. 4-year-old son has no medical problems Medications and Allergies Home Medications Medication Instructions Recorded Confirmed Type Acetaminophen Tab [Tylenol] 650 mg PO Q6H 03/31/24 03/31/24 History Atorvastatin Calcium [Lipitor] 80 mg PO DAILY 03/31/24 03/31/24 History Calcium Carbonate [Calcium] 600 mg PO BID 03/31/24 03/31/24 History Cyanocobalamin (Vitamin B-12) 1,000 mcg PO DAILY 03/31/24 03/31/24 History [Vitamin B-12] Dextromethorphan HBr/Bupropion 1 tab PO BID 03/31/24 03/31/24 History [Auvelity ER 45-105 mg Tablet] Diphenoxylate HCl/Atropine 1 - 2 tab PO QID PRN 03/31/24 03/31/24 History [Lomotil 2.5-0.025 mg Tablet] Ergocalciferol [Vitamin D2 (1250 2,500 mcg PO QMONTHLY 03/31/24 03/31/24 History Mcg = 40958 Iu)] Famotidine [Pepcid] 20 mg PO BID 03/31/24 03/31/24 History HYDROcodone/APAP 5-325MG [Icard 1 tab PO Q6H PRN 03/31/24 03/31/24 History 5-325] Levothyroxine Sodium [Synthroid] 300 mcg PO DAILY 03/31/24 03/31/24 History Loratadine [Claritin] 10 mg PO DAILY 03/31/24 03/31/24 History Meclizine [Antivert] 25 mg PO QID PRN 03/31/24 03/31/24 History OLANZapine [ZyPREXA] 5 mg PO HS 03/31/24 03/31/24 History Omeprazole [PriLOSEC] 20 mg PO BID 03/31/24 03/31/24 History Potassium Chloride [Klor-Con M20] 20 meq PO DAILY 03/31/24 03/31/24 History Propranolol [Inderal] 40 mg PO BID PRN 03/31/24 03/31/24 History Zolpidem [Ambien] 5 mg PO HS 03/31/24 03/31/24 History busPIRone HCL [Buspar] 30 mg PO BID@0800,1400 03/31/24 03/31/24 History calcitrioL 0.25 mcg PO DAILY 03/31/24 03/31/24 History hydrOXYzine HCL [Atarax] 25 mg PO BID PRN 03/31/24 03/31/24 History tiZANidine [Zanaflex] 4 mg PO BID PRN 03/31/24 03/31/24 History Allergies Allergy/AdvReac Type Severity Reaction Status Date / Time methylprednisolone Allergy Rash/Hives Verified 03/31/24 12:07 [From Medrol] ondansetron HCl Allergy Rash/Hives Verified 03/31/24 12:07 [From Zofran (as - see hydrochloride)] comment Penicillins Allergy Rash/Hives Verified 03/31/24 12:07 sulfamethoxazole Allergy Rash/Hives Verified 03/31/24 12:07 [From Bactrim] trimethoprim [From Bactrim] Allergy Rash/Hives Verified 03/31/24 12:07 ziprasidone [From Geodon] AdvReac suicidal Verified 03/31/24 12:20 thoughts Physical Examination - Vital Signs Vital Signs: Vital Signs Temp Pulse Pulse Resp BP BP Pulse Ox 04/01/24 15:57 70 17 146/98 96 04/01/24 11:25 98.1 F 73 17 139/99 97 04/01/24 09:19 97.8 F 73 17 148/105 96 04/01/24 04:00 59 L 16 153/94 97 03/31/24 23:31 98.0 F 60 16 152/100 97 03/31/24 23:20 61 16 132/83 96 03/31/24 21:41 58 L 16 131/91 99 03/31/24 18:29 97.9 F 57 L 20 111/73 100 Intake and Output 04/01/24 04/01/24 04/01/24 06:59 14:59 22:59 Other: Voiding Method Toilet Toilet Weight 98.883 kg Results - Laboratory Findings CBC and BMP: 03/31/24 09:00 03/31/24 09:00 Abnormal Lab Findings: Abnormal Labs 03/31/24 03/31/24 03/31/24 09:00 09:00 09:00 RBC 2.97 L Hgb 9.3 L Hct 27.7 L APTT 31.4 H BUN 23 H Creatinine 1.21 H Glucose 142 H Total Protein 6.0 L Triglycerides Cholesterol LDL Cholesterol, Calc VLDL Cholesterol, Calc U Tricyclic Antidepress 03/31/24 04/01/24 09:42 06:36 RBC Hgb Hct APTT BUN Creatinine Glucose Total Protein Triglycerides 218.00 H Cholesterol 256.00 H LDL Cholesterol, Calc 163.3 H VLDL Cholesterol, Calc 43.60 H U Tricyclic Antidepress Detected H Assessment and Plan Plan: Patient chart reviewed. Came to see patient on the floor, patient has been discharged, and patient has left the floor.
[2024-04-03 07:01] LABS: Glucose,Whole Blood 115 mg/dL (70-110)
--- NOTE | 2024-04-04 01:58 | HP ---
HISTORY AND PHYSICAL CHIEF COMPLAINT: Possible CVA or TIA. HISTORY OF PRESENT ILLNESS: This lady presented to the emergency room with a complaint of some hypoesthesias in the right arm. She did not have any associated syncope, confusion, cranial nerve signs or symptoms, etc. She also had slurred speech. At the time she got to the emergency room, this had cleared. It was reported in the ambulance that she may have had a short run of ventricular tachycardia when she became unresponsive. There has been no arrhythmias and she presented to the emergency room. She does have a history of noncompliance and does not take her medications regularly. 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 REVIEW OF SYSTEMS: She denies any focal neurologic signs or symptoms other than that already mentioned. She has had no fever, chills, chest pain, abdominal pain, nausea, vomiting, diarrhea, melena, incontinence, dysuria, etc. Past medical history, family history, personal and social histories reveal that she is allergic to sulfa and penicillin. MEDICATIONS: She is on. 1. . 2. Tizanidine. 3. Potassium. 4. Vicodin. 5. Propranolol. 6. Chlorthalidone. 7. Antivert. 8. DuoNeb. 9. Buspar. 10.Omeprazole. 11.Vitamin D. SOCIAL HISTORY: She does not smoke or drink. LABORATORY STUDIES: She had hemoglobin 9.3. Blood pressure was low when she came in, is 78/44. Her GFR is 54. LDL is very high at 163 and her blood pressure giovani in the emergency room to 148/105. PHYSICAL EXAMINATION: VITAL SIGNS: Blood pressure 148/105 with a pulse of 52. She is afebrile. GENERAL: She appeared to be slightly pale and hypothyroid. SKIN: Dry. HEAD, EARS, EYES, NOSE, MOUTH AND THROAT: Normal. CHEST: Clear. CARDIAC: Normal sinus rhythm with no murmurs or extra sounds. ABDOMEN: Soft and nontender. EXTREMITIES: Normal. NEUROLOGICAL: She is intact at this time. She had no carotid bruits. IMPRESSION: 1. Possible transient ischemic attack. 2. Possible episode of ventricular tachycardia. 3. Anemia. 4. Hypotension. 5. Chronic kidney disease. 6. Hyperlipidemia. 7. Hypothyroidism. PLAN: 1. Bed rest. 2. IV fluids. 3. Frequent monitoring of her neurologic status and vital signs. 4. CTA. MMODL / IJN: [id number] /
--- NOTE | 2024-04-04 02:58 | DS ---
DISCHARGE SUMMARY CHIEF COMPLAINT: Dysesthesias in the arm. HISTORY OF PRESENT ILLNESS AND PHYSICAL EXAM: Details of this lady's history and physical can be found in the initial workup. COURSE IN THE HOSPITAL: After admission, she was placed on bedrest, started on intravenous fluids and had frequent monitoring of her neurologic status and vital signs. She initially had hypotension which came up to normal. While in the hospital, she had no chest pain, focal neurologic signs or symptoms, and there is no sign of any arrhythmias. It was felt she could be discharged to outpatient followup on the . She will go home on her usual activity, diet, and medication and follow up in the office in several days. At that time, she will undergo further workup for her neurologic symptoms and the possibility of ventricular tachycardia. FINAL DIAGNOSES: 1. Left-sided transient ischemic attack with right hypoesthesias. 2. Possible history of ventricular tachycardia. 3. Hypotension. 4. Anemia. 5. Stage II renal failure. 6. Hyperlipidemia. 7. Hypothyroidism. OPERATIONS: None. CONSULTATIONS: None. She is improved. VIVIAN / MAI: [id number] /
== END 2024-04-01 17:20 | disposition home or self-care (01) ==
LOC: EC 08:42 → 1SOBS 13:21 → 3SCARD 14:04
PROVIDERS: ADMIT Family Medicine; ATTEND Family Medicine
DX: G45.9 Transient cerebral ischemic attack, unspecified
CPT/HCPCS: 36415; 93005; 97161; 92522; 85379; 83880; 80061; 80053; 83605; 83735; 84484; 85025; 85610; 85730; 80306; 71046; 70496; 70450; 70498; G0378 ×2; Q9967; 99285

== ENCOUNTER 2024-04-07 22:50 | Observation (INO) | payer OTHER ==
[2024-04-07] MEDS: SODIUM CHLORIDE 0.9% 1,000 ML IV STA (23:20)
--- NOTE | 2024-04-07 23:24 | ED ---
General Adult HPI - General Chief complaint: Chest Pain Stated complaint: Chest Pain Time Seen by Provider: 04/07/24 22:52 Source: patient, EMS Mode of arrival: EMS Limitations: no limitations - History of Present Illness Initial comments: Dictation was produced using Redicam dictation software. please excuse any grammatical, word or spelling errors. Chief Complaint: 49-year-old female with chest pain History of Present Illness: Patient is a 49-year-old female she denies any significant comorbidities presents to the emergency department for chest pain. States the pain is in her substernal area feels sharp and radiates down to her right lower back states that it is worse with standing and twisting. She called EMS where she was found to have low blood pressure. She states that her pressures have been very labile as of late. She does take blood pressure medications once a day. Shortness of breath. The ROS documented in this emergency department record has been reviewed and confirmed by me. Those systems with pertinent positive or negative responses have been documented in the HPI. All other systems are other negative and/or noncontributory. - Related Data Home Medications Medication Instructions Recorded Confirmed Acetaminophen Tab [Tylenol] 650 mg PO Q6H 03/31/24 03/31/24 Atorvastatin Calcium [Lipitor] 80 mg PO DAILY 03/31/24 03/31/24 Calcium Carbonate [Calcium] 600 mg PO BID 03/31/24 03/31/24 Cyanocobalamin (Vitamin B-12) 1,000 mcg PO DAILY 03/31/24 03/31/24 [Vitamin B-12] Dextromethorphan HBr/Bupropion 1 tab PO BID 03/31/24 03/31/24 [Auvelity ER 45-105 mg Tablet] Diphenoxylate HCl/Atropine 1 - 2 tab PO QID PRN 03/31/24 03/31/24 [Lomotil 2.5-0.025 mg Tablet] Ergocalciferol [Vitamin D2 (1250 2,500 mcg PO QMONTHLY 03/31/24 03/31/24 Mcg = 75422 Iu)] Famotidine [Pepcid] 20 mg PO BID 03/31/24 03/31/24 HYDROcodone/APAP 5-325MG [[place] 1 tab PO Q6H PRN 03/31/24 03/31/24 5-325] Levothyroxine Sodium [Synthroid] 300 mcg PO DAILY 03/31/24 03/31/24 Loratadine [Claritin] 10 mg PO DAILY 03/31/24 03/31/24 Meclizine [Antivert] 25 mg PO QID PRN 03/31/24 03/31/24 OLANZapine [ZyPREXA] 5 mg PO HS 03/31/24 03/31/24 Omeprazole [PriLOSEC] 20 mg PO BID 03/31/24 03/31/24 Potassium Chloride [Klor-Con M20] 20 meq PO DAILY 03/31/24 03/31/24 Propranolol [Inderal] 40 mg PO BID PRN 03/31/24 03/31/24 Zolpidem [Ambien] 5 mg PO HS 03/31/24 03/31/24 busPIRone HCL [Buspar] 30 mg PO BID@0800,1400 03/31/24 03/31/24 calcitrioL 0.25 mcg PO DAILY 03/31/24 03/31/24 hydrOXYzine HCL [Atarax] 25 mg PO BID PRN 03/31/24 03/31/24 tiZANidine [Zanaflex] 4 mg PO BID PRN 03/31/24 03/31/24 Allergies Allergy/AdvReac Type Severity Reaction Status Date / Time methylprednisolone Allergy Rash/Hives Verified 03/31/24 12:07 [From Medrol] ondansetron HCl Allergy Rash/Hives Verified 03/31/24 12:07 [From Zofran (as - see hydrochloride)] comment Penicillins Allergy Rash/Hives Verified 03/31/24 12:07 sulfamethoxazole Allergy Rash/Hives Verified 03/31/24 12:07 [From Bactrim] trimethoprim [From Bactrim] Allergy Rash/Hives Verified 03/31/24 12:07 ziprasidone [From Geodon] AdvReac suicidal Verified 03/31/24 12:20 thoughts Review of Systems ROS Statement: Those systems with pertinent positive or pertinent negative responses have been documented in the HPI. ROS Other: All systems not noted in ROS Statement are negative. Past Medical History Past Medical History: Cancer, Thyroid Disorder Additional Past Medical History / Comment(s): thyroid CA in the past, low calcium, IBS. Gonorrhea, Trichomoniasis, meningitis. History of Any Multi-Drug Resistant Organisms: None Reported Past Surgical History: Cholecystectomy, Tubal Ligation Additional Past Surgical History / Comment(s): PARA THYROIDECTOMY, THYROIDECTOMY, breast reduction Past Anesthesia/Blood Transfusion Reactions: No Reported Reaction Additional Past Anesthesia/Blood Transfusion Reaction / Comment(s): Pt has clausterphobia. Past Psychological History: Anxiety, Depression, Panic Disorder Additional Psychological History / Comment(s): Pt resides with her 2 children. She does not drive, her sister or son's girlfriend drive her or she uses the bus system. She goes to [facility]. Smoking Status: Never smoker Past Alcohol Use History: None Reported Additional Past Alcohol Use History / Comment(s): Patient states she is a nonsmoker. She denies any medical marijuana, marijuana, street drug or alcohol use. She is currently from her complaining for divorce. She lives with her 3 children 16, 9 and 4 years of age. Past Drug Use History: None Reported - Past Family History Mother Family Medical History: Myocardial Infarction ([place]) Additional Family Medical History / Comment(s): Mother at age 48 from a myocardial infarction. Father Family Medical History: Myocardial Infarction ([place]) Additional Family Medical History / Comment(s): Father from a myocardial infarction. Brother(s) Additional Family Medical History / Comment(s): Patient has 4 brothers and all have mental health issues with alcoholism and drug addiction. She has 1 brother that at age 38 from a myocardial infarction. Sister(s) Additional Family Medical History / Comment(s): Patient has 6 sisters and one has PFO. Son(s) Additional Family Medical History / Comment(s): Patient has 3 sons. 16-year-old son was born with ureteral duplication, sickle cell trait, bipolar, ADHD. 9-year-old son has ADHD and sleep disorder. 4-year-old son has no medical problems General Exam - General Exam Comments Initial Comments: PHYSICAL EXAM: General Impression: Alert and oriented x3, not in acute distress HEENT: Normocephalic atraumatic, extra-ocular movements intact, pupils equal and reactive to light bilaterally, mucous membranes moist. Cardiovascular: Heart regular rate and rhythm Chest: Able to complete full sentences, no retractions, no tachypnea Abdomen: abdomen soft, non-tender, non-distended, no organomegaly Musculoskeletal: Pulses present and equal in all extremities, no peripheral skip a Motor: no focal deficits noted Neurological: CN II-XII grossly intact, no focal motor or sensory deficits noted Skin: Intact with no visualized rashes Psych: Normal affect and mood Limitations: no limitations Course Vital Signs 04/07/24 04/07/24 04/07/24 22:51 22:56 22:57 Temperature 98.6 F Pulse Rate 77 Pulse Rate [ 76 Brine Purifier ] Respiratory 18 Rate Blood Pressure 110/59 96/57 O2 Sat by Pulse 98 Oximetry 04/07/24 04/08/24 23:22 01:02 Temperature Pulse Rate 73 72 Pulse Rate [ Brine Purifier ] Respiratory 20 23 Rate Blood Pressure 81/61 112/72 O2 Sat by Pulse 96 98 Oximetry EKG Findings - EKG Comments: EKG Findings:: My EKG interpretation: Ventricular rate 74, sinus rhythm,. 184, QRS 94, QTc 425. No VT prolongation, no QTC prolongation, no ST or T-wave govea ges noted. Overall, this EKG is unremarkable Medical Decision Making - Medical Decision Making Was pt. sent in by a medical professional or institution (, PA, WELDING MACHINE OPERATOR/TENDER, urgent care, hospital, or penitentiary...) When possible be specific @ -No Did you speak to anyone other than the patient for history (EMS, parent, family, police, friend...)? What history was obtained from this source @ -No Did you review nursing and triage notes (agree or disagree)? Why? @ -I reviewed and agree with nursing and triage notes Were old charts reviewed (outside hosp., previous admission, EMS record, old EKG, old radiological studies, urgent care reports/EKG's, penitentiary records)? Report findings @ -No old charts were reviewed Differential Diagnosis (chest pain, altered mental status, abdominal pain women, abdominal pain men, vaginal bleeding, musculoskeletal, weakness, fever, dyspnea, syncope, headache, dizziness, GI bleed, back pain, seizure, CVA, palpatations, mental health)? @ -Differential Chest Pain: Stable Angina, Unstable Angina, STEMI, NSTEMI Aortic Dissection, Pneumothorax, Musculoskeletal, Esophageal Spasm GERD, Cholecystitis, Pancreatitis, Zoster, this is not meant to be an all-inclusive list. EKG interpreted by me (3pts min.). @ -See above X-rays interpreted by me (1pt min.). @ -Chest x-ray nonacute CT interpreted by me (1pt min.). @ -Pelvis shows no acute processes U/S interpreted by me (1pt. min.). @ -None done What testing was considered but not performed or refused? (CT, X-rays, U/S, labs)? Why? @ -None What meds were considered but not given or refused? Why? @ -None Was smoking cessation discussed for >3mins.? @ -No Were there social determinants of health that impacted care today? How? (Homelessness, low income, unemployed, alcoholism, drug addiction, transportation, low edu. Level, literacy, decrease access to med. care, m[facility], rehab)? @ -No Was there de-escalation of care discussed even if they declined (Discuss DNR or withdrawal of care, Hospice)? DNR status @ -No What co-morbidities impacted this encounter? (DM, HTN, Smoking, COPD, CAD, Cancer, CVA, ARF, Chemo, Hep., AIDS, mental health diagnosis, sleep apnea, morbid obesity)? @ -None Was patient admitted / discharged? Hospital course, mention meds given and route, prescriptions, significant lab abnormalities, going to OR and other pe rtinent info. @ -49-year-old female presents to the emergency department chest pain that radiates to the lower back. Symptoms are atypical. Vital signs upon arrival showed findings within acceptable limits however blood pressure was monitored and her blood pressure dropped to 81/61. Laboratory evaluation is unremarkable. Patient given IV fluids with slight improvement of blood pressure. Patient will be observed for blood pressure monitoring. Case discussed with Dr. Wheeler for admission Did you discuss the management of the patient with other professionals (professionals i.e. , PA, WELDING MACHINE OPERATOR/TENDER, lab, RT, psych nurse, web content & social media manager, tube coverer, teacher, casino surveillance officer, case advocate)? Give summary @ -See above Was critical care preformed (if so, how long)? @ -No Undiagnosed new problem with uncertain prognosis? @ -No Drug Therapy requiring intensive monitoring for toxicity (Heparin, Nitro, Insulin, Cardizem)? @ -No Were any procedures done? @ -No Diagnosis/symptom? Acute, or Chronic, or Acute on Chronic? Uncomplicated (without systemic symptoms) or Complicated (systemic symptoms)? @ -Hypotension, chest pain Side effects of treatment? @ -No Exacerbation, Progression, or Severe Exacerbation? @ -No Poses a threat to life or bodily function? How? (Chest pain, [place], AR, pneumonia, PE, COPD, DKA, ARF, appy, cholecystitis, CVA, Diverticulitis, Homicidal, Suicidal, threat to staff... and all critical care pts) @ -yes - Lab Data Result diagrams: 04/07/24 22:53 04/07/24 22:53 Lab Results 04/07/24 04/07/24 04/07/24 Range/Units 22:53 22:53 22:53 WBC 6.5 (3.8-10.6) k/uL RBC 2.72 L (3.80-5.40) m/uL Hgb 8.5 L (11.4-16.0) gm/dL Hct 26.1 L (34.0-46.0) % MCV 96.1 (80.0-100.0) fL MCH 31.1 (25.0-35.0) pg MCHC 32.4 (31.0-37.0) g/dL RDW 15.5 (11.5-15.5) % Plt Count 279 (150-450) k/uL MPV 7.8 Neutrophils % 71 % Lymphocytes % 15 % Monocytes % 7 % Eosinophils % 3 % Basophils % 1 % Neutrophils # 4.6 (1.3-7.7) k/uL Lymphocytes # 1.0 (1.0-4.8) k/uL Monocytes # 0.5 (0-1.0) k/uL Eosinophils # 0.2 (0-0.7) k/uL Basophils # 0.1 (0-0.2) k/uL Hypochromasia Slight D-Dimer (<0.60) mg/L FEU Sodium 142 (137-145) mmol/L Potassium 3.3 L (3.5-5.1) mmol/L Chloride 111 H (98-107) mmol/L Carbon Dioxide 27 (22-30) mmol/L Anion Gap 4 mmol/L BUN 21 H (7-17) mg/dL Creatinine 1.31 H (0.52-1.04) mg/dL Est GFR (CKD-EPI)AfAm 56 (>60 ml/min/1.73 sqM) Est GFR (CKD-EPI)NonAf 49 (>60 ml/min/1.73 sqM) Glucose 102 H (74-99) mg/dL Plasma Lactic Acid Rogelio 1.5 (0.7-2.0) mmol/L Calcium 7.7 L (8.4-10.2) mg/dL Magnesium 1.8 (1.6-2.3) mg/dL Total Bilirubin 0.4 (0.2-1.3) mg/dL AST 27 (14-36) U/L ALT 22 (4-34) U/L Alkaline Phosphatase 106 (38-126) U/L Total Protein 5.9 L (6.3-8.2) g/dL Albumin 4.0 (3.5-5.0) g/dL Lipase 117 (23-300) U/L Urine Color Urine Appearance (Clear) Urine pH (5.0-8.0) Ur Specific [place] (1.001-1.035) Urine Protein (Negative) Urine Glucose (UA) (Negative) Urine Ketones (Negative) Urine Blood (Negative) Urine Nitrite (Negative) Urine Bilirubin (Negative) Urine Urobilinogen (<2.0) mg/dL Ur Leukocyte Esterase (Negative) 04/07/24 04/08/24 Range/Units 22:53 00:13 WBC (3.8-10.6) k/uL RBC (3.80-5.40) m/uL Hgb (11.4-16.0) gm/dL Hct (34.0-46.0) % MCV (80.0-100.0) fL MCH (25.0-35.0) pg MCHC (31.0-37.0) g/dL RDW (11.5-15.5) % Plt Count (150-450) k/uL MPV Neutrophils % % Lymphocytes % % Monocytes % % Eosinophils % % Basophils % % Neutrophils # (1.3-7.7) k/uL Lymphocytes # (1.0-4.8) k/uL Monocytes # (0-1.0) k/uL Eosinophils # (0-0.7) k/uL Basophils # (0-0.2) k/uL Hypochromasia D-Dimer 0.26 (<0.60) mg/L FEU Sodium (137-145) mmol/L Potassium (3.5-5.1) mmol/L Chloride (98-107) mmol/L Carbon Dioxide (22-30) mmol/L Anion Gap mmol/L BUN (7-17) mg/dL Creatinine (0.52-1.04) mg/dL Est GFR (CKD-EPI)AfAm (>60 ml/min/1.73 sqM) Est GFR (CKD-EPI)NonAf (>60 ml/min/1.73 sqM) Glucose (74-99) mg/dL Plasma Lactic Acid Rogelio (0.7-2.0) mmol/L Calcium (8.4-10.2) mg/dL Magnesium (1.6-2.3) mg/dL Total Bilirubin (0.2-1.3) mg/dL AST (14-36) U/L ALT (4-34) U/L Alkaline Phosphatase (38-126) U/L Total Protein (6.3-8.2) g/dL Albumin (3.5-5.0) g/dL Lipase (23-300) U/L Urine Color Yellow Urine Appearance Clear (Clear) Urine pH 6.0 (5.0-8.0) Ur Specific [place] 1.027 (1.001-1.035) Urine Protein Trace H (Negative) Urine Glucose (UA) Negative (Negative) Urine Ketones Negative (Negative) Urine Blood Negative (Negative) Urine Nitrite Negative (Negative) Urine Bilirubin Negative (Negative) Urine Urobilinogen 2.0 (<2.0) mg/dL Ur Leukocyte Esterase Negative (Negative) Disposition Clinical Impression: Hypotension Disposition: ADMITTED IP TO THIS HOSP Condition: Fair Referrals: Sergio Wheeler MD [Primary Care Provider] - 1-2 days Decision Time: 02:08
[2024-04-07 23:28] LABS: Basophils # (A) 0.1 k/uL (0-0.2); Basophils % (A) 1 %; Eosinophils # (A) 0.2 k/uL (0-0.7); Eosinophils % (A) 3 %; HCT 26.1 % (34.0-46.0); HGB 8.5 gm/dL (11.4-16.0); Hypochromasia Slight; Lymphocytes % (A) 15 %; MCH 31.1 pg (25.0-35.0); MCHC 32.4 g/dL (31.0-37.0); MCV 96.1 fL (80.0-100.0); Mean Platelet Volume 7.8; Monocytes # (A) 0.5 k/uL (0-1.0); Monocytes % (A) 7 %; Neutrophils # (A) 4.6 k/uL (1.3-7.7); Neutrophils % (A) 71 %; Platelet Count 279 k/uL (150-450); RBC 2.72 m/uL (3.80-5.40); RDW 15.5 % (11.5-15.5); WBC 6.5 k/uL (3.8-10.6)
[2024-04-07 23:33] LABS: ALT 22 U/L (4-34); AST 27 U/L (14-36); African American GFR (CKD) 56 (>60 ml/min/1.73 sqM); Alkaline Phosphatase 106 U/L (38-126); Anion Gap 4 mmol/L; Blood Urea Nitrogen 21 mg/dL (7-17); Calcium 7.7 mg/dL (8.4-10.2); Carbon Dioxide 27 mmol/L (22-30); Chloride 111 mmol/L (98-107); Glucose 102 mg/dL (74-99); Lipase 117 U/L (23-300); Magnesium 1.8 mg/dL (1.6-2.3); Non-African American GFR(CKD) 49 (>60 ml/min/1.73 sqM); Potassium 3.3 mmol/L (3.5-5.1); Sodium 142 mmol/L (137-145); Total Bilirubin 0.4 mg/dL (0.2-1.3); Total Protein 5.9 g/dL (6.3-8.2)
--- NOTE | 2024-04-07 23:36 | XR ---
EXAMINATION TYPE: XR chest 2V DATE OF EXAM: 04/07/2024 COMPARISON: Chest x-ray 1 week earlier HISTORY: Chest pain. TECHNIQUE: Frontal and lateral views of the chest are obtained. FINDINGS: There is no focal air space opacity, pleural effusion, or pneumothorax seen. Cardiomegaly remains present. The osseous structures are intact. IMPRESSION: Cardiomegaly without acute pulmonary process. [facility], , 04/07/2024 11:34 PM
[2024-04-08] MEDS: HYDROcodone/APAP 5-325MG 1 EACH TAB PO STA (00:03)
--- NOTE | 2024-04-08 00:42 | CT ---
EXAMINATION TYPE: CT abdomen pelvis wo con DATE OF EXAM: 04/08/2024 HISTORY: right flank pain CT DLP: 1194.7 mGycm. Automated Exposure Control for Dose Reduction was Utilized. TECHNIQUE: CT scan of the abdomen and pelvis is performed without oral or IV contrast. COMPARISON: NONE FINDINGS: Within the limitations of a non-contrast study, the following observations are made. LUNG BASES: No significant abnormality is appreciated. LIVER/GB: The gallbladder is surgically absent. PANCREAS: No significant abnormality is seen. SPLEEN: No significant abnormality is seen. ADRENALS: No significant abnormality is seen. KIDNEYS: No renal stones or hydronephrosis is seen bilaterally. BOWEL: Surgical changes from appendectomy at base of cecum. No abnormal small or large bowel dilatati on.. GENITAL ORGANS: Anteverted uterus. Suspect 2.1 cm Central intramural fibroid axial image 133.. LYMPH NODES: No greater than 1cm abdominal or pelvic lymph nodes are appreciated. OSSEOUS STRUCTURES: Vacuum disc phenomenon at L4-L5 level. OTHER: No significant additional abnormality is seen. IMPRESSION: No renal stones or hydronephrosis is seen bilaterally. No acute findings seen on noncontr ast CT to account for patient's symptoms. [facility], , 04/08/2024 12:39 AM
[2024-04-08 00:47] LABS: Appearance,Urine Clear (Clear); Bilirubin,Urine Negative (Negative); Blood,Urine Negative (Negative); Color,Urine Yellow; Glucose,Urine (UA) Negative (Negative); Ketones,Urine Negative (Negative); Leukocyte Esterase,Urine Negative (Negative); Nitrite,Urine Negative (Negative); Protein,Urine Trace (Negative); Specific Gravity,Urine 1.027 (1.001-1.035)
[2024-04-08] MEDS ORDERED: NALOXONE 0.4 MG/ML 1 ML VIAL IV PRN (02:05)
[2024-04-08] MEDS: SODIUM CHLORIDE 0.9% 1,000 ML IV SCH (03:05)
[2024-04-08] MEDS ORDERED: hydrOXYzine HCL 25 MG TAB PO PRN (16:08)
[2024-04-08] MEDS ORDERED: tiZANidine 4 MG TAB PO PRN (16:08)
[2024-04-08] MEDS ORDERED: PROPRANOLOL 40 MG TAB PO PRN (16:08)
[2024-04-08] MEDS ORDERED: HYDROmorphone 1 MG/ML 1 ML SYRINGE IVP PRN (16:15)
[2024-04-08] MEDS: ACETAMINOPHEN TAB 325 MG TAB PO SCH (19:49)
[2024-04-08] MEDS: PANTOPRAZOLE 40 MG TABLET PO SCH (19:50)
[2024-04-08] MEDS: FAMOTIDINE 20 MG TAB PO SCH (21:40)
[2024-04-08] MEDS: OLANZapine 5 MG TAB PO SCH (21:40)
[2024-04-08] MEDS: CALCIUM CARB-VIT D 500 MG-5 MCG TAB PO SCH (21:40)
[2024-04-08] MEDS: HYDROcodone/APAP 5-325MG 1 EACH TAB PO PRN (21:47)
[2024-04-08] MEDS: ZOLPIDEM 5 MG TAB PO SCH (21:48)
[2024-04-09 02:11] LABS: Reticulocyte % 3.78 % (0.10-1.80)
[2024-04-09 02:23] VITALS: RESP 18
--- NOTE | 2024-04-09 02:32 | HP ---
HISTORY AND PHYSICAL CHIEF COMPLAINT: Hypotension. HISTORY OF PRESENT ILLNESS: This lady came to emergency room because she was feeling tired, lightheaded, and weak. In the emergency room, her blood pressure was low with a systolic of 81. She takes propranolol, but no other medications that would affect her blood pressure. She has a profound hypothyroidism following thyroidectomy for cancer. She has not been compliant in taking her thyroid medication for the most part. She recently had her thyroid increased to 300 mcg. She states she is definitely taking it. In the emergency room, her hemoglobin is 8.5. Her potassium was low at 3.3 and her calcium was low at 7.7. She denies any headaches, chest pain, shortness of breath, abdominal pain, nausea, vomiting, diarrhea, etc. Past medical history, family history and personal and social histories are otherwise unremarkable. PHYSICAL EXAMINATION: VITAL SIGNS: Blood pressure 165/114 at this time. Pulse is 82 and regular. GENERAL: She appeared to be hypothyroid. CHEST: Clear. CARDIAC: Normal. ABDOMEN: Soft and nontender. EXTREMITIES: Normal. NEUROLOGICAL: She is intact. IMPRESSION: She is admitted to the hospital with diagnoses of, 1. Hypotension. 2. Dehydration. 3. Status post thyroidectomy for carcinoma. 4. Hypothyroidism. 5. Hypokalemia. 6. Hypocalcemia. 7. Right flank and right upper quadrant pain. PLAN: 1. IV fluids. 2. Investigate thyroid function. 3. Controlled hypertension. 4. Workup anemia. 5. Correct hypocalcemia and hypokalemia. 6. Echocardiogram. 7. Look into right upper quadrant and flank pain. CT is normal. MMODL / IJN: [id number] /
[2024-04-09 03:11] LABS: NT-Pro-B-Type Natriuretic Pept 191 pg/mL (0-125)
[2024-04-09 03:30] LABS: % Iron Saturation 18.66 (12.00-45.00); Ferritin 51.2 ng/mL (10.0-291.0); Iron 86 UG/DL (50-170); Lipase 31 U/L (14-63); T4, Free (Free Thyroxine) 0.21 ng/dL (0.80-1.80); Total Iron Binding Capacity 461 UG/DL (228-460)
[2024-04-09] MEDS: LEVOTHYROXINE 100 MCG TAB PO SCH (06:16)
[2024-04-09 07:36] VITALS: BP 146/97; PULSE 80; TEMP 97.6
[2024-04-09] MEDS: POTASSIUM CHLORIDE ER 20 MEQ TAB.ER PO SCH (09:18)
[2024-04-09] MEDS: ATORVASTATIN 80 MG TAB PO SCH (09:18)
[2024-04-09] MEDS: LORATADINE 10 MG TAB PO SCH (09:18)
[2024-04-09] MEDS: busPIRone HCl 10 MG TAB PO SCH (09:18)
--- NOTE | 2024-04-09 11:50 | CA ---
Transthoracic Echo Report Name: Felicity Smart Age: 49 Gender: F : 1975 Exam Date: 04/09/2024 09:14 Exam Location: [facility] Ht (in): 64 Wt (lb): 210 Ordering Physician: Sergio Wheeler MD Attending/Referring Phys: Summer ACEVEDO High Value Associate Loulou Lynne, RENÉ Procedure CPT: Indications: sob Cardiac Hx: Technical Quality: Fair Contrast 1: Total Dose (mL): Contrast 2: Total Dose (mL): MEASUREMENTS (Male / Female) Normal Values 2D ECHO LV Diastolic Diameter PLAX 3.5 cm 4.2 - 5.9 / 3.9 - 5.3 cm LV Systolic Diameter PLAX 2.4 cm IVS Diastolic Thickness 1.4 cm 0.6 - 1.0 / 0.6 - 0.9 cm LVPW Diastolic Thickness 1.8 cm 0.6 - 1.0 / 0.6 - 0.9 cm LV Relative Wall Thickness 0.9 FINDINGS Left Ventricle Moderately increased left ventricular wall thickness. Left ventricular cavity size normal. Normal left ventricular systolic function with no obvious regional wall motion abnormalities. Left ventricular ejection fraction is estimated at 55 to 60 %. Right Ventricle Right Atrium Left Atrium Mitral Valve Aortic Valve Tricuspid Valve Pulmonic Valve Pericardium Mild pericardial effusion with no evidence of tamponade.abnormal echoes on the pericardium. Aorta CONCLUSIONS Normal left ventricular size and systolic function Mild pericardial effusion with echogenic material in the pericardial space Limited echo. Previewed by: Dr. Jose Bustamante MD (Electronically Signed) Final Date: 09 April 2024 11:49
[2024-04-10] MEDS ORDERED: FAMOTIDINE 20 MG TAB PO SCH (09:00)
--- NOTE | 2024-04-11 00:47 | DS ---
DISCHARGE SUMMARY CHIEF COMPLAINT: Hypotension, hypothyroidism, and right upper quadrant pain. HISTORY OF PRESENT ILLNESS AND PHYSICAL EXAMINATION: Details of this lady's history and physical can be found in the initial workup. LABORATORY STUDIES: While she was in the hospital, she had laboratory studies, details of which can be found in the laboratory section of her chart. COURSE IN THE HOSPITAL: After admission, she was placed on bedrest, started on intravenous fluids and blood pressure was monitored closely. It came back up to normal. She also complained of right upper quadrant pain, the etiology of this was unknown. She was found to still be profoundly hypothyroid despite her stating that she was taking her medications. Her potassium is also low, and this was corrected. She could go home to outpatient followup on the . She was admonished to take her thyroid regularly. If this does not begin to approach to normal, her dosage will be increased again. FINAL DIAGNOSES: 1. Hypotension, iatrogenic. 2. Right upper quadrant pain, etiology unknown. 3. Hypothyroidism. 4. Status post thyroidectomy for thyroid carcinoma. 5. Hypokalemia. OPERATIONS: None. CONSULTATIONS: None. She is improved. MMODL / IJN: [id number] /
== END 2024-04-09 13:52 | disposition home or self-care (01) ==
LOC: EC 22:50 → 6NMEDSUR 04-08 02:06
PROVIDERS: ADMIT Family Medicine; ATTEND Family Medicine
DX: I95.9 Hypotension, unspecified (principal); R07.89 Other chest pain; E89.0 Postprocedural hypothyroidism; R10.11 Right upper quadrant pain; E87.6 Hypokalemia; Z85.850 Personal history of malignant neoplasm of thyroid; Z91.199 Patient's noncompliance with other medical treatment and regimen due to unspecified reason; E86.0 Dehydration; E83.51 Hypocalcemia; F32.A Depression, unspecified; Z79.899 Other long term (current) drug therapy; Z79.890 Hormone replacement therapy; F41.0 Panic disorder [episodic paroxysmal anxiety]; Z82.49 Family history of ischemic heart disease and other diseases of the circulatory system
CPT/HCPCS: 96360; 96361; 99285; 36415; 93005 ×2; 93308; 85379; 84439; 83880; 80053; 84443; 82607; 82728; 82746; 83540; 83550; 83605; 83690 ×2; 83735; 84484; 85025; 85045; 81003; 71046; 74176; G0378 ×2

== ENCOUNTER → 2024-04-23 | Outpatient (CLI) | payer OTHER ==
[2024-04-23 09:01] LABS: African American GFR (CKD) 76 (>60 ml/min/1.73 sqM); Blood Urea Nitrogen 20 mg/dL (7-17); Non-African American GFR(CKD) 66 (>60 ml/min/1.73 sqM)
--- NOTE | 2024-04-23 10:48 | CT ---
EXAMINATION TYPE: CT soft tissue neck w con DATE OF EXAM: 04/23/2024 9:35 AM COMPARISON: 01/22/2023 HISTORY: Dysphasia CT DLP: 749 mGycm Automated exposure control for dose reduction was used. CONTRAST: CT scan of the neck is performed following with IV Contrast, patient injected with 100 ml mL of Isovu e 300. Axial images are obtained, coronal and sagittal reformatted images are reviewed. FINDINGS: Lung is clear. There is an abnormal soft tissue density adjacent to the upper margin the aorta within the mediastinum measuring up to 3.9 cm similar to the prior exam likely related to lymphadenopathy. Submandibular glands are normal appearance. Parotid glands have a normal appearance. Thyroid gland is not well seen. Airways patent. Vocal cords are normal. Epiglottis normal. Base of tongue symmetric. Oropharynx and nasopharynx symmetric. Skull base normal. There is normal enhancement of the vasculature. No pathologic adenopathy. Multilevel hypertrophic and degenerative change of the spine most marked at C5-C6 and C6-C7 with ther e is prominent anterior osteophytes. Some degree of sclerosis of the bone may be related to degenerat amber changes rather than metastatic disease correlate clinically. Findings similar to prior exam. IMPRESSION: 1. No acute process. 2. There is soft tissue density in the in the upper mediastinum on the right partially included in th e [id number]. Recommend dedicated CT scan chest. This may be related to pericardial fluid/pericard ial\mediastinal cyst versus low density lymphadenopathy adenopathy. 3. There is degenerative disc disease at C5-C6 and C6-C7 with prominent anterior spurring which could be correlated with a modified barium swallow to assess for dysphasia if clinically warranted. [facility], , 04/23/2024 10:46 AM
== END | disposition home or self-care (01) ==
LOC: RADCTMAIN 08:21
PROVIDERS: ATTEND Family Medicine
CPT/HCPCS: 36415; 70491; 82565; 84520

== ENCOUNTER → 2024-11-16 | Outpatient (CLI) | payer OTHER ==
[~2024-11-16] MED LIST: REGADENOSON 0.4 MG/5 ML SYRINGE IV PRN
--- NOTE | 2024-11-16 12:29 | NM ---
EXAMINATION TYPE: NM stress lexiscan cardiolite DATE OF EXAM: 11/16/2024 COMPARISON: NONE CLINICAL INDICATION: Female, 49 years old with history of R00.2 PALPITATIONS, R07.9 CHEST PAIN; TECHNIQUE: After the intravenous administration of 10.8 mCi Tc 99m Sestamibi - Cardiolite resting SP ECT images acquired 45 minutes post injection. The patient received 0.4mg Lexiscan, 25.5 mCi Tc 99m Sestamibi - Stress images obtained [address] injection FINDINGS: Review of stress and rest SPECT images demonstrates small area of fixed perfusion defect mid anterior wall without correlate on polar maps. Findings suggest body wall attenuation artifact. No distinct r eversibility is seen. Gated analysis shows normal wall motion with an estimated left ventricular eje ction fraction of 55 %. TID is calculated at 0.8, within normal limits. IMPRESSION: No scintigraphic evidence for reversible ischemia. [facility], , 11/16/2024 12:27 PM
--- NOTE | 2024-11-16 18:00 | CA ---
Lexiscan Nuclear Stress Test Report Name: Felicity Smart Exam Date: 11/16/2024 10:42 Exam Location: [place] Stress Ht (in): 62 Wt (lb): 280 BSA: 2.21 Ordering Phys: Chris Rice MD Referring Phys: NEHEMIAS Technologist: TARI RESENDIZ Age: 49 Gender: F : 1975 Procedure CPT: Indications: R00.2 PALPITATIONS R07.9 CHEST PAIN ICD-10 Codes: Patient History: Medications: BUSPARONE,,,, TYLENOL,,,, LEVOTHYROXINE,,,, ATORVASTATIN,,,, PROPANOLOL,,,, MONTELUKAST,,, Meds past 24 hrs: Pretest Chest Pain: STRESS TEST Lexiscan Protocol Exercise Duration (min:sec): 02:[address] Depressions (mm): Angina Score: Zamora Score: Resting HR (bpm): 53 Peak HR (bpm): 75 Resting BP (mmHg): 129 / 91 Peak BP (mmHg): 118 / 83 MPHR: 173 Target HR: 147 % MPHR: 43 METS: 1.0 Total Dose: Peak Dose: Atropine: Double Product: 8850 BP Response: Stress Termination: INFUSION COMPLETE Stress Symptoms: NO SYMPTOMS Stress Summary: ECG ANALYSIS Resting ECG: Stress ECG: CONCLUSIONS Diagnosis: Chest pain shortness of breath palpitations hypertension No ECG evidence for ischemia during Lexiscan infusion Nuclear portion will be reported separately Dr. Joni Smallwood MD (Electronically Signed) Final Date: 16 Nov 2024 17:59
== END | disposition home or self-care (01) ==
LOC: RADNMMAIN 07:56
PROVIDERS: ATTEND Student in an Organized Health Care Education/Training Program
DX: R00.2 Palpitations (principal); R07.9 Chest pain, unspecified
CPT/HCPCS: 93017; 78452; A9500; J2785